=== PATIENT | female | born 1995 | race Asian ===

== ENCOUNTER → 2017-01-03 | Outpatient (CLI) | payer BC | END | disposition home or self-care (01) | LOC: C.PAPS 10:57 | PROVIDERS: ATTEND Family Medicine | DX: Z01.411 Encounter for gynecological examination (general) (routine) with abnormal findings (principal); R87.616 Satisfactory cervical smear but lacking transformation zone ==

== ENCOUNTER 2022-03-07 22:08 | Inpatient (IN) ==
--- NOTE | 2022-03-07 22:47 | Emergency Department Note ---
Impression & Plan Anxiety, Weight loss ADMIT ED Provider Note HPI: The patient is a 26-year-old female who presents the emergency department with her parents at the bedside over concern for stress, anxiety, abnormal behavior, and diminished appetite and weight loss over about the past 6 months. Patient's father is serving as the primary historian, the patient is very anxious here on arrival, she only gives me one-word answers. Patient's father states that the patient has been not taking very good care of herself over the past 6 months, she is not been eating very much, she is lost approximately 20 to 25 pounds during this time unintentionally, at times she exhibits some paranoia about "being committed to the hospital" and has fled the house without telling anyone leading them to search for her at times taking hours. On arrival here to the ED the patient is able to answer simple questions, she tells me she does not have any thoughts of self-harm, no thoughts of harming anyone else. She does have a delayed response to questioning and is very anxious appearing, does appear to possibly be responding to internal stimuli. Father states that she also "always says negative things to herself". She denies any auditory or visual hallucinations. Patient is otherwise hemodynamically stable on arrival. ROS: -Psychiatric: Abnormal behavior, weight loss. *10 point review systems was conducted and is otherwise negative unless stated above *Outpatient medications and allergy history reviewed PE: General: Alert, cachectic appearing HEENT: Normocephalic, atraumatic Eyes: Extraocular eye movement is intact, no scleral erythema Pulmonary: Clear to auscultation bilaterally, no wheezing Cardio: Regular rate and rhythm GI: Abdomen is soft, nontender : No suprapubic tenderness MSK: No evidence of trauma or malformation of the extremities, no edema Skin: No evidence of rash Neuro: Alert, no focal deficits Psychiatric: Cooperative EKG: Rate: 49 Rhythm: Sinus bradycardia Intervals: Within normal limits ST changes: No ST elevation Time: 0434 Medical Decision Making: Patient was medically cleared for assessment by case management, following discussion with case management and the patient's family the patient is agreeable for 201 admission. They feel like this is reasonable given her bizarre behavior lately according to the parents, she has been wandering off, she is possibly been red spotting to internal stimuli and having negative thoughts And talking to herself at times according to her father. She is also very cachectic appearing and apparently has not been eating. Patient was assessed for placement by 3 S., following this assessment it was determined that the patient should be admitted to the hospitalist service after discussions between psychiatry and medicine for 24-hour monitoring on telemetry over concern for the potential of a possible refeeding syndrome. Magnesium and phosphorus are noted to be within normal limits, patient is otherwise stable here in the ED, EKG does show some bradycardia that appears sinus, case was discussed with the on-call hospitalist for [facility] provider group, Dr. Ott, the patient was accepted to a monitored bed for further care Psychiatric consultation. Diagnosis: 1. Anxiety 2. Weight loss 3. Eating disorder, unspecified 4. High risk for refeeding syndrome 5. Bradycardia Disposition: ADMIT Alejandro Haines DO Emergency Medicine Past Med/Surg History Medical History Left-sided chest wall pain Surgical History No history of previous surgery Family History Sister Anorexia Mother Lymphoma Grandfather (Maternal) Prostate cancer Grandmother (Maternal) Breast cancer Denies family history of Ovarian cancer Myocardial infarction Lung cancer Colorectal cancer Stroke Social History Smoking Status: Never smoker Hx Alcohol Use: No Hx Substance Use: No Preferred Language: Croatian Communication Ability: Effective Visual Impairment: No Limitations Hearing Ability: Normal marital status: Single Current Living Situation: Other Current Living Situation Comment: sister current occupational status: student 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 Safe at Home: Yes Childhood Exposure to Second-Hand Smoke: No Physical Activity Frequency: 5-6 Times per Week Physical Activity Frequency Comment: squash, running, tennis pre pandemic Seatbelt Use: always Allergies Allergies Allergy/AdvReac Type Severity Reaction Status Date / Time No Known Allergies Allergy Verified 03/07/22 22:35 Home Meds Home Medications Medication Instructions Recorded Confirmed No Known Home Medications 03/02/21 03/07/22 Results & Data (ED) Vital Signs Vital Signs - 24 hr 03/07/22 22:12 03/08/22 04:36 Temperature 36.5 C Temperature Source Temporal Artery Scan Pulse Rate - Lying 52 L Pulse Rate - Sitting 56 L Pulse Rate - Standing 63 Pulse Rate 56 L Respiratory Rate 16 Respiratory Effort / Characteristics Non-Labored Spontaneous Respiratory Depth Normal Blood Pressure - Lying 105/72 Blood Pressure - Sitting 98/66 L Blood Pressure- Standing 90/67 L Blood Pressure 108/71 Blood Pressure Mean 83 Pulse Oximetry 100 Oxygen Delivery Method Room Air Sepsis Recent Fever Within 48 Hours No Sepsis New/Unexplained Change in Mental Status No Sepsis Action Taken by Nursing No Action Required Laboratory Data Result diagrams: 03/07/22 23:28 03/07/22 23:28 Lab Results 03/07/22 03/07/22 03/07/22 Range/Units 23:04 23:04 23:04 WBC (4.8-10.8) K/uL RBC (4.2-5.4) M/uL Hgb (12.0-16.0) g/dL Hct (37-47) % MCV (80-100) fL MCH (25-34) pg MCHC (32-36) g/dL RDW Std Deviation (36.4-46.3) fL RDW Coeff of Marlon (11.5-14.5) % Plt Count (130-400) K/uL MPV (7.4-10.4) fL Immature Gran % (Auto) % Neut % (Auto) % Lymph % (Auto) % [place] % (Auto) % Eos % (Auto) % Baso % (Auto) % Neut # (Auto) (1.4-6.5) K/uL Lymph # (Auto) (1.2-3.4) K/uL [place] # (Auto) (0.11-0.59) K/uL Eos # (Auto) (0-0.5) K/uL Baso # (Auto) (0-0.2) K/uL Immature Gran # (Auto) (0.00-0.02) K/uL Sodium (136-145) mmol/L Potassium (3.5-5.1) mmol/L Chloride (98-107) mmol/L Carbon Dioxide (21-32) mmol/L Anion Gap (3-11) BUN (6-23) mg/dl Creatinine (0.6-1.2) mg/dl Est Cr Clr Drug Dosing ml/min Est GFR ( Amer) ml/min Est GFR (Non-Af Amer) ml/min BUN/Creatinine Ratio (10-20) Glucose (70-99(Fasting)) mg/dl Calcium (8.5-10.1) mg/dl Phosphorus (2.5-4.9) mg/dl Magnesium (1.7-2.4) mg/dl Total Bilirubin (0.2-1.0) mg/dl AST (13-39) U/L ALT (7-52) U/L Alkaline Phosphatase (34-104) U/L Total Protein (6.0-8.3) gm/dl Albumin (3.4-5.0) gm/dl Globulin (2.5-4.0) gm/dl Albumin/Globulin Ratio (0.9-2) TSH (0.300-4.500) uIu/ml HCG, Qual (Negative) Urine Color Dark Yellow Urine Appearance Clear (Clear) Urine pH 7.5 (4.5-7.5) Ur Specific [place] 1.024 (1.000-1.030) Urine Protein 1+ H (Negative) Urine Glucose (UA) Negative (Negative) Urine Ketones Negative (Negative) Urine Blood Negative (Negative) Urine Nitrite Negative (Negative) Urine Bilirubin Negative (Negative) Urine Urobilinogen Negative (Negative) Ur Leukocyte Esterase Negative (Negative) Urine WBC (Auto) 1-5 (0-5) /hpf Urine RBC (Auto) 0-4 (0-4) /hpf U Hyaline Cast (Auto) 1-5 (0-5) /lpf U Epithel Cells (Auto) 20-30 H (0-5) /lpf Urine Bacteria (Auto) Negative (Negative) POC Ur Test (NEG) Salicylates (3.0-30) mg/dl Urine Opiates Screen Neg (Neg) Ur Methadone, Qual Neg (Neg) Acetaminophen (10-30) ug/ml Urine Barbiturates Neg (Neg) Ur Phencyclidine (PCP) Neg (Neg) U Amphetamin/Meth Scrn Neg (Neg) MDMA (Ecstasy) Screen Neg (Neg) U Benzodiazepines Scrn Neg (Neg) Ur Cocaine Metabolite Neg (Neg) U Marijuana (THC) Screen Neg (Neg) Ethyl Alcohol mg/dL (<10.0) mg/dl SARS-CoV-2, RNA, NAAT NEGATIVE (NEGATIVE) 03/07/22 03/07/22 03/07/22 Range/Units 23:04 23:28 23:28 WBC 4.68 L (4.8-10.8) K/uL RBC 4.54 (4.2-5.4) M/uL Hgb 14.0 (12.0-16.0) g/dL Hct 40.9 (37-47) % MCV 90.1 (80-100) fL MCH 30.8 (25-34) pg MCHC 34.2 (32-36) g/dL RDW Std Deviation 42.8 (36.4-46.3) fL RDW Coeff of Marlon 13.0 (11.5-14.5) % Plt Count 238 (130-400) K/uL MPV 8.5 (7.4-10.4) fL Immature Gran % (Auto) 0.0 % Neut % (Auto) 53.4 % Lymph % (Auto) 38.7 % [place] % (Auto) 5.6 % Eos % (Auto) 2.1 % Baso % (Auto) 0.2 % Neut # (Auto) 2.50 (1.4-6.5) K/uL Lymph # (Auto) 1.81 (1.2-3.4) K/uL [place] # (Auto) 0.26 (0.11-0.59) K/uL Eos # (Auto) 0.10 (0-0.5) K/uL Baso # (Auto) 0.01 (0-0.2) K/uL Immature Gran # (Auto) 0.00 (0.00-0.02) K/uL Sodium 139 (136-145) mmol/L Potassium 3.6 (3.5-5.1) mmol/L Chloride 99 (98-107) mmol/L Carbon Dioxide 32 (21-32) mmol/L Anion Gap 8 (3-11) BUN 12 (6-23) mg/dl Creatinine 0.88 (0.6-1.2) mg/dl Est Cr Clr Drug Dosing 63.1 ml/min Est GFR ( Amer) 103.6 ml/min Est GFR (Non-Af Amer) 89.4 ml/min BUN/Creatinine Ratio 13.6 (10-20) Glucose 81 (70-99(Fasting)) mg/dl Calcium 10.4 H (8.5-10.1) mg/dl Phosphorus (2.5-4.9) mg/dl Magnesium (1.7-2.4) mg/dl Total Bilirubin 1.1 H (0.2-1.0) mg/dl AST 16 (13-39) U/L ALT 13 (7-52) U/L Alkaline Phosphatase 43 (34-104) U/L Total Protein 7.7 (6.0-8.3) gm/dl Albumin 5.2 H (3.4-5.0) gm/dl Globulin 2.5 (2.5-4.0) gm/dl Albumin/Globulin Ratio 2.1 H (0.9-2) TSH (0.300-4.500) uIu/ml HCG, Qual (Negative) Urine Color Urine Appearance (Clear) Urine pH (4.5-7.5) Ur Specific [place] (1.000-1.030) Urine Protein (Negative) Urine Glucose (UA) (Negative) Urine Ketones (Negative) Urine Blood (Negative) Urine Nitrite (Negative) Urine Bilirubin (Negative) Urine Urobilinogen (Negative) Ur Leukocyte Esterase (Negative) Urine WBC (Auto) (0-5) /hpf Urine RBC (Auto) (0-4) /hpf U Hyaline Cast (Auto) (0-5) /lpf U Epithel Cells (Auto) (0-5) /lpf Urine Bacteria (Auto) (Negative) POC Ur Test NEG (NEG) Salicylates (3.0-30) mg/dl Urine Opiates Screen (Neg) Ur Methadone, Qual (Neg) Acetaminophen (10-30) ug/ml Urine Barbiturates (Neg) Ur Phencyclidine (PCP) (Neg) U Amphetamin/Meth Scrn (Neg) MDMA (Ecstasy) Screen (Neg) U Benzodiazepines Scrn (Neg) Ur Cocaine Metabolite (Neg) U Marijuana (THC) Screen (Neg) Ethyl Alcohol mg/dL (<10.0) mg/dl SARS-CoV-2, RNA, NAAT (NEGATIVE) 03/07/22 03/07/22 03/07/22 Range/Units 23:28 23:28 23:28 WBC (4.8-10.8) K/uL RBC (4.2-5.4) M/uL Hgb (12.0-16.0) g/dL Hct (37-47) % MCV (80-100) fL MCH (25-34) pg MCHC (32-36) g/dL RDW Std Deviation (36.4-46.3) fL RDW Coeff of Marlon (11.5-14.5) % Plt Count (130-400) K/uL MPV (7.4-10.4) fL Immature Gran % (Auto) % Neut % (Auto) % Lymph % (Auto) % [place] % (Auto) % Eos % (Auto) % Baso % (Auto) % Neut # (Auto) (1.4-6.5) K/uL Lymph # (Auto) (1.2-3.4) K/uL [place] # (Auto) (0.11-0.59) K/uL Eos # (Auto) (0-0.5) K/uL Baso # (Auto) (0-0.2) K/uL Immature Gran # (Auto) (0.00-0.02) K/uL Sodium (136-145) mmol/L Potassium (3.5-5.1) mmol/L Chloride (98-107) mmol/L Carbon Dioxide (21-32) mmol/L Anion Gap (3-11) BUN (6-23) mg/dl Creatinine (0.6-1.2) mg/dl Est Cr Clr Drug Dosing ml/min Est GFR ( Amer) ml/min Est GFR (Non-Af Amer) ml/min BUN/Creatinine Ratio (10-20) Glucose (70-99(Fasting)) mg/dl Calcium (8.5-10.1) mg/dl Phosphorus (2.5-4.9) mg/dl Magnesium (1.7-2.4) mg/dl Total Bilirubin (0.2-1.0) mg/dl AST (13-39) U/L ALT (7-52) U/L Alkaline Phosphatase (34-104) U/L Total Protein (6.0-8.3) gm/dl Albumin (3.4-5.0) gm/dl Globulin (2.5-4.0) gm/dl Albumin/Globulin Ratio (0.9-2) TSH 1.390 (0.300-4.500) uIu/ml HCG, Qual (Negative) Urine Color Urine Appearance (Clear) Urine pH (4.5-7.5) Ur Specific [place] (1.000-1.030) Urine Protein (Negative) Urine Glucose (UA) (Negative) Urine Ketones (Negative) Urine Blood (Negative) Urine Nitrite (Negative) Urine Bilirubin (Negative) Urine Urobilinogen (Negative) Ur Leukocyte Esterase (Negative) Urine WBC (Auto) (0-5) /hpf Urine RBC (Auto) (0-4) /hpf U Hyaline Cast (Auto) (0-5) /lpf U Epithel Cells (Auto) (0-5) /lpf Urine Bacteria (Auto) (Negative) POC Ur Test (NEG) Salicylates < 3.0 L (3.0-30) mg/dl Urine Opiates Screen (Neg) Ur Methadone, Qual (Neg) Acetaminophen < 3 L (10-30) ug/ml Urine Barbiturates (Neg) Ur Phencyclidine (PCP) (Neg) U Amphetamin/Meth Scrn (Neg) MDMA (Ecstasy) Screen (Neg) U Benzodiazepines Scrn (Neg) Ur Cocaine Metabolite (Neg) U Marijuana (THC) Screen (Neg) Ethyl Alcohol mg/dL < 10.0 (<10.0) mg/dl SARS-CoV-2, RNA, NAAT (NEGATIVE) 03/07/22 03/07/22 Range/Units 23:28 23:28 WBC (4.8-10.8) K/uL RBC (4.2-5.4) M/uL Hgb (12.0-16.0) g/dL Hct (37-47) % MCV (80-100) fL MCH (25-34) pg MCHC (32-36) g/dL RDW Std Deviation (36.4-46.3) fL RDW Coeff of Marlon (11.5-14.5) % Plt Count (130-400) K/uL MPV (7.4-10.4) fL Immature Gran % (Auto) % Neut % (Auto) % Lymph % (Auto) % [place] % (Auto) % Eos % (Auto) % Baso % (Auto) % Neut # (Auto) (1.4-6.5) K/uL Lymph # (Auto) (1.2-3.4) K/uL [place] # (Auto) (0.11-0.59) K/uL Eos # (Auto) (0-0.5) K/uL Baso # (Auto) (0-0.2) K/uL Immature Gran # (Auto) (0.00-0.02) K/uL Sodium (136-145) mmol/L Potassium (3.5-5.1) mmol/L Chloride (98-107) mmol/L Carbon Dioxide (21-32) mmol/L Anion Gap (3-11) BUN (6-23) mg/dl Creatinine (0.6-1.2) mg/dl Est Cr Clr Drug Dosing ml/min Est GFR ( Amer) ml/min Est GFR (Non-Af Amer) ml/min BUN/Creatinine Ratio (10-20) Glucose (70-99(Fasting)) mg/dl Calcium (8.5-10.1) mg/dl Phosphorus 4.2 (2.5-4.9) mg/dl Magnesium 2.1 (1.7-2.4) mg/dl Total Bilirubin (0.2-1.0) mg/dl AST (13-39) U/L ALT (7-52) U/L Alkaline Phosphatase (34-104) U/L Total Protein (6.0-8.3) gm/dl Albumin (3.4-5.0) gm/dl Globulin (2.5-4.0) gm/dl Albumin/Globulin Ratio (0.9-2) TSH (0.300-4.500) uIu/ml HCG, Qual Negative (Negative) Urine Color Urine Appearance (Clear) Urine pH (4.5-7.5) Ur Specific [place] (1.000-1.030) Urine Protein (Negative) Urine Glucose (UA) (Negative) Urine Ketones (Negative) Urine Blood (Negative) Urine Nitrite (Negative) Urine Bilirubin (Negative) Urine Urobilinogen (Negative) Ur Leukocyte Esterase (Negative) Urine WBC (Auto) (0-5) /hpf Urine RBC (Auto) (0-4) /hpf U Hyaline Cast (Auto) (0-5) /lpf U Epithel Cells (Auto) (0-5) /lpf Urine Bacteria (Auto) (Negative) POC Ur Test (NEG) Salicylates (3.0-30) mg/dl Urine Opiates Screen (Neg) Ur Methadone, Qual (Neg) Acetaminophen (10-30) ug/ml Urine Barbiturates (Neg) Ur Phencyclidine (PCP) (Neg) U Amphetamin/Meth Scrn (Neg) MDMA (Ecstasy) Screen (Neg) U Benzodiazepines Scrn (Neg) Ur Cocaine Metabolite (Neg) U Marijuana (THC) Screen (Neg) Ethyl Alcohol mg/dL (<10.0) mg/dl SARS-CoV-2, RNA, NAAT (NEGATIVE) Discharge Plan Visit Data Chief Complaint: Mental Health Evaluation Stated Complaint: MENTAL HEALTH EVALUATION ED Provider: Alejandro Haines Discharge Problem: Anxiety, Weight loss Forms Stand Alone Forms: [facility], Suicide Prevention Resources Prescriptions Prescriptions: No Action No Known Home Medications RF: 0 Referrals Referrals: Symone Kirkland MD [Primary Care Provider] -
[2022-03-07 23:24] LABS: Appearance Urine Clear (Clear); Bacteria Urine Automated Negative (Negative); Bilirubin Urine Negative (Negative); Blood Urine Negative (Negative); Color Urine Dark Yellow; Epithelial Cell Urine Auto 20-30 /lpf (0-5); Glucose Urine UA Negative (Negative); Ketones Urine Negative (Negative); Leukocyte Esterase Urine Negative (Negative); Nitrite Urine Negative (Negative); RBC Urine Automated 0-4 /hpf (0-4); Specific Gravity Urine 1.024 (1.000-1.030); Urobilinogen Urine Negative (Negative); pH Urine 7.5 (4.5-7.5)
[2022-03-07 23:45] LABS: Protein Urine 1+ (Negative)
[2022-03-07 23:46] LABS: Basophils # (auto) 0.01 K/uL (0-0.2); Basophils % (auto) 0.2 %; Eosinophils % (auto) 2.1 %; Hematocrit (blood only) 40.9 % (37-47); Lymphocytes # (auto) 1.81 K/uL (1.2-3.4); Lymphocytes % (auto) 38.7 %; Mean Corpuscular Hemoglobin 30.8 pg (25-34); Mean Corpuscular Hgb Conc 34.2 g/dL (32-36); Mean Corpuscular Volume 90.1 fL (80-100); Mean Platelet Volume 8.5 fL (7.4-10.4); Monocytes # (auto) 0.26 K/uL (0.11-0.59); Monocytes % (auto) 5.6 %; Neutrophils % (auto) 53.4 %; Platelet Count 238 K/uL (130-400); RDW Standard Deviation 42.8 fL (36.4-46.3); Red Blood Count 4.54 M/uL (4.2-5.4); White Blood Count 4.68 K/uL (4.8-10.8)
[2022-03-07 23:47] LABS: Amphetamines+Metham, Urine Neg (Neg); Barbiturates, Urine Neg (Neg); Benzodiazepine, Urine Neg (Neg); Cocaine, Urine Neg (Neg); MDMA (Ecstacy), Urine Neg (Neg); Methadone, Urine Neg (Neg); Opiate, Urine Neg (Neg); Phencyclidine, Urine Neg (Neg)
[2022-03-08 00:01] LABS: Pregnancy Test, Serum Negative (Negative)
[2022-03-08 00:08] LABS: Acetaminophen < 3 ug/ml (10-30); Albumin Globulin Ratio 2.1 (0.9-2); Albumin Level 5.2 gm/dl (3.4-5.0); BUN Creatinine Ratio 13.6 (10-20); Bilirubin,Total 1.1 mg/dl (0.2-1.0); Calcium 10.4 mg/dl (8.5-10.1); Creatinine Clr Calc Pharmacy 63.1 ml/min; Est GFR (African American) 103.6 ml/min; Est GFR (Non-African American) 89.4 ml/min; Globulin 2.5 gm/dl (2.5-4.0); Potassium 3.6 mmol/L (3.5-5.1); Salicylate < 3.0 mg/dl (3.0-30); Total Protein 7.7 gm/dl (6.0-8.3)
[2022-03-08 05:24] LABS: Magnesium 2.1 mg/dl (1.7-2.4); Phosphorus 4.2 mg/dl (2.5-4.9)
--- NOTE | 2022-03-08 06:21 | Communication Note ---
Date of Service: March 08, 2022 patient presented to me by liaison nurse for first time just after 4 am. Patient is "non functional" and c/o anxiety, most of which surrounds eating/beliefs about sugar and health. Has at least a 2 year history of restrictive eating, sounds like may have started as orthorexia, progressed to no menses. Weight loss in last 6 months estimated at 20-25 lbs. Lives with parents and unclear the last time they saw her eat/drink. Requested EKG given her anorexia, BMI 15.4, and pulse while anxious in ED of 56 as well as orthostatics and Mg, phos. Labs aren't particularly remarkable but she meets multiple criteria for inpatient ED care (BMI, sakina, some of her anxiety may be symptomatic bradycardia or hypoglycemia). ED orthostatics not yet on chart but systolic BP drops on standing but with p increase to 63. Case discussed with Dr. Ott due to concerns about need for cardiac monitoring overnight as P typically drops. Also, no current estimation of calorie or fluid intake (we cannot offer IVF) and patient is high risk for refeeding syndrome. Inpatient ED treatment seems most appropriate if P remains >50 for 24 hrs and patient amenable. She reportedly is willing for psychiatric medications as well but typically main treatment is refeeding.
--- NOTE | 2022-03-08 07:11 | History & Physical Report ---
Date of Service March 08, 2022 Assessment & Plan (1) Weight loss: Plan: 26yo female presenting with her parents due to concern for inability to function at home, increased anxiety. Concern for ongoing eating disorder - patient with significant anxiety surrounding food. BMI is 15.4. Patient with significant weight loss of 20-25 pounds over the last 6 months has secondary amenorrhea as well. Bradycardic at 49bpm on EKG. Overall appears cachectic but well hydrated. Electrolytes, renal function and liver are largely normal. Patient last ate a small amount of food 2 days ago. Possibly at risk for refeeding syndrome given presumed duration of dietary restriction -Admit to medical with telemetry -Administer banana bag x 1 -Monitor electrolytes, Mg and PO4 daily - decline in PO4 with PO intake may indicate refeeding syndrome -Thiamine 200mg IV daily -Vitamin B12 500mg daily -Psychiatry evaluation appreciated -1:1 sitter due to concern for elopement (2) Abnormal behavior: Plan: Uncertain if patient's abnormal behavior is secondary to anxiety vs other psychiatric condition. She denies AH/VH as well as SI/HI. Some concern that she is responding to internal stimuli. Difficult to obtain full assessment. -Psychiatry evaluation appreciated -Possibly Remeron for dietary stimulation (3) Anxiety: Plan: Patient demonstrating progressive anxiety specifically surrounding food. Unable to care for herself at home. -Psychiatry evaluation appreciated (4) Hypercalcemia: Plan: Calcium = 10.4. Possibly secondary to dehydration (elevated Albumin as well, higher SG on UA) -Check intact PTH -Check ionized Ca -IVF- NSS at 80mL/hr x 2 liters Plan: F/E/N - Banana bag ordered, NSS at 80mL/hr x 2 liters, monitor electrolytes, regular diet as tolerated Ppx - low risk for DVT Code - Full Dispo - Admit to medical with telemetry History of Present Illness Chief Complaint: poor oral intake, abnormal behavior Primary Care Provider: Symone Kirkland MD Fanny Houston is a 26yo female presenting to [facility] ER with her parents due to concern for difficulty functioning at home. Majority of history obtained by parents. Patient reportedly experiencing increased anxiety surrounding her day to day activities to the point where she is unable to care for herself. She displays a lot of anxiety around eating and has displayed restrictive eating behaviors for possibly 2 years. Her parents state that she does not eat much at home - at a small amount of food two days ago. She has had significant unintentional weight loss of 20-25 pounds over the last 6 months. She denies binge eating behavior or purging. Denies excess exercise. Family states that she acts strangely at times. Is minimally responsive and non-verbal at times. She has a fear that she will be put away in a hospital and at times tries to flee from her home. She denies auditory or visual hallucinations. Denies suicidal or homicidal ideation. Denies prior psychiatric diagnoses. Also denies fever, chills, headache, neck pain, visual changes, chest pain, palpitations, cough, SOB, abdominal pain, nausea, vomiting, diarrhea. 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 Patient will be admitted to medical with telemetry to monitor heart rate. Allergies Allergy/AdvReac Type Severity Reaction Status Date / Time No Known Allergies Allergy Verified 03/07/22 22:35 Home Medications Medication Instructions Recorded Confirmed Type No Known Home Medications 03/02/21 03/07/22 History Past Med/Surg History Medical History (Updated 03/08/22 @ 06:56 by Monae Ott DO) Left-sided chest wall pain Secondary amenorrhea Probable hypothalamic dysfunction Weight loss Surgical History No history of previous surgery Family History Sister Anorexia Mother Lymphoma Grandfather (Maternal) Prostate cancer Grandmother (Maternal) Breast cancer Denies family history of Ovarian cancer Myocardial infarction Lung cancer Colorectal cancer Stroke Social History Smoking Status: Never smoker Hx Alcohol Use: No Hx Substance Use: No Preferred Language: Sammarinese Communication Ability: Effective Visual Impairment: No Limitations Hearing Ability: Normal marital status: Single Current Living Situation: Other Current Living Situation Comment: sister current occupational status: student 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 Safe at Home: Yes Childhood Exposure to Second-Hand Smoke: No Physical Activity Frequency: 5-6 Times per Week Physical Activity Frequency Comment: squash, running, tennis pre pandemic Seatbelt Use: always Review of Systems Review of Systems: All systems reviewed & are unremarkable except as noted in HPI & below Physical Exam Physical Exam: General: patient frail and cachectic, appears anxious and stressed Skin: warm, dry, intact, no rashes or lesions HEENT: NC/AT, PERRL, EOMI, anicteric sclera, conjunctiva without injection, external ear normal to inspection and nontender, nares patent, moist mucus membranes, dentition intact, no oropharyngeal lesions, neck supple, trachea midline, no LAD, no thyromegaly, no JVD Heart: +S1/S2, regular, bradycardic, no m/r/g Lungs: equal air entry bilaterally, no rales/rhonchi/wheezes Abd: +BS, soft, NT/ND, no masses/organomegaly/ascites Ext: warm, 2+ pulses in UE/LE bilaterally, no clubbing/cyanosis or edema Neuro: nonfocal, answers questions very softly in one word answers, no facial droop, moving all extremities on command with equal strength 5/5 Results & Data Results & Data ([facility]) Vital Signs (Past 12 Hours) Vital Signs Temp Pulse Resp BP Pulse Ox 03/07/22 22:12 36.5 C 56 L 16 108/71 100 Laboratory Results Laboratory Results WBC 4.68 K/uL (4.8-10.8) L 03/07/22 23:28 RBC 4.54 M/uL (4.2-5.4) 03/07/22 23:28 Hgb 14.0 g/dL (12.0-16.0) 03/07/22 23:28 Hct 40.9 % (37-47) 03/07/22 23:28 MCV 90.1 fL (80-100) 03/07/22 23:28 MCH 30.8 pg (25-34) 03/07/22 23:28 MCHC 34.2 g/dL (32-36) 03/07/22 23:28 RDW Std Deviation 42.8 fL (36.4-46.3) 03/07/22 23:28 RDW Coeff of Marlon 13.0 % (11.5-14.5) 03/07/22 23:28 Plt Count 238 K/uL (130-400) 03/07/22 23:28 MPV 8.5 fL (7.4-10.4) 03/07/22: Immature Gran % (Auto) 0.0 % 03/07/22 23: Neut % (Auto) 53.4 % 03/07/22: Lymph % (Auto) 38.7 % 03/07/22: [place] % (Auto) 5.6 % 03/07/22: Eos % (Auto) 2.1 % 03/07/22: Baso % (Auto) 0.2 % 03/07/22 Neut # (Auto) 2.50 K/uL (1.4-6.5) 03/07/22: Lymph # (Auto) 1.81 K/uL (1.2-3.4) 03/07/22: [place] # (Auto) 0.26 K/uL (0.11-0.59) 03/07/22: Eos # (Auto) 0.10 K/uL (0-0.5) 03/07/22: Baso # (Auto) 0.01 K/uL (0-0.2) 03/07/22: Immature Gran # (Auto) 0.00 K/uL (0.00-0.02) 03/07/22 Sodium 139 mmol/L (136-145) 03/07/22: Potassium 3.6 mmol/L (3.5-5.1) 03/07/22: Chloride 99 mmol/L (98-107) 03/07/22: Carbon Dioxide 32 mmol/L (21-32) 03/07/22: Anion Gap 8 (3-11) 03/07/22: BUN 12 mg/dl (6-23) 03/07/22: Creatinine 0.88 mg/dl (0.6-1.2) 03/07/22 Est Cr Clr Drug Dosing 63.1 ml/min 03/07/22: Est GFR ( Amer) 103.6 ml/min 03/07/22: Est GFR (Non-Af Amer) 89.4 ml/min 03/07/22: BUN/Creatinine Ratio 13.6 (10-20) 03/07/22: Glucose 81 mg/dl (70-99(Fasting)) 03/07/22: Calcium 10.4 mg/dl (8.5-10.1) H 03/07/22: Phosphorus 4.2 mg/dl (2.5-4.9) 03/07/22: Magnesium 2.1 mg/dl (1.7-2.4) 03/07/22: Total Bilirubin 1.1 mg/dl (0.2-1.0) H 03/07/22 23: AST 16 U/L (13-39) 03/07/22: ALT 13 U/L (7-52) 03/07/22: Alkaline Phosphatase 43 U/L (34-104) 03/07/22: Total Protein 7.7 gm/dl (6.0-8.3) 03/07/22: Albumin 5.2 gm/dl (3.4-5.0) H 03/07/22: Globulin 2.5 gm/dl (2.5-4.0) 03/07/22: Albumin/Globulin Ratio 2.1 (0.9-2) H 03/07/22: TSH 1.390 uIu/ml (0.300-4.500) 03/07/22: HCG, Qual Negative (Negative) 03/07/22: Urine Color Dark Yellow 03/07/22 23: Urine Appearance Clear (Clear) 03/07/22 23: Urine pH 7.5 (4.5-7.5) 03/07/22 23: Ur Specific [place] 1.024 (1.000-1.030) 03/07/22 23: Urine Protein 1+ (Negative) H 03/07/22 23: Urine Glucose (UA) Negative (Negative) 03/07/22 23: Urine Ketones Negative (Negative) 03/07/22 23: Urine Blood Negative (Negative) 03/07/22 23: Urine Nitrite Negative (Negative) 03/07/22 23: Urine Bilirubin Negative (Negative) 03/07/22 23: Urine Urobilinogen Negative (Negative) 03/07/22 23:04 Ur Leukocyte Esterase Negative (Negative) 03/07/22 23:04 Urine WBC (Auto) 1-5 /hpf (0-5) 03/07/22 23:04 Urine RBC (Auto) 0-4 /hpf (0-4) 03/07/22 23:04 U Hyaline Cast (Auto) 1-5 /lpf (0-5) 03/07/22 23:04 U Epithel Cells (Auto) 20-30 /lpf (0-5) H 03/07/22 23:04 Urine Bacteria (Auto) Negative (Negative) 03/07/22 23:04 POC Ur Test NEG (NEG) 03/07/22 23:04 Salicylates < 3.0 mg/dl (3.0-30) L 03/07/22 23:28 Urine Opiates Screen Neg (Neg) 03/07/22 23:04 Ur Methadone, Qual Neg (Neg) 03/07/22 23:04 Acetaminophen < 3 ug/ml (10-30) L 03/07/22 23:28 Urine Barbiturates Neg (Neg) 03/07/22 23:04 Ur Phencyclidine (PCP) Neg (Neg) 03/07/22 23:04 U Amphetamin/Meth Scrn Neg (Neg) 03/07/22 23:04 MDMA (Ecstasy) Screen Neg (Neg) 03/07/22 23:04 U Benzodiazepines Scrn Neg (Neg) 03/07/22 23:04 Ur Cocaine Metabolite Neg (Neg) 03/07/22 23:04 U Marijuana (THC) Screen Neg (Neg) 03/07/22 23:04 Ethyl Alcohol mg/dL < 10.0 mg/dl (<10.0) 03/07/22 23:28 SARS-CoV-2, RNA, NAAT NEGATIVE (NEGATIVE) 03/07/22 23:04 ECG Additional Comments: SB at 49bpm, normal axis, SE=923, QRS=76, UYp=757 PG Care Time/CCT Total # of Minutes Spent Total Time Spent with Patient: Total time spent is greater than 50% in coordination of care (as documented) at patient's floor/unit and/or counseling patient: Coding Level of Care Code INT OBSERVATION CARE 50M LVL 2 Diagnoses Weight loss R63.4 Anxiety F41.9 Abnormal behavior R46.89 Hypercalcemia E83.52
[2022-03-08] MEDS ORDERED: MULTI-VITAMIN INFUSION 10 ML, THIAMINE HCL 100 MG, FOLIC ACID 1 MG in SODIUM CHLORIDE 0... IV ONE (07:30)
[2022-03-08] MEDS ORDERED: ACETAMINOPHEN 325 MG TAB PO PRN (09:46)
[2022-03-08] MEDS ORDERED: SODIUM CHLORIDE 0.9% 1000ML 1,000 ML IV SCH (09:46)
[2022-03-08] MEDS ORDERED: THIAMINE HCL 200 MG in SODIUM CHLORIDE 0.9% 50 ML IV SCH (10:30)
[2022-03-08] MEDS: MULTIVITAMIN TAB PO SCH (11:20)
[2022-03-08] MEDS: CYANOCOBALAMIN (B-12) 500 MCG TABLET PO SCH (11:20)
--- NOTE | 2022-03-08 11:36 | Electrocardiogram Report ---
Test Reason : Blood Pressure : / mmHG Vent. Rate : 049 BPM Atrial Rate : 049 BPM P-R Int : 158 ms QRS Dur : 076 ms QT Int : 458 ms P-R-T Axes : 052 089 068 degrees QTc Int : 413 ms Sinus bradycardia Otherwise normal ECG When compared with ECG of 01-JUN-2021 16:25, Vent. rate has decreased BY 52 BPM Minimal criteria for Inferior infarct are no longer Present ST elevation has replaced ST depression in Inferior leads ST no longer depressed in Lateral leads T wave inversion no longer evident in Inferior leads T wave inversion less evident in Anterolateral leads Confirmed by Sin Sifuentes ([id number]) on 03/08/2022 11:35:36 AM Referred By: REFERRED SELF Confirmed By:Anthony Sifuentes
--- NOTE | 2022-03-08 14:19 | Psychiatric Consultation ---
Date of Consultation March 08, 2022 Impression / Recommendations Impression 26 yo female with progressive preoccupation with food, weight loss, resulting in secondary amenorrhea for some time now with classic symptoms of low BMI, lanugo, bradycardia. Patient not taking PO and is having anxiety around communication. Unable to exclude psychotic depression but restoring nutrition is primary treatment need. (1) Anorexia nervosa with dangerously low body weight: BMI <18 (15.4) and bradycardia with ongoing restricting are clear criteria for inpatient ED treatment when medically clear. consider Ativan challenge if any emerging catatonic features will discuss Zyprexa trial, likely 1.25 mg to start and taking PO after period of cardiac monitoring Protective Factors Assessment Employed: No Psych History Identifying Data 26 yo female from [place]. Patient seen with father at bedside while still in ED. Medical admission pending for complications of anorexia. Chief Complaint "[]". History of Present Illness patient presented to me by liaison nurse earlier this am. Patient is "non functional" at home and c/o anxiety, most of which surrounds eating/beliefs about sugar and health. Has at least a 2 year history of restrictive eating, sounds like may have started as orthorexia, progressed to no menses. Weight loss in last 6 months estimated at 20-25 lbs. Lives with parents and unclear the last time they saw her eat/drink. Requested EKG given her anorexia, BMI 15.4, and pulse while anxious in ED of 56 as well as orthostatics and Mg, phos. Vent rate 49 on EKG and placed on monitor. Patient is selectively mute, at least with parents present. Hadn't touched liquid/breakfast/lunch at bedside. She is not able to provide additional history. Father notes total lack of interest in activities like piano. Denies any catatonic features such as posturing or echolalia. Has been seen a few times in PCP office and ED, states they have never been able to find providers accepting patients. Past Psychiatric History Previous Psych History: no formal History of Previous Suicide Attempt: No Past Medication Trials: denied Allergies Allergy/AdvReac Type Severity Reaction Status Date / Time No Known Allergies Allergy Verified 03/07/22 22:35 Home Medications Medication Instructions Recorded Confirmed Type No Known Home Medications 03/02/21 03/07/22 History Family History father denied. Substance Abuse History denied Personal History Living Arrangements: Home Highest Grade Completed: Some College (had attended [employer] briefly but had to return home) Employment Status: Unemployed Marital Status: Single Number Of Children: 0 Psychological Trauma History Comment: none reported Patient History Medical History Left-sided chest wall pain Secondary amenorrhea Probable hypothalamic dysfunction Weight loss Surgical History No history of previous surgery Family History Sister Anorexia Mother Lymphoma Grandfather (Maternal) Prostate cancer Grandmother (Maternal) Breast cancer Denies family history of Ovarian cancer Myocardial infarction Lung cancer Colorectal cancer Stroke Social History Smoking Status: Never smoker Hx Alcohol Use: No Hx Substance Use: No Preferred Language: French Communication Ability: Effective Visual Impairment: No Limitations Hearing Ability: Normal marital status: Single Current Living Situation: Other Current Living Situation Comment: sister current occupational status: student 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 Does not appear to be responding to internal stimuli. Will reassess when settled on medical floor. Vital Signs (Past 24 Hours): Last Vital Signs Temp 36.5 C 03/07/22 22:12 Pulse 78 03/08/22 12:43 Resp 16 03/08/22 12:43 BP 109/70 03/08/22 12:43 Pulse Ox 100 03/08/22 12:43 Review of Systems Unobtainable due to mental health condition Results & Data (PSY) Laboratory Results 03/08/22 03/08/22 03/07/22 Range/Units 10:23 10:23 23:28 WBC (4.8-10.8) K/uL RBC (4.2-5.4) M/uL Hgb (12.0-16.0) g/dL Hct (37-47) % MCV (80-100) fL MCH (25-34) pg MCHC (32-36) g/dL RDW Std Deviation (36.4-46.3) fL RDW Coeff of Marlon (11.5-14.5) % Plt Count (130-400) K/uL MPV (7.4-10.4) fL Immature Gran % (Auto) % Neut % (Auto) % Lymph % (Auto) % [place] % (Auto) % Eos % (Auto) % Baso % (Auto) % Neut # (Auto) (1.4-6.5) K/uL Lymph # (Auto) (1.2-3.4) K/uL [place] # (Auto) (0.11-0.59) K/uL Eos # (Auto) (0-0.5) K/uL Baso # (Auto) (0-0.2) K/uL Immature Gran # (Auto) (0.00-0.02) K/uL Sodium (136-145) mmol/L Potassium (3.5-5.1) mmol/L Chloride (98-107) mmol/L Carbon Dioxide (21-32) mmol/L Anion Gap (3-11) BUN (6-23) mg/dl Creatinine (0.6-1.2) mg/dl Est Cr Clr Drug Dosing ml/min Est GFR ( Amer) ml/min Est GFR (Non-Af Amer) ml/min BUN/Creatinine Ratio (10-20) Glucose (70-99(Fasting)) mg/dl Calcium (8.5-10.1) mg/dl Ionized Calcium 1.17 (1.12-1.32) mmol/L Phosphorus 4.2 (2.5-4.9) mg/dl Magnesium 2.1 (1.7-2.4) mg/dl Total Bilirubin (0.2-1.0) mg/dl AST (13-39) U/L ALT (7-52) U/L Alkaline Phosphatase (34-104) U/L Total Protein (6.0-8.3) gm/dl Albumin (3.4-5.0) gm/dl Globulin (2.5-4.0) gm/dl Albumin/Globulin Ratio (0.9-2) TSH (0.300-4.500) uIu/ml HCG, Qual (Negative) PTH Intact 39.7 (12.0-88.0) pg/ml Urine Color Urine Appearance (Clear) Urine pH (4.5-7.5) Ur Specific [place] (1.000-1.030) Urine Protein (Negative) Urine Glucose (UA) (Negative) Urine Ketones (Negative) Urine Blood (Negative) Urine Nitrite (Negative) Urine Bilirubin (Negative) Urine Urobilinogen (Negative) Ur Leukocyte Esterase (Negative) Urine WBC (Auto) (0-5) /hpf Urine RBC (Auto) (0-4) /hpf U Hyaline Cast (Auto) (0-5) /lpf U Epithel Cells (Auto) (0-5) /lpf Urine Bacteria (Auto) (Negative) POC Ur Test (NEG) Salicylates (3.0-30) mg/dl Urine Opiates Screen (Neg) Ur Methadone, Qual (Neg) Acetaminophen (10-30) ug/ml Urine Barbiturates (Neg) Ur Phencyclidine (PCP) (Neg) U Amphetamin/Meth Scrn (Neg) MDMA (Ecstasy) Screen (Neg) U Benzodiazepines Scrn (Neg) Ur Cocaine Metabolite (Neg) U Marijuana (THC) Screen (Neg) Ethyl Alcohol mg/dL (<10.0) mg/dl SARS-CoV-2, RNA, NAAT (NEGATIVE) 03/07/22 03/07/22 03/07/22 Range/Units 23:28 23:28 23:28 WBC (4.8-10.8) K/uL RBC (4.2-5.4) M/uL Hgb (12.0-16.0) g/dL Hct (37-47) % MCV (80-100) fL MCH (25-34) pg MCHC (32-36) g/dL RDW Std Deviation (36.4-46.3) fL RDW Coeff of Marlon (11.5-14.5) % Plt Count (130-400) K/uL MPV (7.4-10.4) fL Immature Gran % (Auto) % Neut % (Auto) % Lymph % (Auto) % [place] % (Auto) % Eos % (Auto) % Baso % (Auto) % Neut # (Auto) (1.4-6.5) K/uL Lymph # (Auto) (1.2-3.4) K/uL [place] # (Auto) (0.11-0.59) K/uL Eos # (Auto) (0-0.5) K/uL Baso # (Auto) (0-0.2) K/uL Immature Gran # (Auto) (0.00-0.02) K/uL Sodium (136-145) mmol/L Potassium (3.5-5.1) mmol/L Chloride (98-107) mmol/L Carbon Dioxide (21-32) mmol/L Anion Gap (3-11) BUN (6-23) mg/dl Creatinine (0.6-1.2) mg/dl Est Cr Clr Drug Dosing ml/min Est GFR ( Amer) ml/min Est GFR (Non-Af Amer) ml/min BUN/Creatinine Ratio (10-20) Glucose (70-99(Fasting)) mg/dl Calcium (8.5-10.1) mg/dl Ionized Calcium (1.12-1.32) mmol/L Phosphorus (2.5-4.9) mg/dl Magnesium (1.7-2.4) mg/dl Total Bilirubin (0.2-1.0) mg/dl AST (13-39) U/L ALT (7-52) U/L Alkaline Phosphatase (34-104) U/L Total Protein (6.0-8.3) gm/dl Albumin (3.4-5.0) gm/dl Globulin (2.5-4.0) gm/dl Albumin/Globulin Ratio (0.9-2) TSH (0.300-4.500) uIu/ml HCG, Qual Negative (Negative) PTH Intact (12.0-88.0) pg/ml Urine Color Urine Appearance (Clear) Urine pH (4.5-7.5) Ur Specific [place] (1.000-1.030) Urine Protein (Negative) Urine Glucose (UA) (Negative) Urine Ketones (Negative) Urine Blood (Negative) Urine Nitrite (Negative) Urine Bilirubin (Negative) Urine Urobilinogen (Negative) Ur Leukocyte Esterase (Negative) Urine WBC (Auto) (0-5) /hpf Urine RBC (Auto) (0-4) /hpf U Hyaline Cast (Auto) (0-5) /lpf U Epithel Cells (Auto) (0-5) /lpf Urine Bacteria (Auto) (Negative) POC Ur Test (NEG) Salicylates < 3.0 L (3.0-30) mg/dl Urine Opiates Screen (Neg) Ur Methadone, Qual (Neg) Acetaminophen < 3 L (10-30) ug/ml Urine Barbiturates (Neg) Ur Phencyclidine (PCP) (Neg) U Amphetamin/Meth Scrn (Neg) MDMA (Ecstasy) Screen (Neg) U Benzodiazepines Scrn (Neg) Ur Cocaine Metabolite (Neg) U Marijuana (THC) Screen (Neg) Ethyl Alcohol mg/dL < 10.0 (<10.0) mg/dl SARS-CoV-2, RNA, NAAT (NEGATIVE) 03/07/22 03/07/22 03/07/22 Range/Units 23:28 23:28 23:28 WBC 4.68 L (4.8-10.8) K/uL RBC 4.54 (4.2-5.4) M/uL Hgb 14.0 (12.0-16.0) g/dL Hct 40.9 (37-47) % MCV 90.1 (80-100) fL MCH 30.8 (25-34) pg MCHC 34.2 (32-36) g/dL RDW Std Deviation 42.8 (36.4-46.3) fL RDW Coeff of Marlon 13.0 (11.5-14.5) % Plt Count 238 (130-400) K/uL MPV 8.5 (7.4-10.4) fL Immature Gran % (Auto) 0.0 % Neut % (Auto) 53.4 % Lymph % (Auto) 38.7 % [place] % (Auto) 5.6 % Eos % (Auto) 2.1 % Baso % (Auto) 0.2 % Neut # (Auto) 2.50 (1.4-6.5) K/uL Lymph # (Auto) 1.81 (1.2-3.4) K/uL [place] # (Auto) 0.26 (0.11-0.59) K/uL Eos # (Auto) 0.10 (0-0.5) K/uL Baso # (Auto) 0.01 (0-0.2) K/uL Immature Gran # (Auto) 0.00 (0.00-0.02) K/uL Sodium 139 (136-145) mmol/L Potassium 3.6 (3.5-5.1) mmol/L Chloride 99 (98-107) mmol/L Carbon Dioxide 32 (21-32) mmol/L Anion Gap 8 (3-11) BUN 12 (6-23) mg/dl Creatinine 0.88 (0.6-1.2) mg/dl Est Cr Clr Drug Dosing 63.1 ml/min Est GFR ( Amer) 103.6 ml/min Est GFR (Non-Af Amer) 89.4 ml/min BUN/Creatinine Ratio 13.6 (10-20) Glucose 81 (70-99(Fasting)) mg/dl Calcium 10.4 H (8.5-10.1) mg/dl Ionized Calcium (1.12-1.32) mmol/L Phosphorus (2.5-4.9) mg/dl Magnesium (1.7-2.4) mg/dl Total Bilirubin 1.1 H (0.2-1.0) mg/dl AST 16 (13-39) U/L ALT 13 (7-52) U/L Alkaline Phosphatase 43 (34-104) U/L Total Protein 7.7 (6.0-8.3) gm/dl Albumin 5.2 H (3.4-5.0) gm/dl Globulin 2.5 (2.5-4.0) gm/dl Albumin/Globulin Ratio 2.1 H (0.9-2) TSH 1.390 (0.300-4.500) uIu/ml HCG, Qual (Negative) PTH Intact (12.0-88.0) pg/ml Urine Color Urine Appearance (Clear) Urine pH (4.5-7.5) Ur Specific [place] (1.000-1.030) Urine Protein (Negative) Urine Glucose (UA) (Negative) Urine Ketones (Negative) Urine Blood (Negative) Urine Nitrite (Negative) Urine Bilirubin (Negative) Urine Urobilinogen (Negative) Ur Leukocyte Esterase (Negative) Urine WBC (Auto) (0-5) /hpf Urine RBC (Auto) (0-4) /hpf U Hyaline Cast (Auto) (0-5) /lpf U Epithel Cells (Auto) (0-5) /lpf Urine Bacteria (Auto) (Negative) POC Ur Test (NEG) Salicylates (3.0-30) mg/dl Urine Opiates Screen (Neg) Ur Methadone, Qual (Neg) Acetaminophen (10-30) ug/ml Urine Barbiturates (Neg) Ur Phencyclidine (PCP) (Neg) U Amphetamin/Meth Scrn (Neg) MDMA (Ecstasy) Screen (Neg) U Benzodiazepines Scrn (Neg) Ur Cocaine Metabolite (Neg) U Marijuana (THC) Screen (Neg) Ethyl Alcohol mg/dL (<10.0) mg/dl SARS-CoV-2, RNA, NAAT (NEGATIVE) 03/07/22 03/07/22 03/07/22 Range/Units 23:04 23:04 23:04 WBC (4.8-10.8) K/uL RBC (4.2-5.4) M/uL Hgb (12.0-16.0) g/dL Hct (37-47) % MCV (80-100) fL MCH (25-34) pg MCHC (32-36) g/dL RDW Std Deviation (36.4-46.3) fL RDW Coeff of Marlon (11.5-14.5) % Plt Count (130-400) K/uL MPV (7.4-10.4) fL Immature Gran % (Auto) % Neut % (Auto) % Lymph % (Auto) % [place] % (Auto) % Eos % (Auto) % Baso % (Auto) % Neut # (Auto) (1.4-6.5) K/uL Lymph # (Auto) (1.2-3.4) K/uL [place] # (Auto) (0.11-0.59) K/uL Eos # (Auto) (0-0.5) K/uL Baso # (Auto) (0-0.2) K/uL Immature Gran # (Auto) (0.00-0.02) K/uL Sodium (136-145) mmol/L Potassium (3.5-5.1) mmol/L Chloride (98-107) mmol/L Carbon Dioxide (21-32) mmol/L Anion Gap (3-11) BUN (6-23) mg/dl Creatinine (0.6-1.2) mg/dl Est Cr Clr Drug Dosing ml/min Est GFR ( Amer) ml/min Est GFR (Non-Af Amer) ml/min BUN/Creatinine Ratio (10-20) Glucose (70-99(Fasting)) mg/dl Calcium (8.5-10.1) mg/dl Ionized Calcium (1.12-1.32) mmol/L Phosphorus (2.5-4.9) mg/dl Magnesium (1.7-2.4) mg/dl Total Bilirubin (0.2-1.0) mg/dl AST (13-39) U/L ALT (7-52) U/L Alkaline Phosphatase (34-104) U/L Total Protein (6.0-8.3) gm/dl Albumin (3.4-5.0) gm/dl Globulin (2.5-4.0) gm/dl Albumin/Globulin Ratio (0.9-2) TSH (0.300-4.500) uIu/ml HCG, Qual (Negative) PTH Intact (12.0-88.0) pg/ml Urine Color Urine Appearance (Clear) Urine pH (4.5-7.5) Ur Specific [place] (1.000-1.030) Urine Protein (Negative) Urine Glucose (UA) (Negative) Urine Ketones (Negative) Urine Blood (Negative) Urine Nitrite (Negative) Urine Bilirubin (Negative) Urine Urobilinogen (Negative) Ur Leukocyte Esterase (Negative) Urine WBC (Auto) (0-5) /hpf Urine RBC (Auto) (0-4) /hpf U Hyaline Cast (Auto) (0-5) /lpf U Epithel Cells (Auto) (0-5) /lpf Urine Bacteria (Auto) (Negative) POC Ur Test NEG (NEG) Salicylates (3.0-30) mg/dl Urine Opiates Screen Neg (Neg) Ur Methadone, Qual Neg (Neg) Acetaminophen (10-30) ug/ml Urine Barbiturates Neg (Neg) Ur Phencyclidine (PCP) Neg (Neg) U Amphetamin/Meth Scrn Neg (Neg) MDMA (Ecstasy) Screen Neg (Neg) U Benzodiazepines Scrn Neg (Neg) Ur Cocaine Metabolite Neg (Neg) U Marijuana (THC) Screen Neg (Neg) Ethyl Alcohol mg/dL (<10.0) mg/dl SARS-CoV-2, RNA, NAAT NEGATIVE (NEGATIVE) 03/07/22 Range/Units 23:04 WBC (4.8-10.8) K/uL RBC (4.2-5.4) M/uL Hgb (12.0-16.0) g/dL Hct (37-47) % MCV (80-100) fL MCH (25-34) pg MCHC (32-36) g/dL RDW Std Deviation (36.4-46.3) fL RDW Coeff of Marlon (11.5-14.5) % Plt Count (130-400) K/uL MPV (7.4-10.4) fL Immature Gran % (Auto) % Neut % (Auto) % Lymph % (Auto) % [place] % (Auto) % Eos % (Auto) % Baso % (Auto) % Neut # (Auto) (1.4-6.5) K/uL Lymph # (Auto) (1.2-3.4) K/uL [place] # (Auto) (0.11-0.59) K/uL Eos # (Auto) (0-0.5) K/uL Baso # (Auto) (0-0.2) K/uL Immature Gran # (Auto) (0.00-0.02) K/uL Sodium (136-145) mmol/L Potassium (3.5-5.1) mmol/L Chloride (98-107) mmol/L Carbon Dioxide (21-32) mmol/L Anion Gap (3-11) BUN (6-23) mg/dl Creatinine (0.6-1.2) mg/dl Est Cr Clr Drug Dosing ml/min Est GFR ( Amer) ml/min Est GFR (Non-Af Amer) ml/min BUN/Creatinine Ratio (10-20) Glucose (70-99(Fasting)) mg/dl Calcium (8.5-10.1) mg/dl Ionized Calcium (1.12-1.32) mmol/L Phosphorus (2.5-4.9) mg/dl Magnesium (1.7-2.4) mg/dl Total Bilirubin (0.2-1.0) mg/dl AST (13-39) U/L ALT (7-52) U/L Alkaline Phosphatase (34-104) U/L Total Protein (6.0-8.3) gm/dl Albumin (3.4-5.0) gm/dl Globulin (2.5-4.0) gm/dl Albumin/Globulin Ratio (0.9-2) TSH (0.300-4.500) uIu/ml HCG, Qual (Negative) PTH Intact (12.0-88.0) pg/ml Urine Color Dark Yellow Urine Appearance Clear (Clear) Urine pH 7.5 (4.5-7.5) Ur Specific [place] 1.024 (1.000-1.030) Urine Protein 1+ H (Negative) Urine Glucose (UA) Negative (Negative) Urine Ketones Negative (Negative) Urine Blood Negative (Negative) Urine Nitrite Negative (Negative) Urine Bilirubin Negative (Negative) Urine Urobilinogen Negative (Negative) Ur Leukocyte Esterase Negative (Negative) Urine WBC (Auto) 1-5 (0-5) /hpf Urine RBC (Auto) 0-4 (0-4) /hpf U Hyaline Cast (Auto) 1-5 (0-5) /lpf U Epithel Cells (Auto) 20-30 H (0-5) /lpf Urine Bacteria (Auto) Negative (Negative) POC Ur Test (NEG) Salicylates (3.0-30) mg/dl Urine Opiates Screen (Neg) Ur Methadone, Qual (Neg) Acetaminophen (10-30) ug/ml Urine Barbiturates (Neg) Ur Phencyclidine (PCP) (Neg) U Amphetamin/Meth Scrn (Neg) MDMA (Ecstasy) Screen (Neg) U Benzodiazepines Scrn (Neg) Ur Cocaine Metabolite (Neg) U Marijuana (THC) Screen (Neg) Ethyl Alcohol mg/dL (<10.0) mg/dl SARS-CoV-2, RNA, NAAT (NEGATIVE) Diagnostic Findings EKG nl QTc, vent rate 49 Medications Administered Cyanocobalamin (Cyanocobalamin (B-12) 500 Mcg Tablet) 500 mcg PO QAM [facility] Stop: 04/07/22 10:29 Last Admin: 03/08/22 11:20 Dose: 500 mcg Documented by: [id number] Thiamine HCl 200 mg/ Sodium (Chloride) 52 mls @ 208 mls/hr IV QAM DANO Stop: 04/07/22 10:29 Last Infusion: 03/08/22 11:34 Dose: 0 mls/hr Documented by: [id number] Admin: 03/08/22 11:19 Dose: 208 mls/hr Documented by: [id number] Sodium Chloride (Nss 1000ml) 1,000 mls @ 80 mls/hr IV .[id number] [facility] Stop: 03/09/22 10:45 Last Admin: 03/08/22 11:18 Dose: 80 mls/hr Documented by: [id number] Multivitamins (Multivitamin Tab) 1 tab PO QAM [facility] Stop: 04/07/22 10:29 Last Admin: 03/08/22 11:20 Dose: 1 tab Documented by: [id number] Coding Level of Care Code 19966 U Intl Hosp Care Lvl 3 Diagnoses Anorexia nervosa with dangerously low body weight F50.00 Time Spent (min) 68 Comment medical review, coordination with medical/ed, hx from family as not communicati ng, etc.
--- NOTE | 2022-03-08 14:59 | Hospitalist Progress Note ---
Date of Service March 08, 2022 Assessment & Plan (1) Anorexia nervosa with dangerously low body weight: Plan: Patient is a 26 year old female with a 2 years history of worsening depression and orthorexia/anorexia with restriction and some purging who presents after 3-4 weeks of worsening food restriction. Anorexia nervosa, BMI 15.4: - BMI stable since Oct 2021, increased from BMI of 13 in May - per parents, increased food restriction within last 3-4 weeks - unclear when last meal was - given banana bag, 1000mls NSS, thiamine 200mg in NSS in ED, all discontinued - electrolytes wnl on admission, monitor CBC, CMP, Mag, Phos BID - continue B12 500mcg PO QAM, multivitamin tab PO QAM, tylenol 650mg PO Q4 PRN - at risk for refeeding syndrome due to severe food restriction over last few days to weeks with unclear last meal, BMI <16 - nutrition consulted - start at 1000 calories a day to reduce risk of refeeding syndrome - appreciate psychiatry consult: consider Zyprexa trial, likely 1.25 mg to start and taking PO after period of cardiac monitoring - consider ativan challenge if symptoms of catatonia emerge Bradycardia: - likely secondary to anorexia nervosa - HR of 40-mid 50s - monitor for symptomatic bradycardia Depression: - per parents, patient has had worsening depression since early 2019 without self harm or suicidal actions - untreated, has not seen a psychiatrist or therapist, not formally diagnosed - per psychiatry - unable to rule out psychotic depression, see zyprexa trial recommendation above Amenorrhea, since January 2019: -normal workup by radio program checker outpatient, likely due to physiologic stress and restricting food intake -check vit D and INR tomorrow AM -consider outpatient dexa scan to monitor bone density FEN/GI: limit to 1000 calories a day for the next two days given concern of refeeding DVT: low risk, ambulatory Dispo: med/surg with tele Code Status: Full Code (2) Bradycardia: (3) Hypoglycemia: Admission and Anticipated Discharge Date Admission Date: March 08, 2022 Supervising Physician Co-Signing Physician Notes Patient seen and examined with PGY-3 Dr. Philip and MS3 Jo-Ann Connell. Agree with history, exam findings, assessment and plan of care as outlined. In brief, Fanny is a 26 year old female with history of secondary amenorrhea admitted due to concerns for restrictive eating and weight loss. Reviewed H&P and prior outpatient records from PCP, [facility], and endocrinology. She does not interact with the team much. She does not offer any safe foods today. She wants to go home. VS and nursing notes reviewed. Thin. Fine lugano over the arms. Limited eye contact. Restricted affect. Soft voice, short sentences. She did not give me permission to do further exam today. Exam per Dr. Philip. Labs reviewed. 1. Anorexia. Severe. BMI 15. No PO intake and did have episode of hypoglycemia this afternoon. Electrolytes are within normal limits, however, she is bradycardic. Would like to try to start refeeding starting with 1000 kcal per day. Lytes including Mg and Phos BID. CCM. Appreciate nutrition recommendations. Would likely benefit from inpatient eating disorder program. 2. Bradycardia. Secondary to above. 3. Amenorrhea. Since January 2019. Secondary to low BMI. Will check vitamin D in the AM. Will need DEXA as an outpatient given prolonged amenorrhea. 4. Hypoglycemia. Asymptomatic this afternoon. Dextrose IV given. 5. Depression with significant anxiety around food. Low suspicion for catatonia. Appreciate psychiatry recommendations. Discussed starting zyprexashe seems ambivalent about this. Subjective Patient did not speak audibly during the interview this morning. However, she did shake or nod her head to answer some questions including shaking her head no to deny general pain, chest pain, SOB and abdominal pain. Father was in the room and provided background information. She has had worsening depression since the start of the pandemic in early 2019, with decline in independent functioning for the last year. She has had amenorrhea since January of 2019 with negative radio program checker workup. She lives with her parents who have noticed her moving slower, talking less, lack of grooming and personal hygiene, and decreased eating. Notably, she moves faster and talks more with her mother, and barely talks around her father. Her disordered eating started 2 years ago when she restricted sugars and "unhealthy foods" because she believed that they were poison to her body and causing GI injury. BMI (all BMI recalculated from chart due to inconsistent heights entered) in Oct 2020 was 19.2, May 2021 BMI 13, Oct 2021 BMI 15.4 and current BMI 15.4. Her father reports that she has been restricting more in the last 3-4 weeks and that her mom has been spending 2-3 hours convincing her to eat small amounts of food at a time. She has been spitting out food and purging inconsistently, with last purge 2 days prior to admission. She has also been spitting out saliva. Unclear when her last non-purged meal was. Her father was asked to leave the room for a portion of the interview but Fanny did not speak while he was out of the room and shook her head no when asked if she wanted to add or correct any information provided by her dad. She shook her head no and declined a physical exam. Review of Systems Constitutional: no pain difficult to elicit due to patient mainly nodding or shaking head to communicate Respiratory: no SOB Cardiovascular: Additional Comments: no chest pain Gastrointestinal: no abdominal pain Physical Exam Constitutional: WD/WN, vitals as above completed by Dr. Julio Philip Eyes: PERRL, conjunctivae normal, anicteric sclerae ENMT: moist mucus membranes Respiratory: normal respiratory effort, lungs clear to auscultation Auscultation: no crackles, no rales, no rhonchi and no wheezes Cardiovascular: Rate/Rhythm: regular rate and regular rhythm Heart Sounds: no gallop, no murmur and no cardiac rub Vessels: normal peripheral pulses; no JVD Extremities: no edema Gastrointestinal (Abdomen): Inspection/Auscultation: normal bowel sounds; abdomen not distended Percussion/Palpation: abdomen soft; abdomen nontender and no guarding Musculoskeletal: no cyanosis or clubbing, extremities motor strength 5/5 Neurologic: PERRL, EOMI, accommodation nl, no face palsy, no dysarthria moves all extremities Psychiatric: Orientation: alert and oriented x 3 Results & Data Results & Data ([facility]) Vital Signs (Past 12 Hours) Vital Signs Pulse Resp BP Pulse Ox 03/08/22 12:43 78 16 109/70 100 03/08/22 11:44 49 L 20 130/77 98 03/08/22 08:20 55 L 18 115/61 96 03/08/22 07:07 56 L 18 108/67 93 Laboratory Results 03/08/22 03/08/22 03/08/22 Range/Units 16:01 16:01 10:23 WBC 5.70 (4.8-10.8) K/uL RBC 4.28 (4.2-5.4) M/uL Hgb 13.3 (12.0-16.0) g/dL Hct 39.5 (37-47) % MCV 92.3 (80-100) fL MCH 31.1 (25-34) pg MCHC 33.7 (32-36) g/dL RDW Std Deviation 43.4 (36.4-46.3) fL RDW Coeff of Marlon 13.0 (11.5-14.5) % Plt Count 201 (130-400) K/uL MPV 9.0 (7.4-10.4) fL Immature Gran % (Auto) 0.5 % Neut % (Auto) 64.4 % Lymph % (Auto) 27.9 % [place] % (Auto) 5.3 % Eos % (Auto) 1.4 % Baso % (Auto) 0.5 % Neut # (Auto) 3.67 (1.4-6.5) K/uL Lymph # (Auto) 1.59 (1.2-3.4) K/uL [place] # (Auto) 0.30 (0.11-0.59) K/uL Eos # (Auto) 0.08 (0-0.5) K/uL Baso # (Auto) 0.03 (0-0.2) K/uL Immature Gran # (Auto) 0.03 H (0.00-0.02) K/uL Platelet Estimate Normal (Normal) Ovalocytes 1+ Sodium 142 (136-145) mmol/L Potassium 3.9 (3.5-5.1) mmol/L Chloride 107 (98-107) mmol/L Carbon Dioxide 26 (21-32) mmol/L Anion Gap 9 (3-11) BUN 11 (6-23) mg/dl Creatinine 0.70 (0.6-1.2) mg/dl Est Cr Clr Drug Dosing 81.4 ml/min Est GFR ( Amer) 136.7 ml/min Est GFR (Non-Af Amer) 117.9 ml/min BUN/Creatinine Ratio 15.7 (10-20) Glucose 52 L* (70-99(Fasting)) mg/dl Calcium 9.3 (8.5-10.1) mg/dl Ionized Calcium 1.17 (1.12-1.32) mmol/L Phosphorus 3.7 (2.5-4.9) mg/dl Magnesium 1.9 (1.7-2.4) mg/dl Total Bilirubin 1.1 H (0.2-1.0) mg/dl AST 16 (13-39) U/L ALT 12 (7-52) U/L Alkaline Phosphatase 39 (34-104) U/L Total Protein 6.9 (6.0-8.3) gm/dl Albumin 4.7 (3.4-5.0) gm/dl Globulin 2.2 L (2.5-4.0) gm/dl Albumin/Globulin Ratio 2.1 H (0.9-2) TSH (0.300-4.500) uIu/ml HCG, Qual (Negative) PTH Intact (12.0-88.0) pg/ml Urine Color Urine Appearance (Clear) Urine pH (4.5-7.5) Ur Specific [place] (1.000-1.030) Urine Protein (Negative) Urine Glucose (UA) (Negative) Urine Ketones (Negative) Urine Blood (Negative) Urine Nitrite (Negative) Urine Bilirubin (Negative) Urine Urobilinogen (Negative) Ur Leukocyte Esterase (Negative) Urine WBC (Auto) (0-5) /hpf Urine RBC (Auto) (0-4) /hpf U Hyaline Cast (Auto) (0-5) /lpf U Epithel Cells (Auto) (0-5) /lpf Urine Bacteria (Auto) (Negative) POC Ur Test (NEG) Salicylates (3.0-30) mg/dl Urine Opiates Screen (Neg) Ur Methadone, Qual (Neg) Acetaminophen (10-30) ug/ml Urine Barbiturates (Neg) Ur Phencyclidine (PCP) (Neg) U Amphetamin/Meth Scrn (Neg) MDMA (Ecstasy) Screen (Neg) U Benzodiazepines Scrn (Neg) Ur Cocaine Metabolite (Neg) U Marijuana (THC) Screen (Neg) Ethyl Alcohol mg/dL (<10.0) mg/dl SARS-CoV-2, RNA, NAAT (NEGATIVE) 03/08/22 03/07/22 03/07/22 Range/Units 10:23 23:28 23:28 WBC (4.8-10.8) K/uL RBC (4.2-5.4) M/uL Hgb (12.0-16.0) g/dL Hct (37-47) % MCV (80-100) fL MCH (25-34) pg MCHC (32-36) g/dL RDW Std Deviation (36.4-46.3) fL RDW Coeff of Marlon (11.5-14.5) % Plt Count (130-400) K/uL MPV (7.4-10.4) fL Immature Gran % (Auto) % Neut % (Auto) % Lymph % (Auto) % [place] % (Auto) % Eos % (Auto) % Baso % (Auto) % Neut # (Auto) (1.4-6.5) K/uL Lymph # (Auto) (1.2-3.4) K/uL [place] # (Auto) (0.11-0.59) K/uL Eos # (Auto) (0-0.5) K/uL Baso # (Auto) (0-0.2) K/uL Immature Gran # (Auto) (0.00-0.02) K/uL Platelet Estimate (Normal) Ovalocytes Sodium (136-145) mmol/L Potassium (3.5-5.1) mmol/L Chloride (98-107) mmol/L Carbon Dioxide (21-32) mmol/L Anion Gap (3-11) BUN (6-23) mg/dl Creatinine (0.6-1.2) mg/dl Est Cr Clr Drug Dosing ml/min Est GFR ( Amer) ml/min Est GFR (Non-Af Amer) ml/min BUN/Creatinine Ratio (10-20) Glucose (70-99(Fasting)) mg/dl Calcium (8.5-10.1) mg/dl Ionized Calcium (1.12-1.32) mmol/L Phosphorus 4.2 (2.5-4.9) mg/dl Magnesium 2.1 (1.7-2.4) mg/dl Total Bilirubin (0.2-1.0) mg/dl AST (13-39) U/L ALT (7-52) U/L Alkaline Phosphatase (34-104) U/L Total Protein (6.0-8.3) gm/dl Albumin (3.4-5.0) gm/dl Globulin (2.5-4.0) gm/dl Albumin/Globulin Ratio (0.9-2) TSH (0.300-4.500) uIu/ml HCG, Qual Negative (Negative) PTH Intact 39.7 (12.0-88.0) pg/ml Urine Color Urine Appearance (Clear) Urine pH (4.5-7.5) Ur Specific [place] (1.000-1.030) Urine Protein (Negative) Urine Glucose (UA) (Negative) Urine Ketones (Negative) Urine Blood (Negative) Urine Nitrite (Negative) Urine Bilirubin (Negative) Urine Urobilinogen (Negative) Ur Leukocyte Esterase (Negative) Urine WBC (Auto) (0-5) /hpf Urine RBC (Auto) (0-4) /hpf U Hyaline Cast (Auto) (0-5) /lpf U Epithel Cells (Auto) (0-5) /lpf Urine Bacteria (Auto) (Negative) POC Ur Test (NEG) Salicylates (3.0-30) mg/dl Urine Opiates Screen (Neg) Ur Methadone, Qual (Neg) Acetaminophen (10-30) ug/ml Urine Barbiturates (Neg) Ur Phencyclidine (PCP) (Neg) U Amphetamin/Meth Scrn (Neg) MDMA (Ecstasy) Screen (Neg) U Benzodiazepines Scrn (Neg) Ur Cocaine Metabolite (Neg) U Marijuana (THC) Screen (Neg) Ethyl Alcohol mg/dL (<10.0) mg/dl SARS-CoV-2, RNA, NAAT (NEGATIVE) 03/07/22 03/07/22 03/07/22 Range/Units 23:28 23:28 23:28 WBC (4.8-10.8) K/uL RBC (4.2-5.4) M/uL Hgb (12.0-16.0) g/dL Hct (37-47) % MCV (80-100) fL MCH (25-34) pg MCHC (32-36) g/dL RDW Std Deviation (36.4-46.3) fL RDW Coeff of Marlon (11.5-14.5) % Plt Count (130-400) K/uL MPV (7.4-10.4) fL Immature Gran % (Auto) % Neut % (Auto) % Lymph % (Auto) % [place] % (Auto) % Eos % (Auto) % Baso % (Auto) % Neut # (Auto) (1.4-6.5) K/uL Lymph # (Auto) (1.2-3.4) K/uL [place] # (Auto) (0.11-0.59) K/uL Eos # (Auto) (0-0.5) K/uL Baso # (Auto) (0-0.2) K/uL Immature Gran # (Auto) (0.00-0.02) K/uL Platelet Estimate (Normal) Ovalocytes Sodium (136-145) mmol/L Potassium (3.5-5.1) mmol/L Chloride (98-107) mmol/L Carbon Dioxide (21-32) mmol/L Anion Gap (3-11) BUN (6-23) mg/dl Creatinine (0.6-1.2) mg/dl Est Cr Clr Drug Dosing ml/min Est GFR ( Amer) ml/min Est GFR (Non-Af Amer) ml/min BUN/Creatinine Ratio (10-20) Glucose (70-99(Fasting)) mg/dl Calcium (8.5-10.1) mg/dl Ionized Calcium (1.12-1.32) mmol/L Phosphorus (2.5-4.9) mg/dl Magnesium (1.7-2.4) mg/dl Total Bilirubin (0.2-1.0) mg/dl AST (13-39) U/L ALT (7-52) U/L Alkaline Phosphatase (34-104) U/L Total Protein (6.0-8.3) gm/dl Albumin (3.4-5.0) gm/dl Globulin (2.5-4.0) gm/dl Albumin/Globulin Ratio (0.9-2) TSH 1.390 (0.300-4.500) uIu/ml HCG, Qual (Negative) PTH Intact (12.0-88.0) pg/ml Urine Color Urine Appearance (Clear) Urine pH (4.5-7.5) Ur Specific [place] (1.000-1.030) Urine Protein (Negative) Urine Glucose (UA) (Negative) Urine Ketones (Negative) Urine Blood (Negative) Urine Nitrite (Negative) Urine Bilirubin (Negative) Urine Urobilinogen (Negative) Ur Leukocyte Esterase (Negative) Urine WBC (Auto) (0-5) /hpf Urine RBC (Auto) (0-4) /hpf U Hyaline Cast (Auto) (0-5) /lpf U Epithel Cells (Auto) (0-5) /lpf Urine Bacteria (Auto) (Negative) POC Ur Test (NEG) Salicylates < 3.0 L (3.0-30) mg/dl Urine Opiates Screen (Neg) Ur Methadone, Qual (Neg) Acetaminophen < 3 L (10-30) ug/ml Urine Barbiturates (Neg) Ur Phencyclidine (PCP) (Neg) U Amphetamin/Meth Scrn (Neg) MDMA (Ecstasy) Screen (Neg) U Benzodiazepines Scrn (Neg) Ur Cocaine Metabolite (Neg) U Marijuana (THC) Screen (Neg) Ethyl Alcohol mg/dL < 10.0 (<10.0) mg/dl SARS-CoV-2, RNA, NAAT (NEGATIVE) 03/07/22 03/07/22 03/07/22 Range/Units 23:28 23:28 23:04 WBC 4.68 L (4.8-10.8) K/uL RBC 4.54 (4.2-5.4) M/uL Hgb 14.0 (12.0-16.0) g/dL Hct 40.9 (37-47) % MCV 90.1 (80-100) fL MCH 30.8 (25-34) pg MCHC 34.2 (32-36) g/dL RDW Std Deviation 42.8 (36.4-46.3) fL RDW Coeff of Marlon 13.0 (11.5-14.5) % Plt Count 238 (130-400) K/uL MPV 8.5 (7.4-10.4) fL Immature Gran % (Auto) 0.0 % Neut % (Auto) 53.4 % Lymph % (Auto) 38.7 % [place] % (Auto) 5.6 % Eos % (Auto) 2.1 % Baso % (Auto) 0.2 % Neut # (Auto) 2.50 (1.4-6.5) K/uL Lymph # (Auto) 1.81 (1.2-3.4) K/uL [place] # (Auto) 0.26 (0.11-0.59) K/uL Eos # (Auto) 0.10 (0-0.5) K/uL Baso # (Auto) 0.01 (0-0.2) K/uL Immature Gran # (Auto) 0.00 (0.00-0.02) K/uL Platelet Estimate (Normal) Ovalocytes Sodium 139 (136-145) mmol/L Potassium 3.6 (3.5-5.1) mmol/L Chloride 99 (98-107) mmol/L Carbon Dioxide 32 (21-32) mmol/L Anion Gap 8 (3-11) BUN 12 (6-23) mg/dl Creatinine 0.88 (0.6-1.2) mg/dl Est Cr Clr Drug Dosing 63.1 ml/min Est GFR ( Amer) 103.6 ml/min Est GFR (Non-Af Amer) 89.4 ml/min BUN/Creatinine Ratio 13.6 (10-20) Glucose 81 (70-99(Fasting)) mg/dl Calcium 10.4 H (8.5-10.1) mg/dl Ionized Calcium (1.12-1.32) mmol/L Phosphorus (2.5-4.9) mg/dl Magnesium (1.7-2.4) mg/dl Total Bilirubin 1.1 H (0.2-1.0) mg/dl AST 16 (13-39) U/L ALT 13 (7-52) U/L Alkaline Phosphatase 43 (34-104) U/L Total Protein 7.7 (6.0-8.3) gm/dl Albumin 5.2 H (3.4-5.0) gm/dl Globulin 2.5 (2.5-4.0) gm/dl Albumin/Globulin Ratio 2.1 H (0.9-2) TSH (0.300-4.500) uIu/ml HCG, Qual (Negative) PTH Intact (12.0-88.0) pg/ml Urine Color Urine Appearance (Clear) Urine pH (4.5-7.5) Ur Specific [place] (1.000-1.030) Urine Protein (Negative) Urine Glucose (UA) (Negative) Urine Ketones (Negative) Urine Blood (Negative) Urine Nitrite (Negative) Urine Bilirubin (Negative) Urine Urobilinogen (Negative) Ur Leukocyte Esterase (Negative) Urine WBC (Auto) (0-5) /hpf Urine RBC (Auto) (0-4) /hpf U Hyaline Cast (Auto) (0-5) /lpf U Epithel Cells (Auto) (0-5) /lpf Urine Bacteria (Auto) (Negative) POC Ur Test NEG (NEG) Salicylates (3.0-30) mg/dl Urine Opiates Screen (Neg) Ur Methadone, Qual (Neg) Acetaminophen (10-30) ug/ml Urine Barbiturates (Neg) Ur Phencyclidine (PCP) (Neg) U Amphetamin/Meth Scrn (Neg) MDMA (Ecstasy) Screen (Neg) U Benzodiazepines Scrn (Neg) Ur Cocaine Metabolite (Neg) U Marijuana (THC) Screen (Neg) Ethyl Alcohol mg/dL (<10.0) mg/dl SARS-CoV-2, RNA, NAAT (NEGATIVE) 03/07/22 03/07/22 03/07/22 Range/Units 23:04 23:04 23:04 WBC (4.8-10.8) K/uL RBC (4.2-5.4) M/uL Hgb (12.0-16.0) g/dL Hct (37-47) % MCV (80-100) fL MCH (25-34) pg MCHC (32-36) g/dL RDW Std Deviation (36.4-46.3) fL RDW Coeff of Marlon (11.5-14.5) % Plt Count (130-400) K/uL MPV (7.4-10.4) fL Immature Gran % (Auto) % Neut % (Auto) % Lymph % (Auto) % [place] % (Auto) % Eos % (Auto) % Baso % (Auto) % Neut # (Auto) (1.4-6.5) K/uL Lymph # (Auto) (1.2-3.4) K/uL [place] # (Auto) (0.11-0.59) K/uL Eos # (Auto) (0-0.5) K/uL Baso # (Auto) (0-0.2) K/uL Immature Gran # (Auto) (0.00-0.02) K/uL Platelet Estimate (Normal) Ovalocytes Sodium (136-145) mmol/L Potassium (3.5-5.1) mmol/L Chloride (98-107) mmol/L Carbon Dioxide (21-32) mmol/L Anion Gap (3-11) BUN (6-23) mg/dl Creatinine (0.6-1.2) mg/dl Est Cr Clr Drug Dosing ml/min Est GFR ( Amer) ml/min Est GFR (Non-Af Amer) ml/min BUN/Creatinine Ratio (10-20) Glucose (70-99(Fasting)) mg/dl Calcium (8.5-10.1) mg/dl Ionized Calcium (1.12-1.32) mmol/L Phosphorus (2.5-4.9) mg/dl Magnesium (1.7-2.4) mg/dl Total Bilirubin (0.2-1.0) mg/dl AST (13-39) U/L ALT (7-52) U/L Alkaline Phosphatase (34-104) U/L Total Protein (6.0-8.3) gm/dl Albumin (3.4-5.0) gm/dl Globulin (2.5-4.0) gm/dl Albumin/Globulin Ratio (0.9-2) TSH (0.300-4.500) uIu/ml HCG, Qual (Negative) PTH Intact (12.0-88.0) pg/ml Urine Color Dark Yellow Urine Appearance Clear (Clear) Urine pH 7.5 (4.5-7.5) Ur Specific [place] 1.024 (1.000-1.030) Urine Protein 1+ H (Negative) Urine Glucose (UA) Negative (Negative) Urine Ketones Negative (Negative) Urine Blood Negative (Negative) Urine Nitrite Negative (Negative) Urine Bilirubin Negative (Negative) Urine Urobilinogen Negative (Negative) Ur Leukocyte Esterase Negative (Negative) Urine WBC (Auto) 1-5 (0-5) /hpf Urine RBC (Auto) 0-4 (0-4) /hpf U Hyaline Cast (Auto) 1-5 (0-5) /lpf U Epithel Cells (Auto) 20-30 H (0-5) /lpf Urine Bacteria (Auto) Negative (Negative) POC Ur Test (NEG) Salicylates (3.0-30) mg/dl Urine Opiates Screen Neg (Neg) Ur Methadone, Qual Neg (Neg) Acetaminophen (10-30) ug/ml Urine Barbiturates Neg (Neg) Ur Phencyclidine (PCP) Neg (Neg) U Amphetamin/Meth Scrn Neg (Neg) MDMA (Ecstasy) Screen Neg (Neg) U Benzodiazepines Scrn Neg (Neg) Ur Cocaine Metabolite Neg (Neg) U Marijuana (THC) Screen Neg (Neg) Ethyl Alcohol mg/dL (<10.0) mg/dl SARS-CoV-2, RNA, NAAT NEGATIVE (NEGATIVE) Medications Administered Current Inpatient Medications Acetaminophen (Acetaminophen 325 Mg Tab) 650 mg PO Q4H PRN PRN Reason: pain/fever Stop: 04/07/22 09:45 Cyanocobalamin (Cyanocobalamin (B-12) 500 Mcg Tablet) 500 mcg PO QAM [facility] Stop: 04/07/22 10:29 Last Admin: 03/08/22 11:20 Dose: 500 mcg Documented by: Multivitamins (Multivitamin Tab) 1 tab PO QAM DANO Stop: 04/07/22 10:29 Last Admin: 03/08/22 11:20 Dose: 1 tab Documented by:
[2022-03-08 16:30] LABS: Hematocrit (blood only) 39.5 % (37-47); Hemoglobin 13.3 g/dL (12.0-16.0); Mean Corpuscular Hemoglobin 31.1 pg (25-34); Mean Corpuscular Hgb Conc 33.7 g/dL (32-36); Mean Corpuscular Volume 92.3 fL (80-100); RDW Standard Deviation 43.4 fL (36.4-46.3); Red Blood Count 4.28 M/uL (4.2-5.4)
[2022-03-08 16:47] LABS: Basophils # (auto) 0.03 K/uL (0-0.2); Basophils % (auto) 0.5 %; Eosinophils # (auto) 0.08 K/uL (0-0.5); Eosinophils % (auto) 1.4 %; Immature Granulocytes # (auto) 0.03 K/uL (0.00-0.02); Immature Granulocytes % (auto) 0.5 %; Lymphocytes # (auto) 1.59 K/uL (1.2-3.4); Lymphocytes % (auto) 27.9 %; Monocytes % (auto) 5.3 %; Neutrophils # (auto) 3.67 K/uL (1.4-6.5); Neutrophils % (auto) 64.4 %; Ovalocytes 1+; Platelet Count 201 K/uL (130-400); Platelet Estimate Normal (Normal)
[2022-03-08 17:19] LABS: Albumin Globulin Ratio 2.1 (0.9-2); Albumin Level 4.7 gm/dl (3.4-5.0); BUN Creatinine Ratio 15.7 (10-20); Bilirubin,Total 1.1 mg/dl (0.2-1.0); Calcium 9.3 mg/dl (8.5-10.1); Creatinine Clr Calc Pharmacy 81.4 ml/min; Est GFR (African American) 136.7 ml/min; Est GFR (Non-African American) 117.9 ml/min; Globulin 2.2 gm/dl (2.5-4.0); Magnesium 1.9 mg/dl (1.7-2.4); Phosphorus 3.7 mg/dl (2.5-4.9); Potassium 3.9 mmol/L (3.5-5.1); Total Protein 6.9 gm/dl (6.0-8.3)
[2022-03-08] MEDS ORDERED: DEXTROSE 50% 50 ML SYRINGE IV STA (17:24)
[2022-03-09 04:28] LABS: Basophils # (auto) 0.02 K/uL (0-0.2); Basophils % (auto) 0.4 %; Eosinophils # (auto) 0.13 K/uL (0-0.5); Eosinophils % (auto) 2.3 %; Hematocrit (blood only) 33.7 % (37-47); Hemoglobin 11.4 g/dL (12.0-16.0); Mean Corpuscular Hemoglobin 30.7 pg (25-34); Mean Corpuscular Hgb Conc 33.8 g/dL (32-36); Mean Corpuscular Volume 90.8 fL (80-100); Mean Platelet Volume 8.5 fL (7.4-10.4); Monocytes # (auto) 0.45 K/uL (0.11-0.59); Monocytes % (auto) 7.9 %; Neutrophils # (auto) 2.58 K/uL (1.4-6.5); Neutrophils % (auto) 45.4 %; Platelet Count 215 K/uL (130-400); RDW Coefficient of Variation 12.7 % (11.5-14.5); RDW Standard Deviation 42.5 fL (36.4-46.3); Red Blood Count 3.71 M/uL (4.2-5.4); White Blood Count 5.68 K/uL (4.8-10.8)
[2022-03-09 04:36] LABS: Prothrombin Time 11.1 Seconds (9.0-12.0)
[2022-03-09 04:47] LABS: Albumin Globulin Ratio 2.1 (0.9-2); Albumin Level 3.9 gm/dl (3.4-5.0); BUN Creatinine Ratio 17.4 (10-20); Calcium 8.6 mg/dl (8.5-10.1); Creatinine Clr Calc Pharmacy 82.6 ml/min; Est GFR (African American) 137.3 ml/min; Est GFR (Non-African American) 118.5 ml/min; Globulin 1.9 gm/dl (2.5-4.0); Magnesium 1.7 mg/dl (1.7-2.4); Phosphorus 3.6 mg/dl (2.5-4.9); Potassium 3.8 mmol/L (3.5-5.1); Total Protein 5.8 gm/dl (6.0-8.3)
[2022-03-09] MEDS ORDERED: DEXTROSE 50% 50 ML SYRINGE IV PRN (05:51)
--- NOTE | 2022-03-09 10:16 | Hospitalist Progress Note ---
Date of Service March 09, 2022 Assessment & Plan (1) Anorexia nervosa with dangerously low body weight: Plan: Patient is a 26 year old female with a 2 years history of worsening depression and orthorexia/anorexia with restriction and some purging who presents after 3-4 weeks of worsening food restriction. Anorexia nervosa, BMI 15.4: - BMI stable since Oct 2021, increased from BMI of 13 in May - per parents, increased food restriction within last 3-4 weeks - unclear when last meal was - given banana bag, 1000mls NSS, thiamine 200mg in NSS in ED, all discontinued - electrolytes wnl on admission, monitor CBC, CMP, Mag, Phos BID - continue B12 500mcg PO QAM, multivitamin tab PO QAM, tylenol 650mg PO Q4 PRN - Continue Zyprexa ODT 2.5mg daily - at risk for refeeding syndrome due to severe food restriction over last few days to weeks with unclear last meal, BMI <16 - start at 1000 calories a day to reduce risk of refeeding syndrome - appreciate psychiatry consult: Bradycardia: - likely secondary to anorexia nervosa - HR of 40-mid 50s - monitor for symptomatic bradycardia Depression: - per parents, patient has had worsening depression since early 2019 without self harm or suicidal actions - untreated, has not seen a psychiatrist or therapist, not formally diagnosed - per psychiatry - unable to rule out psychotic depression, see zyprexa trial recommendation above Amenorrhea, since January 2019: - normal workup by obstetrician and gynaecologist outpatient, likely due to physiologic stress and restricting food intake - consider outpatient dexa scan to monitor bone density Diet: limit to 1000 calories for another day before increase DVT ppx: low risk, ambulatory Code Status: Full Code (2) Bradycardia: (3) Hypoglycemia: Admission and Anticipated Discharge Date Admission Date: March 08, 2022 Supervising Physician Co-Signing Physician Notes Patient seen and examined with PGY-3 Dr. Philip. Agree with history, exam findings, assessment and plan of care as outlined. In brief, Fanny is a 26 year old female with history of secondary amenorrhea admitted due to concerns for restrictive eating and weight loss. Mom and sister, Marine, at the bedside. Overnight, noted to have hypoglycemia in the it desktop support specialist on labs. Given IV dextrose. She did eat some blueberries and ate a container of plain hong konger yogurt with honey. Mom reports that Fanny had intense feelings of regret after eating. No purging. Fanny reports feeling safe with Mom and sister and feels they are supportive. She reports that a factor in her eating today was that she thought her family was going to leave if she did not eat. Did take the ODT Zyprexa this morning and did not feel overly sedated. Did have recorded tachycardia in the 110s this afternoon after eating. VS and nursing notes reviewed. Thin. Fine lugano over the arms. Limited eye contact. Restricted affect. Soft voice, short sentences. Heart with regular rate and rhythm. No edema in the lower extremities. Lungs are clear to auscultation in all lung meier. Labs reviewed. 1. Anorexia. Severe. BMI 15. No PO intake and did have episode of hypoglycemia this afternoon. She is bradycardic over night with some mild tachycardia following food intake this afternoon. Would like to try to start refeeding starting with 1000 kcal per day. This afternoon, K was slightly low at 3.4. Offered oral repletion. Lytes including Mg and Phos BID. CCM. Appreciate nutrition recommendations and psychiatry recommendations. Would likely benefit from inpatient eating disorder program once she is stable. 2. Bradycardia. Secondary to above. 3. Amenorrhea. Since January 2019. Secondary to low BMI. Will check vitamin D in the AM. Will need DEXA as an outpatient given prolonged amenorrhea. 4. Hypoglycemia. Asymptomatic this afternoon. Dextrose IV given. 5. Depression with significant anxiety around food. Low suspicion for catatonia. Started 2.5mg ODT Zyprexa this morning. Appreciate psychiatry recommendations. Dispo: pending clinical improvement/stability. Subjective Patient with no acute events overnight, continued to not eat overnight, but when family brought in food for her she ate the entirety a plain hong konger yogurt container that had about 320 calories in it with several packets of honey and bread. Tolerated food well; however, afterwards experienced intense remorse regarding having eaten food and feeling unworthy for being in the hospital. He continues to express fear of returning to the ED where she had previously had traumatic experiences. Continues to be an interesting dynamic with her family; this provider noted that her affect was more diminished when around her father, and while still restricted with her mother and sister she did for readily vocalize. Discussions of safety at home and in the hospital denied any specific concerns and/or denied fear of family members. Did cry after mention of safety around father. Review of Systems Review of Systems: All systems reviewed & are unremarkable except as noted in Subjective Physical Exam Constitutional: WD/WN, vitals as above Eyes: PERRL, conjunctivae normal, anicteric sclerae Respiratory: normal respiratory effort, lungs clear to auscultation Auscultation: no crackles, no rales, no rhonchi and no wheezes Cardiovascular: Rate/Rhythm: regular rate and regular rhythm Heart Sounds: no gallop, no murmur and no cardiac rub Vessels: normal peripheral pulses; no JVD Extremities: no edema Gastrointestinal (Abdomen): Inspection/Auscultation: normal bowel sounds; abdomen not distended Percussion/Palpation: abdomen soft; abdomen nontender and no guarding Musculoskeletal: no cyanosis or clubbing, extremities motor strength 5/5 Neurologic: PERRL, EOMI, accommodation nl, no face palsy, no dysarthria moves all extremities Psychiatric: Orientation: alert, cooperative and + guarded Apperance: + disheveled Eye Contact: + poor eye contact Motor Behavior: no abnormal motor movements Speech: + mute Affect: + depressed affect and + flat affect Thought Process: + thought blocking Results & Data Results & Data ([facility]) Vital Signs (Past 12 Hours) Vital Signs Temp Pulse Pulse Pulse Resp BP BP 03/09/22 07:27 36.7 C 55 L 49 L 13 106/69 03/09/22 03:08 36.3 C L 46 L 16 105/65 03/09/22 00:16 52 L 03/08/22 22:39 36.4 C L 51 L 16 102/67 Pulse Ox 03/09/22 07:27 98 03/09/22 03:08 99 03/09/22 00:16 03/08/22 22:39 98 Resident Activity Tracking Resident Involvement: Resident Care Provided Care Provided: Adult Hospital Medicine
[2022-03-09] MEDS: CYANOCOBALAMIN (B-12) 500 MCG TABLET PO SCH (10:51)
[2022-03-09] MEDS: MULTIVITAMIN TAB PO SCH (10:52)
[2022-03-09] MEDS ORDERED: OLANZapine ZYDIS 5 MG ORALLY DIS. TAB PO SCH (11:15)
--- NOTE | 2022-03-09 12:15 | Psychiatric Progress Note ---
Date of Service March 09, 2022 Impression / Recommendations Impression 26 yo female with progressive preoccupation with food, weight loss, resulting in secondary amenorrhea for some time now with classic symptoms of low BMI, lanugo, bradycardia. Patient not taking PO and is having anxiety around communication. Unable to exclude psychotic depression but restoring nutrition is primary treatment need. 03/09/22: minimal change, enmeshed dynamic likely, comments patient made to staff about fear of being held down are reality based based on experiences while in ED (1) Anorexia nervosa with dangerously low body weight: 03/09/22: Zyprexa trial 2.5 mg per primary team, shift to if sedating. Would recommend parents not be present during meals as a trial. At this point have been unable to assess patient's amenability to inpatient ED treatment as she is extremely guarded. Has voiced fear of being hospitalized. Case discussed with hospitalist service. 03/08/22: BMI <18 (15.4) and bradycardia with ongoing restricting are clear criteria for inpatient ED treatment when medically clear. consider Ativan challenge if any emerging catatonic features will discuss Zyprexa trial, likely 1.25 mg to start and taking PO after period of cardiac monitoring Protective Factors Assessment Employed: No Interval History Identifying Information 26 yo female with 2 year history of weight loss/anorexia admit medically on 03/08/22 with BMI approx 15 and bradycardia. Chief Complaint remains selectively mute Review of Systems Notes patient is unable to complete Subjective Subjective Patient was seen & assessed and interval progress reviewed with nursing, hospitalist team. Dr. Philip offered patient 2.5 mg Zyprexa zydis for anxie ty/anorexia. Does not seem overly sedated at this time. Did not eat yesterday. met with global upstream marketing manager and more "safe foods" provided. Parents remain at bedside. Per Dr. Philip the patient seems more comfortable with mother, father communicates with patient solely in Far but speaks Grenadian to staff. sakina to 46 overnight. Did have period of hypoglycemia yesterday so primary team feels she is clandestinely maintaining some level of nutrition at home. Physical Exam Psychiatric selectively mute, doesn't respond to many questions with parents present. Visit kept brief as meal at bedside and did not want to distract. Vital Signs (Past 24 Hours) Last Vital Signs Temp 36.4 C L 03/09/22 11:29 Pulse 53 L 03/09/22 11:29 Resp 16 03/09/22 11:29 BP 94/62 L 03/09/22 11:29 Pulse Ox 99 03/09/22 11:29 Results & Data ([facility]) Laboratory Results Laboratory Results - last 24 hr 03/08/22 03/08/22 03/08/22 16:01 16:01 18:15 WBC 5.70 RBC 4.28 Hgb 13.3 Hct 39.5 MCV 92.3 MCH 31.1 MCHC 33.7 RDW Std Deviation 43.4 RDW Coeff of Marlon 13.0 Plt Count 201 MPV 9.0 Immature Gran % (Auto) 0.5 Neut % (Auto) 64.4 Lymph % (Auto) 27.9 Thomas % (Auto) 5.3 Eos % (Auto) 1.4 Baso % (Auto) 0.5 Neut # (Auto) 3.67 Lymph # (Auto) 1.59 Thomas # (Auto) 0.30 Eos # (Auto) 0.08 Baso # (Auto) 0.03 Immature Gran # (Auto) 0.03 H Platelet Estimate Normal Ovalocytes 1+ PT INR Sodium 142 Potassium 3.9 Chloride 107 Carbon Dioxide 26 Anion Gap 9 BUN 11 Creatinine 0.70 Est Cr Clr Drug Dosing 81.4 Est GFR ( Amer) 136.7 Est GFR (Non-Af Amer) 117.9 BUN/Creatinine Ratio 15.7 Glucose 52 L* POC Glucose 95 Calcium 9.3 Phosphorus 3.7 Magnesium 1.9 Total Bilirubin 1.1 H AST 16 ALT 12 Alkaline Phosphatase 39 Total Protein 6.9 Albumin 4.7 Globulin 2.2 L Albumin/Globulin Ratio 2.1 H 03/09/22 03/09/22 03/09/22 03:46 03:46 03:46 WBC 5.68 RBC 3.71 L Hgb 11.4 L Hct 33.7 L MCV 90.8 MCH 30.7 MCHC 33.8 RDW Std Deviation 42.5 RDW Coeff of Marlon 12.7 Plt Count 215 MPV 8.5 Immature Gran % (Auto) 0.0 Neut % (Auto) 45.4 Lymph % (Auto) 44.0 Thomas % (Auto) 7.9 Eos % (Auto) 2.3 Baso % (Auto) 0.4 Neut # (Auto) 2.58 Lymph # (Auto) 2.50 Thomas # (Auto) 0.45 Eos # (Auto) 0.13 Baso # (Auto) 0.02 Immature Gran # (Auto) 0.00 Platelet Estimate Ovalocytes PT 11.1 INR 1.0 Sodium 138 Potassium 3.8 Chloride 106 Carbon Dioxide 25 Anion Gap 7 BUN 12 Creatinine 0.69 Est Cr Clr Drug Dosing 82.6 Est GFR ( Amer) 137.3 Est GFR (Non-Af Amer) 118.5 BUN/Creatinine Ratio 17.4 Glucose 61 L POC Glucose Calcium 8.6 Phosphorus 3.6 Magnesium 1.7 Total Bilirubin 1.0 AST 12 L ALT 9 Alkaline Phosphatase 33 L Total Protein 5.8 L Albumin 3.9 Globulin 1.9 L Albumin/Globulin Ratio 2.1 H 03/09/22 06:37 WBC RBC Hgb Hct MCV MCH MCHC RDW Std Deviation RDW Coeff of Marlon Plt Count MPV Immature Gran % (Auto) Neut % (Auto) Lymph % (Auto) Thomas % (Auto) Eos % (Auto) Baso % (Auto) Neut # (Auto) Lymph # (Auto) Thomas # (Auto) Eos # (Auto) Baso # (Auto) Immature Gran # (Auto) Platelet Estimate Ovalocytes PT INR Sodium Potassium Chloride Carbon Dioxide Anion Gap BUN Creatinine Est Cr Clr Drug Dosing Est GFR ( Amer) Est GFR (Non-Af Amer) BUN/Creatinine Ratio Glucose POC Glucose 107 H Calcium Phosphorus Magnesium Total Bilirubin AST ALT Alkaline Phosphatase Total Protein Albumin Globulin Albumin/Globulin Ratio Current Inpatient Medications Current Inpatient Medications: Current Inpatient Medications Acetaminophen (Acetaminophen 325 Mg Tab) 650 mg PO Q4H PRN PRN Reason: pain/fever Stop: 04/07/22 09:45 Cyanocobalamin (Cyanocobalamin (B-12) 500 Mcg Tablet) 500 mcg PO QAM [facility] Stop: 04/07/22 10:29 Last Admin: 03/09/22 10:51 Dose: Not Given Documented by: Multivitamins (Multivitamin Tab) 1 tab PO QAM [facility] Stop: 04/07/22 10:29 Last Admin: 03/09/22 10:52 Dose: Not Given Documented by: Olanzapine (Olanzapine Zydis 5 Mg Orally Dis. Tab) 2.5 mg PO DAILY [facility] Stop: 04/08/22 11:14 Last Admin: 03/09/22 11:42 Dose: 2.5 mg Documented by:
[2022-03-09 17:06] LABS: Basophils # (auto) 0.01 K/uL (0-0.2); Basophils % (auto) 0.2 %; Eosinophils # (auto) 0.05 K/uL (0-0.5); Eosinophils % (auto) 0.9 %; Hematocrit (blood only) 39.5 % (37-47); Hemoglobin 13.5 g/dL (12.0-16.0); Immature Granulocytes # (auto) 0.01 K/uL (0.00-0.02); Immature Granulocytes % (auto) 0.2 %; Lymphocytes # (auto) 1.12 K/uL (1.2-3.4); Lymphocytes % (auto) 21.1 %; Mean Corpuscular Hemoglobin 30.1 pg (25-34); Mean Corpuscular Hgb Conc 34.2 g/dL (32-36); Mean Corpuscular Volume 88.2 fL (80-100); Mean Platelet Volume 8.5 fL (7.4-10.4); Monocytes % (auto) 5.7 %; Neutrophils # (auto) 3.81 K/uL (1.4-6.5); Neutrophils % (auto) 71.9 %; Platelet Count 256 K/uL (130-400); RDW Coefficient of Variation 12.5 % (11.5-14.5); RDW Standard Deviation 40.5 fL (36.4-46.3); Red Blood Count 4.48 M/uL (4.2-5.4)
[2022-03-09 17:25] LABS: Albumin Level 4.8 gm/dl (3.4-5.0); BUN Creatinine Ratio 20.6 (10-20); Bilirubin,Total 0.9 mg/dl (0.2-1.0); Calcium 9.5 mg/dl (8.5-10.1); Creatinine Clr Calc Pharmacy 84.6 ml/min; Globulin 2.4 gm/dl (2.5-4.0); Magnesium 1.8 mg/dl (1.7-2.4); Phosphorus 2.8 mg/dl (2.5-4.9); Potassium 3.4 mmol/L (3.5-5.1); Total Protein 7.2 gm/dl (6.0-8.3)
[2022-03-09] MEDS ORDERED: POTASSIUM CHLORIDE 10 MEQ TABCR PO STA (17:41)
[2022-03-10 06:14] LABS: Basophils # (auto) 0.01 K/uL (0-0.2); Basophils % (auto) 0.2 %; Eosinophils # (auto) 0.16 K/uL (0-0.5); Eosinophils % (auto) 2.7 %; Hematocrit (blood only) 36.7 % (37-47); Hemoglobin 12.6 g/dL (12.0-16.0); Immature Granulocytes # (auto) 0.01 K/uL (0.00-0.02); Immature Granulocytes % (auto) 0.2 %; Lymphocytes # (auto) 2.24 K/uL (1.2-3.4); Lymphocytes % (auto) 37.8 %; Mean Corpuscular Hemoglobin 30.5 pg (25-34); Mean Corpuscular Hgb Conc 34.3 g/dL (32-36); Mean Corpuscular Volume 88.9 fL (80-100); Mean Platelet Volume 8.6 fL (7.4-10.4); Monocytes % (auto) 8.4 %; Neutrophils # (auto) 3.01 K/uL (1.4-6.5); Neutrophils % (auto) 50.7 %; Platelet Count 254 K/uL (130-400); RDW Standard Deviation 42.1 fL (36.4-46.3); Red Blood Count 4.13 M/uL (4.2-5.4); White Blood Count 5.93 K/uL (4.8-10.8)
[2022-03-10 06:32] LABS: Albumin Globulin Ratio 1.9 (0.9-2); Albumin Level 4.2 gm/dl (3.4-5.0); BUN Creatinine Ratio 18.8 (10-20); Bilirubin,Total 0.6 mg/dl (0.2-1.0); Creatinine Clr Calc Pharmacy 89.9 ml/min; Est GFR (African American) 140.7 ml/min; Est GFR (Non-African American) 121.4 ml/min; Globulin 2.2 gm/dl (2.5-4.0); Magnesium 1.9 mg/dl (1.7-2.4); Phosphorus 3.7 mg/dl (2.5-4.9); Potassium 3.5 mmol/L (3.5-5.1); Total Protein 6.4 gm/dl (6.0-8.3)
--- NOTE | 2022-03-10 12:39 | Hospitalist Progress Note ---
Date of Service March 10, 2022 Assessment & Plan (1) Anorexia nervosa with dangerously low body weight: Plan: Patient is a 26 year old female with a 2 years history of worsening depression and orthorexia/anorexia with restriction and some purging who presents after 3-4 weeks of worsening food restriction. Anorexia nervosa, BMI 15.4: - BMI stable since Oct 2021, increased from BMI of 13 in May - per parents, increased food restriction within last 3-4 weeks - unclear when last meal was - electrolytes wnl on admission - at risk for refeeding syndrome due to severe food restriction over last few days to weeks with unclear last meal, BMI <16 - start at 1000 calories a day to reduce risk of refeeding syndrome - appreciate psychiatry consult: likely would benefit from inpatient eating disorder treatment - trial today of monitoring oral intake following asking family to be at home to determine her level of independence - maintain 1:1 while inpatient for elopement risk given history of elopement at home when discussions arise about hospitalization - continue B12 500mcg PO QAM, multivitamin tab PO QAM, tylenol 650mg PO Q4 PRN - Continue Zyprexa ODT 2.5mg daily - monitor CBC, CMP, Mag, Phos BID Bradycardia: - likely secondary to anorexia nervosa - HR of 40-mid 50s - monitor for symptomatic bradycardia Depression: - per parents, patient has had worsening depression since early 2019 without self harm or suicidal actions - untreated, has not seen a psychiatrist or therapist, not formally diagnosed - per psychiatry - unable to rule out psychotic depression, see zyprexa trial recommendation above Amenorrhea, since January 2019: - normal workup by slasher machine operator outpatient, likely due to physiologic stress and restricting food intake - consider outpatient dexa scan to monitor bone density Diet: limit to 1000 calories for another day before increase DVT ppx: low risk, ambulatory Code Status: Full Code (2) Bradycardia: (3) Hypoglycemia: Admission and Anticipated Discharge Date Admission Date: March 08, 2022 Supervising Physician Co-Signing Physician Notes Patient seen and examined independently of PGY-3 Dr. Philip. Agree with history, exam findings, assessment and plan of care as outlined. In brief, Fanny is a 26 year old female with history of secondary amenorrhea admitted due to concerns for restrictive eating and weight loss. Family not at the bedside this afternoon as they have been asked to leave. Asking if she can leave today. She does not want to try Zyprexa again. She does not endorse any issues or side effects from taking Zyprexa yesterday. She has not eating anything today. She is afraid that she will be restrained and suffocated. VS and nursing notes reviewed. Thin. Fine lugano over the arms. Limited eye contact. Restricted affect. Soft voice, short sentences. She stood during the interview with hands folded. Labs reviewed. 1. Anorexia. Severe. BMI 15. Did have some yogurt with honey yesterday; however, no PO intake today despite encouragement. Start refeeding starting with 1000 kcal per day. Lytes including Mg and Phos BID. CCM. Appreciate nutrition recommendations and psychiatry recommendations. Would likely benefit from inpatient eating disorder program. 2. Bradycardia. Secondary to above. 3. Amenorrhea. Since January 2019. Secondary to low BMI. Will need DEXA as an outpatient given prolonged amenorrhea. 4. Depression with significant anxiety around food. Low suspicion for catatonia. Started 2.5mg ODT Zyprexa yesterday, but patient declined dose today. Dispo: pending clinical improvement/stability. Subjective Patient seen this morning with family at bedside, minimally conversive denying any acute pain or discomfort. Denies interested in trialing medications, after having eaten food yesterday. Discussed with family need for establishment of therapeutic relationship here in hospital has been discussed separation of family from patient in order to determine ability/willingness to eat or drink and take medications with family not present. Discussed with holding off on returning to the hospital unless there would be acute changes. Patient subsequently seen after family left, continuing to be minimally conversive with medical providers. Nursing staff noting that she is conversing more with her one-to-one sitter and seemingly responding to her is consistently sitting in the room with her. Continues to refuse medications and food and drink. Review of Systems Review of Systems: Unobtainable due to mental health condition Physical Exam Constitutional: WD/WN, vitals as above Eyes: PERRL, conjunctivae normal, anicteric sclerae Respiratory: normal respiratory effort, lungs clear to auscultation Auscultation: no crackles, no rales, no rhonchi and no wheezes Cardiovascular: Rate/Rhythm: regular rate and regular rhythm Heart Sounds: no gallop, no murmur and no cardiac rub Vessels: normal peripheral pulses; no JVD Extremities: no edema Gastrointestinal (Abdomen): Inspection/Auscultation: normal bowel sounds; abdomen not distended Percussion/Palpation: abdomen soft; abdomen nontender and no guarding Musculoskeletal: no cyanosis or clubbing, extremities motor strength 5/5 Neurologic: PERRL, EOMI, accommodation nl, no face palsy, no dysarthria moves all extremities Psychiatric: Orientation: alert, cooperative and + guarded Apperance: + disheveled Eye Contact: + poor eye contact Motor Behavior: no abnormal motor movements Speech: + mute Affect: + depressed affect and + flat affect Thought Process: + thought blocking Results & Data Results & Data ([facility]) Vital Signs (Past 12 Hours) Vital Signs Temp Pulse Pulse Resp BP Pulse Ox 03/10/22 09:00 50 L 03/10/22 06:27 36.5 C 48 L 20 105/65 99 03/10/22 02:43 36.5 C 52 L 16 98/65 L 99 Laboratory Results 03/10/22 03/10/22 03/10/22 Range/Units 15:49 15:49 05:02 WBC 3.97 L (4.8-10.8) K/uL RBC 4.52 (4.2-5.4) M/uL Hgb 14.2 (12.0-16.0) g/dL Hct 41.6 (37-47) % MCV 92.0 (80-100) fL MCH 31.4 (25-34) pg MCHC 34.1 (32-36) g/dL RDW Std Deviation 43.3 (36.4-46.3) fL RDW Coeff of Marlon 12.9 (11.5-14.5) % Plt Count 228 (130-400) K/uL MPV 8.5 (7.4-10.4) fL Immature Gran % (Auto) 0.3 % Neut % (Auto) 59.6 % Lymph % (Auto) 29.2 % [place] % (Auto) 8.6 % Eos % (Auto) 2.0 % Baso % (Auto) 0.3 % Neut # (Auto) 2.37 (1.4-6.5) K/uL Lymph # (Auto) 1.16 L (1.2-3.4) K/uL [place] # (Auto) 0.34 (0.11-0.59) K/uL Eos # (Auto) 0.08 (0-0.5) K/uL Baso # (Auto) 0.01 (0-0.2) K/uL Immature Gran # (Auto) 0.01 (0.00-0.02) K/uL Sodium 140 139 (136-145) mmol/L Potassium 4.3 D 3.5 (3.5-5.1) mmol/L Chloride 107 107 (98-107) mmol/L Carbon Dioxide 27 25 (21-32) mmol/L Anion Gap 6 7 (3-11) BUN 11 12 (6-23) mg/dl Creatinine 0.80 0.64 (0.6-1.2) mg/dl Est Cr Clr Drug Dosing 71.9 89.9 ml/min Est GFR ( Amer) 116.3 140.7 ml/min Est GFR (Non-Af Amer) 100.3 121.4 ml/min BUN/Creatinine Ratio 13.8 18.8 (10-20) Glucose 77 80 (70-99(Fasting)) mg/dl Calcium 9.6 9.0 (8.5-10.1) mg/dl Phosphorus 3.8 3.7 (2.5-4.9) mg/dl Magnesium 2.0 1.9 (1.7-2.4) mg/dl Total Bilirubin 0.7 0.6 (0.2-1.0) mg/dl AST 13 13 (13-39) U/L ALT 10 10 (7-52) U/L Alkaline Phosphatase 38 35 (34-104) U/L Total Protein 7.1 6.4 (6.0-8.3) gm/dl Albumin 4.8 4.2 (3.4-5.0) gm/dl Globulin 2.3 L 2.2 L (2.5-4.0) gm/dl Albumin/Globulin Ratio 2.1 H 1.9 (0.9-2) 03/10/22 03/09/22 Range/Units 05:02 16:23 WBC 5.93 (4.8-10.8) K/uL RBC 4.13 L (4.2-5.4) M/uL Hgb 12.6 (12.0-16.0) g/dL Hct 36.7 L (37-47) % MCV 88.9 (80-100) fL MCH 30.5 (25-34) pg MCHC 34.3 (32-36) g/dL RDW Std Deviation 42.1 (36.4-46.3) fL RDW Coeff of Marlon 13.0 (11.5-14.5) % Plt Count 254 (130-400) K/uL MPV 8.6 (7.4-10.4) fL Immature Gran % (Auto) 0.2 % Neut % (Auto) 50.7 % Lymph % (Auto) 37.8 % [place] % (Auto) 8.4 % Eos % (Auto) 2.7 % Baso % (Auto) 0.2 % Neut # (Auto) 3.01 (1.4-6.5) K/uL Lymph # (Auto) 2.24 (1.2-3.4) K/uL [place] # (Auto) 0.50 (0.11-0.59) K/uL Eos # (Auto) 0.16 (0-0.5) K/uL Baso # (Auto) 0.01 (0-0.2) K/uL Immature Gran # (Auto) 0.01 (0.00-0.02) K/uL Sodium 136 (136-145) mmol/L Potassium 3.4 L (3.5-5.1) mmol/L Chloride 101 (98-107) mmol/L Carbon Dioxide 25 (21-32) mmol/L Anion Gap 10 (3-11) BUN 14 (6-23) mg/dl Creatinine 0.68 (0.6-1.2) mg/dl Est Cr Clr Drug Dosing 84.6 ml/min Est GFR ( Amer) 138.0 ml/min Est GFR (Non-Af Amer) 119.0 ml/min BUN/Creatinine Ratio 20.6 H (10-20) Glucose 180 H (70-99(Fasting)) mg/dl Calcium 9.5 (8.5-10.1) mg/dl Phosphorus 2.8 (2.5-4.9) mg/dl Magnesium 1.8 (1.7-2.4) mg/dl Total Bilirubin 0.9 (0.2-1.0) mg/dl AST 17 (13-39) U/L ALT 13 (7-52) U/L Alkaline Phosphatase 41 (34-104) U/L Total Protein 7.2 D (6.0-8.3) gm/dl Albumin 4.8 (3.4-5.0) gm/dl Globulin 2.4 L (2.5-4.0) gm/dl Albumin/Globulin Ratio 2.0 (0.9-2) Medications Administered Current Inpatient Medications Acetaminophen (Acetaminophen 325 Mg Tab) 650 mg PO Q4H PRN PRN Reason: pain/fever Stop: 04/07/22 09:45 Cyanocobalamin (Cyanocobalamin (B-12) 500 Mcg Tablet) 500 mcg PO [facility] Stop: 04/07/22 10:29 Last Admin: 03/10/22 13:21 Dose: Not Given Documented by: Multivitamins (Multivitamin Tab) 1 tab PO [facility] Stop: 04/07/22 10:29 Last Admin: 03/10/22 13:20 Dose: Not Given Documented by: Olanzapine (Olanzapine Zydis 5 Mg Orally Dis. Tab) 2.5 mg PO [facility] Stop: 04/09/22 08:59 Last Admin: 03/10/22 15:08 Dose: Not Given Documented by: Resident Activity Tracking Resident Involvement: Resident Care Provided Care Provided: Adult Hospital Medicine
--- NOTE | 2022-03-10 13:10 | Communication Note ---
Date of Service: March 10, [address] Philip, pulse has been labile, poor PO intake. Parents have remained largely at bedside as patient was deemed elopement risk upon admi ssion by primary service but will be encouraged to allow patient more 1-0n-1 time with meals and treatment team. Zyprexa per Dr. Philip. Unclear severity of separation anxiety vs family dynamic, I'm increasingly concerned she will not be amenable to inpatient ED program ([facility] unit [facility] per insurance) and for [facility] re: their referral process. Needs multidisciplinary care regardless of level. Phosphorous stable so far. Will follow.
[2022-03-10] MEDS: MULTIVITAMIN TAB PO SCH (13:20)
[2022-03-10] MEDS: CYANOCOBALAMIN (B-12) 500 MCG TABLET PO SCH (13:21)
[2022-03-10] MEDS: OLANZapine ZYDIS 5 MG ORALLY DIS. TAB PO SCH (15:08)
[2022-03-10 16:11] LABS: Basophils # (auto) 0.01 K/uL (0-0.2); Basophils % (auto) 0.3 %; Eosinophils # (auto) 0.08 K/uL (0-0.5); Hematocrit (blood only) 41.6 % (37-47); Hemoglobin 14.2 g/dL (12.0-16.0); Immature Granulocytes # (auto) 0.01 K/uL (0.00-0.02); Immature Granulocytes % (auto) 0.3 %; Lymphocytes # (auto) 1.16 K/uL (1.2-3.4); Lymphocytes % (auto) 29.2 %; Mean Corpuscular Hemoglobin 31.4 pg (25-34); Mean Corpuscular Hgb Conc 34.1 g/dL (32-36); Mean Platelet Volume 8.5 fL (7.4-10.4); Monocytes # (auto) 0.34 K/uL (0.11-0.59); Monocytes % (auto) 8.6 %; Neutrophils # (auto) 2.37 K/uL (1.4-6.5); Neutrophils % (auto) 59.6 %; Platelet Count 228 K/uL (130-400); RDW Coefficient of Variation 12.9 % (11.5-14.5); RDW Standard Deviation 43.3 fL (36.4-46.3); Red Blood Count 4.52 M/uL (4.2-5.4); White Blood Count 3.97 K/uL (4.8-10.8)
[2022-03-10 16:27] LABS: Potassium 4.3 mmol/L (3.5-5.1)
[2022-03-10 16:28] LABS: Albumin Globulin Ratio 2.1 (0.9-2); Albumin Level 4.8 gm/dl (3.4-5.0); BUN Creatinine Ratio 13.8 (10-20); Bilirubin,Total 0.7 mg/dl (0.2-1.0); Calcium 9.6 mg/dl (8.5-10.1); Creatinine Clr Calc Pharmacy 71.9 ml/min; Est GFR (African American) 116.3 ml/min; Est GFR (Non-African American) 100.3 ml/min; Globulin 2.3 gm/dl (2.5-4.0); Phosphorus 3.8 mg/dl (2.5-4.9); Total Protein 7.1 gm/dl (6.0-8.3)
[2022-03-11 04:10] LABS: Basophils # (auto) 0.01 K/uL (0-0.2); Basophils % (auto) 0.2 %; Eosinophils # (auto) 0.13 K/uL (0-0.5); Eosinophils % (auto) 2.5 %; Hematocrit (blood only) 37.2 % (37-47); Hemoglobin 12.5 g/dL (12.0-16.0); Lymphocytes # (auto) 2.23 K/uL (1.2-3.4); Lymphocytes % (auto) 42.6 %; Mean Corpuscular Hgb Conc 33.6 g/dL (32-36); Mean Corpuscular Volume 89.2 fL (80-100); Mean Platelet Volume 8.6 fL (7.4-10.4); Monocytes # (auto) 0.36 K/uL (0.11-0.59); Monocytes % (auto) 6.9 %; Neutrophils # (auto) 2.51 K/uL (1.4-6.5); Neutrophils % (auto) 47.8 %; Platelet Count 224 K/uL (130-400); RDW Standard Deviation 41.8 fL (36.4-46.3); Red Blood Count 4.17 M/uL (4.2-5.4); White Blood Count 5.24 K/uL (4.8-10.8)
[2022-03-11 04:14] LABS: Albumin Globulin Ratio 2.3 (0.9-2); Albumin Level 4.3 gm/dl (3.4-5.0); Bilirubin,Total 0.8 mg/dl (0.2-1.0); Calcium 9.4 mg/dl (8.5-10.1); Creatinine Clr Calc Pharmacy 76.7 ml/min; Est GFR (African American) 125.7 ml/min; Est GFR (Non-African American) 108.5 ml/min; Globulin 1.9 gm/dl (2.5-4.0); Magnesium 1.9 mg/dl (1.7-2.4); Phosphorus 3.9 mg/dl (2.5-4.9); Potassium 3.8 mmol/L (3.5-5.1); Total Protein 6.2 gm/dl (6.0-8.3)
--- NOTE | 2022-03-11 06:35 | Hospitalist Progress Note ---
Date of Service March 11, 2022 Assessment & Plan (1) Anorexia nervosa with dangerously low body weight: Plan: Fanny is a 26-year-old female with history of depression who presented to [facility] for poor functionality at home and extremely restrictive eating behaviors over the last 3-4 weeks. Her presentation is concerning for severe anorexia nervosa with evidence of end-organ complications (e.g., sinus bradycardia, secondary amenorrhea). Anorexia nervosa -- BMI 15.4 on admission, increased from BMI 13 in 05/2021 - Presented with increasing fatigue/decreased functionality at home in the context of 3-4 weeks of extremely restrictive eating behaviors. Timing of last true meal is unknown. - Concerns for family dynamics at home are noted throughout her work-up - Evidence of end-organ damage: secondary amenorrhea, sinus bradycardia - Goal I: 1000 calories / day initially given elevated risk of refeeding syndrome - Continuous cardiac monitoring until HR >45 overnight for at least >24 hrs - Complete bedrest, aside from eating meals in chair (not in bed) - BID orthostatic vital signs or if shows signs of orthostasis, lightheadedness. - 1:1 monitoring during meals - No bathroom for 60 minutes after meals or snacks - Remove trash cans from room - Recommend against outside food and serve foods in unlabeled containers - Recommend against showers at this time due to risk of syncope - Daily blind weights, monitor I&Os - Maintain 1:1 while inpatient for elopement risk given history of elopement at home when discussions arise about hospitalization - Zyprexa ODT 2.5mg daily -- can also initiate mirtazapine nightly - Psychiatry following: appreciate recommendations likely would benefit from inpatient eating disorder treatment Patient would best be served at an inpatient eating disorder center, however, is not amenable to this option at this time. We spent ample time discussing complications of malnutrition, including her currently low HR and BP. We discussed that if she is not amenable to eating, an NGT would be recommended. She would like to try BOOST supplementations -- which have been ordered. Would really like to avoid NGT/peripheral nutrition if possible. Other option, should patient still not want to be transferred, is to discuss PPN. In close discussions with Nutrition and Psych - their help is greatly appreciated. Severe protein calorie malnutrition and risk of refeeding syndrome - BMP, Mg, Phos levels q12h -- goals of Phos >3, K>3.5, Mg 1.8 - continue B12 500mcg PO QAM, multivitamin tab PO QAM - Will start with a Level 1 - 1249-6091 K - if eats < 50% meal, give 8 oz; if eats 50-99% meal, give 4 oz; no snack, total 3 boost plus - Nutrition consult Bradycardia: - secondary to anorexia nervosa - HR of 40-mid 50s - monitor for symptomatic bradycardia Depression - per parents, patient has had worsening depression since early 2019 without self harm or suicidal actions - untreated, has not seen a psychiatrist or therapist, not formally diagnosed - per psychiatry - unable to rule out psychotic depression, see zyprexa trial recommendation above Amenorrhea, since January 2019: - normal workup by molder inflated ball outpatient, likely due to physiologic stress and restricting food intake - Will require outpatient dexa scan to monitor bone density Dispo: MS/T Diet: limit to 1000 calories for another day before increase DVT ppx: low risk, ambulatory Code Status: Full Code (2) Bradycardia: (3) Hypoglycemia: Admission and Anticipated Discharge Date Admission Date: March 08, 2022 Supervising Physician Co-Signing Physician Notes Resident Physician Supervision Note: I interviewed and examined the patient. Discussed with [Name of resident] and agree with findings and plan as documented in the note. Any exceptions or clarifications are listed here: None Pt avoids eye contact, speaks softly, but will not eat or disclose what is wrong with her pt is being evaluated for possible fitness to make decisions by psychiatry to eval whether she can have feeding tube placed as she refused this currently or be committed to in patient psyche Documented By: Saúl King MD Subjective Zero intake reported by patient's 1:1 over the last 24 hours. Patient acknowledges entrance into the room but does not provide meaningful history. Occasionally answers yes/no questions. Review of Systems Review of Systems: as per HPI Physical Exam Physical Exam: General: 26-year old female who is thin and frail-appearing. Affect is flat and constricted. HEENT: NCAT. - Eyes - Sclera are white, anicteric, and without injection. - Mouth - MMM - Neck - supple, no appreciable JVD Cardiac: Bradycardic with regular rhythm; S1 and S2 present with no murmurs, rubs, or gallops. Pulmonary: Good respiratory effort with symmetric expansion of the chest. No use of accessory muscles. Lungs were clear to auscultation bilaterally with no crackles or wheezes. Abdominal: Normoactive bowel sounds. Abdomen was soft, nondistended, and non- tender to palpation. Extremities: Upper and lower extremities are warm and well perfused. No evidence of nail changes or knuckle bruising. Psych: Minimal eye contact and verbal responses. Affect is flat/constricted. Behavior is somewhat cooperative. Results & Data Results & Data ([facility]) Vital Signs (Past 12 Hours) Vital Signs Temp Pulse Pulse Pulse Resp BP Pulse Ox 03/11/22 03:28 36.5 C 46 L 20 95/56 L 97 03/10/22 23:00 44 L 03/10/22 22:49 36.6 C 48 L 20 101/67 99 03/10/22 19:30 36.5 C 56 L 51 L 20 102/71 100 Resident Activity Tracking Resident Involvement: Resident Care Provided Care Provided: Adult Hospital Medicine
[2022-03-11] MEDS ORDERED: THIAMINE HCL 200 MG in SODIUM CHLORIDE 0.9% 50 ML IV SCH (09:00)
[2022-03-11] MEDS: CYANOCOBALAMIN (B-12) 500 MCG TABLET PO SCH (11:03)
[2022-03-11] MEDS: MULTIVITAMIN TAB PO SCH (11:03)
[2022-03-11] MEDS: OLANZapine ZYDIS 5 MG ORALLY DIS. TAB PO SCH (11:04)
[2022-03-11] MEDS: THIAMINE HCL 100 MG TAB PO SCH (11:05)
--- NOTE | 2022-03-11 16:43 | Billing Data ---
Date of Service March 11, 2022 Coding Level of Care Code 41863 Subseq Obs Care Lvl 2
--- NOTE | 2022-03-11 16:47 | Psychiatric Progress Note ---
Date of Service March 11, 2022 Impression / Recommendations Impression 26 yo female with progressive preoccupation with food, weight loss, resulting in secondary amenorrhea for some time now with classic symptoms of low BMI, lanugo, bradycardia. Patient not taking PO and is having anxiety around communication. Unable to exclude psychotic depression but restoring nutrition is primary treatment need. 03/11/22: anxiety and difficulty with thought processing due to malnutrition (1) Anorexia nervosa with dangerously low body weight: 03/10/22: case reviewed with Dr. Lemus. [facility] virtual IOP does not work with the patient's insurance. I reached out to ED partial at [place]. The adult program is up to age 24, no virtual option. Not yet meeting parameters on HR for [facility] referral but need to to recheck insurance as [facility] family referrals of ten go to [place]. Have not been able to meaningfully discuss inpatient residential care for ED with patient or family. No HIPAA related info in case discussion with local ED specialist for possible aftercare recommendations if refuses inpatient. Patient is not appropriate for 3S programming. Discussed possible trial of low dose Ativan before meals (would need to monitor BP) and/or titration of Zyprexa to BID. The patient is not able to engage in discussion of risks/benefits surrounding any refusals of care so in that regard she is unable to sign out AMA. She could be committed to the medical floor if would attempt to leave for further treatment but inpatient ED care is exclusively voluntary in my experience after that. Agree with Dr. Leums that a bit early and counter- therapeutic to force tube feeding. 03/09/22: Zyprexa trial 2.5 mg per primary team, shift to if sedating. Would recommend parents not be present during meals as a trial. At this point have been unable to assess patient's amenability to inpatient ED treatment as she is extremely guarded. Has voiced fear of being hospitalized. Case discussed with hospitalist service. 03/08/22: BMI <18 (15.4) and bradycardia with ongoing restricting are clear criteria for inpatient ED treatment when medically clear. consider Ativan challenge if any emerging catatonic features will discuss Zyprexa trial, likely 1.25 mg to start and taking PO after period of cardiac monitoring Protective Factors Assessment Employed: No Interval History Identifying Information 26 yo female with 2 year history of weight loss/anorexia admit medically on 03/08/22 with BMI under 18 and bradycardia. Chief Complaint "Are you going to tube me?"--I sat with patient for approximately 20 min, this is all she said during that time with both direct questioning and indirect conversation. Review of Systems Notes selectively mute Subjective Subjective Patient was seen & assessed and interval progress reviewed with nursing and Dr. Lemus. Patient had not yet eaten breakfast and had untouched fruit/vegetables on her tray. Unclear if she was sipping boost. She has been cooperative but still guarded with 1-on-1. She has not elaborated on home environment or relationship with her parents. She would not even nod approval for me to speak with mother by phone. Physical Exam Psychiatric Orientation: alert and + guarded Apperance: appropriately groomed Eye Contact: + poor eye contact Motor Behavior: no abnormal motor movements Speech: + mute Affect: + depressed affect and + flat affect Vital Signs (Past 24 Hours) Last Vital Signs Temp 36.3 C L 03/11/22 11:28 Pulse 55 L 03/11/22 16:03 Resp 14 03/11/22 11:28 BP 98/67 L 03/11/22 11:28 Pulse Ox 100 03/11/22 11:28 Results & Data ([facility]) Laboratory Results Laboratory Results - last 24 hr 03/11/22 03/11/22 03:45 03:45 WBC 5.24 RBC 4.17 L Hgb 12.5 Hct 37.2 MCV 89.2 MCH 30.0 MCHC 33.6 RDW Std Deviation 41.8 RDW Coeff of Marlon 13.0 Plt Count 224 MPV 8.6 Immature Gran % (Auto) 0.0 Neut % (Auto) 47.8 Lymph % (Auto) 42.6 [place] % (Auto) 6.9 Eos % (Auto) 2.5 Baso % (Auto) 0.2 Neut # (Auto) 2.51 Lymph # (Auto) 2.23 [place] # (Auto) 0.36 Eos # (Auto) 0.13 Baso # (Auto) 0.01 Immature Gran # (Auto) 0.00 Sodium 142 Potassium 3.8 Chloride 108 H Carbon Dioxide 28 Anion Gap 6 BUN 12 Creatinine 0.75 Est Cr Clr Drug Dosing 76.7 Est GFR ( Amer) 125.7 Est GFR (Non-Af Amer) 108.5 BUN/Creatinine Ratio 16.0 Glucose 71 Calcium 9.4 Phosphorus 3.9 Magnesium 1.9 Total Bilirubin 0.8 AST 11 L ALT 9 Alkaline Phosphatase 34 Total Protein 6.2 Albumin 4.3 Globulin 1.9 L Albumin/Globulin Ratio 2.3 H Current Inpatient Medications Current Inpatient Medications: Current Inpatient Medications Acetaminophen (Acetaminophen 325 Mg Tab) 650 mg PO Q4H PRN PRN Reason: pain/fever Stop: 04/07/22 09:45 Cyanocobalamin (Cyanocobalamin (B-12) 500 Mcg Tablet) 500 mcg PO [facility] Stop: 04/07/22 10:29 Last Admin: 03/11/22 11:03 Dose: Not Given Documented by: Multivitamins (Multivitamin Tab) 1 tab PO [facility] Stop: 04/07/22 10:29 Last Admin: 03/11/22 11:03 Dose: Not Given Documented by: Olanzapine (Olanzapine Zydis 5 Mg Orally Dis. Tab) 2.5 mg PO [facility] Stop: 04/09/22 08:59 Last Admin: 03/11/22 11:04 Dose: Not Given Documented by: Thiamine HCl (Thiamine Hcl 100 Mg Tab) 100 mg PO [facility] Stop: 04/10/22 08:59 Last Admin: 03/11/22 11:05 Dose: Not Given Documented by:
[2022-03-11] MEDS ORDERED: LORazepam 0.25 MG in SYRINGE 0.125 ML IV PRN (17:27)
--- NOTE | 2022-03-12 06:33 | Hospitalist Progress Note ---
Date of Service March 12, 2022 Assessment & Plan (1) Anorexia nervosa with dangerously low body weight: Plan: Fanny is a 26-year-old female with history of depression who presented to [facility] for poor functionality at home and extremely restrictive eating behaviors over the last 3-4 weeks. Her presentation is concerning for severe anorexia nervosa with evidence of end-organ complications (e.g., sinus bradycardia, secondary amenorrhea). Anorexia nervosa -- BMI 15.4 on admission, increased from BMI 13 in 05/2021 - Presented with increasing fatigue/decreased functionality at home in the context of 3-4 weeks of extremely restrictive eating behaviors. Timing of last true meal is unknown. - Concerns for family dynamics at home are noted throughout her work-up -- pending further work-up, will consider reaching out to APS - Evidence of end-organ damage: secondary amenorrhea, sinus bradycardia - Goal I: 1400 calories / day, supplement with Boost as below - Continuous cardiac monitoring until HR >45 overnight for at least >24 hrs - Complete bedrest, aside from eating meals in chair (not in bed) - BID orthostatic vital signs or if shows signs of orthostasis, lightheadedness. - 1:1 monitoring during meals - No bathroom for 60 minutes after meals or snacks, remove trash cans from room - Recommend against outside food and serve foods in unlabeled containers - Recommend against showers at this time due to risk of syncope - Daily blind weights, monitor I&Os - Maintain 1:1 while inpatient for elopement risk given history of elopement at home when discussions arise about hospitalization - Psychiatry following: appreciate recommendations ; currently investigating [facility]/virtual IOP/close outpatient f/u with specialist - Premeal Ativan 0.25mg IV - patient amenable to try. Entered. Monitor HR/BP. - Zyprexa ODT 2.5mg b.i.d. Patient would best be served at an inpatient eating disorder center; search for available options or virtual IOPs are ongoing by Psych. We spent ample time discussing complications of malnutrition, including her currently low HR and BP. She has been amenable to trying BOOST supplementations but is barely taking any down. Would really like to avoid NGT<peripheral nutrition if possible. In close discussions with Nutrition and Psych - their help is greatly appreciated. Severe protein calorie malnutrition and risk of refeeding syndrome - BMP, Mg, Phos levels q12h -- goals of Phos >3, K>3.5, Mg 1.8 - continue B12 500mcg PO QAM, multivitamin tab PO QAM - Will start with a Level 1 - 1400 K - if eats < 50% meal, give 8 oz; if eats 5 0-99% meal, give 4 oz; no snack, total 3 boost plus - Nutrition Consulted and assisting: will start D5-1/2NS @ 30cc/hr Bradycardia -- improving, initially between high 30s - 40s - secondary to anorexia nervosa - monitor for symptomatic bradycardia Depression - per parents, patient has had worsening depression since early 2019 without self harm or suicidal actions - untreated, has not seen a psychiatrist or therapist, not formally diagnosed - per psychiatry - unable to rule out psychotic depression, see zyprexa trial recommendation above Amenorrhea, since January 2019: - normal workup by contact center agent outpatient, likely due to physiologic stress and restricting food intake - Will require outpatient dexa scan to monitor bone density Dispo: MS/T Diet: limit to 1400 calories for another day before increase DVT ppx: low risk, ambulatory Code Status: Full Code (2) Bradycardia: (3) Hypoglycemia: Admission and Anticipated Discharge Date Admission Date: March 08, 2022 Supervising Physician Co-Signing Physician Notes I personally examined the patient and verified all [place] points of history and exam, discussed case, and agree with decision making with Dr Lemus not really much communication but does nod some. d/w RN and CHURN TENDER - she was wondering if she should try ativan. also CHURN TENDER notes that she wonders about shower, and about healing garden vitals noted nad but very withdrawn heent nc at mmm breathing unlabored no accessory muscles good effort skin no rashes no pallor or icterus, very thin anorexia - continue current care. tried to establish rapport with pt. discussed risks/benefits of current approaches. definitely would be most of benefit with intensive programs - continue to pursue. otherwise as above Subjective Per patient's aide, patient had reported that visit with Dad did not go well yesterday. Did not provide further details. No meaningful HPI obtained this AM. Review of Systems Review of Systems: as per HPI Physical Exam Physical Exam: General: 26-year old female who is thin and frail-appearing. Affect is flat and more constricted than yesterday HEENT: NCAT. - Eyes - Sclera are white, anicteric, and without injection. - Mouth - MMM - Neck - supple, no appreciable JVD Cardiac: Bradycardic with regular rhythm; S1 and S2 present with no murmurs, rubs, or gallops. Pulmonary: Good respiratory effort with symmetric expansion of the chest. No use of accessory muscles. Lungs were clear to auscultation bilaterally with no crackles or wheezes. Abdominal: Normoactive bowel sounds. Abdomen was soft, nondistended, and non- tender to palpation. Extremities: Upper and lower extremities are warm and well perfused. No evidence of nail changes or knuckle bruising. Psych: Minimal eye contact and verbal responses. Affect is flat/constricted, more-so than yesterday. Results & Data Results & Data ([facility]) Vital Signs (Past 12 Hours) Vital Signs Temp Pulse Pulse Resp BP Pulse Ox 03/11/22 23:30 72 03/11/22 23:15 36.8 C 57 L 20 99/64 L 97 Resident Activity Tracking Resident Involvement: Resident Care Provided Care Provided: Adult Hospital Medicine
[2022-03-12] MEDS ORDERED: LORazepam 1 MG TAB SL STA (09:22)
[2022-03-12] MEDS ORDERED: LORazepam 1 MG TAB SL PRN (09:23)
--- NOTE | 2022-03-12 09:43 | Communication Note ---
Date of Service: March 12, [address] Greer (PCP). Patient has always been rather shy but clearly regressed compared to last contact. 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 She is not aware of any conflicts in the home. She would support patient going to residential care for ED treatment or any higher level of ED outpatient. She would also support transfer of care to a [facility] PCP if able to access more coordinated services under her [facility] family plan. Liaison to check with [facility] unit if either their IOP or partial programs are still remote as their website indicates and if patient would be an appropriate referral if unwilling to go inpatient. Dr. Lemus updated. Plans to try Ativan before meals and titrate Zyprexa. Patient did not sleep much last pm, adding hs dose of Zyprexa may help. Periactin or addition of Remeron may be reasonable next choices for sleep, the latter may better address anxiety.
[2022-03-12] MEDS ORDERED: SODIUM CHLORIDE 0.9% 1000ML 1,000 ML IV SCH (10:15)
[2022-03-12] MEDS: OLANZapine ZYDIS 5 MG ORALLY DIS. TAB PO SCH ×2 (12:07→21:22)
[2022-03-12] MEDS: MULTIVITAMIN TAB PO SCH (12:07)
[2022-03-12] MEDS: THIAMINE HCL 100 MG TAB PO SCH (12:07)
[2022-03-12] MEDS: CYANOCOBALAMIN (B-12) 500 MCG TABLET PO SCH (12:07)
[2022-03-12] MEDS: D5W AND 1/2NSS 1,000 ML IV SCH (12:44)
[2022-03-12] MEDS: LORazepam 0.25 MG in SYRINGE 0.125 ML IV PRN (12:44)
--- NOTE | 2022-03-12 17:46 | Billing Data ---
Date of Service March 12, 2022 Coding Level of Care Code 58647 Subseq Hosp Care Lvl 3
--- NOTE | 2022-03-13 06:49 | Hospitalist Progress Note ---
Date of Service March 13, 2022 Assessment & Plan (1) Anorexia nervosa with dangerously low body weight: Plan: Fanny is a 26-year-old female with history of depression who presented to [facility] for poor functionality at home and extremely restrictive eating behaviors over the last 3-4 weeks. Her presentation is concerning for severe anorexia nervosa with evidence of end-organ complications (e.g., sinus bradycardia, secondary amenorrhea). Anorexia nervosa -- BMI 15.4 on admission, increased from BMI 13 in 05/2021 - Presented with increasing fatigue/decreased functionality at home in the context of 3-4 weeks of extremely restrictive eating behaviors. Timing of last true meal is unknown. - Concerns for family dynamics at home are noted throughout her work-up -- pending further work-up - Evidence of end-organ damage: secondary amenorrhea, sinus bradycardia (now resolving) - Vomit noted in trashcan on 03/13 by RN -- purging activity suspected - No bathroom for 60 minutes after meals or snacks, remove trash cans from room - Increase caloric goal to 1600kcal/day with BOOST supplementation - Premeal Ativan 0.25mg IV and q4h PRN - Zyprexa ODT 2.5mg b.i.d - Continuous cardiac monitoring - Complete bedrest, aside from eating meals in chair (not in bed) - BID orthostatic vital signs or if shows signs of orthostasis, lightheadedness when able - Maintain 1:1 while inpatient for elopement risk given history of elopement at home when discussions arise about hospitalization - Daily blind weights, monitor I&Os - Psychiatry following: greatly appreciate assistance, see comment below Patient would best be served at an inpatient eating disorder center; search for available options or virtual IOPs are ongoing by Psych ([facility] could accept for virtual / outpatient program; inpatient rehab remains a possibility once more medically stable and if patient agrees). Given increasing PO intake over 03/12- , believe we can continue oral trial for now and hold off on further considerations of PPN/NGT placement. Severe protein calorie malnutrition and risk of refeeding syndrome - BMP, Mg, Phos levels q12h -- goals of Phos >3, K>3.5, Mg 1.8 - continue B12 500mcg PO QAM, multivitamin tab PO QAM - Nutrition Consulted and assisting: Hold IVF given lower phos on 03/13 Bradycardia -- improving, initially between high 30s - 40s - secondary to anorexia nervosa - monitor for symptomatic bradycardia Depression - per parents, patient has had worsening depression since early 2019 without self harm or suicidal actions - untreated, has not seen a psychiatrist or therapist, not formally diagnosed - per psychiatry - unable to rule out psychotic depression, see zyprexa trial recommendation above Amenorrhea, since January 2019: - normal workup by personal attendant outpatient, likely due to physiologic stress and restricting food intake - Will require outpatient dexa scan to monitor bone density Dispo: MS/T Diet: Advance as above DVT ppx: low risk, ambulatory Code Status: Full Code (2) Bradycardia: (3) Hypoglycemia: Admission and Anticipated Discharge Date Admission Date: March 12, 2022 Supervising Physician Co-Signing Physician Notes I personally examined the patient and verified all [place] points of history and exam, discussed case, and agree with decision making with Dr Lemus Sleeping comfortably every time I go to see hernursing noted that she was having a lot of anxiety earlier in the day, we both agree that it would be best to let her rest. vitals noted nad sleeping comfortably breathing unlabored no accessory muscle use. anorexia - continue current care. Overall did take in more p.o. intake, has tried Ativan some, which seems to been helpful. Seems to be making slow/gentle progress. Continue close observation and careful management. Ideally will be able to transfer to an inpatient eating disorder center Subjective NAEO. 75% of lunch consumed yesterday, alongside some BOOST. Ate dinner (grilled cheese with 2 tomato soups, and 2 ice creams), tolerated well. Got a restful night per nursing. Sleeping upon my initial arrival this AM. Informed by nursing that she was attempting at breakfast. Shortly thereafter, RN did discover vomit covered up in the bathroom trash can by paper towels/wash clothes. Seen near lunch time. Answers questions more freely compared to prior. Feeling ok with eating - just a bit full. No nausea. Feels safe with her visitors / family -- would like to continue having them during appropriate hours. Review of Systems Review of Systems: as per HPI Physical Exam Physical Exam: General: 26-year old female who is thin and frail-appearing. Affect is flat, however, communicates more freely today compared to previous days. HEENT: NCAT. - Eyes - Sclera are white, anicteric, and without injection. - Mouth - MMM - Neck - supple, no appreciable JVD Cardiac: Bradycardic with regular rhythm; S1 and S2 present with no murmurs, rubs, or gallops. Pulmonary: Good respiratory effort with symmetric expansion of the chest. No use of accessory muscles. Lungs were clear to auscultation bilaterally with no crackles or wheezes. Abdominal: Normoactive bowel sounds. Abdomen was soft, nondistended, and non- tender to palpation. Extremities: Upper and lower extremities are warm and well perfused. Psych: More eye contact and verbal responses. Affect is flat/constricted, but less-so than yesterday. Results & Data Results & Data ([facility]) Vital Signs (Past 12 Hours) Vital Signs Temp Pulse Pulse Resp BP BP Pulse Ox 03/13/22 04:50 35.7 C L 53 L 16 96/57 L 97 03/12/22 22:38 36.6 C 69 18 94/61 L 97 03/12/22 22:23 63 03/12/22 19:57 36.4 C L 90 18 93/59 L 96 Resident Activity Tracking Resident Involvement: Resident Care Provided Care Provided: Adult Hospital Medicine
[2022-03-13] MEDS: LORazepam 0.25 MG in SYRINGE 0.125 ML IV PRN (09:01)
[2022-03-13] MEDS: THIAMINE HCL 200 MG in SODIUM CHLORIDE 0.9% 50 ML IV SCH (09:01)
[2022-03-13] MEDS: POLYETHYLENE (MIRALAX) 17 GM PACK PO SCH (09:01)
[2022-03-13] MEDS: MULTIVITAMIN TAB PO SCH (10:25)
[2022-03-13] MEDS: OLANZapine ZYDIS 5 MG ORALLY DIS. TAB PO SCH ×2 (10:25→20:18)
[2022-03-13] MEDS: CYANOCOBALAMIN (B-12) 500 MCG TABLET PO SCH (10:25)
[2022-03-13] MEDS: D5W AND 1/2NSS 1,000 ML IV SCH (11:58)
[2022-03-13 12:00] LABS: BUN Creatinine Ratio 26.1 (10-20); Calcium 9.3 mg/dl (8.5-10.1); Creatinine Clr Calc Pharmacy 83.7 ml/min; Est GFR (African American) 137.3 ml/min; Est GFR (Non-African American) 118.5 ml/min; Phosphorus 1.7 mg/dl (2.5-4.9); Potassium 3.3 mmol/L (3.5-5.1)
--- NOTE | 2022-03-13 13:09 | Communication Note ---
Date of Service: March 13, [address] Gannon. Patient had improved PO yesterday but more resistant to care in other ways (IV site, labs). She refuses PO Ativan so being administered IV and Zyprexa is zydis formulation. It appears on chart that she remains focussed on the ED and people getting restrained there. Voiced some willingness for inpatient care but doesn't process/understand would need to be a specialized ED unit. Bradycardia improving. It does appear that emesis found in a trash can this am per resident note. No additional recs at this time. Our service was able to confirm that [facility] outpatient programs (partial, IOP) are virtual and accept the patient's insurance but she would need to participate. Inpatient ED treatment remains recommendation when medically more stable.
[2022-03-13] MEDS ORDERED: POTASSIUM PHOS 3 MMOL/1 ML INFUSION IV STA (13:57)
[2022-03-13] MEDS ORDERED: LORazepam 0.25 MG in SYRINGE 0.25 ML IV PRN (14:14)
[2022-03-13] MEDS ORDERED: POTASSIUM PHOSPHATE 21 MMOL in DEXTROSE 5% 500 ML IV ONE (14:15)
[2022-03-13] MEDS: SIMETHICONE 80 MG CHEW PO SCH (20:18)
--- NOTE | 2022-03-14 06:40 | Hospitalist Progress Note ---
Date of Service March 14, 2022 Assessment & Plan (1) Anorexia nervosa with dangerously low body weight: Plan: Fanny is a 26-year-old female with history of depression who presented to [facility] for poor functionality at home and extremely restrictive eating behaviors over the last 3-4 weeks. Her presentation is concerning for severe anorexia nervosa with evidence of end-organ complications (e.g., sinus bradycardia, secondary amenorrhea). Anorexia nervosa (with possible purging activity) -- BMI 15.4 on admission, increased from BMI 13 in 05/2021 - Presented with increasing fatigue/decreased functionality at home in the context of 3-4 weeks of extremely restrictive eating behaviors. Timing of last true meal is unknown. - Concerns for family dynamics at home are noted throughout her work-up -- pending further work-up - Evidence of end-organ damage: secondary amenorrhea, sinus bradycardia (now resolving) - Vomit noted in trashcan on 03/13 by RN -- purging activity suspected - No bathroom for 60 minutes after meals or snacks, remove trash cans from room - Increase caloric goal to 1844-2754 kcal/day with BOOST supplementation - Premeal Ativan 0.25mg IV and q4h PRN - Zyprexa ODT 2.5mg b.i.d - Continuous cardiac monitoring - Maintain 1:1 while inpatient for elopement risk given history of elopement at home when discussions arise about hospitalization - Daily blind weights, monitor I&Os - Psychiatry following: greatly appreciate assistance, see comment below Patient would best be served at an inpatient eating disorder center ([facility] could accept for virtual / outpatient program; inpatient rehab remains a possibility once more medically stable and if patient agrees). Given good tolerance of PO intake and increasing HR/BPs, suspect patient is close to medical stability and discharge to inpatient facility if available and patient is amenable. Alternatively/if not, virtual/outpatient IOP is an option, but would prefer several more days in the hospital AND ensuring close outpatient f/u with ED provider Severe protein calorie malnutrition and risk of refeeding syndrome - BMP, Mg, Phos levels q12h -- goals of Phos >3, K>3.5, Mg 1.8 - continue B12 500mcg PO QAM, multivitamin tab PO QAM - Nutrition Consulted and assisting: Hold IVF for now, will consider restarting if no PO intake Bradycardia -- resolved - previously in 30-40s during early stay Depression - per parents, patient has had worsening depression since early 2019 without self harm or suicidal actions - untreated, has not seen a psychiatrist or therapist, not formally diagnosed - per psychiatry - unable to rule out psychotic depression, see zyprexa trial recommendation above Amenorrhea, since January 2019: - normal workup by telephone operator outpatient, likely due to physiologic stress and restric ting food intake - Will require outpatient dexa scan to monitor bone density Dispo: MS/T Diet: Advance as above DVT ppx: low risk, ambulatory Code Status: Full Code (2) Bradycardia: (3) Hypoglycemia: Admission and Anticipated Discharge Date Admission Date: March 12, 2022 Supervising Physician Co-Signing Physician Notes I personally examined the patient and verified all [place] points of history and exam, discussed case, and agree with decision making with Dr Lemus Sitting in the chair trying to eat some lunch. Talkative, seems to be willing to go to an inpatient facility, when we discussed trying to set that up and referrals and the time that it might be involved, she openly expresses relief at the ability to stay in the hospital. vitals noted nad talking some making better eye contact, still overall withdrawn but far better than yesterday or the day before. Breathing unlabored no accessory muscle use good effort. Skin shows no rashes no pallor or icterus. Neuro without focal deficits. anorexia - continue current care. Overall did take in more p.o. intake, has tried Ativan some, which seems to been helpful. Taking other medications more regularly seems to be making slow/gentle progress. Continue close observation and careful management. Ideally will be able to transfer to an inpatient eating disorder center. Continue to follow labs as she allows. Needing to replace phosphorus and magnesium, but fortunately no worrisome signs of refeeding such as abdominal pain distention, altered mental status, etc. Subjective NAEO. Evening RX refused. HR 60-70s in reviewing telemetry. Not a great night for sleep. Regarding meals yesterday - ate some of her dinner. Not really interested in eating this morning. Noted that patient is w/ new RN and aide. Wants to go down to [facility] today Review of Systems Review of Systems: as per HPI Physical Exam Physical Exam: General: 26-year old female who is thin and frail-appearing. Affect is flat, however, communicates more freely today compared to previous days. HEENT: NCAT. - Eyes - Sclera are white, anicteric, and without injection. - Mouth - MMM - Neck - supple, no appreciable JVD Cardiac: Bradycardic with regular rhythm; S1 and S2 present with no murmurs, rubs, or gallops. Pulmonary: Good respiratory effort with symmetric expansion of the chest. No use of accessory muscles. Lungs were clear to auscultation bilaterally with no crackles or wheezes. Abdominal: Normoactive bowel sounds. Abdomen was soft, nondistended, and non- tender to palpation. Extremities: Upper and lower extremities are warm and well perfused. Psych: More eye contact and verbal responses. Affect is flat/constricted, but less-so than yesterday. Resident Activity Tracking Resident Involvement: Resident Care Provided Care Provided: Adult Hospital Medicine
[2022-03-14] MEDS: LORazepam 0.25 MG in SYRINGE 0.125 ML IV PRN ×2 (08:13→10:35)
[2022-03-14] MEDS: MULTIVITAMIN TAB PO SCH (10:35)
[2022-03-14] MEDS: OLANZapine ZYDIS 5 MG ORALLY DIS. TAB PO SCH ×2 (10:35→21:07)
[2022-03-14] MEDS: POLYETHYLENE (MIRALAX) 17 GM PACK PO SCH (10:36)
[2022-03-14] MEDS: THIAMINE HCL 200 MG in SODIUM CHLORIDE 0.9% 50 ML IV SCH ×2 (10:36→11:00)
[2022-03-14] MEDS: CYANOCOBALAMIN (B-12) 500 MCG TABLET PO SCH (10:36)
[2022-03-14 12:26] LABS: Est GFR (African American) 139.3 ml/min
[2022-03-14] MEDS: THIAMINE HCL 100 MG TAB PO SCH (12:26)
[2022-03-14 12:27] LABS: BUN Creatinine Ratio 15.2 (10-20); Calcium 9.3 mg/dl (8.5-10.1); Creatinine Clr Calc Pharmacy 88.1 ml/min; Est GFR (Non-African American) 120.2 ml/min; Magnesium 1.6 mg/dl (1.7-2.4); Phosphorus 2.6 mg/dl (2.5-4.9)
--- NOTE | 2022-03-14 13:42 | Communication Note ---
Date of Service: March 14, 2022 Patient more cooperative today with labs and meals. Compliance with meds has varied. VS parameters improving. She interacts with select staff and in fact I' ve limited some of my face to face visits as she becomes easily overhwhelmed with number of providers. There is a behavior plan for her to earn time in [facility] and per Dr. Lemus she is amenable to inpatient ED referral to [facility]. She did not immediately sign a release so that referral can be made. Will require a repeat EKG on day of referral.
--- NOTE | 2022-03-14 18:18 | Billing Data ---
Date of Service March 13, 2022 Coding Level of Care Code 26589 Subseq Hosp Care Lvl 2
--- NOTE | 2022-03-14 18:22 | Billing Data ---
Date of Service March 14, 2022 Coding Level of Care Code 88746 Subseq Hosp Care Lvl 3
[2022-03-14] MEDS: SIMETHICONE 80 MG CHEW PO SCH (21:10)
--- NOTE | 2022-03-15 06:51 | Hospitalist Progress Note ---
Date of Service March 15, 2022 Assessment & Plan (1) Anorexia nervosa with dangerously low body weight: Plan: Fanny is a 26-year-old female with history of depression who presented to [facility] for poor functionality at home and extremely restrictive eating behaviors over the last 3-4 weeks. Her presentation is concerning for severe anorexia nervosa with evidence of end-organ complications (e.g., sinus bradycardia, secondary amenorrhea). Anorexia nervosa (with possible purging activity) -- BMI 15.4 on admission, increased from BMI 13 in 05/2021 - Presented with increasing fatigue/decreased functionality at home in the context of 3-4 weeks of extremely restrictive eating behaviors. Timing of last true meal is unknown. - Concerns for family dynamics at home are noted throughout her work-up -- pending further work-up - Evidence of end-organ damage: secondary amenorrhea, sinus bradycardia (now resolving) - [facility] RN -- concurrent purging activity suspected - No bathroom for 60 minutes after meals or snacks, remove trash cans from room - Increase caloric goal to 8667-8783 kcal/day with BOOST supplementation - Premeal Ativan 0.25mg IV and q4h PRN - Zyprexa ODT 2.5mg b.i.d - Continuous cardiac monitoring - Maintain 1:1 while inpatient for elopement risk given history of elopement at home when discussions arise about hospitalization - Daily blind weights, monitor I&Os - Psychiatry following: greatly appreciate assistance, see comment below Patient would best be served at an inpatient eating disorder center ([facility] could accept for virtual / outpatient program; inpatient rehab remains a possibility once more medically stable and if patient agrees). Given good tolerance of PO intake and increasing HR/BPs, patient is now medically stable for discharge to inpatient facility if available and patient is amenable. Referral process discussed at length at the bedside and form provided for patient to review (For release of information) - psychiatric liason RN was present and aided with this discussion. Alternatively/if not, virtual/outpatient IOP is an option, but would prefer several more days in the hospital AND ensuring close outpatient f/u with ED provider Severe protein calorie malnutrition and risk of refeeding syndrome - BMP, Mg, Phos levels q12h as allowed -- goals of Phos >3, K>3.5, Mg 1.8 - continue B12 500mcg PO QAM, multivitamin tab PO QAM - Nutrition Consulted and assisting - Hold from further mIVF Bradycardia -- resolved - previously in 30-40s during early stay Depression - per parents, patient has had worsening depression since early 2019 without self harm or suicidal actions - untreated, has not seen a psychiatrist or therapist, not formally diagnosed - per psychiatry - unable to rule out psychotic depression, see zyprexa trial re commendation above Amenorrhea, since January 2019: - normal workup by cofounder outpatient, likely due to physiologic stress and restricting food intake - Will require outpatient dexa scan to monitor bone density Dispo: MS/T Diet: Advance as above DVT ppx: low risk, ambulatory Code Status: Full Code (2) Bradycardia: (3) Hypoglycemia: Admission and Anticipated Discharge Date Admission Date: March 12, 2022 Supervising Physician Co-Signing Physician Notes I personally examined the patient and verified all [place] points of history and exam, discussed case, and agree with decision making with Dr Lemus Sitting in bed, a little bit withdrawn. Talk some. Still has not felt comfortable completing paperwork for referrals for eating disorder referral vitals noted nad talking some making better eye contact, still overall withdrawn but far better than yesterday or the day before. Breathing unlabored no accessory muscle use good effort. Skin shows no rashes no pallor or icterus. Neuro without focal deficits. anorexia - continue current care. Has overall been showing slow progress, which is reassuring. Continue medications, continue to replace electrolytes as she allows. Appears that she would be stable for referral to inpatient eating disorder facility once available Subjective NAEO. Good night's sleep. Ate most of her dinner (soup) and also ate most of her breakfast. HAND MODEL found vomit in basin yesterday evening per RN report. At the bedside today, we did spend a lot of time discussing the referral process for inpatient facilities - she demonstrates interest, but wants more time to think. She notes that she wants to go home, but - if she has to stay anywhere - would prefer to be here. We discussed more about the services offered at inpatient facilities that aren't achievable here. She demonstrated understanding and wanted time to independently review the form, which is gladly supported. Review of Systems Review of Systems: as per HPI Physical Exam Physical Exam: General: 26-year old female who is thin and frail-appearing. Affect is flat, however, communicates more freely today compared to yesterday -- asks how tall I am. HEENT: NCAT. - Eyes - Sclera are white, anicteric, and without injection. - Mouth - MMM - Neck - supple, no appreciable JVD Cardiac: Well perfused. Pulmonary: Good respiratory effort with symmetric expansion of the chest. Abdominal: Abdomen was soft and did not appear nondistended Extremities: Upper and lower extremities are warm and well perfused. Psych: More eye contact and verbal responses. Affect is flat/constricted, but less-so than yesterday. Results & Data Results & Data ([facility]) Vital Signs (Past 12 Hours) Vital Signs Temp Pulse Resp BP Pulse Ox 03/14/22 21:32 36.6 C 75 18 105/70 99 Resident Activity Tracking Resident Involvement: Resident Care Provided Care Provided: Adult Hospital Medicine
[2022-03-15] MEDS: POLYETHYLENE (MIRALAX) 17 GM PACK PO SCH (09:30)
[2022-03-15] MEDS: OLANZapine ZYDIS 5 MG ORALLY DIS. TAB PO SCH ×2 (09:33→21:02)
[2022-03-15] MEDS: MULTIVITAMIN TAB PO SCH (09:34)
[2022-03-15] MEDS: THIAMINE HCL 100 MG TAB PO SCH (09:34)
[2022-03-15] MEDS: CYANOCOBALAMIN (B-12) 500 MCG TABLET PO SCH (09:34)
[2022-03-15 11:20] LABS: BUN Creatinine Ratio 24.6 (10-20); Calcium 9.1 mg/dl (8.5-10.1); Creatinine Clr Calc Pharmacy 89.5 ml/min; Est GFR (Non-African American) 120.8 ml/min; Magnesium 1.6 mg/dl (1.7-2.4); Phosphorus 2.1 mg/dl (2.5-4.9); Potassium 3.3 mmol/L (3.5-5.1)
[2022-03-15] MEDS ORDERED: POTASSIUM PHOS 3 MMOL/1 ML INFUSION IV STA (11:39)
[2022-03-15] MEDS ORDERED: POTASSIUM PHOSPHATE 21 MMOL in SODIUM CHLORIDE 0.9% 250 ML IV ONE (12:00)
[2022-03-15] MEDS: MAGNESIUM SULFATE / D5W 1 GM/100 ML BAG IV SCH ×3 (16:38→21:02)
--- NOTE | 2022-03-15 16:40 | Billing Data ---
Date of Service March 15, 2022 Coding Level of Care Code 43839 Subseq Hosp Care Lvl 3
[2022-03-15] MEDS: SIMETHICONE 80 MG CHEW PO SCH (21:02)
--- NOTE | 2022-03-16 03:47 | Communication Note ---
Date of Service: March 16, 2022 Notified by nursing of BP 91/43. Patient also has been refusing IV meds and mg/phos lab draws. Giving 500mL LR bolus. repeat bp 95/53.
[2022-03-16] MEDS ORDERED: LACTATED RINGER'S 500 ML IV ONE (04:06)
[2022-03-16] MEDS: CYANOCOBALAMIN (B-12) 500 MCG TABLET PO SCH ×3 (08:34→14:30)
[2022-03-16] MEDS: MULTIVITAMIN TAB PO SCH ×3 (08:34→14:30)
[2022-03-16] MEDS: THIAMINE HCL 100 MG TAB PO SCH ×3 (08:34→14:30)
[2022-03-16] MEDS: OLANZapine ZYDIS 5 MG ORALLY DIS. TAB PO SCH ×4 (08:34→19:44)
[2022-03-16] MEDS: POLYETHYLENE (MIRALAX) 17 GM PACK PO SCH ×3 (08:45→14:30)
--- NOTE | 2022-03-16 12:30 | Hospitalist Progress Note ---
Date of Service March 16, 2022 Assessment & Plan (1) Anorexia nervosa with dangerously low body weight: Plan: Fanny is a 26-year-old female with history of depression who presented to [facility] for poor functionality at home and extremely restrictive eating behaviors over the last 3-4 weeks. Her presentation is concerning for severe anorexia nervosa with evidence of end-organ complications (e.g., sinus bradycardia, secondary amenorrhea). Anorexia nervosa (with possible purging activity) -- BMI 15.4 on admission, increased from BMI 13 in 05/2021 - Presented with increasing fatigue/decreased functionality at home in the context of 3-4 weeks of extremely restrictive eating behaviors. Timing of last true meal is unknown. - Concerns for family dynamics at home are noted throughout her work-up -- pending further work-up - Evidence of end-organ damage: secondary amenorrhea, sinus bradycardia (now appears to have improved) - Vomit noted in [facility] on 03/13 and by RN -- concurrent purging activity suspected - No bathroom for 60 minutes after meals or snacks, remove trash cans from room -Continue caloric goal to [id number] kcal/day with BOOST supplementation - Premeal Ativan 0.25mg IV and q4h PRN, AC when she allows - Zyprexa ODT 2.5mg b.i.d - Continuous cardiac monitoring - Maintain 1:1 while inpatient for elopement risk given history of elopement at home when discussions arise about hospitalization - Daily blind weights, monitor I&Os - Psychiatry following: greatly appreciate assistance, see comment below Patient would best be served at an inpatient eating disorder center ([facility] could accept for virtual / outpatient program; inpatient rehab remains a possibility once more medically stable and if patient agrees). Given good tolerance of PO intake and increasing HR/BPs, patient is now medically stable for discharge to inpatient facility if available and patient is amenable. Referral process has been discussed at length at the bedside and form provided for patient to review (For release of information), did not push this issue today given that she was more withdrawn. Alternatively/if not, virtual/outpatient IOP is an option, but I harbors significant concerns about her wellbeing with this approach given her current status Severe protein calorie malnutrition and risk of refeeding syndrome - BMP, Mg, Phos levels and replace as she allows -- goals of Phos >3, K>3.5, Mg 1.8, given that she is sometimes reticent of IVs I am attempting to see how she does with mag oxide and K-Phos p.o. supplementation spaced out throughout the dayfully aware this will not be enough to truly treat her lab levels, but given that she is mostly just showing lab deficiencies and not bedside evidence of concerning refeeding syndrome, replacing to a degree would be better than not at all - continue B12 500mcg PO QAM, multivitamin tab PO QAM - Nutrition Consulted and assisting Bradycardia -- resolved - previously in 30-40s during early stay Depression - per parents, patient has had worsening depression since early 2019 without self harm or suicidal actions - untreated, has not seen a psychiatrist or therapist, not formally diagnosed - per psychiatry - unable to rule out psychotic depression, see zyprexa trial recommendation above Amenorrhea, since January 2019: - normal workup by staff development manager outpatient, likely due to physiologic stress and restricting food intake - Will require outpatient dexa scan to monitor bone density Dispo: MS/T Diet: Advance as above DVT ppx: low risk, ambulatory Code Status: Full Code (2) Bradycardia: (3) Hypoglycemia: Admission and Anticipated Discharge Date Admission Date: March 12, 2022 Subjective More withdrawn today. Does not speak. Makes very brief eye contact and nods with extremely subtle movements. Has not been doing as well today with eating apparently, and overall much more withdrawn. Offered empathy and support which was around when she gave brief eye contact Review of Systems Review of Systems: Unobtainable due to mental health condition Physical Exam Physical Exam: She is awake, sitting in bed, knees drawn to her chest, mostly looking down. Mostly does not make eye contact except for briefly as above noted. Normocephalic atraumatic mucous membranes do appear moist. Breathing unlabored no accessory muscle use good effort. Skin without rashes pallor or icterus. Neuro without focal deficits. Did not do detailed exam due to patient's withdrawn state and not wanting to provoke undue stress/anxiety Results & Data Results & Data ([facility]) Vital Signs (Past 12 Hours) Vital Signs Temp Pulse Pulse Resp BP BP Pulse Ox 03/16/22 07:45 97.0 F L 66 18 93/52 L 89/56 L 98 03/16/22 07:14 65 03/16/22 06:26 67 95/53 L 03/16/22 03:23 97.3 F L 70 20 91/43 L 98 PG Care Time/CCT Total # of Minutes Spent Total Time Spent with Patient: Total time spent is greater than 50% in coordination of care (as documented) at patient's floor/unit and/or counseling patient: Coding Level of Care Code 13376 Subseq Hosp Care Lvl 3 Diagnoses Anorexia nervosa with dangerously low body weight F50.00 Bradycardia R00.1 Hypoglycemia E16.2
[2022-03-16] MEDS: MAGNESIUM OXIDE 400 MG TAB PO SCH ×2 (12:37→14:30)
--- NOTE | 2022-03-16 12:50 | Psychiatric Progress Note ---
Date of Service March 16, 2022 Impression / Recommendations Impression 26 yo female with progressive preoccupation with food, weight loss, resulting in secondary amenorrhea for some time now with classic symptoms of low BMI, lanugo, bradycardia consistent with anorexia. With ongoing low po intake, concerns about purging after eating and is having anxiety around communication. Unable to exclude psychotic depression but restoring nutrition is primary treatment need as most likely due to anorexia and mood changes can set in with worsening nutritional deficits. No evidence for catatonia. Remains at high risk for ongoing medical decompensation if not hospitalized given lack of po intake with supervision and encouragement and ongoing withdrawn/guarded presentation. 03/16/22: ongoing restriction, now limiting bathroom within 60 min of meals to avoid compensatory binging, suspect her withdrawn presentation is due to distress related to being hospitalized and observed regarding food intake given that anorexia has been severe for some time as well as contribution of limited insight/judgment/engagement/cognitive processing due to malnutrition. Reviewed interim progress from Dr. Faye's notes. -Continue 1-on-1 given history of elopement when eating disorder symptoms are challenged -Continue zyprexa 2.5 mg BID -Continue ativan prn with meals, thiamine, folic acid, MVM (1) Anorexia nervosa with dangerously low body weight: 03/16/22: Discussed with Dr. Gannon, had been showing some increasing engagement but in recent days more withdrawn again. She remains unable/unwilling to discuss treatment options and has not yet signed any ROIs. Goal and recommendation remains inpatient eating disorder treatment program once medically stable and agreeable to this. Given current withdrawn state she remains unsafe for discharge. 03/10/22: case reviewed with Dr. Lemus. [facility] virtual IOP does not work with the patient's insurance. I reached out to ED partial at [place]. The adult program is up to age 24, no virtual option. Not yet meeting parameters on HR for [facility] referral but need to to recheck insurance as [facility] family referrals often go to [place]. Have not been able to meaningfully discuss inpatient residential care for ED with patient or family. No HIPAA related info in case discussion with local ED specialist for possible aftercare recommendations if refuses inpatient. Patient is not appropriate for 3S programming. Discussed possible trial of low dose Ativan before meals (would need to monitor BP) and/or titration of Zyprexa to BID. The patient is not able to engage in discussion of risks/benefits surrounding any refusals of care so in that regard she is unable to sign out AMA. She could be committed to the medical floor if would attempt to leave for further treatment but inpatient ED care is exclusively voluntary in my experience after that. Agree with Dr. Lemus that a bit early and counter- therapeutic to force tube feeding. 03/09/22: Zyprexa trial 2.5 mg per primary team, shift to hs if sedating. Would r ecommend parents not be present during meals as a trial. At this point have been unable to assess patient's amenability to inpatient ED treatment as she is extremely guarded. Has voiced fear of being hospitalized. Case discussed with hospitalist service. 03/08/22: BMI <18 (15.4) and bradycardia with ongoing restricting are clear criteria for inpatient ED treatment when medically clear. consider Ativan challenge if any emerging catatonic features will discuss Zyprexa trial, likely 1.25 mg to start and taking PO after period of cardiac monitoring Protective Factors Assessment Employed: No Interval History Identifying Information 26 yo female with 2 year history of weight loss/anorexia admitted medically on 03/08/22 with BMI under 18, amenorrhea and bradycardia. Psychiatry was consulted for recommendations. Chief Complaint mute Subjective Subjective Patient was seen & assessed and interval progress reviewed. She was mute throughout our interaction and actively avoided eye contact, looking away when the psych liason RN attempted to meet her at eye level and looking down when I tried to make eye contact with her. Refused zyprexa at [facility] but accepted this afternoon. She refused her morning meals and po fluids. Discussed with 1-on-1 that she will speak with 1-on-1. No evidence for catatonia. Physical Exam Psychiatric Orientation: alert and + guarded Apperance: appropriately groomed Eye Contact: + poor eye contact Motor Behavior: no abnormal motor movements Speech: + mute Affect: + flat affect Thought Process: + thought blocking Insight: + impaired insight Judgement: + severely impaired judgement Vital Signs (Past 24 Hours) Last Vital Signs Temp 36.1 C L 03/16/22 07:45 Pulse 66 03/16/22 07:45 Resp 18 03/16/22 07:45 BP 93/52 L 03/16/22 07:45 Pulse Ox 98 03/16/22 07:45 Results & Data ([facility]) Current Inpatient Medications Current Inpatient Medications: Current Inpatient Medications Acetaminophen (Acetaminophen 325 Mg Tab) 650 mg PO Q4H PRN PRN Reason: pain/fever Stop: 04/07/22 09:45 Cyanocobalamin (Cyanocobalamin (B-12) 500 Mcg Tablet) 500 mcg PO QAM [facility] Stop: 04/07/22 10:29 Last Admin: 03/16/22 12:37 Dose: Not Given Documented by: Lorazepam 0.25 mg/ Syringe 0.25 mls @ 2 mls/min IV Q4H PRN PRN Reason: premeal Stop: 04/11/22 12:10 Last Admin: 03/14/22 10:35 Dose: 2 mls/min Documented by: Lorazepam 0.25 mg/ Syringe 0.375 mls @ 2 mls/min IV Q6H PRN PRN Reason: Anxiety beyond mealtime Stop: 04/12/22 14:13 Magnesium Oxide (Magnesium Oxide 400 Mg Tab) 400 mg PO QDL DANO Stop: 04/15/22 11:29 Last Admin: 03/16/22 12:37 Dose: Not Given Documented by: Multivitamins (Multivitamin Tab) 1 tab PO QAM DANO Stop: 04/07/22 10:29 Last Admin: 03/16/22 12:37 Dose: Not Given Documented by: Olanzapine (Olanzapine Zydis 5 Mg Orally Dis. Tab) 2.5 mg PO BID DANO Stop: 04/11/22 08:59 Last Admin: 03/16/22 12:37 Dose: Not Given Documented by: Polyethylene Glycol (Polyethylene (Miralax) 17 Gm Pack) 17 gm PO DAILY DANO Stop: 04/12/22 08:59 Last Admin: 03/16/22 12:37 Dose: Not Given Documented by: Potassium Phosphate (Pot Phosphate Monobasic W/ Sod Tab) 1 tab PO HS DANO Stop: 04/15/22 20:59 Simethicone (Simethicone 80 Mg Chew) 80 mg PO HS DANO Stop: 04/12/22 20:59 Last Admin: 03/15/22 21:02 Dose: Not Given Documented by: Thiamine HCl (Thiamine Hcl 100 Mg Tab) 100 mg PO QAM DANO Stop: 04/13/22 11:29 Last Admin: 03/16/22 12:37 Dose: Not Given Documented by:
[2022-03-16] MEDS: POT PHOSPHATE MONOBASIC W/ SOD TAB PO SCH (19:44)
[2022-03-16] MEDS: SIMETHICONE 80 MG CHEW PO SCH (19:45)
[2022-03-17] MEDS ORDERED: LACTATED RINGER'S 500 ML IV ONE (01:01)
[2022-03-17] MEDS: OLANZapine ZYDIS 5 MG ORALLY DIS. TAB PO SCH ×3 (09:25→22:12)
[2022-03-17] MEDS: THIAMINE HCL 100 MG TAB PO SCH (09:26)
[2022-03-17] MEDS: MULTIVITAMIN TAB PO SCH (09:26)
[2022-03-17] MEDS: CYANOCOBALAMIN (B-12) 500 MCG TABLET PO SCH (09:26)
[2022-03-17] MEDS: POLYETHYLENE (MIRALAX) 17 GM PACK PO SCH (09:26)
[2022-03-17] MEDS: MAGNESIUM OXIDE 400 MG TAB PO SCH (12:12)
--- NOTE | 2022-03-17 12:32 | Psychiatric Progress Note ---
Date of Service March 17, 2022 Impression / Recommendations Impression 26 yo female with progressive preoccupation with food, weight loss, resulting in secondary amenorrhea for some time now with classic symptoms of low BMI, lanugo, bradycardia consistent with anorexia. With ongoing low po intake, concerns about purging after eating and is having anxiety around communication. Unable to exclude psychotic depression but restoring nutrition is primary treatment need as most likely due to anorexia and mood changes can set in with worsening nutritional deficits. No evidence for catatonia. Remains at high risk for ongoing medical decompensation if not hospitalized given lack of po intake with supervision and encouragement and ongoing withdrawn/guarded presentation. 03/17/22: ate more of her breakfast today and taking zyprexa which she seems to be tolerating without side effects, was apparently checking her arm for amount of fat while eating breakfast suggesting ongoing intense fears of gaining weight as intake increases, suspect her withdrawn presentation is due to distress re lated to being hospitalized and observed regarding food intake given that anorexia has been severe for some time as well as contribution of limited insight/judgment/engagement/cognitive processing due to malnutrition. -Continue 1-on-1 given history of elopement when eating disorder symptoms are challenged -Continue zyprexa 2.5 mg BID -Continue ativan prn with meals, thiamine, folic acid, MVM (1) Anorexia nervosa with dangerously low body weight: 03/17/22: Continue current medications and tx plan. Reviewed goal of trying to take a neutral stance toward food intake as overly emphasizing increased intake could cause her to overly restrict at next meal to compensate. Agree with using distraction at meal time to help her eat more. 03/16/22: Discussed with Dr. Gannon, had been showing some increasing engagement but in recent days more withdrawn again. She remains unable/unwilling to discuss treatment options and has not yet signed any ROIs. Goal and recommendation remains inpatient eating disorder treatment program once medically stable and agreeable to this. Given current withdrawn state she remains unsafe for discharge. 03/10/22: case reviewed with Dr. Lemus. [facility] does not work with the patient's insurance. I reached out to ED partial at [place]. The adult program is up to age 24, no virtual option. Not yet meeting parameters on HR for [facility] referral but need to to recheck insurance as [facility] family referrals often go to [place]. Have not been able to meaningfully discuss inpatient residential care for ED with patient or family. No HIPAA related info in case discussion with local ED specialist for possible aftercare recommendations if refuses inpatient. Patient is not appropriate for 3S programming. Discussed possible trial of low dose Ativan before meals (would need to monitor BP) and/or titration of Zyprexa to BID. The patient is not able to engage in discussion of risks/benefits surrounding any refusals of care so in that regard she is unable to sign out AMA. She could be committed to the medical floor if would attempt to leave for further treatment but inpatient ED care is exclusively voluntary in my experience after that. Agree with Dr. Lemus that a bit early and counter- therapeutic to force tube feeding. 03/09/22: Zyprexa trial 2.5 mg per primary team, shift to hs if sedating. Would recommend parents not be present during meals as a trial. At this point have been unable to assess patient's amenability to inpatient ED treatment as she is extremely guarded. Has voiced fear of being hospitalized. Case discussed with hospitalist service. 03/08/22: BMI <18 (15.4) and bradycardia with ongoing restricting are clear criteria for inpatient ED treatment when medically clear. consider Ativan challenge if any emerging catatonic features will discuss Zyprexa trial, likely 1.25 mg to start and taking PO after period of cardiac monitoring Protective Factors Assessment Employed: No Interval History Identifying Information 26 yo female with 2 year history of weight loss/anorexia admitted medically on 03/08/22 with BMI under 18, amenorrhea and bradycardia. Psychiatry was consulted for recommendations. Chief Complaint mute but nods in response to some questions Review of Systems Notes see subjective, nods that she is sleeping well Subjective Subjective Patient was seen & assessed and interval progress reviewed. Accepted her morning medications and ate the majority of her breakfast per discussion with her RN. Speaking with certain providers. With me made eye contact today at times and would nod in response to some questions but otherwise mute. She denied any me dication side effects via non-verbal head movements nor any pain. Went out to the [employer] yesterday and nodded that she enjoyed that. Offered her additional therapeutic activities and books which she declined via non-verbal communication. She also declined to sign YAN for eating disorder treatment. Physical Exam Psychiatric Orientation: alert, oriented x 3, cooperative and + guarded Apperance: appropriately dressed and appropriately groomed Eye Contact: + fair eye contact Motor Behavior: no abnormal motor movements Speech: + mute Affect: + flat affect Thought Process: + thought blocking Insight: + impaired insight Judgement: + impaired judgement Vital Signs (Past 24 Hours) Last Vital Signs Temp 36.4 C L 03/17/22 07:51 Pulse 61 03/17/22 07:51 Resp 20 03/17/22 07:51 BP 90/51 L 03/17/22 07:51 Pulse Ox 99 03/17/22 07:51 Results & Data ([facility]) Laboratory Results Laboratory Results - last 24 hr 03/16/22 19:15 Sodium Cancelled Potassium Cancelled Chloride Cancelled Carbon Dioxide Cancelled Anion Gap Cancelled BUN Cancelled Creatinine Cancelled Est Cr Clr Drug Dosing Cancelled Est GFR ( Amer) Cancelled Est GFR (Non-Af Amer) Cancelled BUN/Creatinine Ratio Cancelled Glucose Cancelled Calcium Cancelled Phosphorus Cancelled Magnesium Cancelled Current Inpatient Medications Current Inpatient Medications: Current Inpatient Medications Acetaminophen (Acetaminophen 325 Mg Tab) 650 mg PO Q4H PRN PRN Reason: pain/fever Stop: 04/07/22 09:45 Cyanocobalamin (Cyanocobalamin (B-12) 500 Mcg Tablet) [facility]: 04/07/22 10:29 Last Admin: 03/17/22 09:26 Dose: 500 mcg Documented by: Lorazepam 0.25 mg/ Syringe 0.25 mls @ 2 mls/min IV Q4H PRN PRN Reason: premeal Stop: 04/11/22 12:10 Last Admin: 03/14/22 10:35 Dose: 2 mls/min Documented by: Lorazepam 0.25 mg/ Syringe 0.375 mls @ 2 mls/min IV Q6H PRN PRN Reason: Anxiety beyond mealtime Stop: 04/12/22 14:13 Magnesium Oxide (Magnesium Oxide 400 Mg Tab) 400 mg PO QDL [facility] Stop: 04/15/22 11:29 Last Admin: 03/17/22 12:12 Dose: 400 mg Documented by: Multivitamins (Multivitamin Tab) 1 tab PO QAM [facility] Stop: 04/07/22 10:29 Last Admin: 03/17/22 09:26 Dose: 1 tab Documented by: Olanzapine (Olanzapine Zydis 5 Mg Orally Dis. Tab) 2.5 mg PO BID DANO Stop: 04/11/22 08:59 Last Admin: 03/17/22 09:25 Dose: 2.5 mg Documented by: Polyethylene Glycol (Polyethylene (Miralax) 17 Gm Pack) 17 gm PO DAILY DANO Stop: 04/12/22 08:59 Last Admin: 03/17/22 09:26 Dose: 17 gm Documented by: Potassium Phosphate (Pot Phosphate Monobasic W/ Sod Tab) 1 tab PO HS DANO Stop: 04/15/22 20:59 Last Admin: 03/16/22 19:44 Dose: 1 tab Documented by: Simethicone (Simethicone 80 Mg Chew) 80 mg PO [facility] Stop: 04/12/22 20:59 Last Admin: 03/16/22 19:45 Dose: 80 mg Documented by: Thiamine HCl (Thiamine Hcl 100 Mg Tab) 100 mg PO QAM DANO Stop: 04/13/22 11:29 Last Admin: 03/17/22 09:26 Dose: 100 mg Documented by:
--- NOTE | 2022-03-17 14:16 | Hospitalist Progress Note ---
Date of Service March 17, 2022 Assessment & Plan (1) Anorexia nervosa with dangerously low body weight: Plan: Fanny is a 26-year-old female with history of depression who presented to [facility] for poor functionality at home and extremely restrictive eating behaviors over the last 3-4 weeks. Her presentation is concerning for severe anorexia nervosa with evidence of end-organ complications (e.g., sinus bradycardia, secondary amenorrhea). Anorexia nervosa (with possible purging activity) -- BMI 15.4 on admission, increased from BMI 13 in 05/2021 - Presented with increasing fatigue/decreased functionality at home in the context of 3-4 weeks of extremely restrictive eating behaviors. Timing of last true meal is unknown. - Concerns for family dynamics at home are noted throughout her work-up -- pending further work-up - Evidence of end-organ damage: secondary amenorrhea, sinus bradycardia (now appears to have improved) - Vomit noted in [facility] on 03/13 and by RN -- concurrent purging activity suspected - No bathroom for 60 minutes after meals or snacks, remove trash cans from room -Continue caloric goal to 7820-5961 kcal/day with BOOST supplementation - Premeal Ativan 0.25mg IV and q4h PRN, AC when she allows - Zyprexa ODT 2.5mg b.i.d - Continuous cardiac monitoring - Maintain 1:1 while inpatient for elopement risk given history of elopement at home when discussions arise about hospitalization - Daily blind weights, monitor I&Os -Labs as she allows (currently pending on her basic metabolic panel, mag, Phos, B12, folate, ferritin, vitamin D) - Psychiatry following: greatly appreciate assistance, see comment below Patient would best be served at an inpatient eating disorder center ([facility] could accept for virtual / outpatient program; inpatient rehab remains a possibility once more medically stable and if patient agrees). Given good tolerance of PO intake and increasing HR/BPs, patient is now medically stable for discharge to inpatient facility if available and patient is amenable. Referral process has been discussed at length at the bedside and form provided for patient to review (For release of information), did not push this issue today given that she was more withdrawn. Alternatively/if not, virtual/outpatient IOP is an option, but I harbors significant concerns about her wellbeing with this approach given her current status Severe protein calorie malnutrition and risk of refeeding syndrome -Labwork/replacement as she Carol -- goals of Phos >3, K>3.5, Mg 1.8, given that she is sometimes reticent of IVs I am attempting to see how she does with mag oxide and K-Phos p.o. supplementation spaced out throughout the dayfully aware this will not be enough to truly treat her lab levels, but given that she is mostly just showing lab deficiencies and not bedside evidence of concerning refeeding syndrome, replacing to a degree would be better than not at all (she seems to be taking this with less redness since then IVs) - continue B12 500mcg PO QAM, multivitamin tab PO QAM - Nutrition Consulted and assisting Bradycardia -- resolved - previously in 30-40s during early stay Depression - per parents, patient has had worsening depression since early 2019 without self harm or suicidal actions - untreated, has not seen a psychiatrist or therapist, not formally diagnosed - per psychiatry - unable to rule out psychotic depression, see zyprexa trial recommendation above Amenorrhea, since January 2019: - normal workup by nurse gynecology outpatient, likely due to physiologic stress and restricting food intake - Will require outpatient dexa scan to monitor bone density Dispo: MS/T Diet: Advance as above DVT ppx: low risk, ambulatory Code Status: Full Code (2) Bradycardia: (3) Hypoglycemia: Admission and Anticipated Discharge Date Admission Date: March 12, 2022 Subjective Less withdrawn. Doing a little bit better eating today. No physical complaints. Discussing release of information paperwork for referral to eating disorder clinic, she actually immediately grabs a pencil, but then stops and states that she will think about it. Is verbal today a bit more. Sometimes fairly slow to respond and definitely in a very quiet almost whisper voice, but does talk. Further, as I discussed going off shift and one of my partners taking over, and make a very dumb joke, but she actually smiles. Review of Systems Review of Systems: All systems reviewed & are unremarkable except as noted in HPI & below Physical Exam Physical Exam: General she is awake and alert, little bit slow to respond and speaks in a whisper, but no distress. HEENT normocephalic atraumatic mucous membranes moist. Breathing unlabored no accessory muscle use good effort. Skin shows no rashes no pallor or icterus. Neuro without focal deficits. Results & Data Results & Data ([facility]) Vital Signs (Past 12 Hours) Vital Signs Temp Pulse Pulse Resp BP Pulse Ox 03/17/22 12:46 93 H 107/72 03/17/22 07:51 97.5 F L 61 20 90/51 L 99 03/17/22 07:11 65 03/17/22 03:12 97.0 F L 62 18 93/55 L 98 PG Care Time/CCT Total # of Minutes Spent Total Time Spent with Patient: Total time spent is greater than 50% in coordination of care (as documented) at patient's floor/unit and/or counseling patient: Coding Level of Care Code 83683 Subseq Hosp Care Lvl 3 Diagnoses Anorexia nervosa with dangerously low body weight F50.00 Bradycardia R00.1 Hypoglycemia E16.2
[2022-03-17] MEDS: SIMETHICONE 80 MG CHEW PO SCH ×2 (21:38→22:12)
[2022-03-17] MEDS: POT PHOSPHATE MONOBASIC W/ SOD TAB PO SCH ×2 (21:38→22:12)
[2022-03-18] MEDS: MULTIVITAMIN TAB PO SCH (11:22)
[2022-03-18] MEDS: MAGNESIUM OXIDE 400 MG TAB PO SCH (11:22)
[2022-03-18] MEDS: POLYETHYLENE (MIRALAX) 17 GM PACK PO SCH (11:22)
[2022-03-18] MEDS: THIAMINE HCL 100 MG TAB PO SCH (11:22)
[2022-03-18] MEDS: CYANOCOBALAMIN (B-12) 500 MCG TABLET PO SCH (11:22)
[2022-03-18] MEDS: OLANZapine ZYDIS 5 MG ORALLY DIS. TAB PO SCH ×2 (11:22→21:19)
--- NOTE | 2022-03-18 12:38 | Psychiatric Progress Note ---
Date of Service March 18, 2022 Impression / Recommendations Impression 26 yo female with progressive preoccupation with food, weight loss, resulting in secondary amenorrhea for some time now with classic symptoms of low BMI, lanugo, bradycardia consistent with anorexia. With ongoing low po intake, concerns about purging after eating and is having anxiety around communication. Unable to exclude psychotic depression but restoring nutrition is primary treatment need as most likely due to anorexia and mood changes can set in with worsening nutritional deficits. No evidence for catatonia. Remains at high risk for ongoing medical decompensation if not hospitalized given lack of po intake with supervision and encouragement and ongoing withdrawn/guarded presentation. 03/18/22: eating most meals, tolerating zyprexa though refuses medications at times. Recommendation remains for inpatient eating disorder treatment once medically stable and referral made to [facility] today. Later in the day her father went into her room and reportedly became quite anxious about potential repercussions of her signing an YAN so the psych liason brought back the YAN so she could rescind it if desired but she chose to keep the YAN signed. Her father was expressing to family medicine providers that are hoping she may return home once medically stable rather than go from the hospital to an inpatient eating disorder treatment. I continue to feel inpatient eating disorder treatment is necessary as she is highly likely to restrict again in the home environment as the best evidence for eating disorder stabilization and recovery is to engage with a specialized eating disorder treatment program either inpatient or outpatient as medications alone offer limited benefit and she was significantly medically and psychiatrically decompensated in the home environment and continues to have minimal insight and poor engagement with treatment providers. Decision making capacity is difficult to assess given her limited engagement but for this reason alone she is not felt to have decision making capacity to leave [place] at this time as she cannot discuss risks/benefits/alternatives of any type of treatment including going home. -Continue 1-on-1 given history of elopement when eating disorder symptoms are challenged -Continue zyprexa 2.5 mg BID -Continue ativan prn with meals, thiamine, folic acid, MVM (1) Anorexia nervosa with dangerously low body weight: 03/18/22: Discussed recommendations [id number] with Dr. Hook. [facility] referral sent. If she does not agree to inpatient eating disorder treatment goal would be minimum of some type of intensive outpatient services or outpatient providers with specialization in eating disorders such as public policy mediator. 03/17/22: Continue current medications and tx plan. Reviewed goal of trying to take a neutral stance toward food intake as overly emphasizing increased intake could cause her to overly restrict at next meal to compensate. Agree with using distraction at meal time to help her eat more. 03/16/22: Discussed with Dr. Gannon, had been showing some increasing engagement but in recent days more withdrawn again. She remains unable/unwilling to discuss treatment options and has not yet signed any ROIs. Goal and recommendation remains inpatient eating disorder treatment program once medically stable and agreeable to this. Given current withdrawn state she remains unsafe for discharge. 03/10/22: case reviewed with Dr. Lemus. [facility] virtual IOP does not work with the patient's insurance. I reached out to ED partial at [facility]. The adult program is up to age 24, no virtual option. Not yet meeting parameters on HR for [facility] referral but need to to recheck insurance as [facility] family referrals often go to [place]. Have not been able to meaningfully discuss inpatient residential care for ED with patient or family. No HIPAA related info in case discussion with local ED specialist for possible aftercare recommendations if refuses inpatient. Patient is not appropriate for 3S programming. Discussed possible trial of low dose Ativan before meals (would need to monitor BP) and/or titration of Zyprexa to BID. The patient is not able to engage in discussion of risks/benefits surrounding any refusals of care so in that regard she is unable to sign out AMA. She could be committed to the medical floor if would attempt to leave for further treatment but inpatient ED care is exclusively voluntary in my experience after that. Agree with Dr. Lemus that a bit early and counter- therapeutic to force tube feeding. 03/09/22: Zyprexa trial 2.5 mg per primary team, shift to hs if sedating. Would recommend parents not be present during meals as a trial. At this point have been unable to assess patient's amenability to inpatient ED treatment as she is extremely guarded. Has voiced fear of being hospitalized. Case discussed with hospitalist service. 03/08/22: BMI <18 (15.4) and bradycardia with ongoing restricting are clear criteria for inpatient ED treatment when medically clear. consider Ativan challenge if any emerging catatonic features will discuss Zyprexa trial, likely 1.25 mg to start and taking PO after period of cardiac monitoring Protective Factors Assessment Employed: No Interval History Identifying Information 26 yo female with 2 year history of weight loss/anorexia admitted medically on 03/08/22 with BMI under 18, amenorrhea and bradycardia. Psychiatry was consulted for recommendations. Chief Complaint "It's just for information". Review of Systems Notes Eating a bit more, sleep is stable Subjective Subjective Patient was seen & assessed and interval progress reviewed. Refused qhs medications but accepted this morning. Was seen mid-day with psych liason RN. Reviewed YAN to be able to send referral information to [facility] and she was given time to review YAN paperwork which she had been reviewing over the past 4 days and to ask any questions. 3 other providers from the medical floor were also present during this time. She agreed to sign the YAN reflecting back that it was "just for information to be shared" which we confirmed- so that information could be faxed to [facility]. Her 1-on-1 shared that she had told them she did not want to leave the hospital and likes the care she has been getting at [facility]. Discussed with her what the [facility] program might be like and how it could be of benefit and she seemed open to this nodding at times but remains largely mute. She denied any medication side effects via non-verbal head shake. Physical Exam Psychiatric Orientation: alert and + guarded Apperance: appropriately dressed and appropriately groomed Eye Contact: + fair eye contact Motor Behavior: no abnormal motor movements Speech: + mute (whispers a few times ) Affect: + depressed affect and + flat affect Thought Process: + thought blocking Insight: + impaired insight Judgement: + impaired judgement and + severely impaired judgement Vital Signs (Past 24 Hours) Last Vital Signs Temp 36.6 C 03/17/22 22:34 Pulse 63 03/17/22 22:34 Resp 18 03/17/22 22:34 BP 98/60 L 03/17/22 22:34 Pulse Ox 98 03/17/22 22:34 Results & Data ([facility]) Current Inpatient Medications Current Inpatient Medications: Current Inpatient Medications Acetaminophen (Acetaminophen 325 Mg Tab) 650 mg PO Q4H PRN PRN Reason: pain/fever Stop: 04/07/22 09:45 Cyanocobalamin (Cyanocobalamin (B-12) 500 Mcg Tablet) 500 mcg PO QAM [facility] Stop: 04/07/22 10:29 Last Admin: 03/18/22 11:22 Dose: 500 mcg Documented by: Lorazepam 0.25 mg/ Syringe 0.25 mls @ 2 mls/min IV Q4H PRN PRN Reason: premeal Stop: 04/11/22 12:10 Last Admin: 03/14/22 10:35 Dose: 2 mls/min Documented by: Lorazepam 0.25 mg/ Syringe 0.375 mls @ 2 mls/min IV Q6H PRN PRN Reason: Anxiety beyond mealtime Stop: 04/12/22 14:13 Magnesium Oxide (Magnesium Oxide 400 Mg Tab) 400 mg PO QDL DANO Stop: 04/15/22 11:29 Last Admin: 03/18/22 11:22 Dose: 400 mg Documented by: Multivitamins (Multivitamin Tab) 1 tab PO QAM [facility] Stop: 04/07/22 10:29 Last Admin: 03/18/22 11:22 Dose: 1 tab Documented by: Olanzapine (Olanzapine Zydis 5 Mg Orally Dis. Tab) 2.5 mg PO BID DANO Stop: 04/11/22 08:59 Last Admin: 03/18/22 11:22 Dose: 2.5 mg Documented by: Polyethylene Glycol (Polyethylene (Miralax) 17 Gm Pack) 17 gm PO DAILY DAN[facility] Stop: 04/12/22 08:59 Last Admin: 03/18/22 11:22 Dose: 17 gm Documented by: Potassium Phosphate (Pot Phosphate Monobasic W/ Sod Tab) 1 tab PO HS DANO Stop: 04/15/22 20:59 Last Admin: 03/17/22 22:12 Dose: Not Given Documented by: Simethicone (Simethicone 80 Mg Chew) 80 mg PO HS DANO Stop: 04/12/22 20:59 Last Admin: 03/17/22 22:12 Dose: Not Given Documented by: Thiamine HCl (Thiamine Hcl 100 Mg Tab) 100 mg PO QAM DAN[facility] Stop: 04/13/22 11:29 Last Admin: 03/18/22 11:22 Dose: 100 mg Documented by:
[2022-03-18 15:03] LABS: Basophils # (auto) 0.02 K/uL (0-0.2); Basophils % (auto) 0.4 %; Eosinophils # (auto) 0.16 K/uL (0-0.5); Hematocrit (blood only) 37.1 % (37-47); Hemoglobin 12.2 g/dL (12.0-16.0); Immature Granulocytes # (auto) 0.02 K/uL (0.00-0.02); Immature Granulocytes % (auto) 0.4 %; Lymphocytes % (auto) 24.7 %; Mean Corpuscular Hemoglobin 30.3 pg (25-34); Mean Corpuscular Hgb Conc 32.9 g/dL (32-36); Mean Corpuscular Volume 92.1 fL (80-100); Mean Platelet Volume 8.8 fL (7.4-10.4); Monocytes # (auto) 0.35 K/uL (0.11-0.59); Monocytes % (auto) 6.6 %; Neutrophils # (auto) 3.42 K/uL (1.4-6.5); Neutrophils % (auto) 64.9 %; Platelet Count 242 K/uL (130-400); RDW Coefficient of Variation 13.1 % (11.5-14.5); RDW Standard Deviation 44.3 fL (36.4-46.3); Red Blood Count 4.03 M/uL (4.2-5.4); White Blood Count 5.27 K/uL (4.8-10.8)
[2022-03-18 15:24] LABS: Albumin Globulin Ratio 1.9 (0.9-2); Albumin Level 4.1 gm/dl (3.4-5.0); BUN Creatinine Ratio 38.3 (10-20); Bilirubin,Total 0.4 mg/dl (0.2-1.0); Calcium 9.2 mg/dl (8.5-10.1); Est GFR (African American) 143.8 ml/min; Globulin 2.2 gm/dl (2.5-4.0); Magnesium 1.9 mg/dl (1.7-2.4); Phosphorus 3.2 mg/dl (2.5-4.9); Potassium 3.9 mmol/L (3.5-5.1); Total Protein 6.3 gm/dl (6.0-8.3)
[2022-03-18 15:25] LABS: Pregnancy Test, Serum Negative (Negative)
--- NOTE | 2022-03-18 16:15 | Hospitalist Progress Note ---
Date of Service March 18, 2022 Assessment & Plan (1) Anorexia nervosa with dangerously low body weight: Plan: 26-year-old female with history of depression who presented to [facility] for poor functionality at home and extremely restrictive eating behaviors over the last 3-4 weeks. Her presentation is concerning for severe anorexia nervosa with evidence of end-organ complications (e.g., sinus bradycardia, secondary amenorrhea). Anorexia nervosa (with possible purging activity) -- BMI 15.4 on admission, increased from BMI 13 in 05/2021 - Presented with increasing fatigue/decreased functionality at home in the context of 3-4 weeks of extremely restrictive eating behaviors. Timing of last true meal is unknown. - Concerns for family dynamics at home are noted throughout her work-up -- pending further work-up - Evidence of end-organ damage: secondary amenorrhea, sinus bradycardia (now resolving) - Vomit noted in [facility] on 03/13 and by RN -- concurrent purging activity suspected - No bathroom for 60 minutes after meals or snacks, remove trash cans from room - Increase caloric goal to [id number] kcal/day with BOOST supplementation - Premeal Ativan 0.25mg IV and q4h PRN - Zyprexa ODT 2.5mg b.i.d - Continuous cardiac monitoring - Maintain 1:1 while inpatient for elopement risk given history of elopement at home when discussions arise about hospitalization - Daily blind weights, monitor I&Os - Psychiatry following: Per psychiatry, strongly recommend discharge to inpatient facility. Patient information faxed over to [facility] program at [facility]. See below: Pt signed YAN form but there was some pushback from father. 1:1 had mentioned that pt verbalized not wanting her father to visit today. However, her father was allowed to come up to her room anyway, apparently under the guise of saying goodbye. Once upstairs, he subsequently began berating her, specifically regarding her decision to sign the release of information form. I personally went to the room, and asked her father to step outside while I spoke to her. She verbalized that she wanted her father to be able to visit. I explained the reasoning behind the YAN form, then explained it again to her father (at her request). Severe protein calorie malnutrition and risk of refeeding syndrome - BMP, Mg, Phos levels q12h as allowed -- goals of Phos >3, K>3.5, Mg 1.8. - B12 500mcg PO QAM, multivitamin tab PO QAM - Nutrition consulted and assisting - Patient currently at goal (03/18/2022) Bradycardia -- resolved Depression - per parents, patient has had worsening depression since early 2019 without self harm or suicidal actions - untreated, has not seen a psychiatrist or therapist, not formally diagnosed - per psychiatry - unable to rule out psychotic depression, see Zyprexa trial recommendation above Amenorrhea, since January 2019: - normal workup by operations asst outpatient, likely due to physiologic stress and restricting food intake - Will require outpatient dexa scan to monitor bone density Dispo: MS/T Diet: Advance as above DVT ppx: low risk, ambulatory Code Status: Full Code (2) Bradycardia: (3) Hypoglycemia: Admission and Anticipated Discharge Date Admission Date: March 12, 2022 Supervising Physician Co-Signing Physician Notes Resident Physician Supervision Note: I independently interviewed and examined the patient and verified the [place] history and physical, reviewed labs and image studies and agree with resident Dr. Raymond findings and care plan. Subjective Patient lying in bed upon entering the room this morning. She is awake but mostly nonverbal. She seems withdrawn. To the extent that she speaks, she does at a very low volume. She denies any acute complaints at this time. Review of Systems Review of Systems: All systems reviewed & are unremarkable except as noted in HPI & below Physical Exam Physical Exam: General: Gaunt, withdrawn, shy appearing woman, who is in no acute distress. HEENT: Normocephalic, atraumatic. EOM intact. Good conjugate gaze. Nares patent. Moist mucosal membranes. Tympanic membrane without bulging/fluid. CV: Regular rate and rhythm. Normal S1 and S2. No murmurs gallops or rubs. No pedal edema. Respiratory: Poor respiratory effort. Lungs clear to auscultation bilaterally. No crackles, rhonchi, or wheezes. Abdomen: Soft, nondistended abdomen. No bruits heard on auscultation. No tende rness to deep palpation. No guarding or rebound. Extremities: Normal tone and ROM. Strength and sensation intact. Capillary refill <2 sec. 2+ dp equal bilaterally. Skin: Intact, without rashes, lesions, or erythema. Results & Data Results & Data ([facility]) Vital Signs (Past 12 Hours) Vital Signs Temp Pulse Resp BP Pulse Ox 03/18/22 15:31 36.5 C 81 14 108/60 97 Resident Activity Tracking Resident Involvement: Resident Care Provided Care Provided: Adult Hospital Medicine
[2022-03-18] MEDS: SIMETHICONE 80 MG CHEW PO SCH (21:19)
[2022-03-18] MEDS: POT PHOSPHATE MONOBASIC W/ SOD TAB PO SCH (21:21)
[2022-03-18] MEDS ORDERED: SENNA 8.6 MG TAB PO PRN (21:35)
--- NOTE | 2022-03-19 08:06 | Electrocardiogram Report ---
Test Reason : Blood Pressure : / mmHG Vent. Rate : 089 BPM Atrial Rate : 089 BPM P-R Int : 138 ms QRS Dur : 080 ms QT Int : 354 ms P-R-T Axes : 066 084 068 degrees QTc Int : 430 ms Poor data quality, interpretation may be adversely affected Normal sinus rhythm Nondiagnostic inferior Q waves Normal ECG When compared with ECG of 08-MAR-2022 04:34, Vent. rate has increased BY 40 BPM Confirmed by Chance Vasquez ([id number]) on 03/19/2022 8:06:12 AM Referred By: REFERRED SELF Confirmed By:Chance Vasquez
--- NOTE | 2022-03-19 12:34 | Psychiatric Progress Note ---
Date of Service March 19, 2022 Impression / Recommendations Impression 26 yo female with progressive preoccupation with food, weight loss, resulting in secondary amenorrhea for some time now with classic symptoms of low BMI, lanugo, bradycardia consistent with anorexia. With ongoing low po intake, concerns about purging after eating and is having anxiety around communication. Diagnostically most consistent with withdrawn behaviors related to anorexia and depression from lack of nutrition. Now medically stable and patient and family desire outpatient level of care and patient not deemed to meet criteria for inpatient level of care at [facility] eating disorder inpt psychiatry unit. 03/19/22: [place] to be safe for discharge from psychiatric standpoint. Her family desired discharge and to set up outpatient follow-up on their own rather than remaining inpatient while psych liason worked to get this set up. Reviewed options for outpatient psychiatry including [facility] as well as providing the [facility] information for outpatient eating disorder treatment services and potential local resources including ideally getting established with a automatic typewriter inspector and PCP with eating disorder specialization. She denies SI, HI, no evidence for angelica nor psychosis, nutritional status has improved and attending to basic health care/hygiene/safety needs so not felt to meet 302 criteria and desire to discharge home with family. safety planning done including ensuring no access to guns and counseling family on securing medications including OTC. Discussed return precautions especially if she restricts again or begins to lose more weight or if HR decreases. Discussed option to continue zyprexa as this will help with appetite stimulation, can reduce some of the obsessions around fears related to weight gain/eating and can help with mood augmentation for depression. (1) Anorexia nervosa with dangerously low body weight: 03/19/22: psychiatrically safe for discharge, doesn't meet 302 criteria and doesn't desire voluntary treatment. Recommend continuing with zyprexa 2.5 mg po BID, thiamine and Multivitamin. Recommend outpatient eating disorder treatment, ideally IOP via [facility] if still offered as virtual, as well as outpatient psychiatry, automatic typewriter inspector and therapy appointments. Family provided with resources for local mental health services that they agree to help Fanny call and establish care with. 03/18/22: Discussed recommendations [id number] with Dr. Hook. [facility] referral sent. If she does not agree to inpatient eating disorder treatment goal would be minimum of some type of intensive outpatient services or outpatient providers with specialization in eating disorders such as automatic typewriter inspector. 03/17/22: Continue current medications and tx plan. Reviewed goal of trying to take a neutral stance toward food intake as overly emphasizing increased intake could cause her to overly restrict at next meal to compensate. Agree with using distraction at meal time to help her eat more. 03/16/22: Discussed with Dr. Gannon, had been showing some increasing engagement but in recent days more withdrawn again. She remains unable/unwilling to discuss treatment options and has not yet signed any ROIs. Goal and recommendation remains inpatient eating disorder treatment program once medically stable and agreeable to this. Given current withdrawn state she remains unsafe for discharge. 03/10/22: case reviewed with Dr. Lemus. [facility] virtual IOP does not work with the patient's insurance. I reached out to ED partial at [place]. The adult program is up to age 24, no virtual option. Not yet meeting parameters on HR for [facility] referral but need to to recheck insurance as [facility] family referrals often go to [place]. Have not been able to meaningfully discuss inpatient residential care for ED with patient or family. No HIPAA related info in case discussion with local ED specialist for possible aftercare recommendations if refuses inpatient. Patient is not appropriate for 3S programming. Discussed possible trial of low dose Ativan before meals (would need to monitor BP) and/or titration of Zyprexa to BID. The patient is not able to engage in discussion of risks/benefits surrounding any refusals of care so in that regard she is unable to sign out AMA. She could be committed to the medical floor if would attempt to leave for further treatment but inpatient ED care is exclusively voluntary in my experience after that. Agree with Dr. Lemus that a bit early and counter- therapeutic to force tube feeding. 03/09/22: Zyprexa trial 2.5 mg per primary team, shift to if sedating. Would recommend parents not be present during meals as a trial. At this point have been unable to assess patient's amenability to inpatient ED treatment as she is extremely guarded. Has voiced fear of being hospitalized. Case discussed with hospitalist service. 03/08/22: BMI <18 (15.4) and bradycardia with ongoing restricting are clear criteria for inpatient ED treatment when medically clear. consider Ativan challenge if any emerging catatonic features will discuss Zyprexa trial, likely 1.25 mg to start and taking PO after period of cardiac monitoring Suicide Risk Level Suicide Risk Level Comments: Acute risk is low given denial of SI but discussed that chronic risk of due to medical sequale from a restrictive eating disorder are high and counseled on ways to reduce acute and chronic risk by engaging with eating disorder treatment and outpatient care and seeking higher level of care if restriction returns, worsens or if weight lost continues. Protective Factors Assessment Employed: No Interval History Identifying Information 26 yo female with 2 year history of weight loss/anorexia admitted medically on 03/08/22 with BMI under 18, amenorrhea and bradycardia. Psychiatry was consulted for recommendations. Chief Complaint "I want to go home". Review of Systems Notes Sleep stable, improving po intake Subjective Subjective Patient was seen & assessed and interval progress reviewed. Accepting medications and eating her meals. Today I saw Fanny multiple times throughout the day. Discussed any potential recent traumatic events or other stressors which may have lead to restrictive eating but she did not endorse nor engage at all with this discussion. When seen with her sister at bedside she whispered her desire to go home and spoke slightly louder in Farsi that her sister translated as Fanny stating she "wants to go home". Her parents also then came to visit and she allowed them in the room and permitted me to stay and for her parents to talk with me and for me to discuss general recommendations. Her parents and sister emphasized that Fanny did not want to remain in the hospital and has become more withdrawn since being here. We discussed the challenge of eating disorders and how this impacts mood and decision making and can make individuals not want to seek treatment as this could result in weight gain. Discussed my concerns about not having enough support in the home envionment but family feels they can support her and were very appreciate of recommendations for outpatient resources including the option for an [facility] virtual eating disorder program which may still be being offered through [facility]. Discussed that Fanny would likely need to be willing to talk and share at times to be eligible for this program and they felt she may be better able to do this in the home setting. Her sister's birthday is today and the family hopes to celebrate at home. Fanny does not desire inpatient eating disorder treatment at this time. She denies any thoughts of suicide. Family has no safety concerns. Reviewed safety planning with them and importance of utilizing local crisis resources/302 petition/warrant process or returning to the ED if she begins to restrict and lose weight again or if withdrawn behaviors worsen. Physical Exam Psychiatric Orientation: alert, oriented x 3 and + guarded Apperance: appropriately dressed and appropriately groomed Eye Contact: + fair eye contact Motor Behavior: no abnormal motor movements Speech: + mute (whispers a few times ) Affect: + flat affect Thought Process: + thought blocking Thought Content: reality based without delusions Suicidal Thoughts: denies suicidal thoughts Homicidal Thoughts: denies homicidal thoughts Hallucinations: no auditory hallucinations and no visual hallucinations Insight: + impaired insight Judgement: + impaired judgement Vital Signs (Past 24 Hours) Last Vital Signs Temp 36.5 C 03/19/22 04:30 Pulse 70 03/19/22 04:30 Resp 18 03/19/22 04:30 BP 98/58 L 03/19/22 04:30 Pulse Ox 97 03/19/22 04:30 Results & Data ([facility]) Laboratory Results Laboratory Results - last 24 hr 03/18/22 03/18/22 03/18/22 14:49 14:49 14:49 WBC 5.27 RBC 4.03 L Hgb 12.2 Hct 37.1 MCV 92.1 MCH 30.3 MCHC 32.9 RDW Std Deviation 44.3 RDW Coeff of Marlon 13.1 Plt Count 242 MPV 8.8 Immature Gran % (Auto) 0.4 Neut % (Auto) 64.9 Lymph % (Auto) 24.7 [place] % (Auto) 6.6 Eos % (Auto) 3.0 Baso % (Auto) 0.4 Neut # (Auto) 3.42 Lymph # (Auto) 1.30 [place] # (Auto) 0.35 Eos # (Auto) 0.16 Baso # (Auto) 0.02 Immature Gran # (Auto) 0.02 Sodium 138 Potassium 3.9 Chloride 103 Carbon Dioxide 30 Anion Gap 5 BUN 23 Creatinine 0.60 Est Cr Clr Drug Dosing 97.0 Est GFR ( Amer) 143.8 Est GFR (Non-Af Amer) 124.0 BUN/Creatinine Ratio 38.3 H Glucose 98 Calcium 9.2 Phosphorus 3.2 Magnesium 1.9 Total Bilirubin 0.4 AST 15 ALT 11 Alkaline Phosphatase 29 L Total Protein 6.3 Albumin 4.1 Globulin 2.2 L Albumin/Globulin Ratio 1.9 HCG, Qual Negative Current Inpatient Medications Current Inpatient Medications: Current Inpatient Medications Acetaminophen (Acetaminophen 325 Mg Tab) 650 mg PO Q4H PRN PRN Reason: pain/fever Stop: 04/07/22 09:45 Cyanocobalamin (Cyanocobalamin (B-12) 500 Mcg Tablet) 500 mcg PO QAM [facility] Stop: 04/07/22 10:29 Last Admin: 03/18/22 11:22 Dose: 500 mcg Documented by: Lorazepam 0.25 mg/ Syringe 0.25 mls @ 2 mls/min IV Q4H PRN PRN Reason: premeal Stop: 04/11/22 12:10 Last Admin: 03/14/22 10:35 Dose: 2 mls/min Documented by: Lorazepam 0.25 mg/ Syringe 0.375 mls @ 2 mls/min IV Q6H PRN PRN Reason: Anxiety beyond mealtime Stop: 04/12/22 14:13 Magnesium Oxide (Magnesium Oxide 400 Mg Tab) 400 mg PO QDL DANO Stop: 04/15/22 11:29 Last Admin: 03/18/22 11:22 Dose: 400 mg Documented by: Multivitamins (Multivitamin Tab) 1 tab PO QAM [facility] Stop: 04/07/22 10:29 Last Admin: 03/18/22 11:22 Dose: 1 tab Documented by: Olanzapine (Olanzapine Zydis 5 Mg Orally Dis. Tab) 2.5 mg PO BID DANO Stop: 04/11/22 08:59 Last Admin: 03/18/22 21:19 Dose: 2.5 mg Documented by: Polyethylene Glycol (Polyethylene (Miralax) 17 Gm Pack) 17 gm PO DAILY DANO Stop: 04/12/22 08:59 Last Admin: 03/18/22 11:22 Dose: 17 gm Documented by: Potassium Phosphate (Pot Phosphate Monobasic W/ Sod Tab) 1 tab PO HS DANO Stop: 04/15/22 20:59 Last Admin: 03/18/22 21:21 Dose: Not Given Documented by: Sennosides (Senna 8.6 Mg Tab) 17.2 mg PO DAILY PRN PRN Reason: constipation Stop: 04/18/22 08:59 Last Admin: 03/18/22 22:12 Dose: 17.2 mg Documented by: Simethicone (Simethicone 80 Mg Chew) 80 mg PO HS DANO Stop: 04/12/22 20:59 Last Admin: 03/18/22 21:19 Dose: 80 mg Documented by: Thiamine HCl (Thiamine Hcl 100 Mg Tab) [facility] Stop: 04/13/22 11:29 Last Admin: 03/18/22 11:22 Dose: 100 mg Documented by:
[2022-03-19] MEDS: THIAMINE HCL 100 MG TAB PO SCH (12:35)
[2022-03-19] MEDS: MAGNESIUM OXIDE 400 MG TAB PO SCH (12:35)
[2022-03-19] MEDS: CYANOCOBALAMIN (B-12) 500 MCG TABLET PO SCH (12:35)
[2022-03-19] MEDS: POT PHOSPHATE MONOBASIC W/ SOD TAB PO SCH (12:35)
[2022-03-19] MEDS: MULTIVITAMIN TAB PO SCH (12:36)
[2022-03-19] MEDS: POLYETHYLENE (MIRALAX) 17 GM PACK PO SCH (12:36)
[2022-03-19] MEDS: OLANZapine ZYDIS 5 MG ORALLY DIS. TAB PO SCH (12:36)
--- NOTE | 2022-03-19 17:13 | Discharge Summary ---
Date of Service March 19, 2022 Admission HPI Per Admitting Provider Fanny Houston is a 26yo female presenting to [facility] ER with her parents due to concern for difficulty functioning at home. Majority of history obtained by parents. Patient reportedly experiencing increased anxiety surrounding her day to day activities to the point where she is unable to care for herself. She displays a lot of anxiety around eating and has displayed restrictive eating behaviors for possibly 2 years. Her parents state that she does not eat much at home - at a small amount of food two days ago. She has had significant unintentional weight loss of 20-25 pounds over the last 6 months. She denies binge eating behavior or purging. Denies excess exercise. Family states that she acts strangely at times. Is minimally responsive and non-verbal at times. She has a fear that she will be put away in a hospital and at times tries to flee from her home. She denies auditory or visual hallucinations. Denies suicidal or homicidal ideation. Denies prior psychiatric diagnoses. Also denies fever, chills, headache, neck pain, visual changes, chest pain, palpitations, cough, SOB, abdominal pain, nausea, vomiting, diarrhea. 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 Patient will be admitted to medical with telemetry to monitor heart rate. Admission Exam Per Admitting Provider General: patient frail and cachectic, appears anxious and stressed Skin: warm, dry, intact, no rashes or lesions HEENT: NC/AT, PERRL, EOMI, anicteric sclera, conjunctiva without injection, external ear normal to inspection and nontender, nares patent, moist mucus membranes, dentition intact, no oropharyngeal lesions, neck supple, trachea midline, no LAD, no thyromegaly, no JVD Heart: +S1/S2, regular, bradycardic, no m/r/g Lungs: equal air entry bilaterally, no rales/rhonchi/wheezes Abd: +BS, soft, NT/ND, no masses/organomegaly/ascites Ext: warm, 2+ pulses in UE/LE bilaterally, no clubbing/cyanosis or edema Neuro: nonfocal, answers questions very softly in one word answers, no facial droop, moving all extremities on command with equal strength 5/5 Principal Diagnosis Severe malnutrition secondary to anorexia nervosa, bradycardia. Discharge Exam General: Gaunt, frail-appearing young woman, appears withdrawn, is mostly nonverbal, in no acute distress. HEENT: Prominent cheekbones, sunken-in orbits. Atraumatic. EOM intact. Good conjugate gaze. Nares patent. Neck: No lymphadenopathy. Normal ROM. CV: Regular rate and rhythm. Normal S1 and S2. No murmurs gallops or rubs. No pedal edema. Respiratory: Normal respiratory effort. Lungs clear to auscultation bilaterally. No crackles, rhonchi, or wheezes. Abdomen: Soft, nondistended abdomen. No bruits heard on auscultation. No tenderness to deep palpation. Extremities: Normal tone and ROM. Strength and sensation intact. Capillary refill <2 sec. 2+ dp equal bilaterally. Skin: Intact, without rashes, lesions, or erythema. Discharge Data Allergies Allergy/AdvReac Type Severity Reaction Status Date / Time No Known Allergies Allergy Verified 03/07/22 22:35 Consultations 03/08/22 06:07 ED Decision to Admit Stat 03/08/22 06:08 Consult Psychiatry Routine Hospital Course (1) Anorexia nervosa with dangerously low body weight: 26-year-old female with history of depression who presented to [facility] for poor functionality at home and extremely restrictive eating behaviors over the last 3-4 weeks. Her presentation is concerning for severe anorexia nervosa with evidence of end-organ complications (e.g., sinus bradycardia, secondary amenorrhea). Anorexia nervosa (with possible purging activity) -- BMI 15.4 on admission, increased from BMI 13 in 05/2021 - Presented with increasing fatigue/decreased functionality at home in the context of 3-4 weeks of extremely restrictive eating behaviors. - Evidence of end-organ damage: secondary amenorrhea, sinus bradycardia on admissoin - Patient placed on continuous cardiac monitoring, where she remained for duration of hospital stay. - [facility] and by RN -- concurrent purging activity suspected. Subsequently, patient barred from bathroom for 60 minutes after meals or snacks, remove trash cans from room, per protocol. - Caloric goal increased to [id number] kcal/day with BOOST supplementation - Was prescribed premeal lorazepam - Zyprexa ODT 2.5mg b.i.d - Was maintained 1:1 while inpatient for elopement risk given history of elopement at home when discussions arise about hospitalization - Psychiatry consulted: inpatient facility discharge was recommended. Patient information faxed over to [facility] program at [facility]. Psychiatry gave patient choice to remain in the hospital for additional day while outpatient care could be coordinated (vs. scheduling on her own while outpatient). Patient refused and preferred to go home. Severe protein calorie malnutrition and risk of refeeding syndrome - electrolytes closely monitored and replaced. - Received B12 500mcg PO QAM, multivitamin tab PO QAM - Nutrition consulted. - Patient met metabolic/electrolyte targets (03/18/2022). Discharged once at goal, as patient refused transfer to inpatient facility, hospital coordination of intensive outpatient eating disorder program follow-up. Bradycardia -- resolved. HR on day of discharge ranged between 60s and 70s. Depression - per parents, patient has had worsening depression since early 2019 without self harm or suicidal actions - untreated, has not seen a psychiatrist or therapist, not formally diagnosed - per psychiatry - unable to rule out psychotic depression, started on Zyprexa (see above). Amenorrhea, since January 2019: - normal workup by [facility]erman outpatient, likely due to physiologic stress and restricting food intake - Strongly recommend outpatient dexa scan to monitor bone density. (2) Bradycardia: (3) Hypoglycemia: Total Time Total Time Spent Total Time Spent (In Minutes): >60 Discharge Plan Discharge Items Patient Disposition: Home - Self-Care Reason For Visit: BRADYCARDIA, POOR PO INTAKE Discharge Diagnosis: Malnutrition, bradycardia Activity: Per Instructions section Non-emergency contact: Primary Care Provider Call non-emergency contact if: you have any medication questions and your symptoms worsen Follow-up/Referrals: Symone Kirkland MD [Primary Care Provider] - Diet: Regular Addtl Attending Provider Instructions: You were admitted to the hospital for severe weight loss and concern for malnutrition. You also had bradycardia, which is an abnormally low heart rate. You were treated with IV fluids, and a meal plan approved by our caretaker grounds. While you were here, we consulted our psychiatrist to evaluate you and make recommendations for your care. We continued to monitor you with vitals checks and labs until your heart rate and metabolic status improved. We obtained labs yesterday to see if your electrolytes were in the normal ranges, they were. Our psychiatrist recommended that you be transferred to an inpatient treatment facility for further care, or, barring that, you see a physician on an outpatient basis. Since you communicated a preference for outpatient follow-up, you are medically cleared to be discharged home. A discharge summary will be sent to your primary care physician to ensure continuity of care. Please bring this discharge summary with you to your next office appointment so that your provider can review it at that time. Follow-up appointments: * Make a follow-up appointment with your PCP within the next week. It is very important that you follow up with them shortly after discharge from the hospital. * Please make an outpatient appointment with the outpatient program through [facility], as specified by Dr. Tolliver, within the next week. It is very important that you follow up with them shortly after discharge from the hospital. * Keep all your follow-up appointments as already scheduled. If you cannot make an appointment, notify your provider. Medications: Your medication list has been reviewed and reconciled upon discharge to ensure accuracy and continuity of care. An updated list of all your medications is included with your hospital discharge paperwork. Please review this list closely, and make note of any changes. * We sent a multivitamin called vitamin B12, or cyanocobalamin, to your pharmacy. Take one 500 mcg tablet once daily, unless otherwise instructed by your primary care physician. * We sent a daily multivitamin with folic acid to your pharmacy. Take one tablet once daily, unless otherwise instructed by your primary care physician. * We sent a multivitamin called vitamin B1, or thiamine, to your pharmacy. Take one 100 mg tablet once daily, unless otherwise instructed by your primary care physician. * These medications are also available [id number], so you can purchase them that way if you prefer. Take your medications as instructed; do not skip a dose of your medicines. Make sure all of your doctors know every medicine you are taking (including yhqk-fgh-vkwkhgw medicines, vitamins, and supplements). Call your primary care provider before taking any new medicines (including fevh-bpr-[id number] medicines, vitamins, and supplements), because some of these may interact with your current medications, or may make your symptoms worse. Tell your primary care provider if you cannot afford your medications. CONTACT YOUR PRIMARY CARE PROVIDER if you experience any of the following: * Severe dizziness or loss of consciousness while at rest, or after minimal exertion. * Heart palpitations, sudden muscle weakness, or severe fatigue. * Difficulty following your treatment plan, or difficulty taking medications CALL 911 OR GO TO THE EMERGENCY DEPARTMENT if you experience any of the following: * Sudden, severe abdominal pain or nausea/vomiting * Severe chest pain, or chest pain that radiates (moves) to your jaw or arm * Sudden, severe shortness of breath or difficulty breathing Thank you for allowing us to participate in your care. Addtl Roastmaster Provider Instructions: Psychiatry: -Consider Eating Disorder Intensive Outpatient Program through [facility]: [phone] or visit website: [email or web address] -Please see resource booklet for numbers for outpatient psychiatry and potential options for local therapy resources. You may also want to consider having your PCP make a referral for a retail sales teammate. Pending Studies at Discharge: No Stand-Alone Forms: My [facility], Smoking Cessation Medications and DC Order Prescriptions: New cyanocobalamin (vitamin B-12) 500 mcg Tablet 500 mcg PO QAM 30 Days Qty: 30 RF: 0 multivitamin with folic acid [Daily-Carmen (with folic acid)] 400 mcg Tablet 1 tab PO QAM 30 Days Qty: 30 RF: 0 thiamine HCl (vitamin B1) 100 mg Tablet 100 mg PO QAM 30 Days Qty: 30 RF: 0 olanzapine 5 mg tablet,disintegrating 5 mg PO BID Qty: 60 RF: 0 Discharge Orders: Discharge Order (Routine); Ordered 03/19/22 Ordered By: Yves Allen/Other Patient Handouts: Treating Eating Disorders Admission Data Admit Date/Time: 03/12/22 08:40 Attending Provider: Sydni Muñoz Admit Provider: Monae Ott Primary Care Provider: Symone Kirkland V. Other Providers: Monae Ott ; Anette Tolliver ; Kandice Faye ; Miryam Marin ; Saúl King ; Wisam Gannon Other Interventions: Discharge Summary Assessment (RN) Last Done: 03/19/22 17:18 Supervising Physician Co-Signing Physician Notes Resident Physician Supervision Note: I independently interviewed and examined the patient and verified the [place] history and physical, reviewed labs and image studies and agree with resident Dr. Hook findings and care plan. Resident Activity Tracking Resident Involvement: Resident Care Provided Care Provided: Adult Hospital Medicine
== END 2022-03-19 17:50 | disposition home or self-care (01) | DRG 883 ==
LOC: ED 22:08 → EDINP 22:08 → SUATTDRO 03-08 06:41 → 2N 03-08 13:00 → SUATTDRO 03-12 08:40

== ENCOUNTER 2022-05-13 16:29 | Inpatient (IN) ==
[2022-05-13 18:19] LABS: Basophils # (auto) 0.03 K/uL (0-0.2); Basophils % (auto) 0.3 %; Eosinophils # (auto) 0.07 K/uL (0-0.50); Eosinophils % (auto) 0.6 %; Hematocrit (blood only) 42.5 % (34.1-44.9); Hemoglobin 14.2 g/dl (12.0-16.0); Immature Granulocytes # (auto) 0.05 K/uL (0.00-0.02); Immature Granulocytes % (auto) 0.5 %; Lymphocytes # (auto) 1.42 K/uL (1.2-3.4); Lymphocytes % (auto) 12.8 %; Mean Corpuscular Hemoglobin 29.8 pg (25.0-34.0); Mean Corpuscular Hgb Conc 33.4 g/dL (32.0-36.0); Mean Corpuscular Volume 89.3 fL (80.0-100.0); Mean Platelet Volume 8.6 fL (9.4-12.3); Monocytes # (auto) 0.48 K/uL (0.24-0.82); Monocytes % (auto) 4.3 %; Neutrophils # (auto) 9.06 K/uL (1.4-6.5); Neutrophils % (auto) 81.5 %; Platelet Count 272 K/uL (130-400); RDW Coefficient of Variation 12.4 % (11.5-14.5); Red Blood Count 4.76 M/uL (3.93-5.22); White Blood Count 11.11 K/ul (4.8-10.8)
[2022-05-13 18:42] LABS: Albumin Level 5.2 gm/dl (3.4-5.0); Calcium 10.1 mg/dl (8.5-10.1); Creatinine Clr Calc Pharmacy 80.1 ml/min; Est GFR (African American) 109.6 ml/min; Est GFR (Non-African American) 94.6 ml/min; Globulin 2.6 gm/dl (2.5-4.0); Potassium 3.9 mmol/L (3.5-5.1); Total Protein 7.8 gm/dl (6.0-8.3)
[2022-05-13] MEDS ORDERED: SODIUM CHLORIDE 0.9% 500 ML IV ONE (18:48)
[2022-05-13 18:51] LABS: Acetaminophen < 3 ug/ml (10-30); Salicylate < 3.0 mg/dl (3.0-30)
[2022-05-13] MEDS ORDERED: D5W AND 1/2NSS 1,000 ML IV SCH (20:30)
--- NOTE | 2022-05-13 21:45 | History & Physical Report ---
Date of Service May 13, 2022 Assessment & Plan (1) Hypoglycemia: Plan: Blood sugar of 43 upon arrival. Patient has been sipping on orange juice in the ER, minimal improvement. Was started on D5 1/2NSS Patient denies use of insulin or other medications, no EtOH or recreational drug use reported. Hypoglycemia possibly secondary to decreased oral intake -Admit to medical with telemetry -Continue D5 1/2 NSS at 80mL/hr x 2 liters -Fingerstick q 2 hours -Check C-peptide -Check TSH and random Cortisol (2) Bradycardia: Plan: In setting of anorexia nervosa. Patient without symptoms. HR presently 58. -Check Mg, PO4 and replete as needed -Telemetry monitoring (3) Anorexia nervosa with dangerously low body weight: Plan: Patient has had an improvement in BMI - was reportedly 12 in 05/2021, 15.8 in 02/2022 and reportedly 17.6 today. Mother states that she eats intermittently. Some concern of throat tightness, states she is unable to swallow and fears choking. Possibly secondary to anxiety related to eating. ?reflux, abnormal GI tract? -Consider formal swallow evaluation -Maintain aspiration precautions -Premeal Ativan PRN -Psychiatry consultation appreciated -Continue daily MVI, B12 and Thiamine supplementation -1:1 observation -Possible purging noted during last admission - monitor for this behavior (4) Anxiety: Plan: Patient presently not on any medications for this. Pre-meal ativan PRN as above -Psychiatry consultation appreciated F/E/N - D5 1/2 NSS at 80mL/hr, check Mg and PO4 now and daily, replete as needed, Regular diet as tolerated Ppx - low risk for DVT Code - Full Dispo - Admit to medical with telemetry History of Present Illness Chief Complaint: bradycardia, hypoglycemia Primary Care Provider: Symone Kirkland MD Fanny Houston is a 26yo female presenting with her mother with bradycardia and hypoglycemia. She reportedly left the home last evening and was possibly outside all night. She was found unresponsive on a park bench this AM. Her blood sugar was 39 - was administered Glucagon, trial of oral glucose but stated that she could not swallow it. She was noncommunicative but did ask EMS if they were going to suffocate her. Patient has a history of anorexia nervosa with evidence of end-organ dysfunction to include secondary amenorrhea and sinus bradycardia, depression, anxiety. Patient was admitted to [facility] from 03/08/22 - 03/19/22 with progressive functional decline, increased anxiety and 3-4 weeks of severe increasing food restriction. Patient was seen by Psychiatry during her hospitalization. Discharge to an inpatient eating disorder clinic was recommended, however, patient did not meet criteria for COPE program at [facility]. She was discharged home where she lives with her mother and father. Her mother reports that patient "has been like a rollercoaster" with episodes of sadness/depression as well as anxiety. Mother states that patient will communicate with her and will eat when she is around. She does not communicate well with her father or eat with him. Patient is selectively mute and does not answer questions readily. She will shake her head "yes" or "no". She denies being in pain. She denies use of EtOH or substances. She denies anybody hurting her. No SI/HI. Blood sugar of 43 in the ER ER Course: D5 1/2 NSS at 125mL/hr Allergies Allergy/AdvReac Type Severity Reaction Status Date / Time No Known Allergies Allergy Verified 04/19/22 11:20 Home Medications Medication Instructions Recorded Confirmed Type mecobalamin (vitamin B12) 1,000 1,000 mcg PO DAILY 04/19/22 04/19/22 History mcg chewable tablet multivitamin (Daily Multi-Vitamin 1 tab PO DAILY 04/19/22 04/19/22 History tablet) thiamine HCl (vitamin B1) 50 mg 50 mg PO DAILY 04/19/22 04/19/22 History tablet Past Med/Surg History Medical History Anorexia nervosa with dangerously low body weight Anxiety Hypoglycemia Secondary amenorrhea Probable hypothalamic dysfunction Surgical History No history of previous surgery Family History Sister Anorexia Mother Lymphoma Grandfather (Maternal) Prostate cancer Grandmother (Maternal) Breast cancer Denies family history of Ovarian cancer Myocardial infarction Lung cancer Colorectal cancer Stroke Social History Smoking Status: Never smoker Hx Alcohol Use: No Hx Substance Use: No Preferred Language: Yi Communication Ability: Impaired Visual Impairment: No Limitations Hearing Ability: Normal 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: No Beliefs That Will Affect Care: None marital status: Single Current Living Situation: Family Current Living Situation Comment: sister current occupational status: student 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 Safe at Home: Yes Childhood Exposure to Second-Hand Smoke: No Physical Activity Frequency: 5-6 Times per Week Physical Activity Frequency Comment: squash, running, tennis pre pandemic Seatbelt Use: always Assistive Devices: None Review of Systems Review of Systems: Other 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 Physical Exam Physical Exam: General: patient appears anxious, NAD, answers yes or no with head movements Skin: warm, dry, intact, no rashes or lesions HEENT: NC/AT, PERRL, EOMI, anicteric sclera, conjunctiva without injection, external ear normal to inspection and nontender, nares patent, moist mucus membranes, dentition intact, no oropharyngeal lesions, neck supple, trachea midline, no LAD, no thyromegaly, no JVD Heart: +S1/S2, regular, bradycardic, no m/r/g Lungs: equal air entry bilaterally, no rales/rhonchi/wheezes Abd: +BS, soft, NT/ND, no masses/organomegaly/ascites Ext: warm, 2+ pulses in UE/LE bilaterally, no clubbing/cyanosis or edema Neuro: nonfocal, moving all extremities on command with equal strength 5/5 Results & Data Results & Data ([facility]) Vital Signs (Past 12 Hours) Vital Signs Temp Pulse Pulse Resp BP BP Pulse Ox 05/13/22 20:30 61 25 H 100 05/13/22 20:00 77 25 H 100 05/13/22 20:00 94/48 L 05/13/22 19:30 60 15 100 05/13/22 19:00 55 L 21 100 05/13/22 19:00 106/60 05/13/22 18:30 57 L 15 100 05/13/22 18:04 102/70 05/13/22 18:04 53 L 16 100 05/13/22 18:02 54 L 21 05/13/22 17:00 54 L 12 100 05/13/22 16:43 53 L 14 100 05/13/22 16:43 109/71 05/13/22 16:37 100 05/13/22 17:05 52 L 16 111/72 100 05/13/22 16:29 52 L 16 100 05/13/22 16:29 36.5 C 52 L 12 109/71 100 O2 Del Method 05/13/22 20:30 05/13/22 20:00 05/13/22 20:00 05/13/22 19:30 05/13/22 19:00 05/13/22 19:00 05/13/22 18:30 05/13/22 18:04 05/13/22 18:04 05/13/22 18:02 05/13/22 17:00 05/13/22 16:43 05/13/22 16:43 05/13/22 16:37 05/13/22 17:05 Room Air 05/13/22 16:29 Room Air 05/13/22 16:29 Room Air Laboratory Results Laboratory Results WBC 11.11 K/ul (4.8-10.8) H 05/13/22 17:57 RBC 4.76 M/uL (3.93-5.22) 05/13/22 17:57 Hgb 14.2 g/dl (12.0-16.0) 05/13/22 17:57 Hct 42.5 % (34.1-44.9) 05/13/22 17:57 MCV 89.3 fL (80.0-100.0) 05/13/22 17:57 MCH 29.8 pg (25.0-34.0) 05/13/22 17:57 MCHC 33.4 g/dL (32.0-36.0) 05/13/22 17:57 RDW Std Deviation 41.0 fL (36.4-46.3) 05/13/22 17:57 RDW Coeff of Marlon 12.4 % (11.5-14.5) 05/13/22 17:57 Plt Count 272 K/uL (130-400) 05/13/22 17:57 MPV 8.6 fL (9.4-12.3) L 05/13/22 17:57 Immature Gran % (Auto) 0.5 % 05/13/22 17:57 Neut % (Auto) 81.5 % 05/13/22 17:57 Lymph % (Auto) 12.8 % 05/13/22 17:57 Ector % (Auto) 4.3 % 05/13/22 17:57 Eos % (Auto) 0.6 % 05/13/22 17:57 Baso % (Auto) 0.3 % 05/13/22 17:57 Neut # (Auto) 9.06 K/uL (1.4-6.5) H 05/13/22 17:57 Lymph # (Auto) 1.42 K/uL (1.2-3.4) 05/13/22 17:57 Ector # (Auto) 0.48 K/uL (0.24-0.82) 05/13/22 17:57 Eos # (Auto) 0.07 K/uL (0-0.50) 05/13/22 17:57 Baso # (Auto) 0.03 K/uL (0-0.2) 05/13/22 17:57 Immature Gran # (Auto) 0.05 K/uL (0.00-0.02) H 05/13/22 17:57 Sodium 139 mmol/L (136-145) 05/13/22 17:57 Potassium 3.9 mmol/L (3.5-5.1) 05/13/22 17:57 Chloride 100 mmol/L (98-107) 05/13/22 17:57 Carbon Dioxide 25 mmol/L (21-32) 05/13/22 17:57 Anion Gap 14 (3-11) H 05/13/22 17:57 BUN 16 mg/dl (6-23) 05/13/22 17:57 Creatinine 0.84 mg/dl (0.6-1.2) 05/13/22 17:57 Est Cr Clr Drug Dosing 80.1 ml/min 05/13/22 17:57 Est GFR ( Amer) 109.6 ml/min 05/13/22 17:57 Est GFR (Non-Af Amer) 94.6 ml/min 05/13/22 17:57 BUN/Creatinine Ratio 19.0 (10-20) 05/13/22 17:57 Glucose 70 mg/dl (70-99(Fasting)) 05/13/22 17:57 POC Glucose 43 mg/dl (70-99) L* 05/13/22 19:45 Calcium 10.1 mg/dl (8.5-10.1) 05/13/22 17:57 Total Bilirubin 1.0 mg/dl (0.2-1.0) 05/13/22 17:57 AST 24 U/L (13-39) 05/13/22 17:57 ALT 21 U/L (7-52) 05/13/22 17:57 Alkaline Phosphatase 47 U/L (34-104) 05/13/22 17:57 Total Protein 7.8 gm/dl (6.0-8.3) 05/13/22 17:57 Albumin 5.2 gm/dl (3.4-5.0) H 05/13/22 17:57 Globulin 2.6 gm/dl (2.5-4.0) 05/13/22 17:57 Albumin/Globulin Ratio 2.0 (0.9-2) 05/13/22 17:57 TSH 1.067 uIu/ml (0.300-4.500) 05/13/22 17:57 Salicylates < 3.0 mg/dl (3.0-30) L 05/13/22 17:57 Acetaminophen < 3 ug/ml (10-30) L 05/13/22 17:57 Ethyl Alcohol mg/dL < 10.0 mg/dl (<10.0) 05/13/22 17:57 SARS-CoV-2, RNA, NAAT NEGATIVE (NEGATIVE) 05/13/22 19:25 PG Care Time/CCT Total # of Minutes Spent Total Time Spent with Patient: Total time spent is greater than 50% in coordination of care (as documented) at patient's floor/unit and/or counseling patient: Coding Level of Care Code 57596 Initial Inpt Care Lvl 2 Diagnoses Hypoglycemia E16.2 Bradycardia R00.1 Anorexia nervosa with dangerously low body weight F50.00 Anxiety F41.9
[2022-05-13] MEDS ORDERED: ACETAMINOPHEN 325 MG TAB PO PRN (22:48)
[2022-05-13] MEDS ORDERED: GLUCOSE 10 TAB/TUBE PO PRN (22:48)
[2022-05-13] MEDS ORDERED: LORazepam 2 MG/1 ML VIAL IV PRN (22:48)
[2022-05-13] MEDS ORDERED: GLUCOSE 40% GEL 15 GM TUBE PO PRN (22:48)
[2022-05-13] MEDS ORDERED: DEXTROSE 50% 50 ML SYRINGE IV PRN (22:48)
[2022-05-13] MEDS ORDERED: GLUCAGON FOR INJ 1 MG VIAL SQ PRN (22:48)
[2022-05-13] MEDS ORDERED: ONDANSETRON INJ 2 MG/ML 2 ML VIAL IV PRN (22:48)
[2022-05-13] MEDS ORDERED: CARBOHYDRATES FOR HYPOGLYCEMIA PO PRN (22:48)
[2022-05-13] MEDS: D5W AND 1/2NSS 1,000 ML IV SCH (22:54)
[2022-05-13] MEDS ORDERED: LORazepam 0.5 MG in SYRINGE 0.25 ML IV PRN (22:56)
[2022-05-13 23:39] LABS: Magnesium 1.9 mg/dl (1.7-2.4); Phosphorus 3.8 mg/dl (2.5-4.9)
[2022-05-14] MEDS: D5W AND 1/2NSS 1,000 ML IV SCH (07:06)
[2022-05-14] MEDS: MULTIVITAMIN TAB PO SCH (07:26)
[2022-05-14] MEDS: CYANOCOBALAMIN (B-12) 500 MCG TABLET PO SCH (07:26)
[2022-05-14] MEDS: THIAMINE HCL 50 MG TABLET PO SCH (07:27)
[2022-05-14 11:56] LABS: Appearance Urine Clear (Clear); Bilirubin Urine Negative (Negative); Blood Urine Negative (Negative); Color Urine Yellow; Glucose Urine UA Negative (Negative); Ketones Urine 2+ (Negative); Leukocyte Esterase Urine Negative (Negative); Nitrite Urine Negative (Negative); Protein Urine Negative (Negative); Specific Gravity Urine 1.015 (1.000-1.030); Urobilinogen Urine Negative (Negative)
[2022-05-14 12:19] LABS: Amphetamines+Metham, Urine Neg (Neg); Barbiturates, Urine Neg (Neg); Benzodiazepine, Urine Neg (Neg); Cocaine, Urine Neg (Neg); MDMA (Ecstacy), Urine Neg (Neg); Methadone, Urine Neg (Neg); Opiate, Urine Neg (Neg); Phencyclidine, Urine Neg (Neg)
--- NOTE | 2022-05-14 12:21 | Communication Note ---
Date of Service: May 14, 2022 Attempted to see patient for psychiatry consult. Was asked by detectives and patient advocate in the hallway to see her later in the day if possible as she was being interviewed by a veterinary medicine teacher. Psych liason and I will re-attempt this afternoon.
--- NOTE | 2022-05-14 14:26 | Emergency Department Note ---
Impression & Plan Hypoglycemia, Acute paranoia The patient will be evaluated by the [facility] ED Provider Note NAME: MAYURI CONNER AGE: 26 SEX: F ARRIVES VIA: Ambulance INFORMANT: Patient, EMS and her parents ED PROVIDER(S): Hoda Westbrook DO CHIEF COMPLAINT: Unresponsiveness PLAN: Disposition: Admit to the [facility] Condition: Fair MEDICAL DECISION MAKING: This is a 26-year-old female patient with a history of an eating disorder and mental health issues who was found unresponsive on a park bench. When she was aroused, she appeared to be in a catatonic state to bystanders and EMS. She was noted to be hypoglycemic. They attempted to give her glucagon but she refused and seemed to be paranoid. Laboratory studies here in the emergency department confirmed that she was hypoglycemic. We along with her parents that encouraged her to drink orange juice but she would only take small sips and she remained in a paranoid state. We began to administer dextrose containing solutions and discussed the case with the [facility] Hospitalist. The patient will be admitted medically first and then evaluated by psychiatry. Triage Nursing notes reviewed and agree with them. Additional history obtained from EMS then the patient's father when he arrived at the bedside Prior medical records reviewed Vital Signs: reviewed and remarkable for hypotension and mild hypothermia Differential diagnosis: Electrolyte imbalance, hypothermia, hypoglycemia ER treatment provided: IV normal saline hydration, IV dextrose replacement Diagnostics interpreted by me: Cardiac Monitoring: Sinus bradycardia at 58 Laboratory studies: See below HPI: 26/F arrives for evaluation of altered mental status. Patient was found unresponsive on a park bench by passerby's. EMS and police were called. The patient's family was called and apparently she did not return home last night. The patient was found to be hypoglycemic. She would slowly answer questions in a quiet voice. She was paranoid about somebody suffocating her. She was hesitant to come to the hospital. After having further discussions with her father, it seems that she left the house yesterday when he had a discussion with her about eating as she does have an eating disorder. On my evaluation of the patient, she seems very fearful of being restrained or strangled. She seems quite paranoid. ROS: I cannot complete review of systems with the patient as she was unable to answer questions as she was paranoid that we were going to restrain her or piña ffocate her. PAST MEDICAL HISTORY:See Below PAST SURGICAL HISTORY:See Below FAMILY HISTORY:See Below SOCIAL HISTORY: The patient lives with her parents HOME MEDICATIONS: See list ALLERGIES: None VITALS:See Below PHYSICAL EXAMINATION: HEENT: Head - normocephalic and atraumatic. Pupils are 8 mm and equal, round, and reactive to light. Extraocular eye muscles are intact, and sclera are anicteric. Nose - moist nasal mucosa without discharge. Mouth - dry buccal mucosa. Oropharynx is nonerythematous and there is no tonsillar exudate or edema noted. Neck: Supple; no cervical lymphadenopathy or thyromegaly Heart: Bradycardic rate and rhythm. There is a normal S1 and S2 with no murmurs, clicks, or gallops appreciated. Lungs: Clear to auscultation bilaterally with no wheezes, rales, or rhonchi. Abdomen: Soft, completely nontender, nondistended, with good bowel sounds. The re are no palpable pulsatile masses or hepatosplenomegaly. There is no guarding, rigidity, or rebound noted. Extremities: No evidence of cyanosis, clubbing, or edema. There are easily palpable peripheral pulses. Skin: warm and dry with good turgor and no rashes. Psych: Initially, the patient would not let go of my hand as she appeared terrified/paranoid that someone was going to strangle her suffocate her. At times she appeared catatonic. ED COURSE: Times/Reassessments: 1635 the patient was evaluated in room A1. Report was received from EMS. A complete history and physical was performed. An IV lock was initiated and labs were drawn as above. We warmed the patient. Her blood sugar was obtained and was 46. We attempted to give the patient orange juice. The patient's father arrived in the emergency department and I spoke with him to get more history. I kept him abreast of the situation. We attempted to get the patient medically cleared by getting her blood sugar up with oral glucose but she was refusing to take large amounts of liquid so we initiated IV D5 quarter normal saline. I discussed the case with the [facility] Hospitalist and they will evaluate for further management. Hoda Westbrook, DO Past Med/Surg History Medical History Anorexia nervosa with dangerously low body weight Anxiety Hypoglycemia Secondary amenorrhea Probable hypothalamic dysfunction Surgical History No history of previous surgery Family History Sister Anorexia Mother Lymphoma Grandfather (Maternal) Prostate cancer Grandmother (Maternal) Breast cancer Denies family history of Ovarian cancer Myocardial infarction Lung cancer Colorectal cancer Stroke Social History Smoking Status: Never smoker Hx Alcohol Use: No Hx Substance Use: No Preferred Language: Eritrean Communication Ability: Impaired Visual Impairment: No Limitations Hearing Ability: Normal Radioisotope Technologist Required: No Beliefs That Will Affect Care: None marital status: Single Current Living Situation: Family Current Living Situation Comment: sister current occupational status: student 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 Safe at Home: Hesitant to Answer Childhood Exposure to Second-Hand Smoke: No Physical Activity Frequency: 5-6 Times per Week Physical Activity Frequency Comment: squash, running, tennis pre pandemic Seatbelt Use: always Assistive Devices: None Allergies Allergies Allergy/AdvReac Type Severity Reaction Status Date / Time No Known Allergies Allergy Verified 04/19/22 11:20 Home Meds Home Medications Medication Instructions Recorded Confirmed mecobalamin (vitamin B12) 1,000 1,000 mcg PO DAILY 04/19/22 04/19/22 mcg chewable tablet multivitamin (Daily Multi-Vitamin 1 tab PO DAILY 04/19/22 04/19/22 tablet) thiamine HCl (vitamin B1) 50 mg 50 mg PO DAILY 04/19/22 04/19/22 tablet Results & Data (ED) Vital Signs Vital Signs - 24 hr 05/13/22 16:29 05/13/22 16:29 05/13/22 17:05 Temperature 36.5 C Temperature Source Oral Pulse Rate 52 L 52 L Pulse Rate [Right Finger] 52 L Pulse Rate from SpO2 Sensor Respiratory Rate 12 16 16 Respiratory Effort / Characteristics Non-Labored Non-Labored Respiratory Depth Normal Normal Blood Pressure 109/71 Blood Pressure [Right Arm] 111/72 Blood Pressure Mean 83 Blood Pressure Mean [Right Arm] 85 Pulse Oximetry 100 100 100 Oxygen Delivery Method Room Air Room Air Room Air Sepsis Recent Fever Within 48 Hours No Sepsis New/Unexplained Change in Mental Status N/A Sepsis Action Taken by Nursing No Action Required 05/13/22 16:37 05/13/22 16:43 05/13/22 16:43 Temperature Temperature Source Pulse Rate 53 L Pulse Rate [Right Finger] Pulse Rate from SpO2 Sensor 52 L 53 L Respiratory Rate 14 Respiratory Effort / Characteristics Respiratory Depth Blood Pressure 109/71 Blood Pressure [Right Arm] Blood Pressure Mean 83 Blood Pressure Mean [Right Arm] Pulse Oximetry 100 100 Oxygen Delivery Method Sepsis Recent Fever Within 48 Hours Sepsis New/Unexplained Change in Mental Status Sepsis Action Taken by Nursing 05/13/22 17:00 05/13/22 18:02 05/13/22 18:04 Temperature Temperature Source Pulse Rate 54 L 54 L 53 L Pulse Rate [Right Finger] Pulse Rate from SpO2 Sensor 54 L 53 L Respiratory Rate 12 21 16 Respiratory Effort / Characteristics Respiratory Depth Blood Pressure Blood Pressure [Right Arm] Blood Pressure Mean Blood Pressure Mean [Right Arm] Pulse Oximetry 100 100 Oxygen Delivery Method Sepsis Recent Fever Within 48 Hours Sepsis New/Unexplained Change in Mental Status Sepsis Action Taken by Nursing 05/13/22 18:04 05/13/22 18:30 05/13/22 19:00 Temperature Temperature Source Pulse Rate 57 L Pulse Rate [Right Finger] Pulse Rate from SpO2 Sensor 58 L Respiratory Rate 15 Respiratory Effort / Characteristics Respiratory Depth Blood Pressure 102/70 106/60 Blood Pressure [Right Arm] Blood Pressure Mean 80 75 Blood Pressure Mean [Right Arm] Pulse Oximetry 100 Oxygen Delivery Method Sepsis Recent Fever Within 48 Hours Sepsis New/Unexplained Change in Mental Status Sepsis Action Taken by Nursing 05/13/22 19:00 05/13/22 19:30 05/13/22 20:00 Temperature Temperature Source Pulse Rate 55 L 60 Pulse Rate [Right Finger] Pulse Rate from SpO2 Sensor 56 L 59 L Respiratory Rate 21 15 Respiratory Effort / Characteristics Respiratory Depth Blood Pressure 94/48 L Blood Pressure [Right Arm] Blood Pressure Mean 63 Blood Pressure Mean [Right Arm] Pulse Oximetry 100 100 Oxygen Delivery Method Sepsis Recent Fever Within 48 Hours Sepsis New/Unexplained Change in Mental Status Sepsis Action Taken by Nursing 05/13/22 20:00 05/13/22 20:30 05/13/22 21:00 Temperature Temperature Source Pulse Rate 77 61 58 L Pulse Rate [Right Finger] Pulse Rate from SpO2 Sensor 81 62 59 L Respiratory Rate 25 H 25 H 11 L Respiratory Effort / Characteristics Respiratory Depth Blood Pressure 101/57 L Blood Pressure [Right Arm] Blood Pressure Mean 71 Blood Pressure Mean [Right Arm] Pulse Oximetry 100 100 100 Oxygen Delivery Method Sepsis Recent Fever Within 48 Hours Sepsis New/Unexplained Change in Mental Status Sepsis Action Taken by Nursing Laboratory Data Result diagrams: 05/15/22 08:27 05/15/22 08:27 Lab Results 05/13/22 05/13/22 05/13/22 Range/Units 16:43 17:35 17:57 WBC 11.11 H (4.8-10.8) K/ul RBC 4.76 (3.93-5.22) M/uL Hgb 14.2 (12.0-16.0) g/dl Hct 42.5 (34.1-44.9) % MCV 89.3 (80.0-100.0) fL MCH 29.8 (25.0-34.0) pg MCHC 33.4 (32.0-36.0) g/dL RDW Std Deviation 41.0 (36.4-46.3) fL RDW Coeff of Marlon 12.4 (11.5-14.5) % Plt Count 272 (130-400) K/uL MPV 8.6 L (9.4-12.3) fL Immature Gran % (Auto) 0.5 % Neut % (Auto) 81.5 % Lymph % (Auto) 12.8 % [place] % (Auto) 4.3 % Eos % (Auto) 0.6 % Baso % (Auto) 0.3 % Neut # (Auto) 9.06 H (1.4-6.5) K/uL Lymph # (Auto) 1.42 (1.2-3.4) K/uL [place] # (Auto) 0.48 (0.24-0.82) K/uL Eos # (Auto) 0.07 (0-0.50) K/uL Baso # (Auto) 0.03 (0-0.2) K/uL Immature Gran # (Auto) 0.05 H (0.00-0.02) K/uL Sodium (136-145) mmol/L Potassium (3.5-5.1) mmol/L Chloride (98-107) mmol/L Carbon Dioxide (21-32) mmol/L Anion Gap (3-11) BUN (6-23) mg/dl Creatinine (0.6-1.2) mg/dl Est Cr Clr Drug Dosing ml/min Est GFR ( Amer) ml/min Est GFR (Non-Af Amer) ml/min BUN/Creatinine Ratio (10-20) Glucose (70-99(Fasting)) mg/dl POC Glucose 47 L* 70 (70-99) mg/dl Calcium (8.5-10.1) mg/dl Phosphorus (2.5-4.9) mg/dl Magnesium (1.7-2.4) mg/dl Total Bilirubin (0.2-1.0) mg/dl AST (13-39) U/L ALT (7-52) U/L Alkaline Phosphatase (34-104) U/L Total Protein (6.0-8.3) gm/dl Albumin (3.4-5.0) gm/dl Globulin (2.5-4.0) gm/dl Albumin/Globulin Ratio (0.9-2) TSH (0.300-4.500) uIu/ml Random Cortisol mcg/dl Salicylates (3.0-30) mg/dl Acetaminophen (10-30) ug/ml Ethyl Alcohol mg/dL (<10.0) mg/dl SARS-CoV-2, RNA, NAAT (NEGATIVE) 05/13/22 05/13/22 05/13/22 Range/Units 17:57 17:57 17:57 WBC (4.8-10.8) K/ul RBC (3.93-5.22) M/uL Hgb (12.0-16.0) g/dl Hct (34.1-44.9) % MCV (80.0-100.0) fL MCH (25.0-34.0) pg MCHC (32.0-36.0) g/dL RDW Std Deviation (36.4-46.3) fL RDW Coeff of Marlon (11.5-14.5) % Plt Count (130-400) K/uL MPV (9.4-12.3) fL Immature Gran % (Auto) % Neut % (Auto) % Lymph % (Auto) % [place] % (Auto) % Eos % (Auto) % Baso % (Auto) % Neut # (Auto) (1.4-6.5) K/uL Lymph # (Auto) (1.2-3.4) K/uL [place] # (Auto) (0.24-0.82) K/uL Eos # (Auto) (0-0.50) K/uL Baso # (Auto) (0-0.2) K/uL Immature Gran # (Auto) (0.00-0.02) K/uL Sodium 139 (136-145) mmol/L Potassium 3.9 (3.5-5.1) mmol/L Chloride 100 (98-107) mmol/L Carbon Dioxide 25 (21-32) mmol/L Anion Gap 14 H (3-11) BUN 16 (6-23) mg/dl Creatinine 0.84 (0.6-1.2) mg/dl Est Cr Clr Drug Dosing 80.1 ml/min Est GFR ( Amer) 109.6 ml/min Est GFR (Non-Af Amer) 94.6 ml/min BUN/Creatinine Ratio 19.0 (10-20) Glucose 70 (70-99(Fasting)) mg/dl POC Glucose (70-99) mg/dl Calcium 10.1 (8.5-10.1) mg/dl Phosphorus 3.8 (2.5-4.9) mg/dl Magnesium 1.9 (1.7-2.4) mg/dl Total Bilirubin 1.0 (0.2-1.0) mg/dl AST 24 (13-39) U/L ALT 21 (7-52) U/L Alkaline Phosphatase 47 (34-104) U/L Total Protein 7.8 (6.0-8.3) gm/dl Albumin 5.2 H (3.4-5.0) gm/dl Globulin 2.6 (2.5-4.0) gm/dl Albumin/Globulin Ratio 2.0 (0.9-2) TSH 1.067 (0.300-4.500) uIu/ml Random Cortisol mcg/dl Salicylates < 3.0 L (3.0-30) mg/dl Acetaminophen < 3 L (10-30) ug/ml Ethyl Alcohol mg/dL (<10.0) mg/dl SARS-CoV-2, RNA, NAAT (NEGATIVE) 05/13/22 05/13/22 05/13/22 Range/Units 17:57 17:57 19:25 WBC (4.8-10.8) K/ul RBC (3.93-5.22) M/uL Hgb (12.0-16.0) g/dl Hct (34.1-44.9) % MCV (80.0-100.0) fL MCH (25.0-34.0) pg MCHC (32.0-36.0) g/dL RDW Std Deviation (36.4-46.3) fL RDW Coeff of Marlon (11.5-14.5) % Plt Count (130-400) K/uL MPV (9.4-12.3) fL Immature Gran % (Auto) % Neut % (Auto) % Lymph % (Auto) % [place] % (Auto) % Eos % (Auto) % Baso % (Auto) % Neut # (Auto) (1.4-6.5) K/uL Lymph # (Auto) (1.2-3.4) K/uL [place] # (Auto) (0.24-0.82) K/uL Eos # (Auto) (0-0.50) K/uL Baso # (Auto) (0-0.2) K/uL Immature Gran # (Auto) (0.00-0.02) K/uL Sodium (136-145) mmol/L Potassium (3.5-5.1) mmol/L Chloride (98-107) mmol/L Carbon Dioxide (21-32) mmol/L Anion Gap (3-11) BUN (6-23) mg/dl Creatinine (0.6-1.2) mg/dl Est Cr Clr Drug Dosing ml/min Est GFR ( Amer) ml/min Est GFR (Non-Af Amer) ml/min BUN/Creatinine Ratio (10-20) Glucose (70-99(Fasting)) mg/dl POC Glucose (70-99) mg/dl Calcium (8.5-10.1) mg/dl Phosphorus (2.5-4.9) mg/dl Magnesium (1.7-2.4) mg/dl Total Bilirubin (0.2-1.0) mg/dl AST (13-39) U/L ALT (7-52) U/L Alkaline Phosphatase (34-104) U/L Total Protein (6.0-8.3) gm/dl Albumin (3.4-5.0) gm/dl Globulin (2.5-4.0) gm/dl Albumin/Globulin Ratio (0.9-2) TSH (0.300-4.500) uIu/ml Random Cortisol 12.64 mcg/dl Salicylates (3.0-30) mg/dl Acetaminophen (10-30) ug/ml Ethyl Alcohol mg/dL < 10.0 (<10.0) mg/dl SARS-CoV-2, RNA, NAAT NEGATIVE (NEGATIVE) 05/13/22 Range/Units 19:45 WBC (4.8-10.8) K/ul RBC (3.93-5.22) M/uL Hgb (12.0-16.0) g/dl Hct (34.1-44.9) % MCV (80.0-100.0) fL MCH (25.0-34.0) pg MCHC (32.0-36.0) g/dL RDW Std Deviation (36.4-46.3) fL RDW Coeff of Marlon (11.5-14.5) % Plt Count (130-400) K/uL MPV (9.4-12.3) fL Immature Gran % (Auto) % Neut % (Auto) % Lymph % (Auto) % [place] % (Auto) % Eos % (Auto) % Baso % (Auto) % Neut # (Auto) (1.4-6.5) K/uL Lymph # (Auto) (1.2-3.4) K/uL [place] # (Auto) (0.24-0.82) K/uL Eos # (Auto) (0-0.50) K/uL Baso # (Auto) (0-0.2) K/uL Immature Gran # (Auto) (0.00-0.02) K/uL Sodium (136-145) mmol/L Potassium (3.5-5.1) mmol/L Chloride (98-107) mmol/L Carbon Dioxide (21-32) mmol/L Anion Gap (3-11) BUN (6-23) mg/dl Creatinine (0.6-1.2) mg/dl Est Cr Clr Drug Dosing ml/min Est GFR ( Amer) ml/min Est GFR (Non-Af Amer) ml/min BUN/Creatinine Ratio (10-20) Glucose (70-99(Fasting)) mg/dl POC Glucose 43 L* (70-99) mg/dl Calcium (8.5-10.1) mg/dl Phosphorus (2.5-4.9) mg/dl Magnesium (1.7-2.4) mg/dl Total Bilirubin (0.2-1.0) mg/dl AST (13-39) U/L ALT (7-52) U/L Alkaline Phosphatase (34-104) U/L Total Protein (6.0-8.3) gm/dl Albumin (3.4-5.0) gm/dl Globulin (2.5-4.0) gm/dl Albumin/Globulin Ratio (0.9-2) TSH (0.300-4.500) uIu/ml Random Cortisol mcg/dl Salicylates (3.0-30) mg/dl Acetaminophen (10-30) ug/ml Ethyl Alcohol mg/dL (<10.0) mg/dl SARS-CoV-2, RNA, NAAT (NEGATIVE) Administered Medications Cyanocobalamin (Cyanocobalamin (B-12) 500 Mcg Tablet) [address] [facility] Stop: 06/13/22 08:59 Last Admin: 05/15/22 09:14 Dose: Not Given Documented By: Admin: 05/14/22 07:26 Dose: Not Given Documented By: MEERA Magnesium Sulfate/Dextrose (Magnesium Sulfate / D5w) 1 gm in 100 mls @ 50 mls/hr IV Q2H [facility] Stop: 05/15/22 14:14 Last Admin: 05/15/22 11:55 Dose: 50 mls/hr Documented By: BOLA Multivitamins (Multivitamin Tab) [address] [facility] Stop: 06/13/22 08:59 Last Admin: 05/15/22 09:14 Dose: Not Given Documented By: Admin: 05/14/22 07:26 Dose: Not Given Documented By: Mary Olanzapine (Olanzapine Zydis 5 Mg Orally Dis. Tab) 1.[address] [facility] Stop: 06/14/22 08:59 Last Admin: 05/15/22 09:14 Dose: Not Given Documented By: BOLA Thiamine HCl (Thiamine Hcl 50 Mg Tablet) [address] [facility] Stop: 06/13/22 08:59 Last Admin: 05/15/22 09:14 Dose: Not Given Documented By: Admin: 05/14/22 07:27 Dose: Not Given Documented By: MEERA Discontinued Medications Sodium Chloride (Nss) 500 mls @ 999 mls/hr IV .Q31M [facility] Stop: 05/13/22 19:18 Last Infusion: 05/13/22 20:14 Dose: 0 mls/hr Documented By: Admin: 05/13/22 19:31 Dose: 999 mls/hr Documented By: CRISELDA Dextrose/Sodium Chloride (D5w And 1/2nss) 1,000 mls @ 125 mls/hr IV .Q8H [facility] Stop: 06/12/22 20:29 Last Infusion: 05/13/22 22:52 Dose: 0 mls/hr Documented By: Admin: 05/13/22 20:53 Dose: 125 mls/hr Documented By: CRISELDA Dextrose/Sodium Chloride (D5w And 1/2nss) 1,000 mls @ 100 mls/hr IV .Q10H [facility] Stop: 05/14/22 18:52 Last Infusion: 05/14/22 16:32 Dose: 0 mls/hr Documented By: Admin: 05/14/22 07:06 Dose: 100 mls/hr Documented By: Infusion: 05/14/22 07:06 Dose: 100 mls/hr Documented By: Infusion: 05/13/22 23:30 Dose: 100 mls/hr Documented By: Admin: 05/13/22 22:54 Dose: 80 mls/hr Documented By: BS Discharge Plan Visit Data Chief Complaint: Hypoglycemia ED Provider: Hoda Westbrook Discharge Problem: Hypoglycemia, Acute paranoia Patient Disposition: Admitted As Inpatient Discharge Instructions Interventions: ED Discharge Assessment Last Done: 05/13/22 22:10
--- NOTE | 2022-05-14 15:13 | Psychiatric Consultation ---
Date of Consultation May 14, 2022 Impression / Recommendations Impression 26 yo woman with anorexia, BMI has improved slightly from prior admission in February 2022, but lack of po intake, low BMI, withdrawal and circumstances surrounding admission remain concerning for ongoing anorexia and possible associated delirium (given EMT reports she was fearful of being suffocated by them) due to lack of po intake. Eating disorder treatment at specialized inpatient setting versus intensive outpatient program remains the recommended treatment of choice. There are no medications with proven benefit for treating anorexia but agree with pre-treatment before meals with ativan to help reduce d istress and option to try olanzapine again to help with delirium, possible depression/anxiety component and increase appetite if hospitalist feels safe from cardiac standpoint and she starts eating. Hopefully she will be able to engage more and we can refer her for further treatments for eating disorder if she allows. Currently she is not receptive to discussion about this. From safety standpoint she denies SI and demonstrates no acute symptoms of angelica, psychosis nor aggression and typically there are no eating disorder programs which will accept patients on a non-voluntary basis so will continue with motivation interviewing regarding this she becomes willing/able to communicate with us and consider treatment options. (1) Anorexia nervosa with dangerously low body weight: (2) Hypoglycemia: (3) Bradycardia: (4) Anxiety: Plan -1-on-1 at discretion of hospitalist to help support po intake and monitor for purging -Agree with ativan to help reduce anxiety prior to meals -Consider olanzapine 1.25 mg po daily if she begins eating and if cardiac status is stable (QTc <500ms), avoid within 1 hour of administration of IV or IM ativan Psych History Identifying Data 26 yo woman with history of anorexia and unspecified depression admitted for hypoglycemia after being found unresponsive on a bench outside. Psychiatry consulted for recommendations. Chief Complaint mute History of Present Illness Fanny is known to our service from her previous admission in February 2022 at which time our service was involved and started her on zyprexa 2.5mg BID but per PCP notes the family had difficulty filling this at the pharmacy after discharge (possibly because it was ODT formulation?). Unclear if they followed through with previous recommendations for outpatient intensive eating disorder treatment, instructor substitute cosmetology, therapy, psychiatry services but per PCP note in late March they had not yet followed through on establishing any outpatient services. Today Fanny presents as she did throughout her previous hospitalization in that she avoids eye contact and is mute throughout. She does shake her head no when asked about any thoughts of suicide but otherwise will not respond verbally nor use any non-verbal communication when I ask her questions. She is observed to have a full uneaten lunch tray and snacks at bedside which she is not willing to eat. She will not provide consent for us to contact her mother or others for collateral. Cannot communicate if she is willing to consider olanzapine again. Past Psychiatric History Outpatient Services: unclear-but appears to be none currently Allergies Allergy/AdvReac Type Severity Reaction Status Date / Time No Known Allergies Allergy Verified 04/19/22 11:20 Home Medications Medication Instructions Recorded Confirmed Type mecobalamin (vitamin B12) 1,000 1,000 mcg PO DAILY 04/19/22 04/19/22 History mcg chewable tablet multivitamin (Daily Multi-Vitamin 1 tab PO DAILY 04/19/22 04/19/22 History tablet) thiamine HCl (vitamin B1) 50 mg 50 mg PO DAILY 04/19/22 04/19/22 History tablet Family History sister with anorexia Substance Abuse History UDS negative Personal History Living Arrangements: Home (with parents) Highest Grade Completed: Some College Beliefs That Will Affect Care: None Patient History Medical History Anorexia nervosa with dangerously low body weight Anxiety Hypoglycemia Secondary amenorrhea Probable hypothalamic dysfunction Surgical History No history of previous surgery Family History Sister Anorexia Mother Lymphoma Grandfather (Maternal) Prostate cancer Grandmother (Maternal) Breast cancer Denies family history of Ovarian cancer Myocardial infarction Lung cancer Colorectal cancer Stroke Social History Smoking Status: Never smoker Hx Alcohol Use: No Hx Substance Use: No Preferred Language: [place] Leonean Communication Ability: Impaired Visual Impairment: No Limitations Hearing Ability: Normal 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 Beliefs That Will Affect Care: None marital status: Single Current Living Situation: Family Current Living Situation Comment: sister current occupational status: student 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 Safe at Home: Hesitant to Answer Childhood Exposure to Second-Hand Smoke: No Physical Activity Frequency: 5-6 Times per Week Physical Activity Frequency Comment: squash, running, tennis pre pandemic Seatbelt Use: always Assistive Devices: None Physical Exam Psychiatric: Orientation: alert Apperance: + disheveled Eye Contact: + poor eye contact Motor Behavior: no abnormal motor movements Speech: + mute Affect: + flat affect Suicidal Thoughts: denies suicidal thoughts Hallucinations: no auditory hallucinations (does not appear to be responding to internal stimuli) and no visual hallucinations Insight: + limited insight Judgement: + limited judgement Vital Signs (Past 24 Hours): Last Vital Signs Temp 36.3 C L 05/14/22 11:03 Pulse 55 L 05/14/22 11:03 Resp 16 05/14/22 11:03 BP 103/65 05/14/22 11:03 Pulse Ox 98 05/14/22 11:03 O2 Del Method 05/14/22 11:03 Review of Systems Unobtainable due to mental health condition Results & Data (PSY) Medications Administered Cyanocobalamin (Cyanocobalamin (B-12) 500 Mcg Tablet) [facility] [place] Stop: 06/13/22 08:59 Last Admin: 05/14/22 07:26 Dose: Not Given Documented By: MEERA Dextrose/Sodium Chloride (D5w And 1/2nss) 1,000 mls @ 100 mls/hr IV .Q10H [facility] Stop: 05/14/22 18:52 Last Admin: 05/14/22 07:06 Dose: 100 mls/hr Documented By: Infusion: 05/14/22 07:06 Dose: 100 mls/hr Documented By: Infusion: 05/13/22 23:30 Dose: 100 mls/hr Documented By: Admin: 05/13/22 22:54 Dose: 80 mls/hr Documented By: ALANIS Multivitamins (Multivitamin Tab) [facility] [place] Stop: 06/13/22 08:59 Last Admin: 05/14/22 07:26 Dose: Not Given Documented By: MEERA Thiamine HCl (Thiamine Hcl 50 Mg Tablet) 50 mg PO QAM [facility]ANO Stop: 06/13/22 08:59 Last Admin: 05/14/22 07:27 Dose: Not Given Documented By: MEERA Coding Level of Care Code 73079 Inpt Consult Level 3 Diagnoses Anorexia nervosa with dangerously low body weight F50.00 Hypoglycemia E16.2 Bradycardia R00.1 Anxiety F41.9
--- NOTE | 2022-05-14 19:10 | Hospitalist Progress Note ---
Date of Service May 14, 2022 Assessment & Plan (1) Hypoglycemia: Plan: Blood sugar of 43 upon arrival. Patient has been sipping on orange juice in the ER, minimal improvement. Was started on D5 1/2NSS Patient denies use of insulin or other medications, no EtOH or recreational drug use reported. Hypoglycemia secondary to decreased oral intake -Admit to medical with telemetry -Stop D5W to make sure glucose and consciousness levels ok off this -Fingerstick q 2 hours -Check C-peptide - pending, no insulin level taken -Check TSH WNL and random Cortisol WNL (2) Bradycardia: Plan: In setting of anorexia nervosa. Patient without symptoms. HR presently 58. -Check Mg, PO4 and replete as needed -Telemetry monitoring (3) Anorexia nervosa with dangerously low body weight: Plan: Patient has had an improvement in BMI - was reportedly 12 in 05/2021, 15.8 in 02/2022 and reportedly 17.6 today. Mother states that she eats intermittently. Some concern of throat tightness, states she is unable to swallow and fears choking. Possibly secondary to anxiety related to eating. ?reflux, abnormal GI tract? -Swallow evaluation - unwilling to trial anything other than water but passed this -Maintain aspiration precautions -Premeal Ativan PRN -Psychiatry consultation appreciated - will start olanzapine 1.25mg PO daily -Continue daily MVI, B12 and Thiamine supplementation - pt refusing -1:1 observation -Possible purging noted during last admission - monitor for this behavior (4) Anxiety: Plan: Patient presently not on any medications for this. Pre-meal Ativan PRN as above -Psychiatry consultation appreciated F/E/N - Regular diet as tolerated Ppx - low risk for DVT Code - Full Dispo - Admit to medical with telemetry, monitor glucose levels off D5W Admission and Anticipated Discharge Date Admission Date: May 13, 2022 Subjective Patient mute. Occasionally nodding or shaking head but not substantially enough I can definitively say she is answering by questions. No definitive objection to starting olanzapine as recommended by psychiatry. Her mother in the room has some vague recollection of this drug but cannot tell me whether her daughter was taking it outside of hospital last time. They appear willing to support inpatient eating disorder clinic. Only had a bite of asparagus today per aide in the room and not eating anything on her table. Review of Systems Review of Systems: Unobtainable due to mental health condition Physical Exam Constitutional: + thin; + not well nourished and no acute distress Respiratory: normal respiratory effort, lungs clear to auscultation Cardiovascular: Rate/Rhythm: regular rhythm and + bradycardic Heart Sounds: no murmur Gastrointestinal (Abdomen): normal bowel sounds, soft, nontender, no hepatosplenomegaly Psychiatric: Orientation: alert; + uncooperative Eye Contact: + poor eye contact Affect: + flat affect Results & Data Results & Data ([facility]) Vital Signs (Past 12 Hours) Vital Signs Temp Pulse Pulse Resp BP Pulse Ox O2 Del Method 05/14/22 18:46 36.0 C L 56 L 16 99/65 L 97 Room Air 05/14/22 15:55 36.6 C 53 L 16 103/62 98 Room Air 05/14/22 15:39 52 L 05/14/22 11:03 36.3 C L 55 L 16 103/65 98 Room Air PG Care Time/CCT Total # of Minutes Spent Total Time Spent with Patient: Total time spent is greater than 50% in coordination of care (as documented) at patient's floor/unit and/or counseling patient: Coding Level of Care Code 18931 Subseq Hosp Care Lvl 2 Diagnoses Hypoglycemia E16.2 Bradycardia R00.1 Anorexia nervosa with dangerously low body weight F50.00 Anxiety F41.9
[2022-05-15 08:52] LABS: Basophils # (auto) 0.01 K/uL (0-0.2); Basophils % (auto) 0.2 %; Eosinophils # (auto) 0.11 K/uL (0-0.50); Eosinophils % (auto) 2.5 %; Hematocrit (blood only) 39.8 % (34.1-44.9); Hemoglobin 13.5 g/dl (12.0-16.0); Immature Granulocytes # (auto) 0.01 K/uL (0.00-0.02); Immature Granulocytes % (auto) 0.2 %; Lymphocytes # (auto) 1.36 K/uL (1.2-3.4); Lymphocytes % (auto) 30.8 %; Mean Corpuscular Hemoglobin 30.1 pg (25.0-34.0); Mean Corpuscular Hgb Conc 33.9 g/dL (32.0-36.0); Mean Corpuscular Volume 88.6 fL (80.0-100.0); Mean Platelet Volume 8.4 fL (9.4-12.3); Monocytes # (auto) 0.26 K/uL (0.24-0.82); Monocytes % (auto) 5.9 %; Neutrophils # (auto) 2.67 K/uL (1.4-6.5); Neutrophils % (auto) 60.4 %; Platelet Count 216 K/uL (130-400); RDW Coefficient of Variation 12.5 % (11.5-14.5); Red Blood Count 4.49 M/uL (3.93-5.22); White Blood Count 4.42 K/ul (4.8-10.8)
--- NOTE | 2022-05-15 08:58 | Electrocardiogram Report ---
Test Reason : Blood Pressure : / mmHG Vent. Rate : 048 BPM Atrial Rate : 048 BPM P-R Int : 152 ms QRS Dur : 084 ms QT Int : 468 ms P-R-T Axes : 064 087 076 degrees QTc Int : 418 ms Sinus bradycardia Nondiagnostic inferior Q waves Otherwise normal ECG When compared with ECG of 18-MAR-2022 16:45, Vent. rate has decreased BY 41 BPM Confirmed by Chance Vasquez ([id number]) on 05/15/2022 8:58:08 AM Referred By: REFERRED SELF Confirmed By:Chance Vasquez
[2022-05-15] MEDS: CYANOCOBALAMIN (B-12) 500 MCG TABLET PO SCH ×2 (09:14→13:10)
[2022-05-15] MEDS: OLANZapine ZYDIS 5 MG ORALLY DIS. TAB PO SCH ×2 (09:14→13:10)
[2022-05-15] MEDS: THIAMINE HCL 50 MG TABLET PO SCH ×2 (09:14→13:10)
[2022-05-15] MEDS: MULTIVITAMIN TAB PO SCH ×2 (09:14→13:10)
[2022-05-15 09:21] LABS: Albumin Globulin Ratio 1.8 (0.9-2); Albumin Level 4.6 gm/dl (3.4-5.0); BUN Creatinine Ratio 8.3 (10-20); Bilirubin Direct 0.1 mg/dl (0-0.2); Calcium 9.6 mg/dl (8.5-10.1); Creatinine Clr Calc Pharmacy 76.2 ml/min; Est GFR (African American) 109.6 ml/min; Est GFR (Non-African American) 94.6 ml/min; Globulin 2.5 gm/dl (2.5-4.0); Magnesium 1.6 mg/dl (1.7-2.4); Phosphorus 3.7 mg/dl (2.5-4.9); Potassium 3.6 mmol/L (3.5-5.1); Total Protein 7.1 gm/dl (6.0-8.3)
[2022-05-15] MEDS: MAGNESIUM SULFATE / D5W 1 GM/100 ML BAG IV SCH ×2 (11:55→14:00)
--- NOTE | 2022-05-15 16:22 | Psychiatric Progress Note ---
Date of Service May 15, 2022 Impression / Recommendations Impression 26 yo woman with anorexia, BMI has improved slightly from prior admission in February 2022, but lack of po intake, low BMI, withdrawal and circumstances surrounding admission remain concerning for ongoing anorexia and possible associated delirium (given EMT reports she was fearful of being suffocated by them) due to lack of po intake. Eating disorder treatment at specialized inpatient setting versus intensive outpatient program remains the recommended treatment of choice. There are no medications with proven benefit for treating anorexia but agree with pre-treatment before meals with ativan to help reduce distress and option to try olanzapine again to help with delirium, possible depression/anxiety component and increase appetite if hospitalist feels safe from cardiac standpoint and she starts eating. Hopefully she will be able to engage more and we can refer her for further treatments for eating disorder if she allows. Currently she is not receptive to discussion about this. From safety standpoint she denies SI and demonstrates no acute symptoms of angelica, psychosis nor aggression nor acute delirium so does not meet 302 criteria and typically there are no eating disorder programs which will accept patients on a non- voluntary basis anyway so will continue with motivation interviewing regarding this in hopes she becomes willing/able to communicate with us and consider treatment options or allows us to make referrals for inpatient or outpatient treatment. 05/15/22: No significant change, remains mute on exam. Psych liason provided her with additional outpatient eating disorder resources. Reviewed with hospitalist and Dr. Greer shared information with me based on her outpatient observations. Challenging situation as she does not meet 302 criteria but would absolutely benefit from additional inpatient or outpatient services to address her eating disorder. Reviewed with Fanny goal of establishing outpatient psychiatric follow-up so she could continue with olanzapine after discharge if she finds this helpful but she will not engage in any discussion about this. EKG done this morning and QTc normal. Seems to have tolerated initial dose of olanzapine without any side effects. (1) Anorexia nervosa with dangerously low body weight: (2) Hypoglycemia: (3) Bradycardia: (4) Anxiety: Plan -1-on-1 at discretion of hospitalist to help support po intake and monitor for purging -Agree with ativan to help reduce anxiety prior to meals -Olanzapine 1.25 mg po daily if she begins eating and if cardiac status is stable (QTc <500ms), avoid within 1 hour of administration of IV or IM ativan. Could be increased to 2.5mg qd after 3-5 days if she continues to tolerate initial low dose. Interval History Identifying Information 26 yo woman with history of anorexia and unspecified depression admitted for hypoglycemia after being found unresponsive on a bench outside. Psychiatry consulted for recommendations. Chief Complaint mute Review of Systems Notes ate only one bite of food yesterday, slept overnight per review of chart Subjective Subjective Patient was seen & assessed and interval progress reviewed. Eating more today, accepted olanzapine dose after encouragement from technician test systems. Remained mute on my assessment. Again shakes her head no when asked about SI. Otherwise will not use non-verbal means to respond to any other yes/no questions. Recommended eating disorder treatment and encouraged her to let us know if she is interested in this so we can make inpatient or outpatient referrals but no response. Physical Exam Psychiatric Orientation: alert; + uncooperative Apperance: appropriately dressed and appropriately groomed Eye Contact: + fair eye contact Motor Behavior: no abnormal motor movements Speech: + mute Affect: + flat affect Suicidal Thoughts: denies suicidal thoughts Hallucinations: no auditory hallucinations (does not appear to be responding to internal stimuli) and no visual hallucinations Insight: + limited insight Judgement: + limited judgement Vital Signs (Past 24 Hours) Last Vital Signs Temp 36.4 C L 05/15/22 11:16 Pulse 61 05/15/22 11:16 Resp 16 05/15/22 11:16 BP 99/70 L 05/15/22 11:16 Pulse Ox 98 05/15/22 11:16 O2 Del Method 05/15/22 11:16 Results & Data ([facility]) Laboratory Results Laboratory Results - last 24 hr 05/14/22 05/14/22 05/15/22 17:58 20:31 07:36 WBC RBC Hgb Hct MCV MCH MCHC RDW Std Deviation RDW Coeff of Marlon Plt Count MPV Immature Gran % (Auto) Neut % (Auto) Lymph % (Auto) Ramsey % (Auto) Eos % (Auto) Baso % (Auto) Neut # (Auto) Lymph # (Auto) Ramsey # (Auto) Eos # (Auto) Baso # (Auto) Immature Gran # (Auto) Sodium Potassium Chloride Carbon Dioxide Anion Gap BUN Creatinine Est Cr Clr Drug Dosing Est GFR ( Amer) Est GFR (Non-Af Amer) BUN/Creatinine Ratio Glucose POC Glucose 88 91 75 C-Peptide Calcium Phosphorus Magnesium Total Bilirubin Direct Bilirubin AST ALT Alkaline Phosphatase Total Protein Albumin Globulin Albumin/Globulin Ratio Vitamin B12 05/15/22 05/15/22 05/15/22 08:27 08:27 08:27 WBC 4.42 L RBC 4.49 Hgb 13.5 Hct 39.8 MCV 88.6 MCH 30.1 MCHC 33.9 RDW Std Deviation 41.0 RDW Coeff of Marlon 12.5 Plt Count 216 MPV 8.4 L Immature Gran % (Auto) 0.2 Neut % (Auto) 60.4 Lymph % (Auto) 30.8 Ramsey % (Auto) 5.9 Eos % (Auto) 2.5 Baso % (Auto) 0.2 Neut # (Auto) 2.67 Lymph # (Auto) 1.36 Ramsey # (Auto) 0.26 Eos # (Auto) 0.11 Baso # (Auto) 0.01 Immature Gran # (Auto) 0.01 Sodium 139 Potassium 3.6 Chloride 104 Carbon Dioxide 29 Anion Gap 6 BUN 7 Creatinine 0.84 Est Cr Clr Drug Dosing 76.2 Est GFR ( Amer) 109.6 Est GFR (Non-Af Amer) 94.6 BUN/Creatinine Ratio 8.3 L Glucose 72 POC Glucose C-Peptide Pending Calcium 9.6 Phosphorus 3.7 Magnesium 1.6 L Total Bilirubin 1.0 Direct Bilirubin 0.1 AST 18 ALT 17 Alkaline Phosphatase 46 Total Protein 7.1 Albumin 4.6 Globulin 2.5 Albumin/Globulin Ratio 1.8 Vitamin B12 05/15/22 05/15/22 05/15/22 08:27 08:27 11:48 WBC RBC Hgb Hct MCV MCH MCHC RDW Std Deviation RDW Coeff of Marlon Plt Count MPV Immature Gran % (Auto) Neut % (Auto) Lymph % (Auto) Ramsey % (Auto) Eos % (Auto) Baso % (Auto) Neut # (Auto) Lymph # (Auto) Ramsey # (Auto) Eos # (Auto) Baso # (Auto) Immature Gran # (Auto) Sodium Potassium Chloride Carbon Dioxide Anion Gap BUN Creatinine Est Cr Clr Drug Dosing Est GFR ( Amer) Est GFR (Non-Af Amer) BUN/Creatinine Ratio Glucose POC Glucose 83 C-Peptide Calcium Phosphorus Cancelled Magnesium Cancelled Total Bilirubin Direct Bilirubin AST ALT Alkaline Phosphatase Total Protein Albumin Globulin Albumin/Globulin Ratio Vitamin B12 676 Current Inpatient Medications Current Inpatient Medications: Current Inpatient Medications Acetaminophen (Acetaminophen 325 Mg Tab) 650 mg PO Q4H PRN PRN Reason: pain/fever Stop: 06/12/22 22:47 Cyanocobalamin (Cyanocobalamin (B-12) 500 Mcg Tablet) 500 mcg PO QAM DANO Stop: 06/13/22 08:59 Last Admin: 05/15/22 13:10 Dose: 500 mcg Dextrose (Dextrose 50% 50 Ml Syringe) 25 - 50 ml IV UD PRN; Protocol PRN Reason: Hypoglycemia Protocol Stop: 06/12/22 22:47 Glucagon (Glucagon For Inj 1 Mg Vial) 1 mg SQ UD PRN; Protocol PRN Reason: Hypoglycemia Protocol Stop: 06/12/22 22:47 Glucose (Glucose 40% Gel 15 Gm Tube) 15 - 30 gm PO UD PRN; Protocol PRN Reason: Hypoglycemia Protocol Stop: 06/12/22 22:47 Glucose (Glucose 10 Tab/Tube) 4 - 8 tab PO UD PRN; Protocol PRN Reason: Hypoglycemia Treatment Stop: 06/12/22 22:47 Lorazepam 0.5 mg/ Syringe 0.5 mls @ 2 mls/min IV TID PRN PRN Reason: Anxiety (PRE-MEAL) Stop: 06/12/22 22:55 Miscellaneous (Carbohydrates For Hypoglycemia ) 15 - 30 gm PO UD PRN PRN Reason: Hypoglycemia Protocol Stop: 06/12/22 22:47 Multivitamins (Multivitamin Tab) 1 tab PO QAM DANO Stop: 06/13/22 08:59 Last Admin: 05/15/22 13:10 Dose: 1 tab Olanzapine (Olanzapine Zydis 5 Mg Orally Dis. Tab) 1.25 mg PO DAILY DANO Stop: 06/14/22 08:59 Last Admin: 05/15/22 13:10 Dose: 1.25 mg Ondansetron HCl (Ondansetron Inj 2 Mg/Ml 2 Ml Vial) 4 mg IV Q6H PRN PRN Reason: Nausea Stop: 06/12/22 22:47 Thiamine HCl (Thiamine Hcl 50 Mg Tablet) 50 mg PO QAM [facility] Stop: 06/13/22 08:59 Last Admin: 05/15/22 13:10 Dose: 50 mg
--- NOTE | 2022-05-15 16:40 | Hospitalist Progress Note ---
Date of Service May 15, 2022 Assessment & Plan (1) Hypoglycemia: Plan: Hypoglycemia: Plan: Blood sugar of 43 upon arrival. Patient has been sipping on orange juice in the ER, minimal improvement. Was started on D5 1/2NSS Patient denies use of insulin or other medications, no EtOH or recreational drug use reported. Hypoglycemia secondary to decreased oral intake -D5W discontinued and seems to be euglycemic currently -Fingerstick q 2 hours -Check C-peptide - pending, no insulin level taken -TSH and random cortisol within normal limits Hypomagnesemia Plan: -Magnesium this morning 1.6, gave patient 2 g of magnesium IV -Recheck magnesium in a.m. Anorexia nervosa with dangerously low body weight: Plan: Patient has had an improvement in BMI - was reportedly 12 in 05/2021, 15.8 in 02/2022 and reportedly 17.6 today. Mother states that she eats intermittently. Some concern of throat tightness, states she is unable to swallow and fears choking. Possibly secondary to anxiety related to eating. -Swallow evaluation - unwilling to trial anything other than very small amount of water water -Maintain aspiration precautions -Premeal Ativan PRN -Psychiatry consultation appreciated - will start olanzapine 1.25mg PO daily. avoid 1 hour around IV/IM administration of ativan. -Continue daily MVI, B12 and Thiamine supplementation - pt refusing -1:1 observation to monitor for purging (Possible purging noted during last admission - monitor for this behavior) Severe protein calorie malnutrition -Dietary consult in place. -Continue to encourage PO intake. Bradycardia: Plan: In setting of anorexia nervosa. Patient without symptoms. HR presently 58. -Check Mg, PO4 and replete as needed -Telemetry monitoring Anxiety: Plan: -Patient presently not on any medications for this. -Pre-meal Ativan PRN as above -Psychiatry consultation appreciated: Recommending olanzapine 1.25 mg p.o. daily, started 05/15 F/E/N - Regular diet as tolerated Ppx - low risk for DVT Code - Full Dispo -MedSurg with telemetry (2) Anorexia nervosa with dangerously low body weight: (3) Anxiety: (4) Bradycardia: Admission and Anticipated Discharge Date Admission Date: May 13, 2022 Supervising Physician Co-Signing Physician Notes Resident Physician Supervision Note: I independently interviewed and examined the patient and verified the [place] history and physical, reviewed labs and image studies and agree with resident Dr. Saucedo findings and care plan. Subjective Patient seen at bedside this morning. No acute events reported overnight. Patient is selectively mute and does not respond to any my questions or conversation. Did not get an answer in terms of whether or not she wants to go to inpatient eating disorder treatment. Unable to obtain any other meaningful or new HPI at this time. Review of Systems Review of Systems: Unobtainable due to mental health condition Physical Exam Constitutional: + thin; no acute distress Eyes: + anicteric sclerae Neck: normal visual inspection Respiratory: normal respiratory effort, lungs clear to auscultation Cardiovascular: RRR, no murmur, no edema Gastrointestinal (Abdomen): Inspection/Auscultation: abdomen normal to inspection and + hypoactive bowel sounds Musculoskeletal: Head/Neck/Chest: normocephalic and head atraumatic Skin: no rashes, warm and dry Neurologic: moves all extremities Psychiatric: Orientation: alert; + uncooperative Eye Contact: + poor eye contact Affect: + depressed affect Mood: + depressed mood Results & Data Results & Data ([facility]) Vital Signs (Past 12 Hours) Vital Signs Temp Pulse Pulse Resp BP Pulse Ox O2 Del Method 05/15/22 11:16 36.4 C L 61 16 99/70 L 98 Room Air 05/15/22 07:42 36.4 C L 49 L 16 111/72 97 Room Air 05/15/22 07:22 46 L
[2022-05-16 08:20] LABS: Hematocrit (blood only) 37.3 % (34.1-44.9); Hemoglobin 12.5 g/dl (12.0-16.0); Mean Corpuscular Hemoglobin 29.4 pg (25.0-34.0); Mean Corpuscular Hgb Conc 33.5 g/dL (32.0-36.0); Mean Corpuscular Volume 87.8 fL (80.0-100.0); Mean Platelet Volume 8.1 fL (9.4-12.3); Platelet Count 189 K/uL (130-400); RDW Coefficient of Variation 12.5 % (11.5-14.5); RDW Standard Deviation 39.8 fL (36.4-46.3); Red Blood Count 4.25 M/uL (3.93-5.22); White Blood Count 3.85 K/ul (4.8-10.8)
[2022-05-16 08:59] LABS: Albumin Globulin Ratio 2.2 (0.9-2); Albumin Level 4.3 gm/dl (3.4-5.0); BUN Creatinine Ratio 15.5 (10-20); Bilirubin,Total 0.5 mg/dl (0.2-1.0); Calcium 9.2 mg/dl (8.5-10.1); Creatinine Clr Calc Pharmacy 90.1 ml/min; Est GFR (African American) 134.3 ml/min; Est GFR (Non-African American) 115.9 ml/min; Magnesium 1.9 mg/dl (1.7-2.4); Phosphorus 3.4 mg/dl (2.5-4.9); Potassium 3.8 mmol/L (3.5-5.1); Total Protein 6.3 gm/dl (6.0-8.3)
[2022-05-16] MEDS: MULTIVITAMIN TAB PO SCH ×2 (09:17→12:46)
[2022-05-16] MEDS: CYANOCOBALAMIN (B-12) 500 MCG TABLET PO SCH ×2 (09:17→12:46)
[2022-05-16] MEDS: THIAMINE HCL 50 MG TABLET PO SCH ×2 (09:17→12:46)
[2022-05-16] MEDS: OLANZapine ZYDIS 5 MG ORALLY DIS. TAB PO SCH ×2 (09:17→12:46)
--- NOTE | 2022-05-16 17:13 | Hospitalist Progress Note ---
Date of Service May 16, 2022 Assessment & Plan (1) Hypoglycemia: Plan: Hypoglycemia: Plan: Blood sugar of 43 upon arrival. Patient has been sipping on orange juice in the ER, minimal improvement. Was started on D5 1/2NSS Patient denies use of insulin or other medications, no EtOH or recreational drug use reported. Hypoglycemia secondary to decreased oral intake -D5W discontinued and seems to be euglycemic currently -Fingerstick q 2 hours -Check C-peptide -0.66, no insulin level taken -TSH and random cortisol within normal limits Hypomagnesemia Plan: -Magnesium this morning 1.9 -Recheck magnesium in a.m. Anorexia nervosa with dangerously low body weight: Plan: Patient has had an improvement in BMI - was reportedly 12 in 05/2021, 15.8 in 02/2022 and reportedly 17.6 today. Mother states that she eats intermittently. Some concern of throat tightness, states she is unable to swallow and fears choking. Possibly secondary to anxiety related to eating. -Swallow evaluation - unwilling to trial anything other than very small amount of water -Maintain aspiration precautions -Premeal Ativan PRN -Psychiatry consultation appreciated - will start olanzapine 1.25mg PO daily. avoid 1 hour around IV/IM administration of ativan. -Continue daily MVI, B12 and Thiamine supplementation - pt agreeable today and asked for a snack in the afternoon. -1:1 observation to monitor for purging (Possible purging noted during last admission - monitor for this behavior) -Checked orthostatics on 05/16 which are within normal limits. -Having today's nurse discuss desires/goals with patient as she seems to be more open to females than males, see nursing note Severe protein calorie malnutrition -Dietary consult in place. -Continue to encourage PO intake. Bradycardia: Plan: In setting of anorexia nervosa. Patient without symptoms. HR presently 58. -Check Mg, PO4 and replete as needed -Telemetry monitoring Anxiety: Plan: -Patient presently not on any medications for this. -Pre-meal Ativan PRN as above -Psychiatry consultation appreciated: Recommending olanzapine 1.25 mg p.o. daily, started 05/15 F/E/N - Regular diet as tolerated Ppx - low risk for DVT Code - Full Dispo -MedSurg with telemetry (2) Anorexia nervosa with dangerously low body weight: (3) Anxiety: (4) Bradycardia: Admission and Anticipated Discharge Date Admission Date: May 13, 2022 Supervising Physician Co-Signing Physician Notes Resident Physician Supervision Note: I independently interviewed and examined the patient and verified the [place] history and physical, reviewed labs and image studies and agree with resident Dr. Saucedo findings and care plan. Subjective Patient seen at bedside this morning. No acute events reported overnight. Patient continues to be selectively mute and not responsive to anything that I discussed were asked about. No new or meaningful HPI gathered this morning. Do have nurse asking questions for me and she does seem to answer better to females. Review of Systems Review of Systems: Unobtainable due to mental health condition Physical Exam Constitutional: + thin; no acute distress Eyes: + anicteric sclerae Neck: normal visual inspection Respiratory: normal respiratory effort, lungs clear to auscultation Cardiovascular: RRR, no murmur, no edema Gastrointestinal (Abdomen): Inspection/Auscultation: abdomen normal to inspection and + hypoactive bowel sounds Musculoskeletal: Head/Neck/Chest: normocephalic and head atraumatic Skin: no rashes, warm and dry Neurologic: moves all extremities Psychiatric: Orientation: alert; + uncooperative Eye Contact: + poor eye contact Affect: + depressed affect Mood: + depressed mood Results & Data Results & Data ([facility]) Vital Signs (Past 12 Hours) Vital Signs Temp Pulse Resp BP Pulse Ox O2 Del Method 05/16/22 15:17 36.4 C L 74 16 103/64 97 05/16/22 07:22 52 L 90/51 L 97 Room Air
[2022-05-17 10:32] LABS: Hematocrit (blood only) 38.8 % (34.1-44.9); Mean Corpuscular Hemoglobin 29.6 pg (25.0-34.0); Mean Corpuscular Hgb Conc 33.5 g/dL (32.0-36.0); Mean Corpuscular Volume 88.4 fL (80.0-100.0); Mean Platelet Volume 8.4 fL (9.4-12.3); Platelet Count 198 K/uL (130-400); RDW Coefficient of Variation 12.4 % (11.5-14.5); RDW Standard Deviation 40.3 fL (36.4-46.3); Red Blood Count 4.39 M/uL (3.93-5.22); White Blood Count 3.86 K/ul (4.8-10.8)
[2022-05-17] MEDS: MULTIVITAMIN TAB PO SCH (10:38)
[2022-05-17] MEDS: CYANOCOBALAMIN (B-12) 500 MCG TABLET PO SCH (10:38)
[2022-05-17] MEDS: THIAMINE HCL 50 MG TABLET PO SCH (10:38)
[2022-05-17] MEDS: OLANZapine ZYDIS 5 MG ORALLY DIS. TAB PO SCH (10:38)
[2022-05-17 10:57] LABS: Albumin Globulin Ratio 1.9 (0.9-2); Albumin Level 4.3 gm/dl (3.4-5.0); BUN Creatinine Ratio 18.2 (10-20); Bilirubin,Total 0.4 mg/dl (0.2-1.0); Calcium 9.3 mg/dl (8.5-10.1); Est GFR (African American) 139.3 ml/min; Est GFR (Non-African American) 120.2 ml/min; Globulin 2.3 gm/dl (2.5-4.0); Magnesium 1.7 mg/dl (1.7-2.4); Phosphorus 3.5 mg/dl (2.5-4.9); Potassium 3.9 mmol/L (3.5-5.1); Total Protein 6.6 gm/dl (6.0-8.3)
--- NOTE | 2022-05-17 13:15 | Communication Note ---
Date of Service: May 17, 2022 Psych update: Fanny started talking last night and spoke with psych scott about fearfulness regarding inpatient eating disorder treatment due to her sister's negative experience in the past but agreed to consider referrals for therapy and possibly psychiatry. Shortly after when sirena chavez returned with ROIs so that referrals for aftercare could be placed she declined to sign any ROIs for psychiatry or therapy. She declined again today when offered. She is scheduled to see Dr. Joyce Calles who specializes in treating patient's with eating disorders in June. No further recommendations at this time. If she decides to sign ROIs before discharge, sirena chavez can help set up aftercare appointments, otherwise she has been provided with the information to set this up on her own when and if she becomes willing to do so.
--- NOTE | 2022-05-17 16:06 | Hospitalist Progress Note ---
Date of Service May 17, 2022 Assessment & Plan (1) Hypoglycemia: Plan: Anorexia nervosa with dangerously low body weight: Plan: Patient has had an improvement in BMI - was reportedly 12 in 05/2021, 15.8 in 02/2022 and reportedly 17.6 today. Mother states that she eats intermittently. Some concern of throat tightness, states she is unable to swallow and fears choking. Possibly secondary to anxiety related to eating. -Swallow evaluation - unwilling to trial anything other than very small amount of water -Maintain aspiration precautions -Premeal Ativan PRN -Psychiatry consultation appreciated - will start olanzapine 1.25mg PO daily. avoid 1 hour around IV/IM administration of ativan. (has been refusing meds) -Continue daily MVI, B12 and Thiamine supplementation (refusing meds) -1:1 observation to monitor for purging (Possible purging noted during last admission - monitor for this behavior) -Checked orthostatics on 05/16 which are within normal limits. -Patient does seem to be more open to female providers than male. -continue to monitor in anticipation of improving insight and willingness to participate in care and possible inpatient eating disorder facility placement. Hypomagnesemia Plan: -Magnesium this morning 1.7 -Recheck magnesium in a.m. for risk of refeeding syndrome Severe protein calorie malnutrition -Dietary consult in place. -Continue to encourage PO intake. Anxiety: Plan: -Patient presently not on any medications for this. -Pre-meal Ativan PRN as above -Psychiatry consultation appreciated: Recommending olanzapine 1.25 mg p.o. daily, started 05/15 Bradycardia, improved Plan: In setting of anorexia nervosa. Patient without symptoms. HR presently 58. -Check Mg, PO4 and replete as needed -Telemetry monitoring Hypoglycemia, resolved Plan: Blood sugar of 43 upon arrival. Patient has been sipping on orange juice in the ER, minimal improvement. Was started on D5 1/2NSS Patient denies use of insulin or other medications, no EtOH or recreational drug use reported. Hypoglycemia secondary to decreased oral intake -D5W discontinued and seems to be euglycemic currently -Fingerstick q 2 hours -Check C-peptide -0.66, no insulin level taken -TSH and random cortisol within normal limits F/E/N - Regular diet as tolerated Ppx - low risk for DVT Code - Full Dispo -MedSurg with telemetry, transfer to eating disorder facility if she does so voluntarily (2) Anorexia nervosa with dangerously low body weight: (3) Anxiety: (4) Bradycardia: Admission and Anticipated Discharge Date Admission Date: May 13, 2022 Supervising Physician Co-Signing Physician Notes Resident Physician Supervision Note: I independently interviewed and examined the patient and verified the [place] history and physical, reviewed labs and image studies and agree with resident Dr. Saucedo findings and care plan. Subjective Patient seen at bedside this afternoon. Patient is selectively mute with me and does not really open up to me like she has with other providers. Yesterday, however, she did open up to the psych liaison about having interest in getting treatment for her anorexia. When the psych liaison came back later with forms to fill out about looking into searching for placement, patient refused to sign and did so again this morning. Patient seems fearful that she will lose her freedom if she is forced to go to 1 of these facilities as her sister who went through a similar difficulties had bad experiences. Otherwise no new or meaningful HPI at this time. Review of Systems Review of Systems: Unobtainable due to mental health condition Physical Exam Constitutional: + thin; no acute distress Eyes: + anicteric sclerae Neck: normal visual inspection Respiratory: normal respiratory effort, lungs clear to auscultation Cardiovascular: RRR, no murmur, no edema Gastrointestinal (Abdomen): Inspection/Auscultation: abdomen normal to inspection and + hypoactive bowel sounds Musculoskeletal: Head/Neck/Chest: normocephalic and head atraumatic Skin: no rashes, warm and dry Neurologic: moves all extremities Psychiatric: Orientation: alert; + uncooperative Eye Contact: + poor eye contact Affect: + depressed affect Results & Data Results & Data ([facility]) Vital Signs (Past 12 Hours) Vital Signs Temp Pulse Resp BP Pulse Ox O2 Del Method 05/17/22 15:35 35.9 C L 69 20 99/64 L 97 Room Air 05/17/22 07:00 Room Air
--- NOTE | 2022-05-18 06:55 | Hospitalist Progress Note ---
Date of Service May 18, 2022 Assessment & Plan (1) Hypoglycemia: Plan: Hypoglycemia: Plan: Blood sugar of 43 upon arrival. Patient sipped orange juice in the ER, minimal improvement. Was started on D5 1/2NSS Patient denies use of insulin or other medications, no EtOH or recreational drug use reported. Hypoglycemia secondary to decreased oral intake -D5W discontinued and seems to be euglycemic currently -Check C-peptide -0.66, no insulin level taken -TSH and random cortisol within normal limits Hypomagnesemia Plan: -Magnesium 1.9, stable last 1.7 Anorexia nervosa with dangerously low body weight: Plan: Patient has had an improvement in BMI - was reportedly 12 in 05/2021, 15.8 in 02/2022 and reportedly 17.6 today. Mother states that she eats intermittently. Some concern of throat tightness, states she is unable to swallow and fears choking. Possibly secondary to anxiety related to eating. -Swallow evaluation - unwilling to trial anything other than very small amount of water -Maintain aspiration precautions -Premeal Ativan PRN -Psychiatry consultation appreciated - will start olanzapine 1.25mg PO daily. avoid 1 hour around IV/IM administration of ativan. Patient has so far refused inpatient treatment options -Continue daily MVI, B12 and Thiamine supplementation - pt agreeable today in afternoon, asked for miralax later switched to colace -1:1 observation to monitor for purging (Possible purging noted during last admission - monitor for this behavior) -Checked orthostatics on 05/16 which are within normal limits. -she seems to be more open to females than males, see nursing note Severe protein calorie malnutrition -Dietary consult in place. -Continue to encourage PO intake. Bradycardia: Plan: In setting of anorexia nervosa. Patient without symptoms. HR presently 69. -Check Mg, PO4 and replete as needed -Patient refused telemetry monitoring Anxiety: Plan: -Patient presently not on any medications for this. -Pre-meal Ativan PRN as above -Psychiatry consultation appreciated: Recommending olanzapine 1.25 mg p.o. daily, started 05/15 F/E/N - Regular diet as tolerated Ppx - low risk for DVT Code - Full Dispo -MedSurg with telemetry (2) Anorexia nervosa with dangerously low body weight: (3) Anxiety: (4) Bradycardia: Admission and Anticipated Discharge Date Admission Date: May 13, 2022 Supervising Physician Co-Signing Physician Notes I also saw the patient with the resident physician and confirmed [place] portions of the history and physical examination. Agree with impression and plan as noted the resident documentation. Upon our joint visit with the patient mid afternoon, she was seated in bed. She is very quiet. Minimal eye contact made. She would answer yes/no questions in extremely soft voice. She would nod to yes/no questions. Exam 90/51, 69, 20, 36.7, 97% on room air Depressed mood; minimal, if any, eye contact Data BMP from 05/17/2022 shows sodium 141, testing 3.9, BUN 12, creatinine 0.66. CBC from 05/17/2022 shows WBC 3.86, hemoglobin 13.0, platelet count 198. Impression and plan Anorexia nervosa Hypomagnesemia, resolved with repletion Bradycardia, asymptomatic, improved Hypoglycemia, resolved Minimal conversation upon my exam today, which per notes, is consistent with most other providers. She did open up at one point with the psychiatric liaison and seem to be open to the idea of inpatient treatment, although upon rediscussion of this, she was no longer interested. Certainly would benefit most from inpatient therapy, and hopeful that she will consent to this; in urine, continue current medications (noted that she has been refusing some). Additional per resident documentation Subjective Patient seen seated on chair, withdrawn flat affect head tilted downwards. Will respond in nods or head shakes, will make hand gestures to refer to body parts. She will respond in short answers with a soft voice if given open ended questions. Occasional eye contact. She occasional repeats phrases under her breath such as 'I have an eating disorder'. Patient states that previously in her life she has eaten too much, felt uncomfortable and vomitted. Patient knows she has an eating disorder and people are worried about her at home, she ran away from home to avoid hospitalization and was later found outside by the police. Patient states she does not like the hospital, blood draws, or restraints, and would like to not be in the hospital. She nodded when asked if she feels safe at home. Patient requested a shower and possibly a walk outside. She also requested miralax for her abdomen, she has not had a BM in at least 2 days. She states she had a little food this morning. When asked if she would drink some juice, patient indicated she already drank water. Patient initially refused medication in the morning, however later took them in the afternoon. Patient denied being in any pain. Review of Systems Review of Systems: Unobtainable due to mental health condition Physical Exam Constitutional: + thin, + frail appearing and cooperative Eyes: PERRL, conjunctivae normal, anicteric sclerae ENMT: external ear and nose normal, oropharynx normal Neck: trachea midline, no thyromegaly Respiratory: normal respiratory effort, lungs clear to auscultation Cardiovascular: RRR, no murmur, no edema Chest (Breasts): normal inspection/palpation of breasts Gastrointestinal (Abdomen): normal bowel sounds, soft, nontender, no hepatosplenomegaly Skin: no rashes, warm and dry Psychiatric: Affect: + flat affect Results & Data Results & Data ([facility]) Vital Signs (Past 12 Hours) Vital Signs Temp Pulse Resp BP Pulse Ox O2 Del Method 05/17/22 23:11 36.8 C 60 18 95/62 L 95 Room Air 05/17/22 19:15 36.4 C L 82 18 94/63 L 97 Room Air Laboratory Results 05/18/22 05/18/22 05/18/22 Range/Units 16:38 11:36 07:58 POC Glucose 111 H 150 H 106 H (70-99) mg/dl 05/17/22 Range/Units 20:29 POC Glucose 104 H (70-99) mg/dl Medications Administered Current Inpatient Medications Acetaminophen (Acetaminophen 325 Mg Tab) 650 mg PO Q4H PRN PRN Reason: pain/fever Stop: 06/12/22 22:47 Cyanocobalamin (Cyanocobalamin (B-12) 500 Mcg Tablet) 500 mcg PO Q24H DANO Stop: 06/18/22 11:59 Dextrose (Dextrose 50% 50 Ml Syringe) 25 - 50 ml IV UD PRN; Protocol PRN Reason: Hypoglycemia Protocol Stop: 06/12/22 22:47 Glucagon (Glucagon For Inj 1 Mg Vial) 1 mg SQ UD PRN; Protocol PRN Reason: Hypoglycemia Protocol Stop: 06/12/22 22:47 Glucose (Glucose 40% Gel 15 Gm Tube) 15 - 30 gm PO UD PRN; Protocol PRN Reason: Hypoglycemia Protocol Stop: 06/12/22 22:47 Glucose (Glucose 10 Tab/Tube) 4 - 8 tab PO UD PRN; Protocol PRN Reason: Hypoglycemia Treatment Stop: 06/12/22 22:47 Lorazepam 0.5 mg/ Syringe 0.5 mls @ 2 mls/min IV TID PRN PRN Reason: Anxiety (PRE-MEAL) Stop: 06/12/22 22:55 Miscellaneous (Carbohydrates For Hypoglycemia ) 15 - 30 gm PO UD PRN PRN Reason: Hypoglycemia Protocol Stop: 06/12/22 22:47 Multivitamins (Multivitamin Tab) 1 tab PO Q24H DANO Stop: 06/18/22 11:59 Olanzapine (Olanzapine Zydis 5 Mg Orally Dis. Tab) 1.25 mg PO Q24H DANO Stop: 06/18/22 11:59 Ondansetron HCl (Ondansetron Inj 2 Mg/Ml 2 Ml Vial) 4 mg IV Q6H PRN PRN Reason: Nausea Stop: 06/12/22 22:47 Thiamine HCl (Thiamine Hcl 50 Mg Tablet) 50 mg PO Q24H DANO Stop: 06/18/22 11:59 Resident Activity Tracking Resident Involvement: Resident Care Provided Care Provided: Adult Hospital Medicine
[2022-05-18] MEDS: OLANZapine ZYDIS 5 MG ORALLY DIS. TAB PO SCH ×2 (09:43→13:01)
[2022-05-18] MEDS: CYANOCOBALAMIN (B-12) 500 MCG TABLET PO SCH ×2 (09:43→13:03)
[2022-05-18] MEDS: MULTIVITAMIN TAB PO SCH ×2 (09:43→13:00)
[2022-05-18] MEDS: THIAMINE HCL 50 MG TABLET PO SCH ×2 (09:44→13:02)
[2022-05-18] MEDS ORDERED: POLYETHYLENE (MIRALAX) 17 GM PACK PO ONE (13:45)
[2022-05-18] MEDS ORDERED: DOCUSATE SODIUM 100 MG CAP PO ONE (16:06)
--- NOTE | 2022-05-19 06:50 | Hospitalist Progress Note ---
Date of Service May 19, 2022 Assessment & Plan (1) Hypoglycemia: Plan: Hypoglycemia: Blood sugar of 43 upon arrival. Patient sipped orange juice in the ER, minimal improvement. Was started on D5 1/2NSS Patient denies use of insulin or other medications, no EtOH or recreational drug use reported. Hypoglycemia secondary to decreased oral intake -D5W discontinued and seems to be euglycemic currently -Check C-peptide -0.66, no insulin level taken -TSH and random cortisol within normal limits Hypomagnesemia -Magnesium 1.9, stable last 1.7 Anorexia nervosa with dangerously low body weight: Patient has had an improvement in BMI - was reportedly 12 in 05/2021, 15.8 in 02/2022 and reportedly 17.6 today. Mother states that she eats intermittently. Some concern of throat tightness, states she is unable to swallow and fears choking. Possibly secondary to anxiety related to eating. -Swallow evaluation - unwilling to trial anything other than very small amount of water -Maintain aspiration precautions -Premeal Ativan PRN -Psychiatry consultation appreciated - will start olanzapine 1.25mg PO daily. avoid 1 hour around IV/IM administration of ativan. Patient has so far refused inpatient treatment options refuses YAN -Continue daily MVI, B12 and Thiamine supplementation - pt agreeable today -1:1 observation to monitor for purging (Possible purging noted during last admission - monitor for this behavior) -Checked orthostatics on 05/16 which are within normal limits. -she seems to be more open to females than males, see nursing note Severe protein calorie malnutrition -Dietary consult in place. -Continue to encourage PO intake. -Nutrition consult in place, patient calorie needs [id number] -receiving boost BIDM -will limit meal times to 45min Bradycardia: In setting of anorexia nervosa. Patient without symptoms. HR presently 69. -Check Mg, PO4 and replete as needed -Patient refused telemetry monitoring, downgraded to medsurg Anxiety: -Patient presently not on any medications for this. -Pre-meal Ativan PRN as above -Psychiatry consultation appreciated: Recommending olanzapine 1.25 mg p.o. daily, started 05/15 F/E/N - Regular diet as tolerated Ppx - low risk for DVT Code - Full Dispo -MedSurg (2) Anorexia nervosa with dangerously low body weight: (3) Anxiety: (4) Bradycardia: Admission and Anticipated Discharge Date Admission Date: May 13, 2022 Supervising Physician Co-Signing Physician Notes I also saw the patient with the resident physician and confirmed [place] portions of the history and physical examination. Agree with impression and plan as noted the resident documentation. Upon our mid afternoon exam, the patient is sitting in her bed. There is a one-to-one seated next to her. The patient makes no eye contact; she speaks in a very soft, barely audible voice. Exam 106/66, 70, 16, 36.7, 97% on room air Depressed mood; minimal, if any, eye contact Data BMP from 05/17/2022 shows sodium 141, testing 3.9, BUN 12, creatinine 0.66. CBC from 05/17/2022 shows WBC 3.86, hemoglobin 13.0, platelet count 198. Impression and plan Anorexia nervosa Hypomagnesemia, resolved with repletion Bradycardia, asymptomatic, improved Hypoglycemia, resolved Again, minimal conversation She did open up at one point with the psychiatric liaison and seem to be open to the idea of inpatient treatment, although upon rediscussion of this, she was no longer interested. Certainly would benefit most from inpatient therapy, and hopeful that she will consent to this; in urine, continue current medications (noted that she has been refusing some). Additional per resident documentation Subjective Patient seen seated at bedside chewing, with lunch tray in front of her. When asked what would help the patient, she states she would appreciate more structure at meal times. She wonders if there are smaller portions, states her current lunch looks like a 'giving feast'. Patient states she usually eats 2 meals a day, doesn't eat red meat, does drink a portion of the boost. Today patient ate her pudding to wash the taste of medication from her mouth. At this time she has not had a bowel movement. Discussed with patient we will limit meal times to 45min long then remove the tray, patient understands at least she should drink the boost. Review of Systems Review of Systems: Unobtainable due to mental health condition Physical Exam Constitutional: + thin, + frail appearing and cooperative Eyes: PERRL, conjunctivae normal, anicteric sclerae ENMT: external ear and nose normal, oropharynx normal Neck: trachea midline, no thyromegaly Respiratory: normal respiratory effort, lungs clear to auscultation Cardiovascular: RRR, no murmur, no edema Chest (Breasts): normal inspection/palpation of breasts Gastrointestinal (Abdomen): normal bowel sounds, soft, nontender, no hepatosplenomegaly Skin: no rashes, warm and dry Psychiatric: Affect: + flat affect Results & Data Results & Data ([facility]) Vital Signs (Past 12 Hours) Vital Signs Pulse Resp BP Pulse Ox O2 Del Method 05/18/22 22:00 66 18 93/53 L 97 Room Air Medications Administered Current Inpatient Medications Acetaminophen (Acetaminophen 325 Mg Tab) 650 mg PO Q4H PRN PRN Reason: pain/fever Stop: 06/12/22 22:47 Cyanocobalamin (Cyanocobalamin (B-12) 500 Mcg Tablet) 500 mcg PO Q24H DANO Stop: 06/18/22 11:59 Last Admin: 05/19/22 12:04 Dose: 500 mcg Dextrose (Dextrose 50% 50 Ml Syringe) 25 - 50 ml IV UD PRN; Protocol PRN Reason: Hypoglycemia Protocol Stop: 06/12/22 22:47 Glucagon (Glucagon For Inj 1 Mg Vial) 1 mg SQ UD PRN; Protocol PRN Reason: Hypoglycemia Protocol Stop: 06/12/22 22:47 Glucose (Glucose 40% Gel 15 Gm Tube) 15 - 30 gm PO UD PRN; Protocol PRN Reason: Hypoglycemia Protocol Stop: 06/12/22 22:47 Glucose (Glucose 10 Tab/Tube) 4 - 8 tab PO UD PRN; Protocol PRN Reason: Hypoglycemia Treatment Stop: 06/12/22 22:47 Lorazepam 0.5 mg/ Syringe 0.5 mls @ 2 mls/min IV TID PRN PRN Reason: Anxiety (PRE-MEAL) Stop: 06/12/22 22:55 Miscellaneous (Carbohydrates For Hypoglycemia ) 15 - 30 gm PO UD PRN PRN Reason: Hypoglycemia Protocol Stop: 06/12/22 22:47 Multivitamins (Multivitamin Tab) 1 tab PO Q24H DANO Stop: 06/18/22 11:59 Last Admin: 05/19/22 12:03 Dose: 1 tab Olanzapine (Olanzapine Zydis 5 Mg Orally Dis. Tab) 1.25 mg PO Q24H DANO Stop: 06/18/22 11:59 Last Admin: 05/19/22 12:04 Dose: 1.25 mg Ondansetron HCl (Ondansetron Inj 2 Mg/Ml 2 Ml Vial) 4 mg IV Q6H PRN PRN Reason: Nausea Stop: 06/12/22 22:47 Thiamine HCl (Thiamine Hcl 50 Mg Tablet) 50 mg PO Q24H DANO Stop: 06/18/22 11:59 Last Admin: 05/19/22 12:04 Dose: 50 mg Resident Activity Tracking Resident Involvement: Resident Care Provided Care Provided: Adult Hospital Medicine
[2022-05-19] MEDS: MULTIVITAMIN TAB PO SCH (12:03)
[2022-05-19] MEDS: CYANOCOBALAMIN (B-12) 500 MCG TABLET PO SCH (12:04)
[2022-05-19] MEDS: OLANZapine ZYDIS 5 MG ORALLY DIS. TAB PO SCH (12:04)
[2022-05-19] MEDS: THIAMINE HCL 50 MG TABLET PO SCH (12:04)
--- NOTE | 2022-05-19 16:23 | Communication Note ---
Date of Service: May 19, 2022 Per chart review she has been intermittently adherence with olanzapine. If she continues to tolerate this and QTc remains normal can consider titrating to 2.5mg po daily. Would avoid ODT formulation on discharge as insurance tends to not cover this formulation and she is able to swallow po pills. 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
[2022-05-19] MEDS ORDERED: DOCUSATE SODIUM 100 MG CAP PO PRN (16:44)
--- NOTE | 2022-05-20 10:47 | Communication Note ---
Date of Service: May 20, 2022 Okay to wheelchair outside for fresh air. Resident Activity Tracking Resident Involvement: Resident Care Provided Care Provided: [facility] Medicine
[2022-05-20 12:30] LABS: BUN Creatinine Ratio 34.4 (10-20); Calcium 9.4 mg/dl (8.5-10.1); Est GFR (African American) 140.7 ml/min; Est GFR (Non-African American) 121.4 ml/min; Magnesium 1.7 mg/dl (1.7-2.4); Phosphorus 2.2 mg/dl (2.5-4.9); Potassium 3.6 mmol/L (3.5-5.1)
[2022-05-20] MEDS ORDERED: POTASSIUM PHOS 3 MMOL/1 ML INFUSION IV STA (12:49)
[2022-05-20] MEDS: OLANZapine ZYDIS 5 MG ORALLY DIS. TAB PO SCH (13:24)
[2022-05-20] MEDS: CYANOCOBALAMIN (B-12) 500 MCG TABLET PO SCH (13:24)
[2022-05-20] MEDS: THIAMINE HCL 50 MG TABLET PO SCH (13:25)
[2022-05-20] MEDS: CARBAMIDE PEROXIDE 6.5% 15 ML BTL OT SCH ×3 (13:25→20:52)
[2022-05-20] MEDS: MULTIVITAMIN TAB PO SCH (13:25)
[2022-05-20] MEDS ORDERED: POTASSIUM PHOSPHATE 15 MMOL in SODIUM CHLORIDE 0.9% 250 ML IV ONE (13:30)
[2022-05-20] MEDS ORDERED: POLYETHYLENE (MIRALAX) 17 GM PACK PO STA (13:55)
[2022-05-20] MEDS: POT PHOSPHATE MONOBASIC W/ SOD TAB PO SCH ×2 (17:33→20:46)
--- NOTE | 2022-05-20 18:47 | Hospitalist Progress Note ---
Date of Service May 20, 2022 Assessment & Plan (1) Hypoglycemia: Plan: 26 yo female presented with her mother with bradycardia and hypoglycemia. She reportedly left the home last evening and was possibly outside all night. She was found unresponsive on a park bench this AM. Her blood sugar was 39 - was administered Glucagon, trial of oral glucose but stated that she could not swallow it. She was noncommunicative but did ask EMS if they were going to suffocate her. Anorexia nervosa with dangerously low body weight: Patient has had an improvement in BMI - was reportedly 12 in 05/2021, 15.8 in 02/2022 and reportedly 17.6 today. Mother states that she eats intermittently. Some concern of throat tightness, states she is unable to swallow and fears choking. Possibly secondary to anxiety related to eating. -Swallow evaluation - unwilling to trial anything other than very small amount of water -Maintain aspiration precautions -Premeal Ativan PRN -Psychiatry consultation appreciated - cont. olanzapine 1.25mg PO daily. avoid 1 hour around IV/IM administration of ativan. Patient has so far refused inpatient treatment options refuses YAN -Continue daily MVI, B12 and Thiamine supplementation - pt agreeable today -1:1 observation to monitor for purging (Possible purging noted during last admission - monitor for this behavior) -Checked orthostatics on 05/16 which are within normal limits. -she seems to be more open to females than males, see nursing note Severe protein calorie malnutrition -Dietary consult in place. -Continue to encourage PO intake. -Nutrition consult in place, patient calorie needs [phone] -receiving boost BIDM -will limit meal times to 45min Hypoglycemia, resolved Blood sugar of 43 upon arrival. Patient sipped orange juice in the ER, minimal improvement. Patient denies use of insulin or other medications, no EtOH or recreational drug use reported. Hypoglycemia secondary to decreased oral intake -D5W discontinued and seems to be euglycemic currently -C-peptide -0.66, no insulin level taken -TSH and random cortisol within normal limits Hypomagnesemia, resolved -Magnesium 1.7, stable Bradycardia, resolved In setting of anorexia nervosa. Patient without symptoms. -Check Mg, PO4 and replete as needed -Patient refused telemetry monitoring, downgraded to med surg Anxiety -Patient not on any medications for this at home -Pre-meal Ativan PRN as above -Psychiatry consultation appreciated: Recommending olanzapine 1.25 mg p.o. daily, started 05/15 F/E/N - Regular diet as tolerated Ppx - low risk for DVT Code - Full Dispo -Med surg (2) Anorexia nervosa with dangerously low body weight: (3) Anxiety: (4) Bradycardia: Admission and Anticipated Discharge Date Admission Date: May 13, 2022 Supervising Physician Co-Signing Physician Notes I personally examined the patient and verified all [place] points of history and exam, discussed case, and agree with decision making with Dr Talley. Eating dinner whenever I see her. No complaints, does make some eye contact and speak a little. In general she is awake and alert pleasant demeanor although poor eye contact and very quiet speech. No distress HEENT normocephalic atraumatic mucous membranes moist. Breathing unlabored no accessory muscle use good effort. Skin shows no rashes no pallor or icterus. Neuro without focal deficits. Impression and plan Anorexia nervosa Hypomagnesemia, resolved with repletion Bradycardia, asymptomatic, improved Hypoglycemia, resolved Continue to encourage eating, continue Zyprexa, work on goals of care of inpatient versus outpatient ongoing treatment. Additional per resident documentation Subjective Patient seen at bedside. 1:1 present. Ate most of breakfast and lunch. Answering questions but still anxious. Amenable to obtaining labs. Spit up meds after lunchtime. Nurse states that pt is very difficult to read and is sneakily spitting up foods. Pt denies chest pain, SOB, nausea, headache, abdominal pain. Review of Systems Review of Systems: All systems reviewed & are unremarkable except as noted in HPI & below Physical Exam Physical Exam: General: anxious, NAD, more responsive to questions Skin: warm, dry, intact, no rashes or lesions HEENT: NC/AT, EOMI, anicteric sclera, conjunctiva without injection, moist mucus membranes Heart: +S1/S2, RRR, no m/r/g Lungs: equal air entry bilaterally, no rales/rhonchi/wheezes Abd: +BS, soft, no masses/organomegaly Ext: warm, 2+ pulses in UE/LE bilaterally, no clubbing/cyanosis or edema Neuro: nonfocal Results & Data Results & Data ([facility]) Vital Signs (Past 12 Hours) Vital Signs Temp Pulse Resp BP Pulse Ox O2 Del Method 05/20/22 14:46 36.6 C 80 18 104/69 98 Room Air Laboratory Results 05/20/22 Range/Units 11:53 Sodium 143 (136-145) mmol/L Potassium 3.6 (3.5-5.1) mmol/L Chloride 106 (98-107) mmol/L Carbon Dioxide 32 (21-32) mmol/L Anion Gap 5 (3-11) BUN 22 (6-23) mg/dl Creatinine 0.64 (0.6-1.2) mg/dl Est Cr Clr Drug Dosing 100.0 ml/min Est GFR ( Amer) 140.7 ml/min Est GFR (Non-Af Amer) 121.4 ml/min BUN/Creatinine Ratio 34.4 H (10-20) Glucose 92 (70-99(Fasting)) mg/dl Calcium 9.4 (8.5-10.1) mg/dl Phosphorus 2.2 L (2.5-4.9) mg/dl Magnesium 1.7 (1.7-2.4) mg/dl Resident Activity Tracking Resident Involvement: Resident Care Provided Care Provided: Adult Hospital Medicine
--- NOTE | 2022-05-21 07:18 | Hospitalist Progress Note ---
Date of Service May 21, 2022 Assessment & Plan (1) Hypoglycemia: Plan: 26 yo female presented with her mother with bradycardia and hypoglycemia. She reportedly left the home last evening and was possibly outside all night. She was found unresponsive on a park bench this AM. Her blood sugar was 39 - was administered Glucagon, trial of oral glucose but stated that she could not swallow it. She was noncommunicative but did ask EMS if they were going to suffocate her. Anorexia nervosa with dangerously low body weight: Patient has had an improvement in BMI - was reportedly 12 in 05/2021, 15.8 in 02/2022 and reportedly 17.6 today. Mother states that she eats intermittently. Some concern of throat tightness, states she is unable to swallow and fears choking.Possibly secondary to anxiety related to eating. -Swallow evaluation (05/14) - unwilling to trial anything other than very small amount of water -Maintain aspiration precautions -Premeal Ativan PRN -Psychiatry consultation appreciated - cont. olanzapine 1.25mg PO daily. avoid 1 hour around IV/IM administration of ativan. Patient very hesitant with inpatient treatment/meds/labs, refuses YAN in order to get outpatient eating disorder referral. Consider increasing olanzapine if she begins eating and QTc <500. -Continue daily MVI, B12 and Thiamine supplementation -1:1 observation due to possible purging noted during last admission -orthostatics (05/16) wnl -she seems to be more open to females than males, see nursing note Severe protein calorie malnutrition -Dietary consult in place. Pt calorie needs [id number] -Continue to encourage PO intake. Boost prn if meals skipped. No supplemental foods if meals eaten. -limit meal times to 45min Hypoglycemia, resolved Blood sugar of 43 upon arrival.Improvement with OJ. Patient denies use of insulin or other medications, no EtOH or recreational drug use reported. Hypoglycemia likely secondary to decreased oral intake -D5W d/c'd, seems to be euglycemic currently -C-peptide: 0.66, no insulin level taken -TSH and random cortisol within normal limits Hypomagnesemia, resolved -Magnesium 1.7, stable Bradycardia, resolved In setting of anorexia nervosa.Patient without symptoms. -Check Mg, PO4 and replete as needed -Patient refused telemetry monitoring, downgraded to med surg -EKG normal sinus rhythm, QTc 425 Anxiety -Patient not on any medications for this at home -Pre-meal Ativan PRN as above -Psychiatry consultation appreciated: Recommending olanzapine 1.25 mg p.o. daily, started 05/15 F/E/N - Regular DVT Ppx - SCDs Code - Full Dispo -Med surg (2) Anorexia nervosa with dangerously low body weight: (3) Anxiety: (4) Bradycardia: Admission and Anticipated Discharge Date Admission Date: May 13, 2022 Supervising Physician Co-Signing Physician Notes I personally examined the patient and verified all [place] points of history and exam, discussed case, and agree with decision making with Dr Talley. Eating lunch whenever I come in the room. She has no complaints, does ask about medicationsdiscussed the possible rationale of increasing her dose of olanzapinewhich she is amenable to. Also in discussing her goals of inpatient versus outpatient treatmentshe notes that she would prefer pursuing outpatient treatment, notes she has a an appointment in the near future with Dr. Calles, and feels safe at home. That said, she does not express any desire or interest in leaving the hospital just yet. In general she is awake and alert pleasant demeanor although poor eye contact and very quiet speech. No distress HEENT normocephalic atraumatic mucous membranes moist. Breathing unlabored no accessory muscle use good effort. Skin shows no rashes no pallor or icterus. Neuro without focal deficits. Impression and plan Anorexia nervosa Hypomagnesemia, resolved with repletion Bradycardia, asymptomatic, improved Hypoglycemia, resolved Continue to encourage eating, continue Zyprexawith QT acceptable and patient amenableincrease to 2.5 mg, goal will be outpatient treatment as intensive as can be set up. Otherwise as above Subjective Patient seen at bedside. 1:1 present. Remains very quite and slow to respond to questions. Continues to eat meals. Agreeable to EKG and meds. Refused labs this morning. Pt denies chest pain, SOB, nausea, headache, abdominal pain. Review of Systems Review of Systems: All systems reviewed & are unremarkable except as noted in HPI & below Physical Exam Physical Exam: General: anxious, NAD, more responsive to questions Skin: warm, dry, intact, no rashes or lesions HEENT: NC/AT, EOMI, anicteric sclera, conjunctiva without injection, moist mucus membranes Heart: +S1/S2, RRR, no m/r/g Lungs: equal air entry bilaterally, no rales/rhonchi/wheezes Abd: +BS, soft, no masses/organomegaly Ext: warm, 2+ pulses in UE/LE bilaterally, no clubbing/cyanosis or edema Neuro: nonfocal Results & Data Results & Data ([facility]) Vital Signs (Past 12 Hours) Vital Signs Temp Pulse Resp BP Pulse Ox O2 Del Method 05/21/22 03:09 36.6 C 76 18 105/61 97 Room Air Resident Activity Tracking Resident Involvement: Resident Care Provided Care Provided: Adult Hospital Medicine
[2022-05-21] MEDS: CARBAMIDE PEROXIDE 6.5% 15 ML BTL OT SCH ×2 (10:27→20:10)
[2022-05-21] MEDS: POT PHOSPHATE MONOBASIC W/ SOD TAB PO SCH ×4 (10:28→20:10)
[2022-05-21] MEDS: OLANZapine ZYDIS 5 MG ORALLY DIS. TAB PO SCH (12:01)
[2022-05-21] MEDS: THIAMINE HCL 50 MG TABLET PO SCH (12:01)
[2022-05-21] MEDS: MULTIVITAMIN TAB PO SCH (12:01)
[2022-05-21] MEDS: CYANOCOBALAMIN (B-12) 500 MCG TABLET PO SCH (12:01)
--- NOTE | 2022-05-21 20:01 | Billing Data ---
Date of Service May 20, 2022 Coding Level of Care Code 37751 Subseq Hosp Care Lvl 3
--- NOTE | 2022-05-21 20:04 | Billing Data ---
Date of Service May 21, 2022 Coding Level of Care Code 00787 Subseq Hosp Care Lvl 3
--- NOTE | 2022-05-22 06:00 | Electrocardiogram Report ---
Test Reason : Blood Pressure : / mmHG Vent. Rate : 081 BPM Atrial Rate : 081 BPM P-R Int : 146 ms QRS Dur : 082 ms QT Int : 366 ms P-R-T Axes : 060 090 066 degrees QTc Int : 425 ms Normal sinus rhythm Rightward axis Borderline ECG When compared with ECG of 15-MAY-2022 08:09, Vent. rate has increased BY 33 BPM Confirmed by Yo Rivas ([id number]) on 05/22/2022 6:00:25 AM Referred By: REFERRED SELF Confirmed By:Yo Rivas
--- NOTE | 2022-05-22 07:10 | Hospitalist Progress Note ---
Date of Service May 22, 2022 Assessment & Plan (1) Hypoglycemia: Plan: 26 yo female presented with her mother with bradycardia and hypoglycemia.She reportedly left the home was possibly outside all night. She was found unresponsive on a park bench this AM. Her blood sugar was 39 - was administered Glucagon, trial of oral glucose but stated that she could not swallow it. She was noncommunicative but did ask EMS if they were going to suffocate her. Anorexia nervosa with dangerously low body weight: Patient has had an improvement in BMI - was reportedly 12 in 05/2021, 15.8 in 02/2022 and reportedly 17.6 now. Mother states that she eats intermittently. Some concern of throat tightness, states she is unable to swallow and fears choking.Possibly secondary to anxiety. -Swallow evaluation (05/14) - unwilling to trial anything other than very small amount of water -Maintain aspiration precautions -Premeal Ativan PRN -Psychiatry consultation appreciated - as she is increasing PO intake and QTc appropriate, increased olanzapine to 2.5mg PO daily, avoid 1 hour around IV/IM administration of ativan. -Patient very hesitant with inpatient treatment/meds/labs, refuses YAN in order to get outpatient eating disorder referral. Prefers outpatient treatment but has no interest to leave hospital yet. -Continue daily MVI, B12 and Thiamine supplementation -1:1 observation due PMHx purging behavior -orthostatics (05/16) wnl -she seems to be more open to females than males, see nursing note Severe protein calorie malnutrition -Dietary consulted. Aim for 7786-7528 daily. -Continue to encourage PO intake. Boost prn if meals skipped. No supplemental foods if meals eaten. -limit meal times to 45min Hypoglycemia, resolved Blood sugar of 43 upon arrival.Improvement with OJ. Patient denies use of insulin or other medications, no EtOH or recreational drug use reported. Hypoglycemia likely secondary to decreased oral intake -D5W d/c'd, seems to be euglycemic currently -C-peptide: 0.66, no insulin level taken -TSH and random cortisol within normal limits Hypomagnesemia, resolved -Magnesium 1.7, stable Bradycardia, resolved In setting of anorexia nervosa.Patient without symptoms. -Check Mg, PO4 and replete as needed -Patient refused telemetry monitoring, downgraded to med surg -EKG normal sinus rhythm, QTc 425 Anxiety -Patient not on any medications for this at home -Pre-meal Ativan PRN as above -Psychiatry consultation appreciated -increased olanzapine as above FEN: Regular DVT ppx: SCDs Code: Full Dispo: Med surg (2) Anorexia nervosa with dangerously low body weight: (3) Anxiety: (4) Bradycardia: Admission and Anticipated Discharge Date Admission Date: May 13, 2022 Supervising Physician Co-Signing Physician Notes I personally examined the patient and verified all [place] points of history and exam, discussed case, and agree with decision making with Dr Talley. Feeling reasonably okay. Continuing to eat reasonably okay. Seems to be tolerating medicines well. In general she is awake and alert pleasant demeanor although poor eye contact and very quiet speech. No distress HEENT normocephalic atraumatic mucous membranes moist. Breathing unlabored no accessory muscle use good effort. Skin shows no rashes no pallor or icterus. Neuro without focal deficits. Impression and plan Anorexia nervosa Hypomagnesemia, resolved with repletion Bradycardia, asymptomatic, improved Hypoglycemia, resolved Continue to encourage eating, continue Zyprexa 2.5 mg daily, goal will be outpatient treatment as intensive as can be set up. Otherwise as above Subjective Patient seen at bedside. 1:1 present. Eating her breakfast. More talkative today. Still appears anxious at times. Refused labs this morning. Pt denies chest pain, SOB, nausea, headache, abdominal pain. Review of Systems Review of Systems: All systems reviewed & are unremarkable except as noted in HPI & below Physical Exam Physical Exam: General: anxious, NAD, more responsive to questions Skin: warm, dry, no rashes HEENT: NCAT, EOMI, anicteric sclera, moist mucus membranes Heart: +S1/S2, RRR, no m/r/g Lungs: equal air entry bilaterally, no rales/rhonchi/wheezes Abd: +BS, soft, no masses/organomegaly Ext: 2+ pulses in UE/LE bilaterally, no clubbing/cyanosis or edema Neuro: nonfocal Results & Data Results & Data ([facility]) Vital Signs (Past 12 Hours) Vital Signs Temp Pulse Resp BP Pulse Ox O2 Del Method 05/22/22 06:56 36.5 C 65 18 100/60 97 Room Air Resident Activity Tracking Resident Involvement: Resident Care Provided Care Provided: Adult [facility] Medicine
[2022-05-22] MEDS: POT PHOSPHATE MONOBASIC W/ SOD TAB PO SCH ×5 (09:08→20:16)
[2022-05-22] MEDS: CARBAMIDE PEROXIDE 6.5% 15 ML BTL OT SCH ×2 (09:08→20:33)
[2022-05-22] MEDS: OLANZapine ZYDIS 5 MG ORALLY DIS. TAB PO SCH (12:22)
[2022-05-22] MEDS: CYANOCOBALAMIN (B-12) 500 MCG TABLET PO SCH (12:22)
[2022-05-22] MEDS: THIAMINE HCL 50 MG TABLET PO SCH (12:22)
[2022-05-22] MEDS: MULTIVITAMIN TAB PO SCH (12:22)
[2022-05-23] MEDS: CARBAMIDE PEROXIDE 6.5% 15 ML BTL OT SCH ×2 (10:17→23:00)
[2022-05-23] MEDS: POT PHOSPHATE MONOBASIC W/ SOD TAB PO SCH ×4 (10:37→23:02)
[2022-05-23] MEDS: CYANOCOBALAMIN (B-12) 500 MCG TABLET PO SCH (12:35)
[2022-05-23] MEDS: MULTIVITAMIN TAB PO SCH (12:35)
[2022-05-23] MEDS: OLANZapine ZYDIS 5 MG ORALLY DIS. TAB PO SCH ×2 (12:35→23:01)
[2022-05-23] MEDS: THIAMINE HCL 50 MG TABLET PO SCH (12:35)
--- NOTE | 2022-05-23 14:29 | Hospitalist Progress Note ---
Date of Service May 23, 2022 Assessment & Plan (1) Hypoglycemia: Plan: 26 yo female presented with her mother with bradycardia and hypoglycemia.She reportedly left the home was possibly outside all night. She was found unresponsive on a park bench this AM. Her blood sugar was 39 - was administered Glucagon, trial of oral glucose but stated that she could not swallow it. She was noncommunicative but did ask EMS if they were going to suffocate her. Anorexia nervosa with dangerously low body weight: Patient has had an improvement in BMI - was reportedly 12 in 05/2021, 15.8 in 02/2022 and reportedly 17.6 now. Mother states that she eats intermittently. Some concern of throat tightness, states she is unable to swallow and fears choking.Possibly secondary to anxiety. -Swallow evaluation (05/14) - unwilling to trial anything other than very small amount of water -Maintain aspiration precautions -Premeal Ativan PRN -Psychiatry consultation appreciated - continues to increase PO intake and QTc appropriate. Currently on olanzapine 2.5mg qam. There seems to be a psychosis component to her behavior and recommended increasing dose to 2.5mg BID, pt is amenable. Avoid 1 hour around IV/IM administration of ativan. -Patient very hesitant with inpatient treatment/meds/labs, refuses YAN in order to get outpatient eating disorder referral. Prefers outpatient treatment but has no interest to leave hospital yet. -Cont. daily MVI, B12, Thiamine -1:1 observation due PMHx purging behavior -orthostatics (05/16) wnl -she seems to be more open to females than males, see nursing note Severe protein calorie malnutrition -Dietary consulted. Aim for 7544-0144 daily. -Continue to encourage PO intake. Boost prn if meals skipped. No supplemental foods if meals eaten. -limit meal times to 45min Hypoglycemia,resolved Blood sugar of 43 upon arrival.Improvement with OJ. Patient denies use of insulin or other medications, no EtOH or recreational drug use reported. Hypoglycemia likely secondary to decreased oral intake -D5W d/c'd, seems to be euglycemic currently -C-peptide: 0.66, no insulin level taken -TSH and random cortisol within normal limits Hypomagnesemia,resolved -Magnesium 1.7, stable Bradycardia,resolved In setting of anorexia nervosa.Patient without symptoms. -Check Mg, PO4 and replete as needed -Patient refused telemetry monitoring, downgraded to med surg -EKG normal sinus rhythm, QTc 425 Anxiety -Patient not on any medications for this at home -Pre-meal Ativan PRN as above -Psychiatry consultation appreciated -increased olanzapine as above FEN: Regular DVT ppx: SCDs Code: Full Dispo: Med surg (2) Anorexia nervosa with dangerously low body weight: (3) Anxiety: (4) Bradycardia: Plan Patient seen and examined, chart reviewed, case discussed with Jesus Talley and I agree with the assessment and plan as above except as otherwise noted Labs and images reviewed At bedside this morning. Patient with withdrawn affect and soft voice. Lungs are clear to auscultation, heart rate is regular in rate and rhythm by radial palpation. Is attempting to eat breakfast, does not like it is going very well. Did not want to go outside out of concern of losing her bed, did review that this would not be the case. Denied auditory and visual hallucinations, chest pain, shortness of breath, difficulty breathing, and abdominal pain. 26-year-old female who presented with BMI of 18 in the setting of anorexia and concern for anxiety with psychotic features. Anorexia nervosa, BMI 18 Appreciate psychiatric consultation. Patient has been noted to be responding to internal stimuli at times, although denies auditory and visual hallucinations. May increase olanzapine to 5 mg total daily dose, can give 2.5 mg twice daily to assist with appetite stimulation. Patient is resistant to labs, did recommend repeating phosphorus and magnesium checks. Patient is agreeable to this.Continue to optimize nutrition, provide pudding or desired foods as able. Encourage boost for supplementation. Dietary following, appreciate assistance. Asymptomatic bradycardia on admission, which has improved. Follow electrolytes carefully. Patient had radius telemetry, on physical exam heart rate remains regular by radial palpation. - Significant burden of illness with her BMI of 18 and bradycardia on admission. Does not wish to pursue inpatient treatment at this time, is agreeable to outpatient treatment but has not yet progressed enough to leave the hospital. Agree with management of chronic issues as above Admission and Anticipated Discharge Date Admission Date: May 13, 2022 Subjective Patient seen at bedside. 1:1 present. Ate breakfast this morning. Does not want to go outside because she believes she will lose her bed if she does. Very anxious but responding to questions. Denies hallucinations and hearing voices. Pt denies chest pain, SOB, nausea, headache, abdominal pain. Review of Systems Review of Systems: All systems reviewed & are unremarkable except as noted in HPI & below Physical Exam Physical Exam: General: anxious, NAD, flat affect, responds to questions Skin: warm, dry, no rashes HEENT: NCAT, EOMI, anicteric sclera, moist mucus membranes Heart: +S1/S2, RRR, no m/r/g Lungs: equal air entry bilaterally, no rales/rhonchi/wheezes Abd: +BS, soft, nontender, no masses Ext: 2+ pulses in UE/LE bilaterally, no clubbing/cyanosis or edema Neuro: nonfocal Results & Data Results & Data ([facility]) Vital Signs (Past 12 Hours) Vital Signs Temp Pulse Resp BP Pulse Ox O2 Del Method 05/23/22 10:26 36.9 C 81 19 100/66 97 Room Air Resident Activity Tracking Resident Involvement: Resident Care Provided Care Provided: Adult Hospital Medicine
--- NOTE | 2022-05-23 18:23 | Billing Data ---
Date of Service May 23, 2022 Coding Level of Care Code 19738 Subseq Hosp Care Lvl 2
[2022-05-24] MEDS: POT PHOSPHATE MONOBASIC W/ SOD TAB PO SCH ×2 (07:38→11:59)
[2022-05-24] MEDS: OLANZapine ZYDIS 5 MG ORALLY DIS. TAB PO SCH ×2 (07:39→21:20)
[2022-05-24] MEDS: MULTIVITAMIN TAB PO SCH (11:59)
[2022-05-24] MEDS: THIAMINE HCL 50 MG TABLET PO SCH (11:59)
[2022-05-24] MEDS: CYANOCOBALAMIN (B-12) 500 MCG TABLET PO SCH (11:59)
[2022-05-24 15:21] LABS: BUN Creatinine Ratio 38.1 (10-20); Calcium 9.3 mg/dl (8.5-10.1); Est GFR (African American) 109.6 ml/min; Est GFR (Non-African American) 94.6 ml/min; Magnesium 1.9 mg/dl (1.7-2.4); Phosphorus 4.8 mg/dl (2.5-4.9); Potassium 4.2 mmol/L (3.5-5.1)
--- NOTE | 2022-05-24 15:57 | Hospitalist Progress Note ---
Date of Service May 24, 2022 Assessment & Plan (1) Hypoglycemia: Plan: 26 yo female presented with her mother with bradycardia and hypoglycemia.She reportedly left the home was possibly outside all night. She was found unresponsive on a park bench this AM. Her blood sugar was 39 - was administered Glucagon, trial of oral glucose but stated that she could not swallow it. She was noncommunicative but did ask EMS if they were going to suffocate her. Anorexia nervosa with dangerously low body weight: Patient has had an improvement in BMI - was reportedly 12 in 05/2021, 15.8 in 02/2022 and reportedly 17.6 now. Mother states that she eats intermittently. Some concern of throat tightness, states she is unable to swallow and fears choking.Possibly secondary to anxiety. -Swallow evaluation (05/14) - unwilling to trial anything other than very small amount of water -Maintain aspiration precautions -Premeal Ativan PRN -Psychiatry consultation appreciated -continues to increase PO intake and QTc appropriate. There seems to be a ps ychosis component to her behavior. Cont. zyprexa 2.5mg BID. Avoid 1 hour around IV/IM administration of Ativan. -Patient very hesitant with inpatient treatment/meds/labs, refuses YAN in order to get outpatient eating disorder referral. Prefers outpatient treatment, may feel able next week. -Cont. daily MVI, B12, Thiamine -1:1 observation due PMHx purging behavior -orthostatics (05/16) wnl -she seems to be more open to females than males, see nursing note Severe protein calorie malnutrition -Dietary consulted. Aim for 3210-0612 daily. -Continue to encourage PO intake. Boost prn if meals skipped. No supplemental foods if meals eaten. -limit meal times to 45min Anxiety -Patient not on any medications for this at home -Pre-meal Ativan PRN as above -Psychiatry consultation appreciated -increased olanzapine as above Hypoglycemia,resolved Blood sugar of 43 upon arrival.Improvement with OJ. Patient denies use of insulin or other medications, no EtOH or recreational drug use reported. Hypoglycemia likely secondary to decreased oral intake -D5W d/c'd, seems to be euglycemic currently -C-peptide: 0.66, no insulin level taken -TSH and random cortisol within normal limits Hypomagnesemia,resolved -Magnesium 1.7, stable Hypophosphatemia, resolved -PO4 4.8, stable Bradycardia,resolved In setting of anorexia nervosa.Patient without symptoms. -Check Mg, PO4, potassium and replete as needed -Patient refused telemetry monitoring, downgraded to med surg -EKG normal sinus rhythm, QTc 425 FEN: Regular DVT ppx: SCDs Code: Full Dispo: Med surg (2) Anorexia nervosa with dangerously low body weight: (3) Anxiety: (4) Bradycardia: Admission and Anticipated Discharge Date Admission Date: May 13, 2022 Supervising Physician Co-Signing Physician Notes Patient seen and examined, chart reviewed, case discussed with Jesus Talley and I agree with the assessment and plan as above except as otherwise noted Labs and images reviewed Progressively improving. Eating most of breakfast, and improved total meal intake once that with time limits. Defer additional change in Zyprexa for now, continue 2.5 mg twice daily. Phosphorus/mag are normal today, phosphorus trending the high end of normal will hold aggressive repletion and recheck. Remains withdrawn to males, doing well with female sitter remains quiet and soft-spoken. Affect withdrawn. Pulse 70 today. Patient feels that she is progressing and may be ready to leave the hospital with outpatient follow-up in another few days. If she continues to do well may be reasonable to continue care on U if able. Continue [id number] goal. Subjective Patient seen at bedside. 1:1 present. Continues to eat most of meals. Very anxious but responding to questions. More talkative today. Thinks she will be okay to go home sometime next week. Denies hallucinations and hearing voices. Pt denies chest pain, SOB, nausea, headache, abdominal pain. Review of Systems Review of Systems: All systems reviewed & are unremarkable except as noted in HPI & below Physical Exam Physical Exam: General: anxious, NAD, flat affect, responds to questions Skin: warm, dry, no rashes HEENT: NCAT, EOMI, anicteric sclera, moist mucus membranes Heart: +S1/S2, RRR, no m/r/g Lungs: equal air entry bilaterally, no rales/rhonchi/wheezes Abd: +BS, soft, nontender, no masses Ext: 2+ pulses in UE/LE bilaterally, no clubbing/cyanosis or edema Neuro: nonfocal Results & Data Results & Data ([facility]) Vital Signs (Past 12 Hours) Vital Signs Temp Pulse Resp BP BP Pulse Ox O2 Del Method 05/24/22 15:47 36.8 C 70 18 108/62 97 Room Air 05/24/22 07:56 78 20 94/57 L 98 Room Air Laboratory Results 05/24/22 Range/Units 14:47 Sodium 139 (136-145) mmol/L Potassium 4.2 (3.5-5.1) mmol/L Chloride 100 (98-107) mmol/L Carbon Dioxide 31 (21-32) mmol/L Anion Gap 8 (3-11) BUN 32 H (6-23) mg/dl Creatinine 0.84 (0.6-1.2) mg/dl Est Cr Clr Drug Dosing 82.0 ml/min Est GFR ( Amer) 109.6 ml/min Est GFR (Non-Af Amer) 94.6 ml/min BUN/Creatinine Ratio 38.1 H (10-20) Glucose 81 (70-99(Fasting)) mg/dl Calcium 9.3 (8.5-10.1) mg/dl Phosphorus 4.8 (2.5-4.9) mg/dl Magnesium 1.9 (1.7-2.4) mg/dl Resident Activity Tracking Resident Involvement: Resident Care Provided Care Provided: Adult Hospital Medicine
--- NOTE | 2022-05-24 18:03 | Billing Data ---
Date of Service May 24, 2022 Coding Level of Care Code 33696 Subseq Hosp Care Lvl 1
--- NOTE | 2022-05-24 18:58 | Billing Data ---
Date of Service 2021 Coding Level of Care Code 19892 Subseq Hosp Care Lvl 2
[2022-05-25] MEDS: OLANZapine ZYDIS 5 MG ORALLY DIS. TAB PO SCH (09:31)
[2022-05-25] MEDS: THIAMINE HCL 50 MG TABLET PO SCH (12:34)
[2022-05-25] MEDS: CYANOCOBALAMIN (B-12) 500 MCG TABLET PO SCH (12:34)
[2022-05-25] MEDS: MULTIVITAMIN TAB PO SCH (12:34)
--- NOTE | 2022-05-25 13:41 | Hospitalist Progress Note ---
Date of Service May 25, 2022 Assessment & Plan (1) Hypoglycemia: Plan: 26 yo female presented with her mother with bradycardia and hypoglycemia.She reportedly left the home was possibly outside all night. She was found unresponsive on a park bench this AM. Her blood sugar was 39 - was administered Glucagon, trial of oral glucose but stated that she could not swallow it. She was noncommunicative but did ask EMS if they were going to suffocate her. Anorexia nervosa with dangerously low body weight: Patient has had an improvement in BMI - was reportedly 12 in 05/2021, 15.8 in 02/2022 and reportedly 17.6 now. Mother states that she eats intermittently. Some concern of throat tightness, states she is unable to swallow and fears choking.Possibly secondary to anxiety. -Swallow evaluation (05/14) - unwilling to trial anything other than very small amount of water -Maintain aspiration precautions -Premeal Ativan PRN -Psychiatry consultation appreciated -continues to increase PO intake and QTc appropriate. There seems to be a ps ychosis component to her behavior. Cont. zyprexa 2.5mg BID (transitioned from ODT to tablet (05/25). Avoid 1 hour around IV/IM administration of Ativan. -Patient very hesitant with inpatient treatment/meds/labs, refuses YAN in order to get outpatient eating disorder referral. Prefers outpatient treatment. -Cont. daily MVI, B12, Thiamine -1:1 observation due PMHx purging behavior -orthostatics (05/16) wnl -she seems to be more open to females than males, see nursing note Severe protein calorie malnutrition -Dietary consulted. Aim for 4658-3273 daily. -Continue to encourage PO intake. Boost prn if meals skipped. No supplemental foods if meals eaten. -limit meal times to 45min, monitor amount of meals eaten daily. Last recorded ate 75% of breakfast on 05/25. Anxiety -Patient not on any medications for this at home -Pre-meal Ativan PRN as above -Psychiatry consultation appreciated -cont. olanzapine as above Hypoglycemia,resolved Blood sugar of 43 upon arrival.Improvement with OJ. Patient denies use of insulin or other medications, no EtOH or recreational drug use reported. Hypoglycemia likely secondary to decreased oral intake -D5W d/c'd, seems to be euglycemic currently -C-peptide: 0.66, no insulin level taken -TSH and random cortisol within normal limits Hypomagnesemia,resolved -Magnesium 1.7, stable Hypophosphatemia, resolved -PO4 4.8, stable Bradycardia,resolved In setting of anorexia nervosa.Patient without symptoms. -Check Mg, PO4, potassium and replete as needed -Patient refused telemetry monitoring, downgraded to med surg -EKG normal sinus rhythm, QTc 425 FEN: Regular DVT ppx: SCDs Code: Full Dispo: Med surg (2) Anorexia nervosa with dangerously low body weight: (3) Anxiety: (4) Bradycardia: Admission and Anticipated Discharge Date Admission Date: May 13, 2022 Supervising Physician Co-Signing Physician Notes Patient seen and examined, chart reviewed, case discussed with Jesus Talley and I agree with the assessment and plan as above except as otherwise noted Labs and images reviewed Patient is clinically improving, is eating at least half of meals and seems to be doing well with uptitrated Zyprexa. Hypophosphatemia and hypomagnesemia have improved, and bradycardia has improved. Patient is still extremely withdrawn, with waxing and waning food tolerance and early satiety. Did discuss with behavioral health today, can watch over the weekend as patient does not yet feel ready for discharge and is at high risk for relapse and readmission. If feeling comfortable after the weekend and electrolyte remained stable should be appropriate for progression to outpatient follow-up. For transfer to [facility] at this time. Subjective Limited due to poverty of speech and selective mutism, but overall denies pain and endorses early satiety. Radial pulse checked with patient's permission and is regular at bedside assessment. Appears frail/malnourished. Breathing comfortably with symmetrical chest rise. Subjective Patient seen at bedside. 1:1 present. Had some belly ache last night which is now resolved. Still very anxious. More reserved today. Denies hallucinations and hearing voices. Pt denies chest pain, SOB, nausea, headache. Review of Systems Review of Systems: All systems reviewed & are unremarkable except as noted in HPI & below Physical Exam Physical Exam: General: anxious, NAD, flat affect, responds to questions Skin: warm, dry, no rashes HEENT: NCAT, EOMI, anicteric sclera, moist mucus membranes Heart: RRR, no m/r/g Lungs: equal air entry bilaterally, no rales/rhonchi/wheezes Abd: +BS, soft, nontender, no masses Ext: 2+ pulses in UE/LE bilaterally, no clubbing/cyanosis or edema Neuro: nonfocal Results & Data Results & Data ([facility]) Vital Signs (Past 12 Hours) Vital Signs Temp Pulse Resp BP Pulse Ox O2 Del Method 05/25/22 12:01 36.7 C 92 H 18 103/67 97 Room Air Resident Activity Tracking Resident Involvement: Resident Care Provided Care Provided: Adult Hospital Medicine
--- NOTE | 2022-05-25 15:01 | Billing Data ---
Date of Service May 25, 2022 Coding Level of Care Code 47578 Subseq Hosp Care Lvl 1
[2022-05-25] MEDS: OLANZAPINE 2.5 MG TAB PO SCH (21:35)
[2022-05-26] MEDS: OLANZAPINE 2.5 MG TAB PO SCH ×2 (08:25→23:56)
[2022-05-26] MEDS: THIAMINE HCL 50 MG TABLET PO SCH (12:09)
[2022-05-26] MEDS: CYANOCOBALAMIN (B-12) 500 MCG TABLET PO SCH (12:09)
[2022-05-26] MEDS: MULTIVITAMIN TAB PO SCH (12:09)
--- NOTE | 2022-05-26 13:08 | Hospitalist Progress Note ---
Date of Service May 26, 2022 Assessment & Plan (1) Hypoglycemia: Plan: 26 yo female presented with her mother with bradycardia and hypoglycemia.She reportedly left the home was possibly outside all night.She was found unresponsive on a park bench this AM.Her blood sugar was 39 - was administered Glucagon, trial of oral glucose but stated that she could not swallow it. She was noncommunicative but did ask EMS if they were going to suffocate her. Anorexia nervosa with dangerously low body weight: Patient has had an improvement in BMI - was reportedly 12 in 05/2021, 15.8 in 02/2022 and 18 now. Mother states that she eats intermittently. Some concern of throat tightness, states she is unable to swallow and fears choking.Possibly secondary to anxiety. -Swallow evaluation (05/14) - unwilling to trial anything other than very small amount of water -Maintain aspiration precautions -Premeal Ativan PRN -Psychiatry consultation appreciated -continues to increase PO intake and QTc appropriate. There seems to be a psychosis component to her behavior. Cont. zyprexa 2.5mg BID (transitioned from ODT to tablet (05/25). Avoid 1 hour around IV/IM administration of Ativan. -Patient very hesitant with inpatient treatment/meds/labs, refuses YAN in order to get outpatient eating disorder referral. Prefers outpatient treatment. -Cont. MVI. -D/c'd (05/26) thiamine and B12. -1:1 observation due to PMHx purging behavior -orthostatics (05/16) wnl -she seems to be more open to females than males, see nursing note Severe protein calorie malnutrition -Dietary consulted. Aim for 9565-5777 daily. -Continue to encourage PO intake. Boost prn if meals skipped. No supplemental foods if meals eaten. -limit meal times to 45min, record amount of meals eaten daily. Ate 25% of breakfast this morning plus half tub of yogurt. Anxiety -Patient not on any medications for this at home. Was previously started on low dose Zyprexa during last hospitalization but was not continued in outpatient setting, possibly due to insurance. -Pre-meal Ativan PRN as above -Psychiatry consultation appreciated -cont. olanzapine as above Hypoglycemia,resolved Blood sugar of 43 upon arrival.Improvement with OJ. Patient denies use of insulin or other medications, no EtOH or recreational drug use reported.Hypoglycemia likely secondary to decreased oral intake -D5W d/c'd, seems to now be euglycemic -C-peptide: 0.66, no insulin level taken -TSH and random cortisol within normal limits Hypomagnesemia,resolved -Magnesium 1.7, stable Hypophosphatemia, resolved -PO4 4.8, stable Bradycardia,resolved In setting of anorexia nervosa.Patient without symptoms. -Check Mg, PO4, potassium and replete as needed -Patient refused telemetry monitoring, downgraded to med surg -EKG (05/21): normal sinus rhythm, QTc 425 FEN: Regular DVT ppx: SCDs Code: Full Dispo: Med surg; discussed going home either fri/, pt amenable (2) Anorexia nervosa with dangerously low body weight: (3) Anxiety: (4) Bradycardia: Admission and Anticipated Discharge Date Admission Date: May 13, 2022 Supervising Physician Co-Signing Physician Notes Patient seen and examined, chart reviewed, case discussed with Jesus Talley and I agree with the assessment and plan as above except as otherwise noted Labs and images reviewed Patient is clinically improving, is eating at least half of meals and seems to be doing well with uptitrated Zyprexa. Hypophosphatemia and hypomagnesemia have improved, and bradycardia remains improved. On assessment patient continues to be very withdrawn, reports her appetite has somewhat stalled but is tolerating her medicine okay. Ate about 25% of breakfast. Feels like she is progressing, and hopefully discharge to home tomorrow or Friday. She is agreeable to this. Breathing is unlabored, skin is warm and dry. Not responding to internal stimuli Subjective Patient seen at bedside. 1:1 present. More talkative today and giving more than one word responses. Appears less anxious. Nurse states she was more up and about as well. Ate 25% breakfast and half a tub of yogurt. Amenable to repeat labs today. Denies hallucinations and hearing voices. Pt denies chest pain, SOB, nausea, headache. Review of Systems Review of Systems: All systems reviewed & are unremarkable except as noted in Subjective Physical Exam Physical Exam: General: anxious, NAD, flat affect, more responsive to questions Skin: warm, dry, no rashes HEENT: NCAT, EOMI, anicteric sclera, moist mucus membranes Heart: RRR, no m/r/g Lungs: equal air entry bilaterally, no rales/rhonchi/wheezes Abd: +BS, soft, nontender, no masses Ext: 2+ pulses in UE/LE bilaterally, no clubbing/cyanosis or edema Neuro: nonfocal Results & Data Results & Data ([facility]) Vital Signs (Past 12 Hours) Vital Signs Temp Pulse Resp BP Pulse Ox O2 Del Method 05/26/22 08:09 36.7 C 72 16 102/70 98 Room Air Resident Activity Tracking Resident Involvement: Resident Care Provided Care Provided: Adult Hospital Medicine
--- NOTE | 2022-05-26 13:31 | Billing Data ---
Date of Service May 26, 2022 Coding Level of Care Code 01195 Subseq Hosp Care Lvl 1
[2022-05-27] MEDS: OLANZAPINE 2.5 MG TAB PO SCH (10:28)
[2022-05-27] MEDS: MULTIVITAMIN TAB PO SCH (12:04)
--- NOTE | 2022-05-27 17:19 | Hospitalist Progress Note ---
Date of Service May 27, 2022 Assessment & Plan (1) Hypoglycemia: Plan: 26 yo female presented with her mother with bradycardia and hypoglycemia.She reportedly left the home was possibly outside all night.She was found unresponsive on a park bench this AM.Her blood sugar was 39 - was administered Glucagon, trial of oral glucose but stated that she could not swallow it. She was noncommunicative but did ask EMS if they were going to suffocate her. Anorexia nervosa with dangerously low body weight: Patient has had an improvement in BMI - was reportedly 12 in 05/2021, 15.8 in 02/2022 and 18 now. Mother states that she eats intermittently. Some concern of throat tightness, states she is unable to swallow and fears choking.Possibly secondary to anxiety. -Swallow evaluation (05/14) - unwilling to trial anything other than very small amount of water -Maintain aspiration precautions -Premeal Ativan PRN -Psychiatry consultation appreciated -continues to increase PO intake and QTc appropriate. There seems to be a psychosis component to her behavior. WIll increase zyprexa dosing to 2.5mg qam, 5mg qpm (transitioned from ODT to tablet (05/25). Avoid 1 hour around IV/IM administration of Ativan. -Patient very hesitant with inpatient treatment/meds/labs, refuses YAN in order to get outpatient eating disorder referral. Prefers outpatient treatment. -Cont. MVI. -D/c'd (05/26) thiamine and B12. -1:1 observation due to PMHx purging behavior -orthostatics (05/16) wnl -she seems to be more open to females than males, see nursing note Severe protein calorie malnutrition -Dietary consulted. Aim for 4212-5618 daily. -Continue to encourage PO intake. Boost prn if meals skipped. No supplemental foods if meals eaten. -limit meal times to 45min, record amount of meals eaten daily. Ate 25% of breakfast plus half tub of yogurt (05/26). Anxiety -Patient not on any medications for this at home. Was previously started on low dose Zyprexa during last hospitalization but was not continued in outpatient setting, possibly due to insurance. -Pre-meal Ativan PRN as above -Psychiatry consultation appreciated -cont. olanzapine as above Hypoglycemia,resolved Blood sugar of 43 upon arrival.Improvement with OJ. Patient denies use of insulin or other medications, no EtOH or recreational drug use reported.Hypoglycemia likely secondary to decreased oral intake -D5W d/c'd, seems to now be euglycemic -C-peptide: 0.66, no insulin level taken -TSH and random cortisol within normal limits Hypomagnesemia,resolved -Magnesium 1.7, stable Hypophosphatemia, resolved -PO4 4.8, stable Bradycardia,resolved In setting of anorexia nervosa.Patient without symptoms. -Check Mg, PO4, potassium and replete as needed -Patient refused telemetry monitoring, downgraded to med surg -EKG (05/21): normal sinus rhythm, QTc 425 FEN: Regular DVT ppx: SCDs Code: Full Dispo: Med surg (2) Anorexia nervosa with dangerously low body weight: (3) Anxiety: (4) Bradycardia: Admission and Anticipated Discharge Date Admission Date: May 13, 2022 Supervising Physician Co-Signing Physician Notes Attending attestation Pt seen and examined in concert with Dr. Talley. In agreement with the documented findings as noted in the resident documentation with any exceptions or additions as noted here. Patient minimally responsive to questioning and appears somewhat distracted/unfocused. VS, nursing notes reviewed. On examination, S1/S2 nl RRR no MCG. CTAB. Abd NT/ND BS+ve Anxiety - increase dose of olanzapine to 5mg qHS, 2.5mg in AM and monitor. Will revisit case tomorrow with psychiatry 2/2 patient with significant concerns re: home and family and potential next steps. Anorexia nervosa with severe protein calorie malnutrition - psychiatry, dietary consult - continue 1:1, pre meal ativan, olanzapine as above. Else see resident documentation as noted. Subjective Patient seen at bedside. 1:1 present. Remains reserved and anxious. Less talkative and soft spoken. Nurse mentioned findings of her digging to make herself poop. Also found puke in her pillow case and in a bin covered with tissues in the bathroom. Denies hallucinations and hearing voices. Pt denies chest pain, SOB, nausea, headache, abd pain. Review of Systems Review of Systems: All systems reviewed & are unremarkable except as noted in HPI & below Physical Exam Physical Exam: General: anxious, NAD, flat affect, more responsive to questions Skin: warm, dry, no rashes HEENT: NCAT, EOMI, anicteric sclera, moist mucus membranes Heart: RRR, no m/r/g Lungs: equal air entry bilaterally, no rales/rhonchi/wheezes Abd: +BS, soft, nontender, no masses Ext: 2+ pulses in UE/LE bilaterally, no clubbing/cyanosis or edema Neuro: nonfocal Results & Data Results & Data ([facility]) Vital Signs (Past 12 Hours) Vital Signs Temp Pulse Resp BP BP Pulse Ox O2 Del Method 05/27/22 16:37 36.4 C L 70 18 96/60 L 93/54 L 97 05/27/22 11:30 36.4 C L 70 18 96/60 L 97 Room Air 05/27/22 10:00 Room Air Resident Activity Tracking Resident Involvement: Resident Care Provided Care Provided: Adult Hospital Medicine
[2022-05-27] MEDS ORDERED: OLANZapine 5 MG TABLET PO SCH (21:00)
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
[2022-05-28] MEDS ORDERED: OLANZAPINE 2.5 MG TAB PO SCH (09:00)
[2022-05-28] MEDS: MULTIVITAMIN TAB PO SCH (12:05)
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
[2022-05-28] MEDS: OLANZapine 5 MG TABLET PO SCH (20:33)
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
[2022-05-29] MEDS: OLANZapine 5 MG TABLET PO SCH (10:00)
[2022-05-29] MEDS: MULTIVITAMIN TAB PO SCH (11:29)
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
== END 2022-05-29 18:04 | disposition home or self-care (01) | DRG 640 ==
LOC: ED 16:29 → 2W 21:19 → SUATTDRO 21:19 → 2W 22:10

== ENCOUNTER 2022-10-18 14:47 | Inpatient (IN) ==
--- NOTE | 2022-10-18 15:14 | Emergency Department Note ---
History of Present Illness General Chief complaint: Abnormal Labs/Diagnostic Testing Stated complaint: REF BY DR ALFORD, POTASSIUM LEVELS LOW Time Seen by Provider: 10/18/22 15:02 Source: patient, family (Father who is at the bedside), RN notes reviewed and old records reviewed (I have reviewed the notes from the [facility] primary care clinic) Mode of arrival: ambulatory Limitations: no limitations History of Present Illness This patient is a 27-year-old female who has a history of anorexia with multiple hospital stays, comes in after being sent over from her primary care doctor's office after having a potassium of 2.4 she has been traveling she apparently has been not eating or drinking much no self-induced vomiting. She denies chest pain or shortness of breath or abdominal pain denies overdose no aspirin or Tylenol. Denies fever or chills. She does not talk much and the majority the history was obtained from her father, who is at the bedside Home Medications Medication Instructions Recorded Confirmed Type multivitamin (Daily Multi-Vitamin 1 tab PO DAILY 04/19/22 10/18/22 History tablet) fluoxetine 20 mg capsule 20 mg PO QAM 10/18/22 10/18/22 History hydroxyzine HCl 10 mg tablet 10 mg PO Q6 PRN Anxiety 10/18/22 10/18/22 History hydroxyzine HCl 10 mg tablet 20 mg PO HS PRN Sleep 10/18/22 10/18/22 History Allergies Allergy/AdvReac Type Severity Reaction Status Date / Time No Known Allergies Allergy Verified 10/18/22 16:10 Past Med/Surg History Medical History (Updated 10/18/22 @ 19:03 by Xavier Alberto MD) Anorexia nervosa with dangerously low body weight Anxiety Hypoglycemia Secondary amenorrhea Probable hypothalamic dysfunction Surgical History No history of previous surgery Family History Sister Anorexia Mother Lymphoma Grandfather (Maternal) Prostate cancer Grandmother (Maternal) Breast cancer Denies family history of Ovarian cancer Myocardial infarction Lung cancer Colorectal cancer Stroke Social History Smoking Status: Never smoker Hx Alcohol Use: No Hx Substance Use: No Preferred Language: Mauritanian Communication Ability: Effective Visual Impairment: No Limitations Hearing Ability: Normal Flight Operations Specialist Required: No Beliefs That Will Affect Care: None marital status: Single Current Living Situation: Family Current Living Situation Comment: sister current occupational status: student 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 Safe at Home: Yes Childhood Exposure to Second-Hand Smoke: No Physical Activity Frequency: 5-6 Times per Week Physical Activity Frequency Comment: squash, running, tennis pre pandemic Seatbelt Use: always Assistive Devices: None Review of Systems A total of 10 systems reviewed and were otherwise negative Physical Exam Vital Signs Vital Signs - 24 hr 10/18/22 14:50 10/18/22 15:28 10/18/22 15:29 Temperature 36.1 C L Temperature Source Temporal Artery Scan Pulse Rate 92 H 69 Pulse Rate [Apical] 70 Pulse Rate from SpO2 Sensor 69 Pulse Rhythm [Apical] Regular Pulse Strength [Apical] Normal Respiratory Rate 18 16 21 Respiratory Effort / Characteristics Non-Labored Non-Labored Spontaneous Respiratory Depth Normal Normal Respiratory Pattern Regular Blood Pressure 106/70 Blood Pressure [Right Arm] 92/66 L Blood Pressure Mean 82 Blood Pressure Mean [Right Arm] 74 Pulse Oximetry 99 95 98 Oxygen Delivery Method Room Air Room Air Sepsis Recent Fever Within 48 Hours No Sepsis New/Unexplained Change in Mental Status No Sepsis Action Taken by Nursing No Action Required 10/18/22 15:30 10/18/22 15:40 10/18/22 15:50 Temperature Temperature Source Pulse Rate 70 68 66 Pulse Rate [Apical] Pulse Rate from SpO2 Sensor Pulse Rhythm [Apical] Pulse Strength [Apical] Respiratory Rate 14 19 13 Respiratory Effort / Characteristics Respiratory Depth Respiratory Pattern Blood Pressure Blood Pressure [Right Arm] Blood Pressure Mean Blood Pressure Mean [Right Arm] Pulse Oximetry Oxygen Delivery Method Sepsis Recent Fever Within 48 Hours Sepsis New/Unexplained Change in Mental Status Sepsis Action Taken by Nursing 10/18/22 16:00 10/18/22 16:10 10/18/22 16:10 Temperature Temperature Source Pulse Rate 67 66 Pulse Rate [Apical] Pulse Rate from SpO2 Sensor 66 Pulse Rhythm [Apical] Pulse Strength [Apical] Respiratory Rate 15 Respiratory Effort / Characteristics Respiratory Depth Respiratory Pattern Blood Pressure 98/62 L Blood Pressure [Right Arm] Blood Pressure Mean 74 Blood Pressure Mean [Right Arm] Pulse Oximetry 98 Oxygen Delivery Method Sepsis Recent Fever Within 48 Hours Sepsis New/Unexplained Change in Mental Status Sepsis Action Taken by Nursing 10/18/22 16:15 10/18/22 16:15 10/18/22 16:20 Temperature Temperature Source Pulse Rate 68 64 Pulse Rate [Apical] Pulse Rate from SpO2 Sensor 66 67 Pulse Rhythm [Apical] Pulse Strength [Apical] Respiratory Rate 12 12 Respiratory Effort / Characteristics Respiratory Depth Respiratory Pattern Blood Pressure 101/66 Blood Pressure [Right Arm] Blood Pressure Mean 77 Blood Pressure Mean [Right Arm] Pulse Oximetry 100 96 Oxygen Delivery Method Sepsis Recent Fever Within 48 Hours Sepsis New/Unexplained Change in Mental Status Sepsis Action Taken by Nursing 10/18/22 16:30 10/18/22 16:30 10/18/22 16:40 Temperature Temperature Source Pulse Rate 64 64 Pulse Rate [Apical] Pulse Rate from SpO2 Sensor 64 65 Pulse Rhythm [Apical] Pulse Strength [Apical] Respiratory Rate 14 14 Respiratory Effort / Characteristics Respiratory Depth Respiratory Pattern Blood Pressure 96/63 L Blood Pressure [Right Arm] Blood Pressure Mean 74 Blood Pressure Mean [Right Arm] Pulse Oximetry 100 99 Oxygen Delivery Method Sepsis Recent Fever Within 48 Hours Sepsis New/Unexplained Change in Mental Status Sepsis Action Taken by Nursing 10/18/22 16:45 10/18/22 16:45 10/18/22 16:50 Temperature Temperature Source Pulse Rate 62 65 Pulse Rate [Apical] Pulse Rate from SpO2 Sensor 65 Pulse Rhythm [Apical] Pulse Strength [Apical] Respiratory Rate 17 22 Respiratory Effort / Characteristics Respiratory Depth Respiratory Pattern Blood Pressure 105/62 Blood Pressure [Right Arm] Blood Pressure Mean 76 Blood Pressure Mean [Right Arm] Pulse Oximetry 96 100 Oxygen Delivery Method Sepsis Recent Fever Within 48 Hours Sepsis New/Unexplained Change in Mental Status Sepsis Action Taken by Nursing 10/18/22 17:00 10/18/22 17:00 10/18/22 17:10 Temperature Temperature Source Pulse Rate 63 62 Pulse Rate [Apical] Pulse Rate from SpO2 Sensor 67 62 Pulse Rhythm [Apical] Pulse Strength [Apical] Respiratory Rate 13 13 Respiratory Effort / Characteristics Respiratory Depth Respiratory Pattern Blood Pressure 103/67 Blood Pressure [Right Arm] Blood Pressure Mean 79 Blood Pressure Mean [Right Arm] Pulse Oximetry 98 99 Oxygen Delivery Method Sepsis Recent Fever Within 48 Hours Sepsis New/Unexplained Change in Mental Status Sepsis Action Taken by Nursing 10/18/22 17:15 10/18/22 17:15 10/18/22 17:20 Temperature Temperature Source Pulse Rate 65 64 Pulse Rate [Apical] Pulse Rate from SpO2 Sensor 65 65 Pulse Rhythm [Apical] Pulse Strength [Apical] Respiratory Rate 15 18 Respiratory Effort / Characteristics Respiratory Depth Respiratory Pattern Blood Pressure 101/68 Blood Pressure [Right Arm] Blood Pressure Mean 79 Blood Pressure Mean [Right Arm] Pulse Oximetry 98 100 Oxygen Delivery Method Sepsis Recent Fever Within 48 Hours Sepsis New/Unexplained Change in Mental Status Sepsis Action Taken by Nursing 10/18/22 17:30 10/18/22 17:30 10/18/22 17:40 Temperature Temperature Source Pulse Rate 64 61 Pulse Rate [Apical] Pulse Rate from SpO2 Sensor 64 61 Pulse Rhythm [Apical] Pulse Strength [Apical] Respiratory Rate 14 20 Respiratory Effort / Characteristics Respiratory Depth Respiratory Pattern Blood Pressure 96/69 L Blood Pressure [Right Arm] Blood Pressure Mean 78 Blood Pressure Mean [Right Arm] Pulse Oximetry 100 100 Oxygen Delivery Method Sepsis Recent Fever Within 48 Hours Sepsis New/Unexplained Change in Mental Status Sepsis Action Taken by Nursing 10/18/22 17:45 10/18/22 17:45 10/18/22 17:50 Temperature Temperature Source Pulse Rate 61 62 Pulse Rate [Apical] Pulse Rate from SpO2 Sensor 61 62 Pulse Rhythm [Apical] Pulse Strength [Apical] Respiratory Rate 18 9 L Respiratory Effort / Characteristics Respiratory Depth Respiratory Pattern Blood Pressure 100/63 Blood Pressure [Right Arm] Blood Pressure Mean 75 Blood Pressure Mean [Right Arm] Pulse Oximetry 100 100 Oxygen Delivery Method Sepsis Recent Fever Within 48 Hours Sepsis New/Unexplained Change in Mental Status Sepsis Action Taken by Nursing General: Well developed well nourished slender young female who in no acute distress, breathing comfortably on room air. He has poor eye contact and does not talk much. HEENT: Normal cephalic atraumatic. Pupils are equal round and reactive to light. Extraocular movements are intact. Oropharynx is pink with moist mucous membranes. No swelling of the mouth lips or tongue. Neck: Supple with a midline trachea. No meningeal signs or stiffness, no JVD or bruits. No Stridor. Chest: Clear to auscultation bilaterally. No wheezes or rhonchi. No increased work of breathing. Heart: Regular rate and rhythm without murmurs or gallops. Abdomen: Soft nontender, nondistended without rebound guarding or rigidity. Extremities: No cyanosis clubbing or edema. No calf tenderness or assymetry Spine/Back. Non tender to palpation. No CVA tenderness Skin: Good turgor without rashes. Neurologic exam: Cranial nerves two through 12 are intact. Motor and sensation are intact and symmetrical throughout. Psych: Flattened affect. Denies suicidal ideations Course Administered Medications Discontinued Medications Sodium Chloride (Nss 1000ml) 1,000 mls @ 999 mls/hr IV .Q1H1M ONE Stop: 10/18/22 16:23 Last Infusion: 10/18/22 17:22 Dose: 0 mls/hr Documented By: Admin: 10/18/22 16:09 Dose: 999 mls/hr Documented By: SEAN Potassium Chloride (K Kevin / Wtr) 10 meq in 100 mls @ 100 mls/hr IV Q1H DANO; Protocol Stop: 10/18/22 17:29 Last Admin: 10/18/22 18:34 Dose: 100 mls/hr Documented By: Infusion: 10/18/22 17:09 Dose: 100 mls/hr Documented By: Admin: 10/18/22 16:09 Dose: 100 mls/hr Documented By: SEAN Critical Care Time Prolonged Care Time Prolonged Care Time: No Total Prolonged Care Time: 30 Due to the patient's electrolyte deficiencies, dehydration, need for IV replenishment of her electrolytes, reassessment and consultation, I have personally spent greater than 30 minutes of critical care time in the direct management of this patient. This includes bedside care, interpretation of diagnostic studies, and testing, discussion with consultants, patient, and family members, and other required patient management activities. This 30 minutes is in excess of all separately billable procedures. Medical Decision Making Differential Diagnosis Electrolyte or metabolic abnormality, dehydration, depression, anxiety, anorexia, infection Medical Records Attestation: I reviewed the patient's medical records. Home Medications Current Medication List: was personally reviewed by co Laboratory Data Attestation: I reviewed the patient's lab results. 10/18/22 16:05 10/18/22 16:05 Lab Results 10/18/22 10/18/22 10/18/22 Range/Units 15:33 16:05 16:05 WBC 5.18 (4.8-10.8) K/ul RBC 5.00 (4.20-5.40) M/uL Hgb 14.6 (12.0-16.0) g/dl Hct 41.1 (37.0-47.0) % MCV 82.2 (80.0-100.0) fL MCH 29.2 (25.0-34.0) pg MCHC 35.5 (32.0-36.0) g/dL RDW Std Deviation 37.2 (36.4-46.3) fL RDW Coeff of Marlon 12.7 (11.5-14.5) % Plt Count 292 (130-400) K/uL MPV 8.7 L (9.4-12.4) fL Immature Gran % (Auto) 0.2 % Neut % (Auto) 70.0 % Lymph % (Auto) 22.4 % [place] % (Auto) 6.4 % Eos % (Auto) 0.4 % Baso % (Auto) 0.6 % Neut # (Auto) 3.63 (1.40-6.50) K/uL Lymph # (Auto) 1.16 L (1.2-3.4) K/uL [place] # (Auto) 0.33 (0.11-0.59) K/uL Eos # (Auto) 0.02 (0-0.50) K/uL Baso # (Auto) 0.03 (0-0.2) K/uL Immature Gran # (Auto) 0.01 (0.01-0.20) K/uL PT (9.0-12.0) Seconds INR (0.9-1.1) APTT (21.0-31.0) Seconds PTT Ratio Sodium 136 (136-145) mmol/L Potassium 2.3 L* (3.5-5.1) mmol/L Chloride 82 L (98-107) mmol/L Carbon Dioxide 38 H (21-32) mmol/L Anion Gap 16 H (3-11) BUN 14 (6-23) mg/dl Creatinine 0.99 (0.6-1.2) mg/dl Est Cr Clr Drug Dosing 57.0 ml/min Est GFR ( Amer) 89.3 ml/min Est GFR (Non-Af Amer) 77.0 ml/min BUN/Creatinine Ratio 14.1 (10-20) Glucose 66 L (70-99(Fasting)) mg/dl Calcium 10.2 H (8.5-10.1) mg/dl Magnesium 2.1 (1.7-2.4) mg/dl Total Bilirubin 1.6 H (0.2-1.0) mg/dl AST 25 (13-39) U/L ALT 17 (7-52) U/L Alkaline Phosphatase 36 (34-104) U/L Total Protein 7.3 (6.0-8.3) gm/dl Albumin 4.8 (3.4-5.0) gm/dl Globulin 2.5 (2.5-4.0) gm/dl Albumin/Globulin Ratio 1.9 (0.9-2) HCG, Qual (Negative) Salicylates (3.0-30) mg/dl Acetaminophen (10-30) ug/ml Ethyl Alcohol mg/dL (<10.0) mg/dl SARS-CoV-2 (PCR) NEGATIVE (Negative) Influenza Type A (PCR) Negative (Neg) Influenza Type B (PCR) Negative (Neg) RSV (RT-PCR) Negative (Neg) 10/18/22 10/18/22 10/18/22 Range/Units 16:05 16:05 16:05 WBC (4.8-10.8) K/ul RBC (4.20-5.40) M/uL Hgb (12.0-16.0) g/dl Hct (37.0-47.0) % MCV (80.0-100.0) fL MCH (25.0-34.0) pg MCHC (32.0-36.0) g/dL RDW Std Deviation (36.4-46.3) fL RDW Coeff of Marlon (11.5-14.5) % Plt Count (130-400) K/uL MPV (9.4-12.4) fL Immature Gran % (Auto) % Neut % (Auto) % Lymph % (Auto) % [place] % (Auto) % Eos % (Auto) % Baso % (Auto) % Neut # (Auto) (1.40-6.50) K/uL Lymph # (Auto) (1.2-3.4) K/uL [place] # (Auto) (0.11-0.59) K/uL Eos # (Auto) (0-0.50) K/uL Baso # (Auto) (0-0.2) K/uL Immature Gran # (Auto) (0.01-0.20) K/uL PT 11.5 (9.0-12.0) Seconds INR 1.1 (0.9-1.1) APTT 31.6 H (21.0-31.0) Seconds PTT Ratio 1.1 Sodium (136-145) mmol/L Potassium (3.5-5.1) mmol/L Chloride (98-107) mmol/L Carbon Dioxide (21-32) mmol/L Anion Gap (3-11) BUN (6-23) mg/dl Creatinine (0.6-1.2) mg/dl Est Cr Clr Drug Dosing ml/min Est GFR ( Amer) ml/min Est GFR (Non-Af Amer) ml/min BUN/Creatinine Ratio (10-20) Glucose (70-99(Fasting)) mg/dl Calcium (8.5-10.1) mg/dl Magnesium (1.7-2.4) mg/dl Total Bilirubin (0.2-1.0) mg/dl AST (13-39) U/L ALT (7-52) U/L Alkaline Phosphatase (34-104) U/L Total Protein (6.0-8.3) gm/dl Albumin (3.4-5.0) gm/dl Globulin (2.5-4.0) gm/dl Albumin/Globulin Ratio (0.9-2) HCG, Qual (Negative) Salicylates < 3.0 L (3.0-30) mg/dl Acetaminophen < 3 L (10-30) ug/ml Ethyl Alcohol mg/dL < 10.0 (<10.0) mg/dl SARS-CoV-2 (PCR) (Negative) Influenza Type A (PCR) (Neg) Influenza Type B (PCR) (Neg) RSV (RT-PCR) (Neg) 10/18/22 Range/Units 16:05 WBC (4.8-10.8) K/ul RBC (4.20-5.40) M/uL Hgb (12.0-16.0) g/dl Hct (37.0-47.0) % MCV (80.0-100.0) fL MCH (25.0-34.0) pg MCHC (32.0-36.0) g/dL RDW Std Deviation (36.4-46.3) fL RDW Coeff of Marlon (11.5-14.5) % Plt Count (130-400) K/uL MPV (9.4-12.4) fL Immature Gran % (Auto) % Neut % (Auto) % Lymph % (Auto) % [place] % (Auto) % Eos % (Auto) % Baso % (Auto) % Neut # (Auto) (1.40-6.50) K/uL Lymph # (Auto) (1.2-3.4) K/uL [place] # (Auto) (0.11-0.59) K/uL Eos # (Auto) (0-0.50) K/uL Baso # (Auto) (0-0.2) K/uL Immature Gran # (Auto) (0.01-0.20) K/uL PT (9.0-12.0) Seconds INR (0.9-1.1) APTT (21.0-31.0) Seconds PTT Ratio Sodium (136-145) mmol/L Potassium (3.5-5.1) mmol/L Chloride (98-107) mmol/L Carbon Dioxide (21-32) mmol/L Anion Gap (3-11) BUN (6-23) mg/dl Creatinine (0.6-1.2) mg/dl Est Cr Clr Drug Dosing ml/min Est GFR ( Amer) ml/min Est GFR (Non-Af Amer) ml/min BUN/Creatinine Ratio (10-20) Glucose (70-99(Fasting)) mg/dl Calcium (8.5-10.1) mg/dl Magnesium (1.7-2.4) mg/dl Total Bilirubin (0.2-1.0) mg/dl AST (13-39) U/L ALT (7-52) U/L Alkaline Phosphatase (34-104) U/L Total Protein (6.0-8.3) gm/dl Albumin (3.4-5.0) gm/dl Globulin (2.5-4.0) gm/dl Albumin/Globulin Ratio (0.9-2) HCG, Qual Negative (Negative) Salicylates (3.0-30) mg/dl Acetaminophen (10-30) ug/ml Ethyl Alcohol mg/dL (<10.0) mg/dl SARS-CoV-2 (PCR) (Negative) Influenza Type A (PCR) (Neg) Influenza Type B (PCR) (Neg) RSV (RT-PCR) (Neg) ECG Data Attestation: I personally reviewed and interpreted this ECG as follows: Indication: + toxicologic and + weakness Rate (beats per minute): 67 Rhythm: + normal sinus ECG Intervals/blocks: + Normal QRS, + Short [place] and + Prolonged QT ECG [place]: + Normal ECG ST segments: + Nonspecific ST abnormalities ECG Findings: no PACs or no PVCs Comparison ECG Date: from (05/21/22) Change: the following changes noted (She does have some abnormal appearing ST/T wave abnormalities with a prolonged QT likely related to electrolyte abnormalities) MDM Narrative This patient was sent over from her doctor's office after having a low potassium and dehydration she has suffers from anorexia. I did order IV access as well as a normal saline bolus and multiple blood testing. She was placed on a manager of learning. She was a difficult IV access a lot of which had to do with deh ydration I think and IV team was consulted and came and placed an IV. COVID testing was ordered as well. EKG shows normal sinus rhythm she does have some abnormalities which are likely related to her potassium and potentially magnesium. I did review the [facility] labs and her potassium was indeed 2.5 and so I did order K riders while we are waiting for her labs to come back as well. She did receive a 1 L normal saline bolus as well. Her potassium did come back low here at 2.3. Her magnesium is normal. She has no fever or white count to suggest infection. I have consulted the [facility] hospitalist and talk to Lucille. They saw her in the ER will admit her for electrolyte management, re hydration and mental health treatment. I have reviewed the note that was sent over by her primary doctor as well as her [facility] records. Continuous cardiac monitoring: An order was placed in EMR for continuous cardiac monitoring. Upon my interpretation, patient noted to be in normal sinus rhythm with a rate of 60 Impression & Plan Hypokalemia, Anorexia nervosa with dangerously low body weight, Anxiety, Weight loss, Acute dehydration, Lab test negative for COVID-19 virus, Weakness, Not currently Discharge Plan Visit Data Chief Complaint: Abnormal Labs/Diagnostic Testing Stated Complaint: REF BY DR ALFORD, POTASSIUM LEVELS LOW ED Provider: Xavier Alberto Discharge Problem: Hypokalemia, Anorexia nervosa with dangerously low body weight, Anxiety, Weight loss, Acute dehydration, Lab test negative for COVID-19 virus, Weakness, Not currently Forms Stand Alone Forms: My [facility] Prescriptions Prescriptions: No Action multivitamin [Daily Multi-Vitamin] Tablet 1 tab PO DAILY hydroxyzine HCl 10 mg tablet 10 mg PO Q6 PRN (Reason: Anxiety) hydroxyzine HCl 10 mg tablet 20 mg PO HS PRN (Reason: Sleep) fluoxetine 20 mg capsule 20 mg PO QAM Referrals Referrals: Symone Kirkland MD [Physician] -
[2022-10-18] MEDS ORDERED: SODIUM CHLORIDE 0.9% 1000ML 1,000 ML IV ONE (15:23)
[2022-10-18] MEDS: POTASSIUM CHLORIDE / WTR 10 MEQ/100 ML PLCT IV SCH ×2 (16:09→18:34)
[2022-10-18 16:26] LABS: Basophils # (auto) 0.03 K/uL (0-0.2); Basophils % (auto) 0.6 %; Eosinophils # (auto) 0.02 K/uL (0-0.50); Eosinophils % (auto) 0.4 %; Hematocrit (blood only) 41.1 % (37.0-47.0); Hemoglobin 14.6 g/dl (12.0-16.0); Immature Granulocytes # (auto) 0.01 K/uL (0.01-0.20); Immature Granulocytes % (auto) 0.2 %; Lymphocytes # (auto) 1.16 K/uL (1.2-3.4); Lymphocytes % (auto) 22.4 %; Mean Corpuscular Hemoglobin 29.2 pg (25.0-34.0); Mean Corpuscular Hgb Conc 35.5 g/dL (32.0-36.0); Mean Corpuscular Volume 82.2 fL (80.0-100.0); Mean Platelet Volume 8.7 fL (9.4-12.4); Monocytes # (auto) 0.33 K/uL (0.11-0.59); Monocytes % (auto) 6.4 %; Neutrophils # (auto) 3.63 K/uL (1.40-6.50); Platelet Count 292 K/uL (130-400); RDW Coefficient of Variation 12.7 % (11.5-14.5); RDW Standard Deviation 37.2 fL (36.4-46.3); White Blood Count 5.18 K/ul (4.8-10.8)
[2022-10-18 16:39] LABS: INR 1.1 (0.9-1.1); Partial Thromboplastin Ratio 1.1; Partial Thromboplastin Time 31.6 Seconds (21.0-31.0); Prothrombin Time 11.5 Seconds (9.0-12.0)
--- NOTE | 2022-10-18 16:47 | History & Physical Report ---
Date of Service October 18, 2022 History of Present Illness Primary Care Provider: Symone Kirkland MD Fanny Houston is a 27 year old female who presents to the ER on advice of her outpatient eating disorder physician Allergies Allergy/AdvReac Type Severity Reaction Status Date / Time No Known Allergies Allergy Verified 10/18/22 16:10 Home Medications Medication Instructions Recorded Confirmed Type multivitamin (Daily Multi-Vitamin 1 tab PO DAILY 04/19/22 10/18/22 History tablet) fluoxetine 20 mg capsule 20 mg PO QAM 10/18/22 10/18/22 History hydroxyzine HCl 10 mg tablet 10 mg PO Q6 PRN Anxiety 10/18/22 10/18/22 History hydroxyzine HCl 10 mg tablet 20 mg PO HS PRN Sleep 10/18/22 10/18/22 History Past Med/Surg History Medical History Anorexia nervosa with dangerously low body weight Anxiety Hypoglycemia Secondary amenorrhea Probable hypothalamic dysfunction Surgical History No history of previous surgery Family History Sister Anorexia Mother Lymphoma Grandfather (Maternal) Prostate cancer Grandmother (Maternal) Breast cancer Denies family history of Ovarian cancer Myocardial infarction Lung cancer Colorectal cancer Stroke Social History Smoking Status: Never smoker Hx Alcohol Use: No Hx Substance Use: No Preferred Language: [place] Leonean Communication Ability: Effective Visual Impairment: No Limitations Hearing Ability: Normal Ribbon Inker Required: No Beliefs That Will Affect Care: None marital status: Single Current Living Situation: Family Current Living Situation Comment: sister current occupational status: student 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 Safe at Home: Yes Childhood Exposure to Second-Hand Smoke: No Physical Activity Frequency: 5-6 Times per Week Physical Activity Frequency Comment: squash, running, tennis pre pandemic Seatbelt Use: always Assistive Devices: None Results & Data Results & Data ([facility]) Vital Signs (Past 12 Hours) Vital Signs Temp Pulse Pulse Resp BP BP Pulse Ox 10/18/22 15:28 70 16 92/66 L 95 10/18/22 14:50 36.1 C L 92 H 18 106/70 99 O2 Del Method 10/18/22 15:28 Room Air 10/18/22 14:50 Room Air PG Care Time/CCT Total # of Minutes Spent Total Time Spent with Patient: Total time spent is greater than 50% in coordination of care (as documented) at patient's floor/unit and/or counseling patient: Coding
[2022-10-18 16:56] LABS: Pregnancy Test, Serum Negative (Negative)
[2022-10-18 17:11] LABS: Acetaminophen < 3 ug/ml (10-30); Salicylate < 3.0 mg/dl (3.0-30)
[2022-10-18 17:12] LABS: Influenza A virus by PCR Negative (Neg); Influenza B virus by PCR Negative (Neg); RSV by PCR Negative (Neg); SARS CoV2 RNA(COVID-19) Ceph NEGATIVE (Negative)
[2022-10-18 17:15] LABS: Albumin Globulin Ratio 1.9 (0.9-2); Albumin Level 4.8 gm/dl (3.4-5.0); BUN Creatinine Ratio 14.1 (10-20); Bilirubin,Total 1.6 mg/dl (0.2-1.0); Calcium 10.2 mg/dl (8.5-10.1); Est GFR (African American) 89.3 ml/min; Globulin 2.5 gm/dl (2.5-4.0); Magnesium 2.1 mg/dl (1.7-2.4); Potassium 2.3 mmol/L (3.5-5.1); Total Protein 7.3 gm/dl (6.0-8.3)
--- NOTE | 2022-10-18 17:33 | History & Physical Report ---
Date of Service October 18, 2022 Assessment & Plan (1) Hypokalemia: Plan: Patient is a 27-year-old female with PMH anxiety, eating disorder presented to ER from PCPs office for abnormal labs-hypokalemia. Not eating or drinking and recently purging K: 2.3. Magnesium: 2.1. In ER given two K riders Attempt to give oral potassium if patient willing/tolerates Continue IV potassium replacement Repeat BMP tonight BMP in a.m. (2) Anorexia nervosa with dangerously low body weight: Plan: History anorexia- restricting and purging behavior Recently reported purging, patient not eating or drinking Lost 20 pounds in the last 8 weeks Following with outpatient therapist One-to-one observation Dietitian consult Psychiatry consult Patient will likely need inpatient eating disorder treatment facility BMP, magnesium, phosphorus labs in am (3) Anxiety: Plan: Not currently on medications. Previously was on Prozac, hydroxyzine as needed Patient denies suicidal ideations (4) Hypoglycemia: Plan: Glucose: 66 D5W Monitor DVT Prophylaxis SCDs Full Code as per discussion with pt Follows with Dr Calles for routine care Pt was seen and care coordinated with Dr Padgett. See addendum I spent a total of 75 minutes reviewing notes, outpatient records, labs, medication, coordinating, documenting and providing care for this patient excluding time spent in the performance of separately billed services. History of Present Illness Chief Complaint: Abnormal labs Primary Care Provider: Joyce Calles MD Patient is a 27-year-old female with PMH anxiety, eating disorder presented to ER from PCPs office for abnormal labs-hypokalemia. Minimal history obtained from patient. History obtained from patient's parent, chart review and speaking to patient's PCP Dr. Calles is on the phone. Patient's PCP reports that she often does not talk at doctor's visits however reports talks normally at home. Patient with history anorexia, restrictive eating, binge/purging. Also with history of hypoglycemic episodes in the past secondary to her eating disorder. In past has declined residential treatment. Has been seeing outpatient therapist. Recently patient and family went to see family in [place]. Patient's mother reports while there patient seemed to worsen and was not eating. States she was just lying around. Has not been eating. Recently resumed purging. Has not been drinking and recently has not even been swallowing fluids, and holds fluids in her mouth and then spits out. In May she reportedly weighed 129 pounds. Today was noted to be 92 pounds in clinic. She lost 20 pounds in the last 8 weeks. Has been very weak. Has been ambulating through the house but with slow gait. Has not been taking Prozac or hydroxyzine. Has chronic constipation. Had outpatient labs today with potassium: 2.5 and was referred to ER for further evaluation and treatment. Denies fever/chills, diaphoresis, N/V/D, SAUNDERS, dizziness, syncope, vision changes, neck pain, CP, SOB, palpitations, cough, sore throat, rhinorrhea, abdominal pain, paresthesias, extremity edema, rashes, urinary symptoms. Allergies Allergy/AdvReac Type Severity Reaction Status Date / Time No Known Allergies Allergy Verified 10/18/22 16:10 Home Medications Medication Instructions Recorded Confirmed Type multivitamin (Daily Multi-Vitamin 1 tab PO DAILY 04/19/22 10/18/22 History tablet) fluoxetine 20 mg capsule 20 mg PO QAM 10/18/22 10/18/22 History hydroxyzine HCl 10 mg tablet 10 mg PO Q6 PRN Anxiety 10/18/22 10/18/22 History hydroxyzine HCl 10 mg tablet 20 mg PO HS PRN Sleep 10/18/22 10/18/22 History Past Med/Surg History Medical History (Updated 10/18/22 @ 19:03 by Xavier Alberto MD) Anorexia nervosa with dangerously low body weight Anxiety Hypoglycemia Secondary amenorrhea Probable hypothalamic dysfunction Surgical History No history of previous surgery Family History Sister Anorexia Mother Lymphoma Grandfather (Maternal) Prostate cancer Grandmother (Maternal) Breast cancer Denies family history of Ovarian cancer Myocardial infarction Lung cancer Colorectal cancer Stroke Social History Smoking Status: Never smoker Hx Alcohol Use: No Hx Substance Use: No Preferred Language: Hungarian Communication Ability: Effective Visual Impairment: No Limitations Hearing Ability: Normal 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 Beliefs That Will Affect Care: None marital status: Single Current Living Situation: Family Current Living Situation Comment: sister current occupational status: student 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 Safe at Home: Yes Childhood Exposure to Second-Hand Smoke: No Physical Activity Frequency: 5-6 Times per Week Physical Activity Frequency Comment: squash, running, tennis pre pandemic Seatbelt Use: always Assistive Devices: None Review of Systems Review of Systems: All systems reviewed & are unremarkable except as noted in HPI & below Physical Exam Physical Exam: General: no acute distress, Thin, chronic ill appearing Head: normocephalic, atraumatic Eyes: PERRL, EOM's intact, conjunctiva non-injected, anicteric ENT: normal inspection external ears, nose, mucous membranes dry Neck: supple, trachea midline Lungs: clear, no respiratory distress, no wheezing/rhonchi/rales CV: RRR, no murmur, no pretibial edema Abd: normal BS, soft, non-tender Ext: no cyanosis, no calf tenderness Neuro: A&O x 3, no focal deficits noted, +anxious, patient with very minimal talking Skin: warm, dry Results & Data Results & Data ([facility]) Vital Signs (Past 12 Hours) Vital Signs Temp Pulse Pulse Resp BP BP Pulse Ox 10/18/22 17:20 64 18 100 10/18/22 17:15 101/68 10/18/22 17:15 65 15 98 10/18/22 17:10 62 13 99 10/18/22 17:00 63 13 98 10/18/22 17:00 103/67 10/18/22 16:50 65 22 100 10/18/22 16:45 62 17 96 10/18/22 16:45 105/62 10/18/22 16:40 64 14 99 10/18/22 16:30 64 14 100 10/18/22 16:30 96/63 L 10/18/22 16:20 64 12 96 10/18/22 16:15 68 12 100 10/18/22 16:15 101/66 10/18/22 16:10 66 15 98 10/18/22 16:10 98/62 L 10/18/22 16:00 67 10/18/22 15:50 66 13 10/18/22 15:40 68 19 10/18/22 15:30 70 14 10/18/22 15:29 69 21 98 10/18/22 15:28 70 16 92/66 L 95 10/18/22 14:50 36.1 C L 92 H 18 106/70 99 O2 Del Method 10/18/22 17:20 10/18/22 17:15 10/18/22 17:15 10/18/22 17:10 10/18/22 17:00 10/18/22 17:00 10/18/22 16:50 10/18/22 16:45 10/18/22 16:45 10/18/22 16:40 10/18/22 16:30 10/18/22 16:30 10/18/22 16:20 10/18/22 16:15 10/18/22 16:15 10/18/22 16:10 10/18/22 16:10 10/18/22 16:00 10/18/22 15:50 10/18/22 15:40 10/18/22 15:30 10/18/22 15:29 10/18/22 15:28 Room Air 10/18/22 14:50 Room Air Laboratory Results Short CBC 10/18/22 Range/Units 16:05 WBC 5.18 (4.8-10.8) K/ul Hgb 14.6 (12.0-16.0) g/dl Hct 41.1 (37.0-47.0) % Plt Count 292 (130-400) K/uL BMP 10/18/22 16:05 Sodium 136 Potassium 2.3 L* Chloride 82 L Carbon Dioxide 38 H BUN 14 Creatinine 0.99 Glucose 66 L Calcium 10.2 H Liver Function 10/18/22 Range/Units 16:05 Total Bilirubin 1.6 H (0.2-1.0) mg/dl AST 25 (13-39) U/L ALT 17 (7-52) U/L Alkaline Phosphatase 36 (34-104) U/L Albumin 4.8 (3.4-5.0) gm/dl ECG Additional Comments: Rate 67, sinus rhythm with sinus arrhythmia. Nonspecific ST changes inferior anterior leads Supervising Physician Co-Signing Physician Notes Attending addendum: The patient was seen and examined in emergency room in presence of the mother She was brought in with hypokalemia Has been having nausea, vomiting and not been taking any real food for a while Has been losing weight significantly No fever and or chills, denies any problem with bowel and/or urine, not in acute distress On examination Hemodynamically stable with blood pressure on the lower side at 105/64 Looks ill but not in any distress Chest-clear to auscultate bilateral Heart-S1, S2 Abdomen-benign Extremities-negative for any edema 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 Does not want to talk much. Moves all extremities Her admission labs, EKG and imaging studies reviewed Has significant malnutrition with hypokalemia Potassium will be replaced IV fluid administered We will get psychiatric consult and nutrition consult Agree with assessment plan as outlined above by YSABEL Rosado Dr
--- NOTE | 2022-10-18 17:54 | Electrocardiogram Report ---
Test Reason : Blood Pressure : / mmHG Vent. Rate : 067 BPM Atrial Rate : 067 BPM P-R Int : 158 ms QRS Dur : 084 ms QT Int : 420 ms P-R-T Axes : 078 098 -12 degrees QTc Int : 443 ms Normal sinus rhythm with sinus arrhythmia Possible Left atrial enlargement Rightward axis Nonspecific ST abnormality Abnormal ECG When compared with ECG of 21-MAY-2022 13:51, Non-specific change in ST segment in Inferior leads Non-specific change in ST segment in Anterior leads T wave inversion now evident in Inferior leads Inverted T waves have replaced nonspecific T wave abnormality in Anterior leads Confirmed by Sin Sifuentes ([id number]) on 10/18/2022 5:53:57 PM Referred By: REFERRED SELF Confirmed By:Anthony Sifuentes
[2022-10-18] MEDS ORDERED: ACETAMINOPHEN 325 MG TAB PO PRN (19:55)
[2022-10-18] MEDS ORDERED: D5NSS + 20MEQ KCL 20 MEQ/1,000 ML BAG IV SCH (19:55)
[2022-10-18] MEDS ORDERED: POLYETHYLENE (MIRALAX) 17 GM PACK PO PRN (19:55)
[2022-10-18] MEDS: POTASSIUM CHLORIDE 20 MEQ/15 ML UDC PO STA ×2 (21:55→23:53)
[2022-10-19] MEDS ORDERED: SODIUM CHLORIDE 0.9% 1000ML 1,000 ML IV ONE (05:09)
[2022-10-19] MEDS ORDERED: hydrOXYzine HCl 10 MG TAB PO PRN (06:13)
[2022-10-19 06:53] LABS: Appearance Urine Clear (Clear); Bilirubin Urine Negative (Negative); Blood Urine Negative (Negative); Color Urine Yellow; Glucose Urine UA Negative (Negative); Ketones Urine 3+ (Negative); Leukocyte Esterase Urine Negative (Negative); Nitrite Urine Negative (Negative); Protein Urine Negative (Negative); Specific Gravity Urine 1.017 (1.000-1.030); Urobilinogen Urine Negative (Negative); pH Urine 5.5 (4.5-7.5)
[2022-10-19] MEDS: D5NSS + 20MEQ KCL 20 MEQ/1,000 ML BAG IV SCH ×2 (06:56→16:19)
[2022-10-19 07:23] LABS: Amphetamines+Metham, Urine Neg (Neg); Barbiturates, Urine Neg (Neg); Benzodiazepine, Urine Neg (Neg); Cocaine, Urine Neg (Neg); MDMA (Ecstacy), Urine Neg (Neg); Methadone, Urine Neg (Neg); Opiate, Urine Neg (Neg); Phencyclidine, Urine Neg (Neg)
[2022-10-19] MEDS ORDERED: POTASSIUM CHLORIDE CRTAB 20 MEQ TABCR PO ONE (08:10)
[2022-10-19] MEDS: MULTIVITAMIN TAB PO SCH (10:45)
[2022-10-19] MEDS ORDERED: POTASSIUM CHLORIDE 20 MEQ/15 ML UDC PO STA (11:08)
--- NOTE | 2022-10-19 11:24 | Psychiatric Consultation ---
Date of Consultation October 19, 2022 Impression / Recommendations Impression 27 y/o woman with anorexia who has participated poorly in treatment and demonstrates limited interest in treatment. Eating disorder treatment at specialized inpatient setting remains the recommended treatment of choice. There are no medications with proven significant benefit for treating anorexia. By longstanding consensus, fluoxetine has often been used but convincing data to support that is scant. She is, in any event, taking that already. Appetite stimulants practically never help and typically exacerbate symptoms (poor appetite is not a component of anorexia nervosa). Treating comorbid psychiatric problems is important in that those problems are deserving of treatment, but doing this does not often result in significant improvement in anorexia nervosa. It is hoped that, as during some other admissions, she will be able to engage more and accept referral for further treatments for her eating disorder. Currently she is not receptive to discussion about this (or much of anything). In terms of safety considerations, she denies suicidal thoughts and demonstrates no acute symptoms of angelica, psychosis, or aggression. I'm unaware of eating disorder programs which will accept patients on an involuntary basis. (1) Anorexia nervosa with dangerously low body weight: Plan She may continue to require 1:1 to monitor eating behavior and to encourage intake Very appropriate to continue fluoxetine and hydroxyzine as currently ordered. As during previous admissions, we will employ motivational interviewing as she becomes more willing/able to communicate with us and consider treatment options. Psych History Identifying Data 26 yo woman with history of anorexia and unspecified depression admitted with metabolic sequelae of her poor intake. Psychiatry consulted for recommendations. Chief Complaint inaudible History of Present Illness History of anorexia nervosa that has been vexingly challengint to addesvin. She has not been very accepting of treatment for this (the appropriate treatment being participation in an inpatient eating disorders program). As with previous presentations she is withdrawn and very poorly verbally communicative. This appears to vary by interviewer in that she speaks more audibly with women but does little more than move her lips in meeting with me and actively avoids eye contact. She shakes her head to indicate "no" when asked if she's having suicidal thoughts Allergies Allergy/AdvReac Type Severity Reaction Status Date / Time No Known Allergies Allergy Verified 10/18/22 16:10 Home Medications Medication Instructions Recorded Confirmed Type multivitamin (Daily Multi-Vitamin 1 tab PO DAILY 04/19/22 10/18/22 History tablet) fluoxetine 20 mg capsule 20 mg PO QAM 10/18/22 10/18/22 History hydroxyzine HCl 10 mg tablet 10 mg PO Q6 PRN Anxiety 10/18/22 10/18/22 History hydroxyzine HCl 10 mg tablet 20 mg PO HS PRN Sleep 10/18/22 10/18/22 History Patient History Medical History Anorexia nervosa with dangerously low body weight Anxiety Hypoglycemia Secondary amenorrhea Probable hypothalamic dysfunction Surgical History No history of previous surgery Family History Sister Anorexia Mother Lymphoma Grandfather (Maternal) Prostate cancer Grandmother (Maternal) Breast cancer Denies family history of Ovarian cancer Myocardial infarction Lung cancer Colorectal cancer Stroke Social History Smoking Status: Never smoker Do You Dip or Chew Tobacco: No; Hx Alcohol Use: No Hx Substance Use: No Preferred Language: Anguillan Communication Ability: Effective Visual Impairment: No Limitations Hearing Ability: Normal 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 Beliefs That Will Affect Care: None marital status: Single Current Living Situation: Alone and Parent Current Living Situation Comment: sister current occupational status: student 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 Safe at Home: Yes Safety Concerns: Feels Safe At This Time Childhood Exposure to Second-Hand Smoke: No Physical Activity Frequency: 5-6 Times per Week Physical Activity Frequency Comment: squash, running, tennis pre pandemic Seatbelt Use: always Assistive Devices: None Physical Exam Psychiatric: Orientation: alert and oriented to person may be oriented to other spheres but this cannot be determined given her mutism Apperance: appropriately dressed and appropriately groomed Motor Behavior: + psychomotor retardation Speech: + mute Affect: + blunted affect cannot be determined given her mutism cannot be determined given her mutism cannot be determined given her mutism Suicidal Thoughts: denies suicidal thoughts Homicidal Thoughts: denies homicidal thoughts Hallucinations: no auditory hallucinations and no visual hallucinations cannot be determined given her mutism Estimated Intelligence: average estimated intelligence Insight: + poor insight Judgement: + poor judgement Vital Signs (Past 24 Hours): Last Vital Signs Temp 36.4 C L 10/19/22 08:35 Pulse 54 L 10/19/22 08:35 Resp 17 10/19/22 08:35 BP 90/50 L 10/19/22 08:35 Pulse Ox 100 10/19/22 08:35 O2 Del Method 10/19/22 08:35 Review of Systems Unobtainable due to mental health condition Results & Data ([facility]) Medications Administered Potassium Chloride/Dextrose/Sod Cl (D5nss + 20meq Kcl) 20 meq in 1,000 mls @ 100 mls/hr IV .Q10H DANO; Protocol Stop: 10/20/22 01:59 Last Admin: 10/19/22 06:56 Dose: 100 mls/hr Documented By: VIKTOR Multivitamins (Multivitamin Tab) 1 tab PO DAILY DANO Stop: 11/18/22 08:59 Last Admin: 10/19/22 10:45 Dose: Not Given Documented By: KJL Coding Level of Care Code INP/OBS CONSULT LVL 4, 60 MIN Diagnoses Anorexia nervosa with dangerously low body weight F50.00 Time Spent (min) 63
--- NOTE | 2022-10-19 13:02 | Hospitalist Progress Note ---
Date of Service October 19, 2022 Assessment & Plan (1) Hypokalemia: Plan: Patient is a 27-year-old female with PMH anxiety, eating disorder presented to ER from PCPs office for abnormal labs-hypokalemia. Not eating or drinking and recently purging Hypokalemia Secondary to poor Nutrition Refuses to take oral potassium and monitor Labs Replace electrolytes if patient agrees (2) Anorexia nervosa with dangerously low body weight: Plan: Severe Protein Calorie Malnutrition Anorexia Nervosa H/O anorexia- restricting and purging behavior Lost 20 pounds in the last 8 weeks Following with outpatient therapist One-to-one observation Dietitian and Psychiatry consulted Encourage to increase oral intake (3) Anxiety: Plan: Not currently on medications. Previously was on Prozac, hydroxyzine as needed Patient denies suicidal ideations Psychiatry consulted (4) Hypoglycemia: Plan: Glucose: 66 D5W Monitor DVT Px SCDs Encourage to ambulate Code Status Full Code Admission and Anticipated Discharge Date Admission Date: October 18, 2022 Subjective Patient is seen and examined at bedside Refused meds, lab work Poor historian Very poor oral intake Denies any chest pain, dyspnea Reluctant to provide much history Feels scared and fears about chocking Review of Systems Review of Systems: All systems reviewed & are unremarkable except as noted in Subjective Physical Exam Physical Exam: Physical Exam: Vitals signs as noted above General Appearance:Thin, frail, no apparent distress, chromic ill appearing Head: normocephalic, Atraumatic Eyes: normal inspection, EOMI Neck: supple, Trachea midline Respiratory/Chest: Normal breath sounds, CTA, No accessory muscle use Cardiovascular: S1, S2, No murmur Abdomen/GI:Soft, Non tender, Bowel sounds present Extremities/Musculoskeletal:normal inspection, no edema Neurologic/Psych:AAOX3, grossly no focal neurological deficits Skin: normal color, warm Results & Data Results & Data ([facility]) Vital Signs (Past 12 Hours) Vital Signs Temp Pulse Resp BP Pulse Ox O2 Del Method 10/19/22 12:41 36.4 C L 54 L 17 90/53 L 99 Room Air 10/19/22 08:35 36.4 C L 54 L 17 90/50 L 100 Room Air 10/19/22 04:57 36.4 C L 62 18 66/42 L 98 Room Air Laboratory Results Short CBC 10/18/22 Range/Units 16:05 WBC 5.18 (4.8-10.8) K/ul Hgb 14.6 (12.0-16.0) g/dl Hct 41.1 (37.0-47.0) % Plt Count 292 (130-400) K/uL BMP 10/18/22 16:05 Sodium 136 Potassium 2.3 L* Chloride 82 L Carbon Dioxide 38 H BUN 14 Creatinine 0.99 Glucose 66 L Calcium 10.2 H Liver Function 10/18/22 Range/Units 16:05 Total Bilirubin 1.6 H (0.2-1.0) mg/dl AST 25 (13-39) U/L ALT 17 (7-52) U/L Alkaline Phosphatase 36 (34-104) U/L Albumin 4.8 (3.4-5.0) gm/dl Urine 10/19/22 Range/Units 05:35 Urine Color Yellow Urine Appearance Clear (Clear) Urine pH 5.5 (4.5-7.5) Ur Specific Cornelius 1.017 (1.000-1.030) Urine Protein Negative (Negative) Urine Glucose (UA) Negative (Negative)
[2022-10-20] MEDS: D5NSS + 20MEQ KCL 20 MEQ/1,000 ML BAG IV SCH (03:14)
[2022-10-20] MEDS: MULTIVITAMIN TAB PO SCH (10:01)
[2022-10-20 11:40] LABS: Creatinine Clr Calc Pharmacy 89.2 ml/min; Est GFR (Non-African American) 122.5 ml/min
[2022-10-20 11:41] LABS: BUN Creatinine Ratio 9.8 (10-20); Calcium 8.6 mg/dl (8.5-10.1); Magnesium 1.7 mg/dl (1.7-2.4); Phosphorus 2.4 mg/dl (2.5-4.9)
--- NOTE | 2022-10-20 12:20 | Psychiatric Progress Note ---
Date of Service October 20, 2022 Impression / Recommendations Impression 10/20/22: Just as at my last visit, pt did not say any words at all in my presence and barely looked at me. Her mother and sister were present and were able to answer a number of questions. We also spent an extended time in pt's presence discussing treatment options and expectations. The noted that she'd just been talking with them prior to my entry. Indeed, she could be heard speaking with them as soon as I left the room. I'm very confident having met them that her apparent reticence to speak with men is not culturally-based but rather an individual characteristic or symptom. 10/19/22: 27 y/o woman with anorexia who has participated poorly in treatment and demonstrates limited interest in treatment. Eating disorder treatment at specialized inpatient setting remains the recommended treatment of choice. There are no medications with proven significant benefit for treating anorexia. By longstanding consensus, fluoxetine has often been used but convincing data to support that is scant. She is, in any event, taking that already. Appetite stimulants practically never help and typically exacerbate symptoms (poor appetite is not a component of anorexia nervosa). Treating comorbid psychiatric problems is important in that those problems are deserving of treatment, but doing this does not often result in significant improvement in anorexia nervosa. It is hoped that, as during some other admissions, she will be able to engage more and accept referral for further treatments for her eating disorder. Currently she is not receptive to discussion about this (or much of anything). In terms of safety considerations, she denies suicidal thoughts and demonstrates no acute symptoms of angelica, psychosis, or aggression. I'm unaware of eating disorder programs which will accept patients on an involuntary basis. (1) Anorexia nervosa with dangerously low body weight: Plan She may continue to require 1:1 to monitor eating behavior and to encourage int lala - she's been spitting out chewed food and hiding it. Very appropriate to continue fluoxetine and hydroxyzine as currently ordered. As during previous admissions, we will employ motivational interviewing as she becomes more willing/able to communicate with us and consider treatment options. Suicide Risk Level Suicide Risk Level: Low (q15 min observation checks) Risk Factors Assessment Male: No : No Do You Have Access To A Gun?: No Health Problems: Yes Mental Health Diagnoses: Yes Substance Use Disorders: No Previous Attempt: No Family History of Suicide: No Previous Psychiatric Hospitalization: Yes Hopelessness: No Protective Factors Assessment Stable Relationships: Yes Supportive Family: Yes Interval History Identifying Information 27 y/o woman with severe anorexia who has been rejecting of treatment Chief Complaint No spontaneous speech in my presence. Subjective Subjective Patient was seen & assessed and interval progress reviewed with treatment team nurses Physical Exam Psychiatric As was the case during my first assessment, pt was selectively mute through the entirety of the exam. For this reason, I'm unable to determine her degree of orientation, the content of her thoughts, her mood, or details about suicidal or homicidal thoughts (though she did shake her head) Orientation: alert Apperance: appropriately dressed and appropriately groomed Motor Behavior: + psychomotor retardation Speech: + mute Affect: + blunted affect Suicidal Thoughts: denies suicidal thoughts Homicidal Thoughts: denies homicidal thoughts Hallucinations: no auditory hallucinations and no visual hallucinations Estimated Intelligence: average estimated intelligence Insight: + poor insight Judgement: + poor judgement Vital Signs (Past 24 Hours) Last Vital Signs Temp 36.3 C L 10/20/22 08:17 Pulse 62 10/20/22 08:17 Resp 17 10/20/22 08:17 BP 89/58 L 10/20/22 08:17 Pulse Ox 99 10/20/22 08:17 O2 Del Method 10/20/22 08:17 Results & Data ([facility]) Laboratory Results Laboratory Results - last 24 hr 10/20/22 07:34 Sodium 143 Potassium 3.0 L D Chloride 106 Carbon Dioxide 30 Anion Gap 7 BUN 6 Creatinine 0.61 D Est Cr Clr Drug Dosing 89.2 Est GFR ( Amer) 142.0 Est GFR (Non-Af Amer) 122.5 BUN/Creatinine Ratio 9.8 L Glucose 115 H Calcium 8.6 Phosphorus 2.4 L Magnesium 1.7 Current Inpatient Medications Current Inpatient Medications: Current Inpatient Medications Acetaminophen (Acetaminophen 325 Mg Tab) 650 mg PO Q4H PRN PRN Reason: Pain or Fever Stop: 11/17/22 19:54 Hydroxyzine HCl (Hydroxyzine Hcl 10 Mg Tab) 10 mg PO Q6 PRN PRN Reason: Anxiety Stop: 11/18/22 06:12 Multivitamins (Multivitamin Tab) 1 tab PO DAILY DANO Stop: 11/18/22 08:59 Last Admin: 10/20/22 10:01 Dose: Not Given Polyethylene Glycol (Polyethylene (Miralax) 17 Gm Pack) 17 gm PO DAILY PRN PRN Reason: Constipation Stop: 11/17/22 19:54
[2022-10-20] MEDS ORDERED: POTASSIUM PHOS 3 MMOL/1 ML INFUSION IV ONE (12:37)
[2022-10-20] MEDS ORDERED: NSS + 20MEQ KCL 20 MEQ/1,000 ML BAG IV SCH (13:00)
[2022-10-20] MEDS: POTASSIUM CHLORIDE / WTR 10 MEQ/100 ML PLCT IV SCH ×2 (13:29→14:45)
[2022-10-20] MEDS: NSS + 20MEQ KCL 20 MEQ/1,000 ML BAG IV SCH (14:01)
[2022-10-20] MEDS ORDERED: POTASSIUM PHOSPHATE 15 MMOL in SODIUM CHLORIDE 0.9% 250 ML IV ONE (15:00)
--- NOTE | 2022-10-20 15:50 | Hospitalist Progress Note ---
Date of Service October 20, 2022 Assessment & Plan (1) Hypokalemia: Plan: Patient is a 27-year-old female with PMH anxiety, eating disorder presented to ER from PCPs office for abnormal labs-hypokalemia. Not eating or drinking and recently purging Hypokalemia Hypophosphatemia Secondary to poor Nutrition Replace electrolytes as needed Monitor (2) Anorexia nervosa with dangerously low body weight: Plan: Severe Protein Calorie Malnutrition Anorexia Nervosa H/O anorexia- restricting and purging behavior Lost 20 pounds in the last 8 weeks Following with outpatient therapist One-to-one observation Dietitian and Psychiatry on board Encourage to increase oral intake Continue fluoxetine (3) Anxiety: Plan: Not currently on medications. Previously was on Prozac, hydroxyzine as needed Patient denies suicidal ideations Appreciate Psychiatry Input Continue home meds (4) Hypoglycemia: Plan: Glucose: 66 Due to poor oral intake D5W Monitor DVT Px SCDs Encourage to ambulate Code Status Full Code Admission and Anticipated Discharge Date Admission Date: October 18, 2022 Subjective Patient is seen and examined at bedside Poor historian Poor oral intake Denies any chest pain, dyspnea Review of Systems Review of Systems: All systems reviewed & are unremarkable except as noted in Subjective Physical Exam Physical Exam: Physical Exam: Vitals signs as noted above General Appearance:Thin, frail, no apparent distress, chromic ill appearing Head: normocephalic, Atraumatic Eyes: normal inspection, EOMI Neck: supple, Trachea midline Respiratory/Chest: Normal breath sounds, CTA, No accessory muscle use Cardiovascular: S1, S2, No murmur Abdomen/GI:Soft, Non tender, Bowel sounds present Extremities/Musculoskeletal:normal inspection, no edema Neurologic/Psych:AAOX3, grossly no focal neurological deficits Skin: normal color, warm Results & Data Results & Data ([facility]) Vital Signs (Past 12 Hours) Vital Signs Temp Pulse Resp BP Pulse Ox O2 Del Method 10/20/22 12:26 36.3 C L 62 17 81/42 L 99 Room Air 10/20/22 08:17 36.3 C L 62 17 89/58 L 99 Room Air 10/20/22 04:38 57 L 16 84/43 L 97 Room Air Laboratory Results [facility] 10/20/22 07:34 Sodium 143 Potassium 3.0 L D Chloride 106 Carbon Dioxide 30 BUN 6 Creatinine 0.61 D Glucose 115 H Calcium 8.6
[2022-10-20] MEDS: FLUoxetine HCL 20 MG CAP PO SCH ×2 (18:14→18:23)
[2022-10-21] MEDS: MULTIVITAMIN TAB PO SCH (09:26)
[2022-10-21] MEDS: NSS + 20MEQ KCL 20 MEQ/1,000 ML BAG IV SCH (09:26)
[2022-10-21] MEDS: FLUoxetine HCL 20 MG CAP PO SCH (09:26)
--- NOTE | 2022-10-21 17:08 | Hospitalist Progress Note ---
Date of Service October 21, 2022 Assessment & Plan (1) Hypokalemia: Plan: Patient is a 27-year-old female with PMH anxiety, eating disorder presented to ER from PCPs office for abnormal labs-hypokalemia. Not eating or drinking and recently purging Hypokalemia Hypophosphatemia Secondary to poor Nutrition Replace electrolytes as needed if patient allows Monitor Refuses blood work, medications, IV fluids despite emplaning the risks and complications Reluctant to provide history Psychiatry following (2) Anorexia nervosa with dangerously low body weight: Plan: Severe Protein Calorie Malnutrition Anorexia Nervosa H/O anorexia- restricting and purging behavior Lost 20 pounds in the last 8 weeks Following with outpatient therapist One-to-one observation Dietitian and Psychiatry on board Encourage to increase oral intake Continue fluoxetine (3) Anxiety: Plan: Not currently on medications. Previously was on Prozac, hydroxyzine as needed Patient denies suicidal ideations Appreciate Psychiatry Input Continue home meds --patient currently refuses treatment (4) Hypoglycemia: Plan: Glucose: 66 Due to poor oral intake D5W Monitor DVT Px SCDs Encourage to ambulate Code Status Full Code Admission and Anticipated Discharge Date Admission Date: October 18, 2022 Subjective Patient is seen and examined at bedside Very poor historian Refuses blood work, medications, IV fluids Reluctant to provide history Review of Systems Review of Systems: Other Physical Exam Physical Exam: Physical Exam: Vitals signs as noted above General Appearance:Thin, frail, no apparent distress, chromic ill appearing Head: normocephalic, Atraumatic Eyes: normal inspection, EOMI Neck: supple, Trachea midline Respiratory/Chest: Normal breath sounds, CTA, No accessory muscle use Cardiovascular: S1, S2, No murmur Abdomen/GI:Soft, Non tender, Bowel sounds present Extremities/Musculoskeletal:normal inspection, no edema Neurologic/Psych:AAOX3, grossly no focal neurological deficits Skin: normal color, warm Results & Data Results & Data ([facility]) Vital Signs (Past 12 Hours) Vital Signs Temp Pulse Pulse Resp BP Pulse Ox O2 Del Method 10/21/22 07:15 51 L 10/21/22 12:24 36.3 C L 53 L 16 81/45 L 98 Room Air 10/21/22 08:24 36.4 C L 59 L 17 94/57 L 99 Room Air
[2022-10-21 21:18] LABS: Magnesium 1.5 mg/dl (1.7-2.4); Potassium 4.3 mmol/L (3.5-5.1)
[2022-10-21 21:24] LABS: BUN Creatinine Ratio 6.3 (10-20); Est GFR (African American) 139.8 ml/min; Est GFR (Non-African American) 120.6 ml/min; Phosphorus 2.8 mg/dl (2.5-4.9)
[2022-10-22] MEDS: SODIUM CHLORIDE 0.9% 1000ML 1,000 ML IV SCH ×2 (14:34→17:02)
[2022-10-22] MEDS: FLUoxetine HCL 20 MG CAP PO SCH (14:34)
[2022-10-22] MEDS: MULTIVITAMIN TAB PO SCH (14:34)
[2022-10-22] MEDS: MAGNESIUM CHLORIDE W/CALCIUM 64MG DELAYED REL TAB PO SCH ×2 (14:34→20:54)
--- NOTE | 2022-10-22 15:03 | Psychiatric Consultation ---
Date of Consultation October 22, 2022 Impression / Recommendations Impression 10/22/22: Regrettably, irrespective of what pt may or may not understand about her medical issues or her ability to process that information and incorporate it to make decisions, the fact that she has not been able to communicate her wishes or to discuss her medical issues in any way means that she has not demonstrated medical decision=making capacity and that for the time being someone else will have to substitute judgment on her behalf. In this case that would be one or both of her parents. I told them that they should confer and identify one of them to act as a primary point of contact. 10/20/22: Just as at my last visit, pt did not say any words at all in my presence and barely looked at me. Her mother and sister were present and were able to answer a number of questions. We also spent an extended time in pt's presence discussing treatment options and expectations. The noted that she'd just been talking with them prior to my entry. Indeed, she could be heard speaking with them as soon as I left the room. I'm very confident having met them that her apparent reticence to speak with men is not culturally-based but rather an individual characteristic or symptom. 10/19/22: 27 y/o woman with anorexia who has participated poorly in treatment and demonstrates limited interest in treatment. Eating disorder treatment at specialized inpatient setting remains the recommended treatment of choice. There are no medications with proven significant benefit for treating anorexia. By longstanding consensus, fluoxetine has often been used but convincing data to support that is scant. She is, in any event, taking that already. Appetite stimulants practically never help and typically exacerbate symptoms (poor appetite is not a component of anorexia nervosa). Treating comorbid psychiatric problems is important in that those problems are deserving of treatment, but doing this does not often result in significant improvement in anorexia nervosa. It is hoped that, as during some other admissions, she will be able to engage more and accept referral for further treatments for her eating disorder. Currently she is not receptive to discussion about this (or much of anything). In terms of safety considerations, she denies suicidal thoughts and demonstrates no acute symptoms of angelica, psychosis, or aggression. I'm unaware of eating disorder programs which will accept patients on an involuntary basis. (1) Anorexia nervosa with dangerously low body weight: Plan Obtain informed consent for all medical decisions from the legally-appropriate person (in the absence of a DPOAH, "next of kin"). She may continue to require 1:1 to monitor eating behavior and to encourage intake - she's been spitting out chewed food and hiding it. Very appropriate to continue fluoxetine and hydroxyzine as currently ordered. As during previous admissions, we will employ motivational interviewing as she becomes more willing/able to communicate with us and consider treatment options. Psych History Identifying Data Fanny Houston is a 27-year-old F with a history of anorexia nervosa, admit on 10/18/22 for dangerously low weight and electrolyte abnormalities. Consult is by the hospitalist service for assessment of decidion-making capacity. Chief Complaint mute History of Present Illness History of anorexia nervosa that has been vexingly challenging to addres. She has not been very accepting of treatment for this (the appropriate treatment being participation in an inpatient eating disorders program). As with previous presentations she is withdrawn and very poorly verbally communicative. This appears to vary by interviewer in that she speaks more audibly with women but does little more than move her lips in meeting with me and actively avoids eye contact. She shakes her head to indicate "no" when asked if she's having suicidal thoughts. Although it is clear that pt talks readily with her family, she has not spoken during any of the previous times I've seen her. Today I told pt that I'd been asked to provide an opinion about her ability to make and express rational and informed decisions about her healthcare. I emphasized that if I were not able to say that she had such capacity then someone else, likely a family member, would make decisions on her behalf. I told her that my belief was that she likely understood everything said to her by her treatment team and that she should be able to make her own decision. However, I also emphasized that if someone can't unambiguously express their understanding and their consent we would still need to get someone else to make decisions on their behalf. I told her that if I couldn't do an asssessment that gave me good reason to establish that she understood the medical decisions facing her, could make make decisions based on a reasonable understanding of facts, and communicate that understanding and those decisions in a way her treaters could understand clearly, then I would not be able to say that she was able to make medical decisions for herself. Pt remained mute although she did look at me. I asked if she could indicate "yes" or "no" in any way and could not see any response. Despite numerous attempts to make clear to pt that unless she could at least indicate "yes" or "no" to some questions someone else would have to make decisions on her behalf I was not able to elicit any clear response. Her mother was present throughout and her father was on speakerphone for the final few minutes. Past Psychiatric History Do You Have Access To A Gun?: No Allergies Allergy/AdvReac Type Severity Reaction Status Date / Time No Known Allergies Allergy Verified 10/18/22 16:10 Home Medications Medication Instructions Recorded Confirmed Type multivitamin (Daily Multi-Vitamin 1 tab PO DAILY 04/19/22 10/18/22 History tablet) fluoxetine 20 mg capsule 20 mg PO QAM 10/18/22 10/18/22 History hydroxyzine HCl 10 mg tablet 10 mg PO Q6 PRN Anxiety 10/18/22 10/18/22 History hydroxyzine HCl 10 mg tablet 20 mg PO HS PRN Sleep 10/18/22 10/18/22 History Patient History Medical History Anorexia nervosa with dangerously low body weight Anxiety Hypoglycemia Secondary amenorrhea Probable hypothalamic dysfunction Surgical History No history of previous surgery Family History Sister Anorexia Mother Lymphoma Grandfather (Maternal) Prostate cancer Grandmother (Maternal) Breast cancer Denies family history of Ovarian cancer Myocardial infarction Lung cancer Colorectal cancer Stroke Social History Smoking Status: Never smoker Do You Dip or Chew Tobacco: No; Hx Alcohol Use: No Hx Substance Use: No Preferred Language: Faroese Communication Ability: Effective Visual Impairment: No Limitations Hearing Ability: Normal [employer] Plasma Etcher Required: No Beliefs That Will Affect Care: None marital status: Single Current Living Situation: Alone and Parent Current Living Situation Comment: sister current occupational status: student 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 Safe at Home: Yes Safety Concerns: Feels Safe At This Time Childhood Exposure to Second-Hand Smoke: No Physical Activity Frequency: 5-6 Times per Week Physical Activity Frequency Comment: squash, running, tennis pre pandemic Seatbelt Use: always Assistive Devices: None Physical Exam Psychiatric: Orientation: alert and oriented to person Apperance: appropriately dressed and appropriately groomed Motor Behavior: + psychomotor retardation Speech: + mute Affect: + blunted affect Suicidal Thoughts: denies suicidal thoughts Homicidal Thoughts: denies homicidal thoughts Hallucinations: no auditory hallucinations and no visual hallucinations Estimated Intelligence: average estimated intelligence Insight: + poor insight Judgment: + poor judgement Vital Signs (Past 24 Hours): Last Vital Signs Temp 36.6 C 10/22/22 11:37 Pulse 52 L 10/22/22 11:37 Resp 14 10/22/22 11:37 BP 87/50 L 10/22/22 11:37 Pulse Ox 99 10/22/22 11:37 O2 Del Method 10/22/22 11:37 Exam Statement: I have reviewed the physical examinations made by physicians in the inpatient treatment team and accept them for purposes of this consultation. Results & Data ([facility]) Medications Administered Fluoxetine HCl (Fluoxetine Hcl 20 Mg Cap) 20 mg PO QAM [facility] Stop: 11/19/22 15:59 Last Admin: 10/22/22 14:34 Dose: Not Given Documented By: Admin: 10/21/22 09:26 Dose: Not Given Documented By: [facility] Admin: 10/20/22 18:23 Dose: Not Given Documented By: VANDANA Sodium Chloride (Nss 1000ml) 1,000 mls @ 125 mls/hr IV .Q8H [facility] Stop: 10/23/22 00:59 Last Admin: 10/22/22 14:34 Dose: Not Given Documented By: AM Magnesium Chloride (Magnesium Chloride W/Calcium 64mg Delayed Rel Tab) 64 mg PO BID DANO Stop: 11/21/22 08:59 Last Admin: 10/22/22 14:34 Dose: Not Given Documented By: AM Multivitamins (Multivitamin Tab) 1 tab PO DAILY DANO Stop: 11/18/22 08:59 Last Admin: 10/22/22 14:34 Dose: Not Given Documented By: Admin: 10/21/22 09:26 Dose: Not Given Documented By: Admin: 10/20/22 10:01 Dose: Not Given Documented By: Admin: 10/19/22 10:45 Dose: Not Given Documented By: ALONDRA Coding Level of Care Code INP/OBS CONSULT LVL 5, 80 MIN Diagnoses Anorexia nervosa with dangerously low body weight F50.00 Time Spent (min) 102
--- NOTE | 2022-10-22 16:32 | Hospitalist Progress Note ---
Date of Service October 22, 2022 Assessment & Plan (1) Hypokalemia: Plan: Patient is a 27-year-old female with PMH anxiety, eating disorder presented to ER from PCPs office for abnormal labs-hypokalemia. Not eating or drinking and recently purging Hypokalemia Hypophosphatemia Secondary to poor Nutrition Replace electrolytes as needed if patient allows Monitor Refuses blood work, medications, IV fluids despite emplaning the risks and complications Reluctant to provide history Psychiatry following Encourage to increase oral intake (2) Anorexia nervosa with dangerously low body weight: Plan: Severe Protein Calorie Malnutrition Anorexia Nervosa H/O anorexia- restricting and purging behavior Lost 20 pounds in the last 8 weeks Following with outpatient therapist One-to-one observation Dietitian and Psychiatry on board Encourage to increase oral intake Continue fluoxetine--Has been refusing meds (3) Anxiety: Plan: Not currently on medications. Previously was on Prozac, hydroxyzine as needed Patient denies suicidal ideations Appreciate Psychiatry Input Continue home meds if agrees to take them--patient currently refuses treatment (4) Hypoglycemia: Plan: Glucose: 66 Due to poor oral intake D5W Monitor DVT Px SCDs Encourage to ambulate Code Status Full Code Admission and Anticipated Discharge Date Admission Date: October 18, 2022 Subjective Patient is seen and examined at bedside Very poor historian Refuses to communicate Continues to refuse blood work, medications, IV fluids Discussed with Patient's mother over the phone Review of Systems Review of Systems: All systems reviewed & are unremarkable except as noted in Subjective Physical Exam Physical Exam: Physical Exam: Vitals signs as noted above General Appearance:Thin, frail, no apparent distress, chromic ill appearing Head: normocephalic, Atraumatic Eyes: normal inspection, EOMI Neck: supple, Trachea midline Respiratory/Chest: Normal breath sounds, CTA, No accessory muscle use Cardiovascular: S1, S2, No murmur Abdomen/GI:Soft, Non tender, Bowel sounds present Extremities/Musculoskeletal:normal inspection, no edema Neurologic/Psych:AAOX3, grossly no focal neurological deficits Skin: normal color, warm Results & Data Results & Data ([facility]) Vital Signs (Past 12 Hours) Vital Signs Temp Pulse Pulse Resp BP Pulse Ox O2 Del Method 10/22/22 16:22 48 L 10/22/22 11:37 36.6 C 52 L 14 87/50 L 99 Room Air 10/22/22 10:00 48 L 10/22/22 07:14 36.6 C 46 L 16 86/56 L 99 Room Air Laboratory Results [facility] 10/21/22 20:32 Sodium 142 Potassium 4.3 D Chloride 109 H Carbon Dioxide 26 BUN 4 L Creatinine 0.64 Glucose 73 Calcium 9.0
[2022-10-22 21:06] LABS: Magnesium 1.6 mg/dl (1.7-2.4)
[2022-10-23] MEDS: FLUoxetine HCL 20 MG CAP PO SCH (09:03)
[2022-10-23] MEDS: MAGNESIUM CHLORIDE W/CALCIUM 64MG DELAYED REL TAB PO SCH ×3 (09:03→22:49)
[2022-10-23] MEDS: MULTIVITAMIN TAB PO SCH (09:03)
--- NOTE | 2022-10-23 16:55 | Hospitalist Progress Note ---
Date of Service October 23, 2022 Assessment & Plan (1) Hypokalemia: Plan: Patient is a 27-year-old female with PMH anxiety, eating disorder presented to ER from PCPs office for abnormal labs-hypokalemia. Not eating or drinking and recently purging Hypokalemia Hypophosphatemia Hypomagnesemia Secondary to poor Nutrition Replace electrolytes as needed if patient allows Monitor Refused blood work, medications, IV fluids despite emplaning the risks and complications multiple locations Reluctant to provide history Psychiatry following Oral intake better today (2) Anorexia nervosa with dangerously low body weight: Plan: Severe Protein Calorie Malnutrition Anorexia Nervosa H/O anorexia- restricting and purging behavior Lost 20 pounds in the last 8 weeks Following with outpatient therapist One-to-one observation Dietitian and Psychiatry on board Encourage to increase oral intake Prefers to be discontinued on fluoxetine--Has been refusing while hospitalized (3) Anxiety: Plan: Not currently on medications. Previously was on Prozac, hydroxyzine as needed Patient denies suicidal ideations Appreciate Psychiatry Input Hydroxyzine as needed (4) Hypoglycemia: Plan: Glucose: 66 on presentation Due to poor oral intake D5W as needed Monitor DVT Px SCDs Encourage to ambulate Code Status Full Code Admission and Anticipated Discharge Date Admission Date: October 18, 2022 Subjective Patient is seen and examined at bedside Very poor historian Ate 50% of the breakfast this morning Discussed with patient's mother at bedside Sitting in chair during my encounter this morning Denies any chest pain, dyspnea, dizziness, nausea Review of Systems Review of Systems: All systems reviewed & are unremarkable except as noted in Subjective Physical Exam Physical Exam: Physical Exam: Vitals signs as noted above General Appearance:Thin, frail, no apparent distress, chromic ill appearing Head: normocephalic, Atraumatic Eyes: normal inspection, EOMI Neck: supple, Trachea midline Respiratory/Chest: Normal breath sounds, CTA, No accessory muscle use Cardiovascular: S1, S2, No murmur Abdomen/GI:Soft, Non tender, Bowel sounds present Extremities/Musculoskeletal:normal inspection, no edema Neurologic/Psych:AAOX3, grossly no focal neurological deficits Skin: normal color, warm Results & Data Results & Data ([facility]) Vital Signs (Past 12 Hours) Vital Signs Temp Pulse Pulse Resp BP Pulse Ox O2 Del Method 10/23/22 16:16 36.5 C 68 18 92/59 L 99 Room Air 10/23/22 15:13 70 10/23/22 12:01 36.3 C L 70 16 87/56 L 97 Room Air 10/23/22 09:35 48 L 10/23/22 07:59 36.6 C 61 18 97/63 L 100 Room Air Laboratory Results [facility] 10/22/22 20:00 Potassium 4.0
[2022-10-24] MEDS: MAGNESIUM CHLORIDE W/CALCIUM 64MG DELAYED REL TAB PO SCH ×2 (08:44→10:09)
[2022-10-24] MEDS: MULTIVITAMIN TAB PO SCH ×2 (08:45→10:10)
[2022-10-24] MEDS: FLUoxetine HCL 20 MG CAP PO SCH ×2 (08:45→10:10)
[2022-10-24] MEDS: SODIUM CHLORIDE 0.9% 1000ML 1,000 ML IV SCH ×2 (11:43→16:27)
--- NOTE | 2022-10-24 17:17 | Hospitalist Progress Note ---
Date of Service October 24, 2022 Assessment & Plan (1) Hypokalemia: Plan: Patient is a 27-year-old female with PMH anxiety, eating disorder presented to ER from PCPs office for abnormal labs-hypokalemia. Not eating or drinking and recently purging Hypokalemia Hypophosphatemia Hypomagnesemia Secondary to poor Nutrition Replace electrolytes as needed if patient allows Monitor Refused blood work, medications, IV fluids despite emplaning the risks and complications multiple locations Reluctant to provide history Psychiatry following Poor oral intake today Discussed with (Patient's PCP): Recommends [facility] if patient agrees, Check Orthostatic Vitals Check with Psychiatry if 302 is an option (2) Anorexia nervosa with dangerously low body weight: Plan: Severe Protein Calorie Malnutrition Anorexia Nervosa H/O anorexia- restricting and purging behavior Lost 20 pounds in the last 8 weeks Following with outpatient therapist One-to-one observation Dietitian and Psychiatry on board Encourage to increase oral intake Prefers to be discontinued on fluoxetine--Has been refusing while hospitalized (3) Anxiety: Plan: Not currently on medications. Previously was on Prozac, hydroxyzine as needed Patient denies suicidal ideations Appreciate Psychiatry Input Hydroxyzine as needed (4) Hypoglycemia: Plan: Glucose: 66 on presentation Due to poor oral intake D5W as needed Monitor DVT Px SCDs Encourage to ambulate Code Status Full Code Admission and Anticipated Discharge Date Admission Date: October 18, 2022 Subjective Patient is seen and examined at bedside Very poor historian Oral intake remains very poor Discussed with patient's mother at bedside and patient's PCP over the phone Denies any chest pain, dyspnea " I do not want to have more chemicals" refers to Medications given to her Review of Systems Review of Systems: All systems reviewed & are unremarkable except as noted in Subjective Physical Exam Physical Exam: Physical Exam: Vitals signs as noted above General Appearance:Thin, frail, no apparent distress, chromic ill appearing Head: normocephalic, Atraumatic Eyes: normal inspection, EOMI Neck: supple, Trachea midline Respiratory/Chest: Normal breath sounds, CTA, No accessory muscle use Cardiovascular: S1, S2, No murmur Abdomen/GI:Soft, Non tender, Bowel sounds present Extremities/Musculoskeletal:normal inspection, no edema Neurologic/Psych:AAOX3, grossly no focal neurological deficits Skin: normal color, warm Results & Data Results & Data ([facility]) Vital Signs (Past 12 Hours) Vital Signs Temp Pulse Pulse Resp BP Pulse Ox O2 Del Method 10/24/22 16:12 36.4 C L 53 L 16 86/55 L 100 Room Air 10/24/22 13:13 36.4 C L 55 L 16 94/59 L 99 Room Air 10/24/22 07:54 53 L 10/24/22 07:48 36.7 C 48 L 15 79/50 L 98 Room Air
[2022-10-25] MEDS: MAGNESIUM CHLORIDE W/CALCIUM 64MG DELAYED REL TAB PO SCH (09:12)
[2022-10-25] MEDS: MULTIVITAMIN TAB PO SCH (09:12)
[2022-10-25] MEDS: FLUoxetine HCL 20 MG CAP PO SCH (09:12)
--- NOTE | 2022-10-25 17:57 | Hospitalist Progress Note ---
Date of Service October 25, 2022 Assessment & Plan (1) Hypokalemia: Plan: Patient is a 27-year-old female with PMH anxiety, eating disorder presented to ER from PCPs office for abnormal labs-hypokalemia. Not eating or drinking and recently purging Hypokalemia Hypophosphatemia Hypomagnesemia Secondary to poor Nutrition Replace electrolytes as needed if patient allows Monitor Refused blood work, medications, IV fluids despite emplaning the risks and complications multiple locations Reluctant to provide history Psychiatry following Discussed with (Patient's PCP) 0n 10/25/22: Recommends [facility] if patient agrees, Check Orthostatic Vitals Check with Psychiatry if 302 is an option Continue current management, encouraged to increase oral intake (2) Anorexia nervosa with dangerously low body weight: Plan: Severe Protein Calorie Malnutrition Anorexia Nervosa H/O anorexia- restricting and purging behavior Lost 20 pounds in the last 8 weeks Following with outpatient therapist One-to-one observation Dietitian and Psychiatry on board Encourage to increase oral intake Prefers to be discontinued on fluoxetine--Has been refusing while hospitalized (3) Anxiety: Plan: Not currently on medications. Previously was on Prozac, hydroxyzine as needed Patient denies suicidal ideations Appreciate Psychiatry Input Hydroxyzine as needed (4) Hypoglycemia: Plan: Glucose: 66 on presentation Due to poor oral intake D5W as needed Monitor DVT Px SCDs Encourage to ambulate Code Status Full Code Admission and Anticipated Discharge Date Admission Date: October 18, 2022 Subjective Patient is seen and examined at bedside Very poor historian Continues to have poor oral intake Lying in bed comfortably during my encounter Discussed with patient's mother at bedside and patient's father over the phone Refuses labs, vitals, medications Review of Systems Review of Systems: Other Physical Exam Physical Exam: Physical Exam: Vitals signs as noted above General Appearance:Thin, frail, no apparent distress, chromic ill appearing Head: normocephalic, Atraumatic Eyes: normal inspection, EOMI Neck: supple, Trachea midline Respiratory/Chest: Normal breath sounds, CTA, No accessory muscle use Cardiovascular: S1, S2, No murmur Abdomen/GI:Soft, Non tender, Bowel sounds present Extremities/Musculoskeletal:normal inspection, no edema Neurologic/Psych:AAOX3, grossly no focal neurological deficits Skin: normal color, warm Results & Data Results & Data ([facility]) Vital Signs (Past 12 Hours) Vital Signs Temp Pulse Resp BP Pulse Ox O2 Del Method 10/25/22 12:56 36.5 C 50 L 14 95/61 L 99 Room Air 10/25/22 09:14 50 L 99 Room Air
[2022-10-26 07:23] LABS: Calcium 10.2 mg/dl (8.5-10.1); Potassium 4.6 mmol/L (3.5-5.1)
[2022-10-26 07:28] LABS: Creatinine Clr Calc Pharmacy 72.3 ml/min; Est GFR (African American) 113.8 ml/min; Est GFR (Non-African American) 98.1 ml/min
[2022-10-26] MEDS: MAGNESIUM CHLORIDE W/CALCIUM 64MG DELAYED REL TAB PO SCH ×2 (09:13→09:40)
[2022-10-26] MEDS: FLUoxetine HCL 20 MG CAP PO SCH ×2 (09:14→09:39)
[2022-10-26] MEDS: MULTIVITAMIN TAB PO SCH ×2 (09:14→09:40)
--- NOTE | 2022-10-26 15:09 | Hospitalist Progress Note ---
Date of Service October 26, 2022 Assessment & Plan (1) Hypokalemia: Plan: Patient is a 27-year-old female with PMH anxiety, eating disorder presented to ER from PCPs office for abnormal labs-hypokalemia. Not eating or drinking and recently purging. She is being managed for the following: Hypokalemia Hypophosphatemia Hypomagnesemia Secondary to poor Nutrition Replace electrolytes as needed if patient allows Monitor Refusing blood work more frequently than not, also refusing on/off medications/ IV fluids despite explaining the risks and complications multiple times Reluctant to provide history, minimal opening up today Psychiatry following Prior attending discussed with (Patient's PCP) 0n 10/25/22: Recommends [facility] if patient agrees Continue current management, encouraged to increase oral intake (2) Anorexia nervosa with dangerously low body weight: Plan: Severe Protein Calorie Malnutrition Anorexia Nervosa H/O anorexia- restricting and purging behavior 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 (3) Anxiety: Plan: Not currently on medications. Previously was on Prozac, hydroxyzine as needed Patient denies suicidal ideations Appreciate Psychiatry Input Hydroxyzine as needed (4) Hypoglycemia: Plan: Glucose: 66 on presentation Due to poor oral intake D5W as needed Monitor DVT Px SCDs Encourage to ambulate Code Status Full Code Admission and Anticipated Discharge Date Admission Date: October 18, 2022 Subjective Patient seen and examined at bedside as a follow-up of hypokalemia, anorexia nervosa with dangerously low body weight, anxiety, hypoglycemia. Patient was sitting up in bed, on room air, NAD, patient's mother at bedside who was updated about the plan of care and was agreeable to plan of care. Patient reports no new events overnight, did take her medication per RN in the morning, patient patient ate a little bit of yogurt per RN. Patient was counseled in detail regarding the plan of care/electrolyte abnormalities secondary to decrease p.o. intake, counseled regarding anorexia nervosa. Patient retains understanding and is oriented and retains decision-making. Patient did minimal conversation but appears somewhat improved from prior Per her mother. Physical Exam Physical Exam: GENERAL: Alert and 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 NAD, on RA. Chronically ill/weak/thin/frail appearing. HEENT: No pallor, no icterus. Pupils equal, round and reactive to light. Oral mucosa moist. NECK: No JVD, no neck masses. HEART: S1 and S2 heard. Regular rate and rhythm. No murmur, no gallop. RESPIRATORY SYSTEM: Normal AP diameter. No accessory muscle use. No wheezing, no crackles. ABDOMEN: Soft, bowel sounds present, nontender, no distention. CENTRAL NERVOUS SYSTEM: No facial droop. Speech is clear. Obeys simple commands. Moves extremities. EXTREMITIES: No edema, no erythema seen. Results & Data Results & Data ([facility]) Vital Signs (Past 12 Hours) Vital Signs Temp Pulse Pulse Resp BP Pulse Ox O2 Del Method 10/26/22 12:38 36.1 C L 89 18 85/52 L 98 Room Air 10/26/22 09:50 48 L 10/26/22 07:58 36.6 C 54 L 18 96/61 L 98 Room Air
[2022-10-26] MEDS: FOLIC ACID 1 MG TAB PO SCH (17:18)
[2022-10-26] MEDS: THIAMINE HCL 100 MG TAB PO SCH (17:18)
[2022-10-27] MEDS: MAGNESIUM CHLORIDE W/CALCIUM 64MG DELAYED REL TAB PO SCH (09:19)
[2022-10-27] MEDS: FLUoxetine HCL 20 MG CAP PO SCH (09:19)
[2022-10-27] MEDS: THIAMINE HCL 100 MG TAB PO SCH (09:20)
[2022-10-27] MEDS: FOLIC ACID 1 MG TAB PO SCH (09:20)
[2022-10-27] MEDS: MULTIVITAMIN TAB PO SCH (09:20)
--- NOTE | 2022-10-27 13:55 | Hospitalist Progress Note ---
Date of Service October 27, 2022 Assessment & Plan (1) Hypokalemia: Plan: Patient is a 27-year-old female with PMH anxiety, eating disorder presented to ER from PCPs office for abnormal labs-hypokalemia. Not eating or drinking and recently purging. She is being managed for the following: Hypokalemia Hypophosphatemia Hypomagnesemia Secondary to poor Nutrition Replace electrolytes as needed if patient allows Monitor Refusing blood work more frequently than not, also refusing on/off medications/ IV fluids despite explaining the risks and complications multiple times Reluctant to provide history, minimal opening up as about yesterday. Psychiatry following Prior attending discussed with (Patient's PCP) 0n 10/25/22: Recommends [facility] if patient agrees Continue current management, encouraged to increase oral intake, some PO intake yesterday. 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 (3) Anxiety: Plan: Not currently on medications. Previously was on Prozac, hydroxyzine as needed Patient denies suicidal ideations Appreciate Psychiatry Input Hydroxyzine as needed (4) Hypoglycemia: Plan: Glucose: 66 on presentation Due to poor oral intake D5W as needed Monitor DVT Px SCDs Encourage to ambulate Code Status Full Code Admission and Anticipated Discharge Date Admission Date: October 18, 2022 Subjective Patient seen and examined at bedside as a follow-up of hypokalemia, anorexia nervosa with dangerously low body weight, anxiety, hypoglycemia. Patient was sitting up in bed, on room air, NAD, patient's mother at bedside who was updated about the plan of care and was agreeable to plan of care. Patient reports no new events overnight, has taken her meds partially, ate all meals/small amount yesterday which is a progress/ pt encouraged in doing so. Patient was counseled in detail again/reinforced education regarding the plan of care/electrolyte abnormalities secondary to decrease p.o. intake, counseled regarding anorexia nervosa. Patient retains understanding and is oriented and retains decision-making. Patient did minimal conversation about the same as yesterday, reported some heart burn, tums added/pt informed. Physical Exam Physical Exam: GENERAL: Alert and 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 NAD, on RA. Chronically ill/weak/thin/frail appearing. HEENT: No pallor, no icterus. Pupils equal, round and reactive to light. Oral mucosa moist. NECK: No JVD, no neck masses. HEART: S1 and S2 heard. Regular rate and rhythm. No murmur, no gallop. RESPIRATORY SYSTEM: Normal AP diameter. No accessory muscle use. No wheezing, no crackles. ABDOMEN: Soft, bowel sounds present, nontender, no distention. CENTRAL NERVOUS SYSTEM: No facial droop. Speech is clear. Obeys simple commands. Moves extremities. EXTREMITIES: No edema, no erythema seen. Results & Data Results & Data ([facility]) Vital Signs (Past 12 Hours) Vital Signs Temp Pulse Pulse Resp BP Pulse Ox O2 Del Method 10/27/22 12:05 36.4 C L 69 17 97/63 L 100 Room Air 10/27/22 06:01 54 L 10/27/22 08:20 36.4 C L 54 L 18 120/56 L 98 Room Air 10/27/22 03:00 50 L 16
[2022-10-27] MEDS: CALCIUM CARBONATE 500 MG CHEWABLE TAB PO SCH ×2 (15:49→20:23)
[2022-10-28] MEDS: CALCIUM CARBONATE 500 MG CHEWABLE TAB PO SCH ×4 (04:00→21:48)
[2022-10-28] MEDS: MAGNESIUM CHLORIDE W/CALCIUM 64MG DELAYED REL TAB PO SCH ×2 (10:17→12:59)
[2022-10-28] MEDS: THIAMINE HCL 100 MG TAB PO SCH ×2 (10:17→12:59)
[2022-10-28] MEDS: MULTIVITAMIN TAB PO SCH ×2 (10:18→12:59)
[2022-10-28] MEDS: FOLIC ACID 1 MG TAB PO SCH ×2 (10:18→12:59)
[2022-10-28] MEDS: FLUoxetine HCL 20 MG CAP PO SCH ×2 (10:18→12:59)
--- NOTE | 2022-10-28 15:55 | Hospitalist Progress Note ---
Date of Service October 28, 2022 Assessment & Plan (1) Hypokalemia: Plan: Patient is a 27-year-old female with PMH anxiety, eating disorder presented to ER from PCPs office for abnormal labs-hypokalemia. Not eating or drinking and recently purging. She is being managed for the following: Hypokalemia Hypophosphatemia Hypomagnesemia Secondary to poor Nutrition Replace electrolytes as needed if patient allows Monitor Refusing blood work more frequently than not, also refusing on/off medications/ IV fluids despite explaining the risks and complications multiple times Reluctant to provide history, minimal opening up as about yesterday. Psychiatry following Prior attending discussed with (Patient's PCP) 0n 10/25/22: Recommends [facility] if patient agrees Continue current management, encouraged to increase oral intake, continue to encourage po intake of food. Pt w/ very poor po intake. 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 (3) Anxiety: Plan: Not currently on medications. Previously was on Prozac, hydroxyzine as needed Patient denies suicidal ideations Appreciate Psychiatry Input Hydroxyzine as needed (4) Hypoglycemia: Plan: Glucose: 66 on presentation Due to poor oral intake D5W as needed Monitor DVT Px SCDs Encourage to ambulate Code Status Full Code dispo: uncertain, pending improvement in po intake. Admission and Anticipated Discharge Date Admission Date: October 18, 2022 Subjective Patient seen and examined at bedside as a follow-up of hypokalemia, anorexia nervosa with dangerously low body weight, anxiety, hypoglycemia. Patient was sitting up in bed, on room air, NAD, patient's mother at bedside who was updated about the plan of care and was agreeable to plan of care. Patient reports no new events overnight, has not taken her meds today by am exam time, didn't eat breakfast today. Patient was counseled in detail again/reinforced education regarding the plan of care/electrolyte abnormalities secondary to decrease p.o. intake, counseled regarding anorexia nervosa. Patient retains understanding and is oriented and retains decision-making. Patient did minimal conversation about the same as prior. Physical Exam Physical Exam: GENERAL: Alert and 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 NAD, on RA. Chronically ill/weak/thin/frail appearing. HEENT: No pallor, no icterus. Pupils equal, round and reactive to light. Oral mucosa moist. NECK: No JVD, no neck masses. HEART: S1 and S2 heard. Regular rate and rhythm. No murmur, no gallop. RESPIRATORY SYSTEM: Normal AP diameter. No accessory muscle use. No wheezing, no crackles. ABDOMEN: Soft, bowel sounds present, nontender, no distention. CENTRAL NERVOUS SYSTEM: No facial droop. Speech is clear. Obeys simple commands. Moves extremities. EXTREMITIES: No edema, no erythema seen. Results & Data Results & Data ([facility]) Vital Signs (Past 12 Hours) Vital Signs Temp Pulse Pulse Resp BP Pulse Ox O2 Del Method 10/28/22 15:25 51 L 10/28/22 08:00 53 L 10/28/22 11:40 36.6 C 56 L 18 97/62 L 99 Room Air 10/28/22 07:51 36.6 C 53 L 18 90/52 L 98 Room Air
[2022-10-29] MEDS: CALCIUM CARBONATE 500 MG CHEWABLE TAB PO SCH ×3 (05:47→20:26)
[2022-10-29] MEDS: FLUoxetine HCL 20 MG CAP PO SCH (08:17)
[2022-10-29] MEDS: FOLIC ACID 1 MG TAB PO SCH (08:17)
[2022-10-29] MEDS: MULTIVITAMIN TAB PO SCH (08:17)
[2022-10-29] MEDS: THIAMINE HCL 100 MG TAB PO SCH (08:17)
[2022-10-29] MEDS: MAGNESIUM CHLORIDE W/CALCIUM 64MG DELAYED REL TAB PO SCH (08:17)
--- NOTE | 2022-10-29 16:46 | Hospitalist Progress Note ---
Date of Service October 29, 2022 Assessment & Plan (1) Hypokalemia: Plan: Patient is a 27-year-old female with PMH anxiety, eating disorder presented to ER from PCPs office for abnormal labs-hypokalemia. Not eating or drinking and recently purging. She is being managed for the following: Hypokalemia Hypophosphatemia Hypomagnesemia Secondary to poor Nutrition Replace electrolytes as needed if patient allows Monitor Refusing blood work more frequently than not, also refusing on/off medications/ IV fluids despite explaining the risks and complications multiple times Reluctant to provide history, minimal opening up as about yesterday. Psychiatry following Prior attending discussed with (Patient's PCP) 0n 10/25/22: Recommends [facility] if patient agrees Re d/w psy and Dr. Calles today. Per Dr. Calles, she recommend psychiatric hospital or her family getting psychiatric power of criminal attorney to facilitate discharge. If we can do another labs and if they are stable, then pt can be considered stable. Continue current management, encouraged to increase oral intake, continue to encourage po intake of food. Pt w/ very poor po intake. Will do labs with permission from her mother in AM, if stable then further d/w her mother for possible dc to facility vs home. (2) Anorexia nervosa with dangerously low body weight: Plan: Severe Protein Calorie Malnutrition Anorexia Nervosa H/O anorexia- restricting and purging behavior Lost 20 pounds in the last 8 weeks [employer] Following with outpatient therapist One-to-one observation Dietitian and Psychiatry on board Encourage to increase oral intake : 2/4 ate small portions of all meals; 2/5 ate ice cream and pudding occasionally multiple times a day; 2/6 - RN not aware how much she ate; 2/7 - will follow. not eating today. Prefers to be discontinued on fluoxetine--Has been refusing while hospitalized Took her meds today. (3) Anxiety: Plan: Not currently on medications. Previously was on Prozac, hydroxyzine as needed Patient denies suicidal ideations Appreciate Psychiatry Input Hydroxyzine as needed (4) Hypoglycemia: Plan: Glucose: 66 on presentation Due to poor oral intake D5W as needed Monitor DVT Px SCDs Encourage to ambulate Code Status Full Code dispo: uncertain. Will try to get another set of labs in coordination with her mother's approval. Admission and Anticipated Discharge Date Admission Date: October 18, 2022 Subjective Patient seen and examined at bedside as a follow-up of hypokalemia, anorexia nervosa with dangerously low body weight, anxiety, hypoglycemia. Patient was lying in bed, on room air, NAD, patient's mother not at bedside today. Patient "nods" no new events overnight, per RN has refused her meds/breakfast/labs today. Patient was counseled in detail again/reinforced education regarding the plan of care/electrolyte abnormalities secondary to decrease p.o. intake, counseled regarding anorexia nervosa. Pt occasionally speaks and appears appropriate for conversation; though doesn't answer all the questions to properly assess her. She states she wants to go home today and doesn't want to go to psychiatric hospital by nodding. Physical Exam Physical Exam: GENERAL: Alert and awake. NAD, on RA. Chronically ill/weak/thin/frail appearing. HEENT: No pallor, no icterus. Pupils equal, round and reactive to light. Oral mucosa moist. NECK: No JVD, no neck masses. HEART: S1 and S2 heard. Regular rate and rhythm. No murmur, no gallop. RESPIRATORY SYSTEM: Normal AP diameter. No accessory muscle use. No wheezing, no crackles. ABDOMEN: Soft, bowel sounds present, nontender, no distention. CENTRAL NERVOUS SYSTEM: No facial droop. Speech is clear. Obeys simple comman ds. Moves extremities. EXTREMITIES: No edema, no erythema seen. Results & Data Results & Data ([facility]) Vital Signs (Past 12 Hours) Vital Signs Temp Pulse Pulse Resp BP BP Pulse Ox 10/29/22 16:08 36.4 C L 50 L 18 99/63 L 99 10/29/22 15:15 49 L 10/29/22 11:31 36.4 C L 54 L 18 93/56 L 98 10/29/22 08:06 36.4 C L 83 19 101/59 L 96 10/29/22 07:21 48 L O2 Del Method 10/29/22 16:08 Room Air 10/29/22 15:15 10/29/22 11:31 Room Air 10/29/22 08:06 Room Air 10/29/22 07:21
[2022-10-30] MEDS: CALCIUM CARBONATE 500 MG CHEWABLE TAB PO SCH (05:10)
[2022-10-30 06:45] LABS: Hematocrit (blood only) 34.2 % (37.0-47.0); Hemoglobin 11.9 g/dl (12.0-16.0); Mean Corpuscular Hemoglobin 29.3 pg (25.0-34.0); Mean Corpuscular Hgb Conc 34.8 g/dL (32.0-36.0); Mean Corpuscular Volume 84.2 fL (80.0-100.0); Mean Platelet Volume 8.7 fL (9.4-12.4); Platelet Count 224 K/uL (130-400); RDW Coefficient of Variation 13.6 % (11.5-14.5); RDW Standard Deviation 41.6 fL (36.4-46.3); Red Blood Count 4.06 M/uL (4.20-5.40); White Blood Count 4.32 K/ul (4.8-10.8)
[2022-10-30 07:06] LABS: BUN Creatinine Ratio 14.3 (10-20); Calcium 9.9 mg/dl (8.5-10.1); Creatinine Clr Calc Pharmacy 67.9 ml/min; Est GFR (African American) 108.9 ml/min; Est GFR (Non-African American) 93.9 ml/min; Magnesium 2.1 mg/dl (1.7-2.4); Phosphorus 4.6 mg/dl (2.5-4.9); Potassium 4.3 mmol/L (3.5-5.1)
[2022-10-30] MEDS ORDERED: GLUCAGON FOR INJ 1 MG VIAL SQ PRN (07:28)
[2022-10-30] MEDS ORDERED: CARBOHYDRATES FOR HYPOGLYCEMIA PO PRN (07:28)
[2022-10-30] MEDS ORDERED: GLUCOSE 10 TAB/TUBE PO PRN (07:28)
[2022-10-30] MEDS ORDERED: GLUCOSE 40% GEL 15 GM TUBE PO PRN (07:28)
[2022-10-30] MEDS ORDERED: DEXTROSE 50% 50 ML SYRINGE IV ONE (07:30)
[2022-10-30] MEDS: DEXTROSE 50% 50 ML SYRINGE IV PRN ×3 (07:35→16:53)
[2022-10-30] MEDS ORDERED: CALCIUM CARBONATE 500 MG CHEWABLE TAB PO PRN (08:31)
[2022-10-30] MEDS: THIAMINE HCL 100 MG TAB PO SCH (08:45)
[2022-10-30] MEDS: MULTIVITAMIN TAB PO SCH (08:45)
[2022-10-30] MEDS: MAGNESIUM CHLORIDE W/CALCIUM 64MG DELAYED REL TAB PO SCH (08:45)
[2022-10-30] MEDS: FLUoxetine HCL 20 MG CAP PO SCH (08:45)
[2022-10-30] MEDS: FOLIC ACID 1 MG TAB PO SCH (08:45)
--- NOTE | 2022-10-30 11:34 | Psychiatric Progress Note ---
Date of Service October 30, 2022 Impression / Recommendations Impression 27 yo woman with history of severe anorexia, selective mutism and extreme ambivalence regarding treatment. Given that she continues to not participate in any type of verbal conversation I agree with previous decision making capacity assessment that substituted judgement remains appropriate. Remains at low risk of intentional self-harm given denial of SI. Certainly remains at elevated chronic risk of due to high risk of fatality with undertreated or undertreated anorexia if restriction continues. I spoke with various inpatient and outpatient providers with knowledge of psychiatric referrals for eating disorder treatment if an individual is not agreeable to voluntary treatment. Unfortunately it is very difficult to force involuntary treatment for eating disorders, especially anorexia, as some evid ence suggests that intermission coordinator outcomes after forced treatment can worsen the course of anorexia as individuals may then be more likely to refuse any future outpatient or inpatient medical or psychiatric treatment. Additionally [facility] is the only facility in the [facility] that accepts 302 commitments for eating disorder treatment and this is extremely rare and with the new 302 laws has become even more difficult as many hospitals are now reluctant to accept out of [facility] 302 commitments. Fanny remains unwilling to consider inpatient eating disorder treatment though that remains the recommendation. Her parents have also not historically been interested in involuntary eating disorder treatment. Given these limitations from a psychiatric standpoint she cannot be held involuntarily once medically stable and/or if she can demonstrate decision making capacity to leave or parents as substituted decision makers want her to leave. 10/22/22: Regrettably, irrespective of what pt may or may not understand about her medical issues or her ability to process that information and incorporate it to make decisions, the fact that she has not been able to communicate her wishes or to discuss her medical issues in any way means that she has not demonstrated medical decision=making capacity and that for the time being someone else will have to substitute judgment on her behalf. In this case that would be one or both of her parents. I told them that they should confer and identify one of them to act as a primary point of contact. 10/20/22: Just as at my last visit, pt did not say any words at all in my presence and barely looked at me. Her mother and sister were present and were able to answer a number of questions. We also spent an extended time in pt's presence discussing treatment options and expectations. The noted that she'd just been talking with them prior to my entry. Indeed, she could be heard speaking with them as soon as I left the room. I'm very confident having met them that her apparent reticence to speak with men is not culturally-based but rather an individual characteristic or symptom. 10/19/22: 27 y/o woman with anorexia who has participated poorly in treatment and demonstrates limited interest in treatment. Eating disorder treatment at specialized inpatient setting remains the recommended treatment of choice. There are no medications with proven significant benefit for treating anorexia. By longstanding consensus, fluoxetine has often been used but convincing data to support that is scant. She is, in any event, taking that already. Appetite stimulants practically never help and typically exacerbate symptoms (poor appetite is not a component of anorexia nervosa). Treating comorbid psychiatric problems is important in that those problems are deserving of treatment, but doing this does not often result in significant improvement in anorexia nervosa. It is hoped that, as during some other admissions, she will be able to engage more and accept referral for further treatments for her eating disorder. Currently she is not receptive to discussion about this (or much of anything). In terms of safety considerations, she denies suicidal thoughts and demonstrates no acute symptoms of angelica, psychosis, or aggression. I'm unaware of eating disorder programs which will accept patients on an involuntary basis. (1) Anorexia nervosa with dangerously low body weight: Plan 10/30/22: -Discussed with Dr. Almeida, from psychiatric standpoint she can be discharged once medically stable -I would be happy to participate in an interdisciplinary team meeting with involvement of patient and her parents, hospitalist provider, inpt case manage ment, psychiatry and could include an outpatient nurse case manager from the eating disorder clinic and her outpatient therapist if felt that this could help with process of encouraging more intensive eating disorder treatment or to consider other treatment options 10/22/22: Obtain informed consent for all medical decisions from the legally-appropriate person (in the absence of a [facility], "next of kin"). She may continue to require 1:1 to monitor eating behavior and to encourage intake - she's been spitting out chewed food and hiding it. Very appropriate to continue fluoxetine and hydroxyzine as currently ordered. As during previous admissions, we will employ motivational interviewing as she becomes more willing/able to communicate with us and consider treatment options. Risk Factors Assessment Male: No : No Do You Have Access To A Gun?: No Health Problems: Yes Mental Health Diagnoses: Yes Substance Use Disorders: No Previous Attempt: No Family History of Suicide: No Previous Psychiatric Hospitalization: Yes Hopelessness: No Protective Factors Assessment Stable Relationships: Yes Supportive Family: Yes Interval History Identifying Information 27 y/o woman with severe anorexia, selective mutism who has been rejecting of treatment. Psychiatry was consulted for recommendations. Chief Complaint mute Review of Systems Notes sleeping, not eating Subjective Subjective Patient was seen & assessed and interval progress reviewed. Fanny is well known to our service and to me from her previous hospitalizations. She continues to present with severe anorexia and very limited engagement in treatment. She also continues to present with selective mutism though has been intermittently conversant with the hospitalist providers, consistent with her previous presentations. For the last two days she has not been eating and has been refusing her medications. Intake this hospitalization has been variable. Multiple efforts have been made by her inpatient and outpatient block and case maker to encourage inpatient eating disorder treatment but she is not interested in this. Today she does not speak but does make good eye contact and nods or shakes her head in response to questions. Shakes no that she is not agreeable to inpatient eating disorder treatment or intensive outpatient treatment. Shakes her head no to any thoughts of SI. Denies any psychotic symptoms. Physical Exam Psychiatric Orientation: alert Apperance: appropriately dressed and appropriately groomed Motor Behavior: no abnormal motor movements Speech: + mute Affect: + blunted affect Suicidal Thoughts: denies suicidal thoughts Homicidal Thoughts: denies homicidal thoughts Hallucinations: no auditory hallucinations and no visual hallucinations Estimated Intelligence: average estimated intelligence Insight: + poor insight Judgment: + poor judgement Vital Signs (Past 24 Hours) Last Vital Signs Temp 36.5 C 10/30/22 11:20 Pulse 54 L 10/30/22 11:20 Resp 18 10/30/22 11:20 BP 92/49 L 10/30/22 11:20 Pulse Ox 97 10/30/22 11:20 O2 Del Method 10/30/22 11:20 Results & Data ([facility]) Laboratory Results Laboratory Results - last 24 hr 10/30/22 10/30/22 10/30/22 05:33 05:33 07:54 WBC 4.32 L RBC 4.06 L Hgb 11.9 L Hct 34.2 L MCV 84.2 MCH 29.3 MCHC 34.8 RDW Std Deviation 41.6 RDW Coeff of Marlon 13.6 Plt Count 224 MPV 8.7 L Sodium 138 Potassium 4.3 Chloride 104 Carbon Dioxide 26 Anion Gap 8 BUN 12 Creatinine 0.84 Est Cr Clr Drug Dosing 67.9 Est GFR ( Amer) 108.9 Est GFR (Non-Af Amer) 93.9 BUN/Creatinine Ratio 14.3 Glucose 65 L POC Glucose 176 H Calcium 9.9 Phosphorus 4.6 Magnesium 2.1 Current Inpatient Medications Current Inpatient Medications: Current Inpatient Medications Acetaminophen (Acetaminophen 325 Mg Tab) 650 mg PO Q4H PRN PRN Reason: Pain or Fever Stop: 11/17/22 19:54 Calcium Carbonate (Calcium Carbonate 500 Mg Chewable Tab) 500 mg PO Q8H PRN PRN Reason: Heartburn Stop: 11/26/22 10:59 Dextrose (Dextrose 50% 50 Ml Syringe) 25 - 50 ml IV UD PRN; Protocol PRN Reason: Hypoglycemia Protocol Stop: 11/29/22 07:27 Last Admin: 10/30/22 07:35 Dose: 25 ml Fluoxetine HCl (Fluoxetine Hcl 20 Mg Cap) 20 mg PO QAM [facility] Stop: 11/19/22 15:59 Last Admin: 10/30/22 08:45 Dose: Not Given Folic Acid (Folic Acid 1 Mg Tab) 1 mg PO QAM [facility] Stop: 11/25/22 15:14 Last Admin: 10/30/22 08:45 Dose: Not Given Glucagon (Glucagon For Inj 1 Mg Vial) 1 mg SQ UD PRN; Protocol PRN Reason: Hypoglycemia Protocol Stop: 11/29/22 07:27 Glucose (Glucose 40% Gel 15 Gm Tube) 15 - 30 gm PO UD PRN; Protocol PRN Reason: Hypoglycemia Protocol Stop: 11/29/22 07:27 Glucose (Glucose 10 Tab/Tube) 4 - 8 tab PO UD PRN; Protocol PRN Reason: Hypoglycemia Treatment Stop: 11/29/22 07:27 Hydroxyzine HCl (Hydroxyzine Hcl 10 Mg Tab) 10 mg PO Q6 PRN PRN Reason: Anxiety Stop: 11/18/22 06:12 Last Admin: 10/22/22 22:02 Dose: 10 mg Magnesium Chloride (Magnesium Chloride W/Calcium 64mg Delayed Rel Tab) 64 mg PO DAILY [facility] Stop: 11/24/22 08:59 Last Admin: 10/30/22 08:45 Dose: Not Given Miscellaneous (Carbohydrates For Hypoglycemia ) 15 - 30 gm PO UD PRN PRN Reason: Hypoglycemia Protocol Stop: 11/29/22 07:27 Multivitamins (Multivitamin Tab) 1 tab PO DAILY [facility] Stop: 11/18/22 08:59 Last Admin: 10/30/22 08:45 Dose: Not Given Polyethylene Glycol (Polyethylene (Miralax) 17 Gm Pack) 17 gm PO DAILY PRN PRN Reason: Constipation Stop: 11/17/22 19:54 Thiamine HCl (Thiamine Hcl 100 Mg Tab) 100 mg PO QAM [facility] Stop: 11/25/22 15:14 Last Admin: 10/30/22 08:45 Dose: Not Given
[2022-10-30] MEDS: DEXTROSE 5% 1,000 ML IV ONE ×2 (14:09→17:14)
--- NOTE | 2022-10-30 16:30 | Hospitalist Progress Note ---
Date of Service October 30, 2022 Assessment & Plan (1) Hypokalemia: Plan: Patient is a 27-year-old female with PMH anxiety, eating disorder presented to ER from PCPs office for abnormal labs-hypokalemia. Not eating or drinking and recently purging. She is being managed for the following: Hypokalemia Hypophosphatemia Hypomagnesemia Hypoglycemia Secondary to poor Nutrition Electrolytes normalized Continues to have poor oral intake due to anorexia Continue Hypoglycemia protocol Patient is non complaint with treatment despite explaining te risks and complications Appreciate Psychiatry Input Will need to follow up with Facility specialized in eating disorders as outpatient (2) Anorexia nervosa with dangerously low body weight: Plan: Severe Protein Calorie Malnutrition Anorexia Nervosa H/O anorexia- restricting and purging behavior Lost 20 pounds in the last 8 weeks [employer]OTHING [employer] Following with outpatient therapist One-to-one observation Dietitian and Psychiatry on board Refuses to take fluoxetine (3) Anxiety: Plan: Refuses Prozac Intermittently takes hydroxyzine as needed Patient denies suicidal ideations Appreciate Psychiatry Input (4) Hypoglycemia: Plan: DVT Px SCDs Encourage to ambulate Code Status Full Code Admission and Anticipated Discharge Date Admission Date: October 18, 2022 Subjective Patient is seen and examined at bedside Continues to refuse IV fluids, oral food intake Discussed with Psychiatry today Noted to be Hypoglycemic this morning Review of Systems Review of Systems: All systems reviewed & are unremarkable except as noted in Subjective Physical Exam Physical Exam: Physical Exam: Vitals signs as noted above General Appearance:Thin, frail, no apparent distress, chromic ill appearing Head: normocephalic, Atraumatic Eyes: normal inspection, EOMI Neck: supple, Trachea midline Respiratory/Chest: Normal breath sounds, CTA, No accessory muscle use Cardiovascular: S1, S2, No murmur Abdomen/GI:Soft, Non tender, Bowel sounds present Extremities/Musculoskeletal:normal inspection, no edema Neurologic/Psych:AAOX3, grossly no focal neurological deficits Skin: normal color, warm Results & Data Results & Data ([facility]) Vital Signs (Past 12 Hours) Vital Signs Temp Pulse Pulse Resp BP Pulse Ox O2 Del Method 10/30/22 16:01 62 10/30/22 15:34 36.6 C 57 L 17 91/56 L 96 Room Air 10/30/22 11:20 36.5 C 54 L 18 92/49 L 97 Room Air 10/30/22 08:09 36.5 C 49 L 18 90/48 L 97 Room Air 10/30/22 07:18 48 L Laboratory Results Short CBC 10/30/22 Range/Units 05:33 WBC 4.32 L (4.8-10.8) K/ul Hgb 11.9 L (12.0-16.0) g/dl Hct 34.2 L (37.0-47.0) % Plt Count 224 (130-400) K/uL BMP 10/30/22 05:33 Sodium 138 Potassium 4.3 Chloride 104 Carbon Dioxide 26 BUN 12 Creatinine 0.84 Glucose 65 L Calcium 9.9
[2022-10-31] MEDS: MAGNESIUM CHLORIDE W/CALCIUM 64MG DELAYED REL TAB PO SCH (09:40)
[2022-10-31] MEDS: MULTIVITAMIN TAB PO SCH (09:40)
[2022-10-31] MEDS: FOLIC ACID 1 MG TAB PO SCH (09:40)
[2022-10-31] MEDS: FLUoxetine HCL 20 MG CAP PO SCH (09:40)
[2022-10-31] MEDS: THIAMINE HCL 100 MG TAB PO SCH (09:41)
--- NOTE | 2022-10-31 13:53 | Hospitalist Progress Note ---
Date of Service October 31, 2022 Assessment & Plan (1) Hypokalemia: Plan: Patient is a 27-year-old female with PMH anxiety, eating disorder presented to ER from PCPs office for abnormal labs-hypokalemia. Not eating or drinking and recently purging. She is being managed for the following: Hypokalemia Hypophosphatemia Hypomagnesemia Hypoglycemia Secondary to poor Nutrition Electrolytes normalized Refused treatment on multiple occasions Poor oral intake but better today Refused IV fluids with dextrose. Patient and family understands the risks and complications of her condition Advised to follow up with Tertiary center specialized in eating disorders as outpatient Hypoglycemia resolved Explained importance of following with physicians and eating regularly. Patient reluctant to engage in conversation with providers on multiple occasions. 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 with outpatient therapist One-to-one observation Dietitian and Psychiatry on board Refuses to take fluoxetine (3) Anxiety: Plan: Refuses Prozac Intermittently takes hydroxyzine as needed Patient denies suicidal thoughts Appreciate Psychiatry Input Chronic Hypotension BP at baseline Asymptomatic (4) Hypoglycemia: Plan: DVT Px SCDs Encourage to ambulate Code Status Full Code Disposition Home Admission and Anticipated Discharge Date Admission Date: October 18, 2022 Subjective Patient is seen and examined at bedside Feels well today Offers no complaints Ate better today Discussed with Patient's family at bedside Denies any chest pain, dizziness, nausea, vomiting, abdominal pain, shortness of breath Review of Systems Review of Systems: All systems reviewed & are unremarkable except as noted in Subjective Physical Exam Physical Exam: Physical Exam: Vitals signs as noted above General Appearance:Thin, frail, no apparent distress, chromic ill appearing Head: normocephalic, Atraumatic Eyes: normal inspection, EOMI Neck: supple, Trachea midline Respiratory/Chest: Normal breath sounds, CTA, No accessory muscle use Cardiovascular: S1, S2, No murmur Abdomen/GI:Soft, Non tender, Bowel sounds present Extremities/Musculoskeletal:normal inspection, no edema Neurologic/Psych:AAOX3, grossly no focal neurological deficits Skin: normal color, warm Results & Data Results & Data ([facility]) Vital Signs (Past 12 Hours) Vital Signs Temp Pulse Resp BP Pulse Ox O2 Del Method 10/31/22 11:54 36.3 C L 80 18 91/61 L 97 Room Air 10/31/22 07:35 36.3 C L 48 L 19 95/60 L 97 Room Air 10/31/22 02:54 36.8 C 48 L 18 86/56 L 98 Room Air
--- NOTE | 2022-10-31 13:59 | Discharge Summary ---
Date of Service October 31, 2022 Admission HPI Per Admitting Provider Patient is a 27-year-old female with PMH anxiety, eating disorder presented to ER from PCPs office for abnormal labs-hypokalemia. Minimal history obtained from patient. History obtained from patient's parent, chart review and speaking to patient's PCP Dr. Calles is on the phone. Patient's PCP reports that she often does not talk at doctor's visits however reports talks normally at home. Patient with history anorexia, restrictive eating, binge/purging. Also with history of hypoglycemic episodes in the past secondary to her eating disorder. In past has declined residential treatment. Has been seeing outpatient therapist. Recently patient and family went to see family in [place]. Patient's mother reports while there patient seemed to worsen and was not eating. States she was just lying around. Has not been eating. Recently resumed purging. Has not been drinking and recently has not even been swallowing fluids, and holds fluids in her mouth and then spits out. In May she reportedly weighed 129 pounds. Today was noted to be 92 pounds in clinic. She lost 20 pounds in the last 8 weeks. Has been very weak. Has been ambulating through the house but with slow gait. Has not been taking Prozac or hydroxyzine. Has chronic constipation. Had outpatient labs today with potassium: 2.5 and was referred to ER for further evaluation and treatment. Denies fever/chills, diaphoresis, N/V/D, SAUNDERS, dizziness, syncope, vision changes, neck pain, CP, SOB, palpitations, cough, sore throat, rhinorrhea, abdominal pain, paresthesias, extremity edema, rashes, urinary symptoms. Admission Exam Per Admitting Provider Physical Exam Physical Exam: General: no acute distress, Thin, chronic ill appearing Head: normocephalic, atraumatic Eyes: PERRL, EOM's intact, conjunctiva non-injected, anicteric ENT: normal inspection external ears, nose, mucous membranes dry Neck: supple, trachea midline Lungs: clear, no respiratory distress, no wheezing/rhonchi/rales CV: RRR, no murmur, no pretibial edema Abd: normal BS, soft, non-tender Ext: no cyanosis, no calf tenderness Neuro: A&O x 3, no focal deficits noted, +anxious, patient with very minimal talking Skin: warm, dry Principal Diagnosis Hypokalemia Hypophosphatemia Hypomagnesemia Hypoglycemia Anorexia nervosa Severe Protein Calorie Malnutrition Discharge Data Allergies Allergy/AdvReac Type Severity Reaction Status Date / Time No Known Allergies Allergy Verified 10/18/22 16:10 Consultations 10/18/22 16:42 ED Decision to Admit Stat 10/18/22 19:55 Consult Psychiatry Routine Procedures Performed Laboratory Results WBC 4.32 K/ul (4.8-10.8) L 10/30/22 05:33 RBC 4.06 M/uL (4.20-5.40) L 10/30/22 05:33 Hgb 11.9 g/dl (12.0-16.0) L 10/30/22 05:33 Hct 34.2 % (37.0-47.0) L 10/30/22 05:33 MCV 84.2 fL (80.0-100.0) 10/30/22 05:33 MCH 29.3 pg (25.0-34.0) 10/30/22 05:33 MCHC 34.8 g/dL (32.0-36.0) 10/30/22 05:33 RDW Std Deviation 41.6 fL (36.4-46.3) 10/30/22 05:33 RDW Coeff of Marlon 13.6 % (11.5-14.5) 10/30/22 05:33 Plt Count 224 K/uL (130-400) 10/30/22 05:33 MPV 8.7 fL (9.4-12.4) L 10/30/22 05:33 Immature Gran % (Auto) 0.2 % 10/18/22 16:05 Neut % (Auto) 70.0 % 10/18/22 16:05 Lymph % (Auto) 22.4 % 10/18/22 16:05 [place] % (Auto) 6.4 % 10/18/22 16:05 Eos % (Auto) 0.4 % 10/18/22 16:05 Baso % (Auto) 0.6 % 10/18/22 16:05 Neut # (Auto) 3.63 K/uL (1.40-6.50) 10/18/22 16:05 Lymph # (Auto) 1.16 K/uL (1.2-3.4) L 10/18/22 16:05 [place] # (Auto) 0.33 K/uL (0.11-0.59) 10/18/22 16:05 Eos # (Auto) 0.02 K/uL (0-0.50) 10/18/22 16:05 Baso # (Auto) 0.03 K/uL (0-0.2) 10/18/22 16:05 Immature Gran # (Auto) 0.01 K/uL (0.01-0.20) 10/18/22 16:05 PT 11.5 Seconds (9.0-12.0) 10/18/22 16:05 INR 1.1 (0.9-1.1) 10/18/22 16:05 APTT 31.6 Seconds (21.0-31.0) H 10/18/22 16:05 PTT Ratio 1.1 10/18/22 16:05 Sodium 138 mmol/L (136-145) 10/30/22 05:33 Potassium 4.3 mmol/L (3.5-5.1) 10/30/22 05:33 Chloride 104 mmol/L (98-107) 10/30/22 05:33 Carbon Dioxide 26 mmol/L (21-32) 10/30/22 05:33 Anion Gap 8 (3-11) 10/30/22 05:33 BUN 12 mg/dl (6-23) 10/30/22 05:33 Creatinine 0.84 mg/dl (0.6-1.2) 10/30/22 05:33 Est Cr Clr Drug Dosing 67.9 ml/min 10/30/22 05:33 Est GFR ( Amer) 108.9 ml/min 10/30/22 05:33 Est GFR (Non-Af Amer) 93.9 ml/min 10/30/22 05:33 BUN/Creatinine Ratio 14.3 (10-20) 10/30/22 05:33 Glucose 65 mg/dl (70-99(Fasting)) L 10/30/22 05:33 POC Glucose 149 mg/dl (70-99) H 10/31/22 11:52 Calcium 9.9 mg/dl (8.5-10.1) 10/30/22 05:33 Phosphorus 4.6 mg/dl (2.5-4.9) 10/30/22 05:33 Magnesium 2.1 mg/dl (1.7-2.4) 10/30/22 05:33 Total Bilirubin 1.6 mg/dl (0.2-1.0) H 10/18/22 16:05 AST 25 U/L (13-39) 10/18/22 16:05 ALT 17 U/L (7-52) 10/18/22 16:05 Alkaline Phosphatase 36 U/L (34-104) 10/18/22 16:05 Total Protein 7.3 gm/dl (6.0-8.3) 10/18/22 16:05 Albumin 4.8 gm/dl (3.4-5.0) 10/18/22 16:05 Globulin 2.5 gm/dl (2.5-4.0) 10/18/22 16:05 Albumin/Globulin Ratio 1.9 (0.9-2) 10/18/22 16:05 HCG, Qual Negative (Negative) 10/18/22 16:05 Urine Color Yellow 10/19/22 05:35 Urine Appearance Clear (Clear) 10/19/22 05:35 Urine pH 5.5 (4.5-7.5) 10/19/22 05:35 Ur Specific [place] 1.017 (1.000-1.030) 10/19/22 05:35 Urine Protein Negative (Negative) 10/19/22 05:35 Urine Glucose (UA) Negative (Negative) 10/19/22 05:35 Urine Ketones 3+ (Negative) H 10/19/22 05:35 Urine Blood Negative (Negative) 10/19/22 05:35 Urine Nitrite Negative (Negative) 10/19/22 05:35 Urine Bilirubin Negative (Negative) 10/19/22 05:35 Urine Urobilinogen Negative (Negative) 10/19/22 05:35 Ur Leukocyte Esterase Negative (Negative) 10/19/22 05:35 Salicylates < 3.0 mg/dl (3.0-30) L 10/18/22 16:05 Urine Opiates Screen Neg (Neg) 10/19/22 05:35 Ur Methadone, Qual Neg (Neg) 10/19/22 05:35 Acetaminophen < 3 ug/ml (10-30) L 10/18/22 16:05 Urine Barbiturates Neg (Neg) 10/19/22 05:35 Ur Phencyclidine (PCP) Neg (Neg) 10/19/22 05:35 U Amphetamin/Meth Scrn Neg (Neg) 10/19/22 05:35 MDMA (Ecstasy) Screen Neg (Neg) 10/19/22 05:35 U Benzodiazepines Scrn Neg (Neg) 10/19/22 05:35 Ur Cocaine Metabolite Neg (Neg) 10/19/22 05:35 U Marijuana (THC) Screen Neg (Neg) 10/19/22 05:35 Ethyl Alcohol mg/dL < 10.0 mg/dl (<10.0) 10/18/22 16:05 SARS-CoV-2 (PCR) NEGATIVE (Negative) 10/18/22 15:33 Influenza Type A (PCR) Negative (Neg) 10/18/22 15:33 Influenza Type B (PCR) Negative (Neg) 10/18/22 15:33 RSV (RT-PCR) Negative (Neg) 10/18/22 15:33 Hospital Course (1) Hypokalemia: Patient is a 27-year-old female with PMH anxiety, eating disorder presented to ER from PCPs office for abnormal labs-hypokalemia. Not eating or drinking and recently purging. She is being managed for the following: Hypokalemia Hypophosphatemia Hypomagnesemia Hypoglycemia Secondary to poor Nutrition Electrolytes normalized Refused treatment on multiple occasions Poor oral intake but better today Refused IV fluids with dextrose. Patient and family understands the risks and complications of her condition Advised to follow up with Tertiary center specialized in eating disorders as outpatient Hypoglycemia resolved Explained importance of following with physicians and eating regularly. Patient reluctant to engage in conversation with providers on multiple occasions. 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 One-to-one observation Dietitian and Psychiatry on board Refuses to take fluoxetine (3) Anxiety: Refuses Prozac Intermittently takes hydroxyzine as needed Patient denies suicidal thoughts Appreciate Psychiatry Input Chronic Hypotension BP at baseline Asymptomatic (4) Hypoglycemia: DVT Px SCDs Encourage to ambulate Code Status Full Code Disposition Home Total Time Total Time Spent Total Time Spent (In Minutes): 56 minutes Discharge Plan Discharge Items Patient Disposition: Home - Self-Care Reason For Visit: HYPOKALEMIA Discharge Diagnosis: Hypokalemia Hypophosphatemia Hypomagnesemia Hypoglycemia Anorexia nervosa Severe Protein Calorie Malnutrition Activity: Per Instructions section Exercise/Sports: Wait until after follow-up appointment Non-emergency contact: Primary Care Provider Call non-emergency contact if: you have any medication questions, your symptoms worsen, your pain is concerning for you and you have a fever Follow-up/Referrals: Joyce Calles MD [Primary Care Provider] - (Date & Time 11/06/2022 11:00 AM Provider Joyce Calles MD Department [facility] ) Diet: Regular Addtl Attending Provider Instructions: Follow-up with your primary care physician on 11/06/2022 11:00 AM Seek immediate medical attention if your symptoms reoccur or worsen Please take all medications as instructed on discharge list below. Please call if you have any questions or problems. You can reach a [facility] hospitalist on duty at [facility] 24 hours a day by calling [phone] Pending Studies at Discharge: No Stand-Alone Forms: My [facility], Smoking Cessation Medications and DC Order Prescriptions: New thiamine HCl (vitamin B1) 100 mg Tablet 100 mg PO QAM Qty: 30 0RF folic acid 1 mg Tablet 1 mg PO QAM Qty: 30 0RF Continued multivitamin [Daily Multi-Vitamin] Tablet 1 tab PO DAILY hydroxyzine HCl 10 mg tablet 10 mg PO Q6 PRN (Reason: Anxiety) hydroxyzine HCl 10 mg tablet 20 mg PO HS PRN (Reason: Sleep) fluoxetine 20 mg capsule 20 mg PO QAM Discharge Orders: Discharge Order (Routine); Ordered 10/31/22 Ordered By: Marco Antonio Almeida Admission Data Admit Date/Time: 10/18/22 18:22 Attending Provider: Marco Antonio Almeida Admit Provider: Galo Padgett Primary Care Provider: Joyce Calles Other Providers: Galo Padgett ; Anette Tolliver ; Kandice Faye ; Alejandro Escalona
== END 2022-10-31 15:14 | disposition home or self-care (01) | DRG 640 ==
LOC: ED 14:47 → 4W 18:22 → SUATTDRO 18:22 → 4W 19:43

== ENCOUNTER 2023-03-03 23:44 | Inpatient (IN) ==
[2023-03-04] MEDS ORDERED: SODIUM CHLORIDE 0.9% 1000ML 1,000 ML IV ONE (00:11)
--- NOTE | 2023-03-04 00:18 | Emergency Department Note ---
Impression & Plan Hypokalemia, Acute dehydration, Mood disorder Admit to the [facility] ED Provider Note NAME: MAYURI CONNER AGE: 27 SEX: F ARRIVES VIA: Walk-In INFORMANT: Patient's father ED PROVIDER(S): Hoda Westbrook DO CHIEF COMPLAINT: Altered mental status and not drinking PLAN: Disposition: Admit to the [facility] Condition: Guarded MEDICAL DECISION MAKING: This is a 27-year-old female patient who presents to the emergency department with her father because she has not been taking any clear liquids and now has become dazed and confused. Patient has a longstanding history of eating disorder and at times refusing to take liquids and solids. She presents today with a slightly altered mental status hypotension and hypothermia. Patient had chest x-ray which was unremarkable. She was bolused with IV normal saline solution upon her arrival and then placed on IV potassium replacement. The patient refuses to speak at times and relies on her father to speak for her. He explains that she has had no liquid intake for the past 2 days and only had 1 or 2 protein shakes. I have seen the patient in the past here in the emergency department for mental health issues. The patient is not taking any of her psychiatric medications at this time. I discussed the case with the [facility] Hospitalist and they will evaluate for further inpatient care. Triage Nursing notes reviewed and agree with them. Additional history obtained from the father who is at the bedside External medical records were reviewed including previous hospital inpatient records Vital Signs: reviewed and remarkable for hypotension and bradycardia Differential diagnosis: Hypokalemia, hypochloremia, hyponatremia, dehydration, suicide attempt, mood disorder ER treatment provided: Cardiac monitoring Twelve-lead EKG IV normal saline bolus IV K rider x2 Diagnostics interpreted by me: ECG: Sinus bradycardia at a rate of 56. There is no ST segment ovation or signs of ischemia. There is no ectopy. Cardiac Monitoring: Normal sinus rhythm at 61 Laboratory studies: See below Imaging studies: As per my independent interpretation Portable chest x-ray: No acute pulmonary infiltrates or opacities HPI: 27/F arrives for evaluation of altered mental status and decreased oral intake. Patient has a history of eating disorder, thought disorder and mood disorder. She is refusing to take any liquids over the past 2 days and has had very little solid food intake for quite some time. She is not currently taking any of her psychiatric medications. The patient is refusing to talk and relies on her father to communicate with me. PAST MEDICAL HISTORY:See Below PAST SURGICAL HISTORY:See Below FAMILY HISTORY:See Below SOCIAL HISTORY:See Below HOME MEDICATIONS:None ALLERGIES:None VITALS:See Below PHYSICAL EXAMINATION: HEENT: Head - normocephalic and atraumatic. Pupils are equal, round, and reactive to light. Extraocular eye muscles are intact, and sclera are anicteric. Nose -dry nasal mucosa without discharge. Mouth -dry buccal mucosa. Oropharynx is nonerythematous and there is no tonsillar exudate or edema noted. Neck: Supple; no cervical lymphadenopathy Heart: Bradycardic rate and regular rhythm. There is a normal S1 and S2 with no murmurs, clicks, or gallops appreciated. Lungs: Clear to auscultation bilaterally with no wheezes, rales, or rhonchi. Abdomen: Soft, completely nontender, nondistended, with good bowel sounds. There are no palpable pulsatile masses or hepatosplenomegaly. There is no guarding, rigidity, or rebound noted. Extremities: No evidence of cyanosis, clubbing, or edema. There are easily palpable peripheral pulses. Skin: Extremely dry with poor turgor and no rashes. ED COURSE: Times/Reassessments: 2350 the patient was evaluated in room A-10. A complete history and physical was performed. An order was placed for continuous cardiac monitoring. The patient was in a normal sinus rhythm at a rate of 61. A twelve-lead EKG was obtained as described above. An IV lock was initiated and labs were drawn as above. The patient was bolused with normal saline solution. A portable chest x-ray was performed. Laboratory studies revealed a dangerously low potassium. A K rider was started immediately. I discussed the case with the [facility] Hospitalist and they will evaluate for admission I have personally spent greater than 30 minutes of critical care time in the direct management of this patient. This includes bedside care, interpretation of diagnostic studies, and testing, discussion with consultants, patient, and family members, and other required patient management activities. This 30 minutes is in excess of all separately billable procedures. Hoda Westbrook DO Past Med/Surg History Medical History Anorexia nervosa with dangerously low body weight Anxiety Hypoglycemia Secondary amenorrhea Probable hypothalamic dysfunction Surgical History No history of previous surgery Family History Sister Anorexia Mother Lymphoma Grandfather (Maternal) Prostate cancer Grandmother (Maternal) Breast cancer Denies family history of Ovarian cancer Myocardial infarction Lung cancer Colorectal cancer Stroke Social History Smoking Status: Never smoker Do You Dip or Chew Tobacco: No; Hx Alcohol Use: No Hx Substance Use: No Preferred Language: Greek Communication Ability: Effective Visual Impairment: No Limitations Hearing Ability: Normal Major Case Detective Required: No Beliefs That Will Affect Care: None marital status: Single Current Living Situation: Alone and Parent Current Living Situation Comment: sister current occupational status: student 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 Safe at Home: Declines to Answer Childhood Exposure to Second-Hand Smoke: No Physical Activity Frequency: 5-6 Times per Week Physical Activity Frequency Comment: squash, running, tennis pre pandemic Seatbelt Use: always Assistive Devices: None Allergies Allergies Allergy/AdvReac Type Severity Reaction Status Date / Time No Known Allergies Allergy Verified 03/04/23 00:15 Home Meds Home Medications Medication Instructions Recorded Confirmed multivitamin (Daily Multi-Vitamin 1 tab PO DAILY 04/19/22 03/04/23 tablet) fluoxetine 20 mg capsule 20 - 40 mg PO QAM 10/18/22 03/04/23 potassium chloride 20 mEq oral 40 meq PO DAILY 03/04/23 03/04/23 packet (Shira-Nadeem) Results & Data (ED) Vital Signs Vital Signs - 24 hr 03/03/23 23:48 03/04/23 01:05 03/04/23 00:42 Temperature 36.1 C L Temperature Source Temporal Artery Scan Pulse Rate 74 64 Pulse Rate [Apical] Respiratory Rate 17 Respiratory Depth Normal Blood Pressure 97/68 L Blood Pressure [Left Arm] Blood Pressure Mean 77 Blood Pressure Mean [Left Arm] Pulse Oximetry 99 99 Oxygen Delivery Method Room Air Room Air Sepsis Recent Fever Within 48 Hours No Sepsis New/Unexplained Change in Mental Status No Sepsis Action Taken by Nursing No Action Required 03/04/23 01:13 03/04/23 03:42 03/04/23 04:27 Temperature 36.6 C Temperature Source Oral Pulse Rate 65 Pulse Rate [Apical] 62 Respiratory Rate 14 Respiratory Depth Normal Blood Pressure Blood Pressure [Left Arm] 103/68 Blood Pressure Mean Blood Pressure Mean [Left Arm] 79 Pulse Oximetry Oxygen Delivery Method Sepsis Recent Fever Within 48 Hours Sepsis New/Unexplained Change in Mental Status Sepsis Action Taken by Nursing Laboratory Data 03/04/23 01:17 03/04/23 01:17 Lab Results 03/04/23 03/04/23 03/04/23 Range/Units 01:17 01:17 01:17 WBC 4.80 (4.8-10.8) K/ul RBC 4.15 L (4.20-5.40) M/uL Hgb 12.3 (12.0-16.0) g/dl Hct 34.8 L (37.0-47.0) % MCV 83.9 (80.0-100.0) fL MCH 29.6 (25.0-34.0) pg MCHC 35.3 (32.0-36.0) g/dL RDW Std Deviation 36.0 L (36.4-46.3) fL RDW Coeff of Marlon 11.9 (11.5-14.5) % Plt Count 237 (130-400) K/uL MPV 8.6 L (9.4-12.4) fL Immature Gran % (Auto) 0.2 % Neut % (Auto) 52.4 % Lymph % (Auto) 38.8 % [place] % (Auto) 6.5 % Eos % (Auto) 1.5 % Baso % (Auto) 0.6 % Neut # (Auto) 2.52 (1.40-6.50) K/uL Lymph # (Auto) 1.86 (1.2-3.4) K/uL [place] # (Auto) 0.31 (0.11-0.59) K/uL Eos # (Auto) 0.07 (0-0.50) K/uL Baso # (Auto) 0.03 (0-0.2) K/uL Immature Gran # (Auto) 0.01 (0.01-0.20) K/uL Sodium 136 (136-145) mmol/L Potassium 2.4 L* (3.5-5.1) mmol/L Chloride 93 L (98-107) mmol/L Carbon Dioxide 35 H (21-32) mmol/L Anion Gap 8 (3-11) BUN 16 (6-23) mg/dl Creatinine 0.66 (0.6-1.2) mg/dl Est Cr Clr Drug Dosing 84.8 ml/min Est GFR ( Amer) 138.4 ml/min Est GFR (Non-Af Amer) 119.4 ml/min BUN/Creatinine Ratio 24.2 H (10-20) Glucose 85 (70-99(Fasting)) mg/dl Calcium 8.9 (8.6-10.3) mg/dl Phosphorus 3.4 (2.5-4.9) mg/dl Magnesium 1.8 (1.7-2.4) mg/dl Total Bilirubin 0.8 (0.2-1.0) mg/dl AST 14 (13-39) U/L ALT 7 (7-52) U/L Alkaline Phosphatase 35 (34-104) U/L Total Protein 6.4 (6.0-8.3) gm/dl Albumin 4.1 (3.4-5.0) gm/dl Globulin 2.3 L (2.5-4.0) gm/dl Albumin/Globulin Ratio 1.8 (0.9-2) TSH 1.101 (0.300-4.500) uIu/ml SARS-CoV-2, RNA, NAAT (NEGATIVE) 03/04/23 Range/Units 03:44 WBC (4.8-10.8) K/ul RBC (4.20-5.40) M/uL Hgb (12.0-16.0) g/dl Hct (37.0-47.0) % MCV (80.0-100.0) fL MCH (25.0-34.0) pg MCHC (32.0-36.0) g/dL RDW Std Deviation (36.4-46.3) fL RDW Coeff of Marlon (11.5-14.5) % Plt Count (130-400) K/uL MPV (9.4-12.4) fL Immature Gran % (Auto) % Neut % (Auto) % Lymph % (Auto) % [place] % (Auto) % Eos % (Auto) % Baso % (Auto) % Neut # (Auto) (1.40-6.50) K/uL Lymph # (Auto) (1.2-3.4) K/uL [place] # (Auto) (0.11-0.59) K/uL Eos # (Auto) (0-0.50) K/uL Baso # (Auto) (0-0.2) K/uL Immature Gran # (Auto) (0.01-0.20) K/uL Sodium (136-145) mmol/L Potassium (3.5-5.1) mmol/L Chloride (98-107) mmol/L Carbon Dioxide (21-32) mmol/L Anion Gap (3-11) BUN (6-23) mg/dl Creatinine (0.6-1.2) mg/dl Est Cr Clr Drug Dosing ml/min Est GFR ( Amer) ml/min Est GFR (Non-Af Amer) ml/min BUN/Creatinine Ratio (10-20) Glucose (70-99(Fasting)) mg/dl Calcium (8.6-10.3) mg/dl Phosphorus (2.5-4.9) mg/dl Magnesium (1.7-2.4) mg/dl Total Bilirubin (0.2-1.0) mg/dl AST (13-39) U/L ALT (7-52) U/L Alkaline Phosphatase (34-104) U/L Total Protein (6.0-8.3) gm/dl Albumin (3.4-5.0) gm/dl Globulin (2.5-4.0) gm/dl Albumin/Globulin Ratio (0.9-2) TSH (0.300-4.500) uIu/ml SARS-CoV-2, RNA, NAAT NEGATIVE (NEGATIVE) Administered Medications Albumin Human (Albumin 25%) 25 gm in 100 mls @ 50 mls/hr IV ONE ONE Stop: 03/04/23 17:59 Last Infusion: 03/04/23 16:54 Dose: 0 mls/hr Documented By: Admin: 03/04/23 16:16 Dose: 50 mls/hr Documented By: MTM Discontinued Medications Sodium Chloride (Nss 1000ml) 1,000 mls @ 999 mls/hr IV .Q1H1M ONE Stop: 03/04/23 01:11 Last Infusion: 03/04/23 03:03 Dose: 0 mls/hr Documented By: sanding machine operator or tender: 03/04/23 00:30 Dose: 999 mls/hr Documented By: MED Potassium Chloride (K Kevin / Wtr) 10 meq in 100 mls @ 100 mls/hr IV Q1H DANO Stop: 03/04/23 04:29 Last Infusion: 03/04/23 05:25 Dose: 0 mls/hr Documented By: sanding machine operator or tender: 03/04/23 03:35 Dose: 100 mls/hr Documented By: Infusion: 03/04/23 03:31 Dose: 100 mls/hr Documented By: sanding machine operator or tender: 03/04/23 02:31 Dose: 100 mls/hr Documented By: MED Potassium Chloride/Dextrose/Sod Cl (D5nss + 20meq Kcl) 20 meq in 1,000 mls @ 100 mls/hr IV .Q10H DANO Stop: 04/03/23 08:29 Last Admin: 03/04/23 09:05 Dose: Not Given Documented By: MT Potassium Chloride (K Kevin / Wtr) 10 meq in 100 mls @ 100 mls/hr IV Q1H DANO Stop: 03/04/23 12:44 Last Infusion: 03/04/23 15:54 Dose: 0 mls/hr Documented By: [facility] Admin: 03/04/23 14:24 Dose: 100 mls/hr Documented By: Infusion: 03/04/23 13:29 Dose: 100 mls/hr Documented By: [facility] Admin: 03/04/23 12:29 Dose: 100 mls/hr Documented By: Infusion: 03/04/23 11:57 Dose: 100 mls/hr Documented By: [facility] Admin: 03/04/23 10:57 Dose: 100 mls/hr Documented By: [facility] Infusion: 03/04/23 10:13 Dose: 100 mls/hr Documented By: [facility] Admin: 03/04/23 09:13 Dose: 100 mls/hr Documented By: [facility] Imaging Data Radiologist's Impression: Chest X-Ray 03/04/23 00:11 XR chest 1V portable CLINICAL HISTORY: weakness COMPARISON STUDY: Chest radiograph February 09, 2023. FINDINGS: Elevation of the left shoulder is positional. Lung volumes are normal. Lungs are clear. There is no pneumothorax or pleural effusion. Cardiac size is normal. Mediastinal contours are normal. There is no evidence for pulmonary edema. IMPRESSION: No acute cardiopulmonary findings. ACT 112: Negative or not required by law. Electronically signed by: Aguilar Ram M.D. 03/04/2023 7:12 AM Discharge Plan Visit Data Chief Complaint: Dehydration Stated Complaint: DEHYDRATION,LOW ELECTROLYTES ED Provider: Hoda Westbrook Discharge Problem: Hypokalemia, Acute dehydration, Mood disorder Patient Disposition: Admitted As Inpatient Discharge Instructions Interventions: ED Discharge Assessment Last Done: 03/04/23 07:27
[2023-03-04 01:28] LABS: Basophils # (auto) 0.03 K/uL (0-0.2); Basophils % (auto) 0.6 %; Eosinophils # (auto) 0.07 K/uL (0-0.50); Eosinophils % (auto) 1.5 %; Hematocrit (blood only) 34.8 % (37.0-47.0); Hemoglobin 12.3 g/dl (12.0-16.0); Immature Granulocytes # (auto) 0.01 K/uL (0.01-0.20); Immature Granulocytes % (auto) 0.2 %; Lymphocytes # (auto) 1.86 K/uL (1.2-3.4); Lymphocytes % (auto) 38.8 %; Mean Corpuscular Hemoglobin 29.6 pg (25.0-34.0); Mean Corpuscular Hgb Conc 35.3 g/dL (32.0-36.0); Mean Corpuscular Volume 83.9 fL (80.0-100.0); Mean Platelet Volume 8.6 fL (9.4-12.4); Monocytes # (auto) 0.31 K/uL (0.11-0.59); Monocytes % (auto) 6.5 %; Neutrophils # (auto) 2.52 K/uL (1.40-6.50); Neutrophils % (auto) 52.4 %; Platelet Count 237 K/uL (130-400); RDW Coefficient of Variation 11.9 % (11.5-14.5); Red Blood Count 4.15 M/uL (4.20-5.40)
[2023-03-04 02:11] LABS: Albumin Globulin Ratio 1.8 (0.9-2); Albumin Level 4.1 gm/dl (3.4-5.0); BUN Creatinine Ratio 24.2 (10-20); Bilirubin,Total 0.8 mg/dl (0.2-1.0); Calcium 8.9 mg/dl (8.6-10.3); Creatinine Clr Calc Pharmacy 84.8 ml/min; Est GFR (African American) 138.4 ml/min; Est GFR (Non-African American) 119.4 ml/min; Globulin 2.3 gm/dl (2.5-4.0); Potassium 2.4 mmol/L (3.5-5.1); Total Protein 6.4 gm/dl (6.0-8.3)
[2023-03-04] MEDS: POTASSIUM CHLORIDE / WTR 10 MEQ/100 ML PLCT IV SCH ×6 (02:31→14:24)
[2023-03-04 02:41] LABS: Magnesium 1.8 mg/dl (1.7-2.4); Phosphorus 3.4 mg/dl (2.5-4.9)
--- NOTE | 2023-03-04 07:12 | History and Physical Report ---
DATE OF ADMISSION: 03/04/23 CHIEF COMPLAINT: Dehydration, anorexia nervosa, binge eating disorder. HISTORY OF PRESENT ILLNESS: This is a 27-year-old female with heartburn, severe protein calorie malnutrition, anorexia nervosa, binge eating, purging type, history of amenorrhea, presents with not eating and drinking. Talked to her father on phone. As per father, since she contracted strep throat on 02/09/2023, she is not eating much. She saw the family doctor recently on 02/27/2023 and he told to take her to the [facility]. They thought they will take her at the end of this week. For last 2 days, she is not at all drinking and eating. She was dehydrated, so she wanted to get to the hospital and get treated for that before they take to the [facility]. The patient is only speaking very low voice, she is not giving much history. As per father, the patient speaks okay at home, but in hospital, does not speak. Patient says she has some burning in the left upper extremity where she is getting her IV fluids and potassium. Father says she told him she cannot move her left hand, but she is able to move now.Also told father one ear not hearing properly but says she is hearing fine now. Speaking in very low volumes few words. She says she has pain all over the body. As per father she walks fine at home. ALLERGIES: No known drug allergies. PAST MEDICAL HISTORY: As mentioned above. PAST SURGICAL HISTORY: Dental surgery. MEDICATIONS: Seems the patient is on fluoxetine 40 mg p.o. a.m., multivitamin tablet daily, potassium chloride 40 mEq p.o. daily. FAMILY HISTORY: Significant for sister with anorexia nervosa. Mother has anxiety disorder. Maternal grandmother has breast cancer. Maternal aunt has lymphoma. Mother has lymphoma. Paternal grandmother has obesity. Maternal grandfather has prostate cancer. Paternal grandfather has thyroid disorder. Maternal grandmother has thyroid disorder. SOCIAL HISTORY: Currently lives with her parents. No smoking, no alcohol, no drug use. REVIEW OF SYSTEMS: Could not get complete ROS as patient not talking much PHYSICAL EXAMINATION: GENERAL: The patient is not speaking. VITAL SIGNS: Temperature 36.6, pulse 65, respiratory rate 14, blood pressure 103/68, oxygen 99% on room air. HEENT: Pupils equal, round and reactive to light. Oral mucosa, not able to open the mouth. NECK: No obvious neck mass seen. CARDIOVASCULAR: S1 and S2 heard. Regular rate and rhythm. No murmur, no gallop. RESPIRATORY SYSTEM: Normal AP diameter. No accessory muscle use. No wheezing, no crackles. ABDOMEN: Soft, bowel sounds present, nontender, no distention. CENTRAL NERVOUS SYSTEM: Alert and awake. Speaking in low voices. Could tell her name, could tell her date of , could tell that she is in the hospital, could tell today's month and year, but otherwise obeys simple commands, but not answering much questions. EXTREMITIES: No edema, no erythema. LABORATORY DATA: WBC 4.8, hemoglobin 12.3, hematocrit 34.8, platelets 237. Sodium 136, potassium 2.4, chloride 93, bicarbonate 35, BUN 16, creatinine 0.6, serum glucose 85, calcium 8.9, phosphorus 3.4, magnesium 1.8, total bilirubin 0.8, AST 14, ALT 7, alkaline phosphatase 35. TSH 1.1. SARS-COVID rapid test negative. IMAGING DATA: Chest x-ray, no acute findings. EKG: Sinus bradycardia, rate 56, no acute findings seen. ASSESSMENT AND PLAN: This is a 27-year-old female with history of anorexia nervosa, binge eating, purging type, history of severe protein calorie malnutrition, presents with ongoing issues with not eating, got worse since January when she had a strep throat. 1. Anorexia nervosa, binge eating, purging type. The patient losing weight. Currently also since January when she had sore throat,her anorexia got worse. PCP wanted to take her to the [facility]. Family was going to take her at the end of this week, but last 2 days, she is totally not eating much. Got worried about dehydration, brought her here and found to have hypokalemia, which is getting replaced. We will give fluids. We will consult psychiatry and dietitian while the patient is in the hospital. Closely monitor in [employer]. 2. Severe protein calorie malnutrition secondary to ongoing anorexia nervosa. Continue fluoxetine for now and monitor electrolytes. 3. Hypokalemia. Will replace. Will follow labs. 4. Deep venous thrombosis prophylaxis. Sequential compression devices. DISPOSITION: Closely monitor in the [employer]. Social service to help with discharge planning. Level 1 full code for now. Job ID: [id number] MTDD
--- NOTE | 2023-03-04 07:14 | XRay Report ---
XR chest 1V portable CLINICAL HISTORY: weakness COMPARISON STUDY: Chest radiograph February 09, 2023. FINDINGS: Elevation of the left shoulder is positional. Lung volumes are normal. Lungs are clear. The re is no pneumothorax or pleural effusion. Cardiac size is normal. Mediastinal contours are normal. T here is no evidence for pulmonary edema. IMPRESSION: No acute cardiopulmonary findings. ACT 112: Negative or not required by law. Electronically signed by: Aguilar Ram M.D. 03/04/2023 7:12 AM
[2023-03-04] MEDS ORDERED: NITROGLYCERIN SL 0.4 MG/TAB TAB SL PRN (07:52)
[2023-03-04] MEDS ORDERED: D5NSS + 20MEQ KCL 20 MEQ/1,000 ML BAG IV SCH (08:30)
--- NOTE | 2023-03-04 09:45 | Psychiatric Consultation ---
Date of Consultation March 04, 2023 Impression / Recommendations Impression 27 yo woman who lives with her parents in [place] with history of anorexia and binge eating disorder purging type admitted for dehydration and electrolyte abnormalities due to not eating or drinking. Psychiatry consulted for recommendations. Fanny has been mute or only whispers during her previous inpatient medical admissions and has been historically unwilling to consider any type of inpatient or intensive outpatient eating disorder treatment. Medication trials in the past, including olanzapine, have shown limited to no benefit. Currently she presents with concerning electrolyte changes, bradycardia on EKG, vital sign changes and recent history with weight loss and lack of po intake consistent with ongoing anorexia with extremely severe low body weight. Recommendation remains for inpatient eating disorder treatment. Will continue to make efforts to engage with her and employ motivational interviewing to discuss treatment options however at this time she is not willing to engage. (1) Acute dehydration: (2) Anorexia nervosa with dangerously low body weight: Plan -Would restart fluoxetine 40mg daily if felt to be medically safe (ensure QTc <500ms) and if she or family can confirm she's been taking this (appears it was last filled in late January). -Recommendation is for inpatient eating disorder treatment, unfortunately she tends to be unwilling to consider this and almost every program in the [facility] requires that the individual agree to voluntary treatment; consideration for involuntary treatment at [facility] (which is the only known program in the [facility] that has historically accepted individuals on a 302 commitment) is limited by changes to [facility] accepting [id number] commitments; additionally involuntary eating disorder treatment remains challenging given limited guidance regarding ethical/legal consequences of forced treatment and whether or not involuntary treatment offers improved outcomes over time as some data suggests this can worsen therapeutic relationships and increase drop-out rates from treatment -Would encourage involvement of the electric range servicer service as she has previously responded well and engaged during these consults -I would be happy to participate in an interdisciplinary team meeting with involvement of patient and her parents, hospitalist provider, inpt case management, psychiatry and could include an outpatient business case analyst from the eating disorder clinic and her outpatient therapist if felt that this could help with process of encouraging more intensive eating disorder treatment or to consider other treatment options -If she becomes agreeable to communicating with us please let us know and will see her again, otherwise will continue to follow but will not see daily if she remains unwilling to engage/mute Psych History Identifying Data 27 yo woman who lives with her parents in [place] with history of anorexia and binge eating disorder purging type admitted for dehydration and electrolyte abnormalities due to not eating or drinking. Psychiatry consulted for recommendations. Chief Complaint mute History of Present Illness Fanny is well known to the psychiatry consult service from her previous medical admissions for sequelae related to her anorexia with lack of po intake. Per chart review she recently had strep throat and subsequently has had significantly diminished intake of food and liquids raising her parents concern for severe dehydration. In the outpatient setting she follows with her primary care provider Dr. Calles who has additional expertise in managing eating disorders and who has continued to recommend inpatient eating disorder treatment. Fanny has not been agreeable to inpatient eating disorder treatment nor more intensive outpatient eating disorder programs to date. Per external medication reconciliation it appears that she has been taking fluoxetine 40mg daily. Previous trial includes olanzapine. On interview this morning Fanny is mute, she makes eye contact but will not respond to any questions. This is consistent with patterns of interactions during previous hospitalizations. Discussed with her recommendation for inpatient eating disorder treatment once she is medically stable and that if she becomes interested and willing for this we would help her explore options for this and begin the referral process. She did not acknowledge this except with ongoing eye contact and periodic blinking. Allergies Allergy/AdvReac Type Severity Reaction Status Date / Time No Known Allergies Allergy Verified 03/04/23 00:15 Home Medications Medication Instructions Recorded Confirmed Type multivitamin (Daily Multi-Vitamin 1 tab PO DAILY 04/19/22 03/04/23 History tablet) fluoxetine 20 mg capsule 20 - 40 mg PO QAM 10/18/22 03/04/23 History potassium chloride 20 mEq oral 40 meq PO DAILY 03/04/23 03/04/23 History packet (Klor-Con) Patient History Medical History Anorexia nervosa with dangerously low body weight Anxiety Hypoglycemia Secondary amenorrhea Probable hypothalamic dysfunction Surgical History No history of previous surgery Family History Sister Anorexia Mother Lymphoma Grandfather (Maternal) Prostate cancer Grandmother (Maternal) Breast cancer Denies family history of Ovarian cancer Myocardial infarction Lung cancer Colorectal cancer Stroke Social History Smoking Status: Never smoker Do You Dip or Chew Tobacco: No; Hx Alcohol Use: No Hx Substance Use: No Preferred Language: Turkish Communication Ability: Effective Visual Impairment: No Limitations Hearing Ability: Normal Analyst Required: No Beliefs That Will Affect Care: None marital status: Single Current Living Situation: Alone and Parent Current Living Situation Comment: sister current occupational status: student 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 Safe at Home: Declines to Answer Childhood Exposure to Second-Hand Smoke: No Physical Activity Frequency: 5-6 Times per Week Physical Activity Frequency Comment: squash, running, tennis pre pandemic Seatbelt Use: always Assistive Devices: None Physical Exam Psychiatric: Orientation: alert Apperance: appropriately dressed and appropriately groomed Motor Behavior: no abnormal motor movements Speech: + mute Affect: + blunted affect Hallucinations: no auditory hallucinations (does not appear to be responding to internal stimuli) and no visual hallucinations Estimated Intelligence: average estimated intelligence Insight: + poor insight Judgment: + poor judgement Vital Signs (Past 24 Hours): Last Vital Signs Temp 36.6 C 03/04/23 01:13 Pulse 56 L 03/04/23 07:17 Resp 16 03/04/23 07:17 BP 87/43 L 03/04/23 07:17 Pulse Ox 97 03/04/23 07:17 O2 Del Method Room Air 03/04/23 07:27 Review of Systems Unobtainable due to mental health condition Results & Data (PSY) Laboratory Results very low K+ Diagnostic Findings EKG shows sinus bradycardia Medications Administered Potassium Chloride (K Kevin / Wtr) 10 meq in 100 mls @ 100 mls/hr IV Q1H DANO Stop: 03/04/23 12:44 Last Admin: 03/04/23 09:13 Dose: 100 mls/hr Documented By: MTTemi Coding Level of Care Code 53983 IN/OBS CONSULT LVL 3,45M Diagnoses Acute dehydration E86.0 Anorexia nervosa with dangerously low body weight F50.00 Time Spent (min) 45
--- NOTE | 2023-03-04 11:51 | Electrocardiogram Report ---
Test Reason : Blood Pressure : / mmHG Vent. Rate : 055 BPM Atrial Rate : 055 BPM P-R Int : 172 ms QRS Dur : 082 ms QT Int : 452 ms P-R-T Axes : 063 091 087 degrees QTc Int : 432 ms Poor data quality, interpretation may be adversely affected Sinus bradycardia Rightward axis Borderline ECG When compared with ECG of 04-MAR-2023 08:21, (unconfirmed) No significant change was found Confirmed by Sin Sifuentes ([id number]) on 03/04/2023 11:51:38 AM Referred By: REFERRED SELF Confirmed By:Anthony Sifuentes
--- NOTE | 2023-03-04 11:51 | Electrocardiogram Report ---
Test Reason : Blood Pressure : / mmHG Vent. Rate : 056 BPM Atrial Rate : 056 BPM P-R Int : 170 ms QRS Dur : 084 ms QT Int : 462 ms P-R-T Axes : 062 091 080 degrees QTc Int : 445 ms Sinus bradycardia Rightward axis Borderline ECG When compared with ECG of 18-OCT-2022 15:19, ST elevation now present in Inferior leads T wave inversion no longer evident in Inferior leads T wave inversion no longer evident in Anterior leads Confirmed by Sin Sifuentes ([id number]) on 03/04/2023 11:50:56 AM Referred By: REFERRED SELF Confirmed By:Anthony Sifuentes
[2023-03-04 14:50] LABS: Appearance Urine Clear (Clear); Bilirubin Urine Negative (Negative); Blood Urine Negative (Negative); Color Urine Yellow; Glucose Urine UA Negative (Negative); Ketones Urine Negative (Negative); Leukocyte Esterase Urine Negative (Negative); Nitrite Urine Negative (Negative); Protein Urine Negative (Negative); Specific Gravity Urine 1.007 (1.000-1.030); Urobilinogen Urine Negative (Negative); pH Urine >= 9.0 (4.5-7.5)
[2023-03-04] MEDS ORDERED: ALBUMIN 25% 25 GM/100 ML VIAL IV ONE ×2 (16:00→16:54)
[2023-03-04] MEDS ORDERED: COUGH DROP (SUGAR FREE) LOZ 24 LOZ/1 BOX BUCCAL PRN (16:46)
[2023-03-04] MEDS ORDERED: DEXTROSE 50% 50 ML SYRINGE IV ONE ×3 (18:25→22:30)
[2023-03-04] MEDS ORDERED: DEXTROSE 50% 50 ML SYRINGE IV STA (18:25)
[2023-03-04] MEDS ORDERED: POTASSIUM CHLORIDE / WTR 10 MEQ/100 ML PLCT IV ONE (19:38)
[2023-03-04] MEDS: D5NSS + 20MEQ KCL 20 MEQ/1,000 ML BAG IV SCH (22:52)
[2023-03-05] MEDS ORDERED: DEXTROSE 50% 50 ML SYRINGE IV STA (05:25)
[2023-03-05] MEDS: D5NSS + 20MEQ KCL 20 MEQ/1,000 ML BAG IV SCH ×3 (07:33→18:31)
[2023-03-05] MEDS ORDERED: CHLORASEPTIC 1.4% SOLN 180 ML BTL MT PRN (11:43)
--- NOTE | 2023-03-05 12:35 | Electrocardiogram Report ---
Test Reason : Blood Pressure : / mmHG Vent. Rate : 051 BPM Atrial Rate : 051 BPM P-R Int : 168 ms QRS Dur : 078 ms QT Int : 438 ms P-R-T Axes : 069 094 085 degrees QTc Int : 403 ms Sinus bradycardia Rightward axis Borderline ECG When compared with ECG of 04-MAR-2023 08:22, No significant change was found Confirmed by Sin Sifuentes ([id number]) on 03/05/2023 12:35:37 PM Referred By: REFERRED SELF Confirmed By:Anthony Sifuentes
--- NOTE | 2023-03-05 15:59 | Hospitalist Progress Note ---
Date of Service March 05, 2023 Assessment & Plan (1) Hypokalemia: Plan 27-year-old lady with PMH of severe protein calorie malnutrition, anorexia nervosa, binge eating, purging type, amenorrhea presented to the ED 03/04 with complaint of not eating and drinking of note, patient was recently seen on 02/27/2023 at her PCP office who told her to go to the [facility] but the family brought her here first. She is being managed for the following: Severe protein calorie malnutrition Anorexia nervosa: H/O anorexia- restricting and purging behavior Electrolyte abnormalities: Hypokalemia, dehydration Patient has been encouraged to comply with medical care. Patient has been refusing food, medicines, lab works, IV lines/IV fluids. Patient refuses to take her p.o. meds. Patient has refused treatment in multiple locations in her past admission, appears that patient does seem to understand the risk and complication of her condition. Patient is very less communicative though. Monitor and replete electrolytes as able. Patient declined her labs today, cannot assess her electrolytes level today. Dietitian and psychiatry on board. Appreciate recommendation. D/w Dr. Calles over the phone: get ortho vitals, monitor daily wt post void, track how much she is eating. Track purging or vomiting, urination and stool output. Met w/ pt's father at bedside, he says he wants to take her to the [facility] tomorrow himself as he was instructed earlier by his PCP before this admission. Will need labs in AM and ortho vitals in AM to determine if we can DC her in AM for her family to take to [facility]. He states he will take her directly to the hospital from here. Pt seemed agreeable to labs in the evening, sent stat labs. Will follow. Pt counselled to keep the iv line. DVT Px: SCDs. Code Status: Full Code dispo: Med telemetry Admission and Anticipated Discharge Date Admission Date: March 04, 2023 Subjective Patient seen and examined at bedside as a follow-up of anorexia nervosa and severe protein calorie malnutrition. Patient was resting comfortably in bed, on room air, NAD, nods yes or no to very few questions, chooses not to speak, and doesn't answer any questions, appears she understands what is being said but chooses to remian very much noncommunicative. Per RN, no new acute events overnight. Pt has not taken any meds or food. Pt has declined labs in the morning. Pt made aware this will hamper the medical care but patient continued to decline labs and meds and food. Physical Exam Physical Exam: GENERAL: Alert and awake. NAD, on RA . Chronically ill/ weak/thin/frail ap pearing. HEENT: N o pallor, no icter us. Pupils equal, round and reactiv e to light. Oral mucosa moist. NECK : No JVD, no neck masses. HEART: S 1 and S2 heard. R egular rate and rh ythm. No murmur, no gallop. RESPIRA TORY SYSTEM: Norm al AP diameter. N o accessory muscle use. No wheezing , no crackles. ABD OMEN: Soft, bowel sounds present, n ontender, no diste ntion. CENTRAL NER VOUS SYSTEM: No f acial droop. Spee ch is clear. Obey s simple commands. Moves extremitie s. EXTREMITIES: N o edema, no erythe ma seen. Results & Data Results & Data Vital Signs (Past 12 Hours) Vital Signs Temp Pulse Pulse Pulse Resp BP BP 03/05/23 13:58 55 L 03/05/23 11:13 36.6 C 50 L 17 81/50 L 03/05/23 08:54 51 L 03/05/23 07:13 51 L 03/05/23 07:12 36.8 C 52 L 18 82/44 L 03/05/23 06:02 62 03/05/23 07:10 54 L 03/05/23 06:02 62 03/05/23 04:00 36.4 C L 51 L 17 103/60 Pulse Ox O2 Del Method 03/05/23 13:58 03/05/23 11:13 100 Room Air 03/05/23 08:54 03/05/23 07:13 03/05/23 07:12 99 Room Air 03/05/23 06:02 03/05/23 07:10 03/05/23 06:02 03/05/23 04:00 99 Room Air
[2023-03-05 18:19] LABS: Hematocrit (blood only) 35.2 % (37.0-47.0); Mean Corpuscular Hemoglobin 29.8 pg (25.0-34.0); Mean Corpuscular Hgb Conc 34.1 g/dL (32.0-36.0); Mean Corpuscular Volume 87.3 fL (80.0-100.0); Mean Platelet Volume 8.8 fL (9.4-12.4); Platelet Count 202 K/uL (130-400); RDW Coefficient of Variation 12.1 % (11.5-14.5); RDW Standard Deviation 38.9 fL (36.4-46.3); Red Blood Count 4.03 M/uL (4.20-5.40)
[2023-03-05 18:37] LABS: BUN Creatinine Ratio 9.4 (10-20); Calcium 9.1 mg/dl (8.6-10.3); Creatinine Clr Calc Pharmacy 91.7 ml/min; Est GFR (African American) 139.8 ml/min; Est GFR (Non-African American) 120.6 ml/min; Magnesium 1.6 mg/dl (1.7-2.4); Phosphorus 2.3 mg/dl (2.5-4.9); Potassium 3.6 mmol/L (3.5-5.1)
[2023-03-05] MEDS ORDERED: POTASSIUM PHOS 3 MMOL/1 ML INFUSION IV STA (18:55)
[2023-03-05] MEDS ORDERED: POTASSIUM PHOSPHATE 15 MMOL in SODIUM CHLORIDE 0.9% 250 ML IV ONE (19:15)
[2023-03-05] MEDS: MAGNESIUM SULFATE / D5W 1 GM/100 ML BAG IV SCH ×2 (20:46→23:00)
[2023-03-06] MEDS: D5NSS + 20MEQ KCL 20 MEQ/1,000 ML BAG IV SCH (08:23)
[2023-03-06 08:39] LABS: Hematocrit (blood only) 33.2 % (37.0-47.0); Hemoglobin 11.7 g/dl (12.0-16.0); Mean Corpuscular Hgb Conc 35.2 g/dL (32.0-36.0); Mean Corpuscular Volume 85.1 fL (80.0-100.0); Platelet Count 232 K/uL (130-400); RDW Standard Deviation 36.7 fL (36.4-46.3)
[2023-03-06 08:59] LABS: BUN Creatinine Ratio 12.9 (10-20); Calcium 8.8 mg/dl (8.6-10.3); Creatinine Clr Calc Pharmacy 94.7 ml/min; Est GFR (African American) 141.2 ml/min; Est GFR (Non-African American) 121.9 ml/min; Magnesium 2.1 mg/dl (1.7-2.4); Phosphorus 2.6 mg/dl (2.5-4.9); Potassium 3.6 mmol/L (3.5-5.1)
--- NOTE | 2023-03-06 14:30 | Discharge Summary ---
Date of Service March 06, 2023 Admission HPI Per Admitting Provider CHIEF COMPLAINT: Dehydration, anorexia nervosa, binge eating disorder. HISTORY OF PRESENT ILLNESS: This is a 27-year-old female with heartburn, severe protein calorie malnutrition, anorexia nervosa, binge eating, purging type, history of amenorrhea, presents with not eating and drinking. Talked to her father on phone. As per father, since she contracted strep throat on 02/09/2023, she is not eating much. She saw the family doctor recently on 02/27/2023 and he told to take her to the [facility]. They thought they will take her at the end of this week. For last 2 days, she is not at all drinking and eating. She was dehydrated, so she wanted to get to the hospital and get treated for that before they take to the [facility]. The patient is only speaking very low voice, she is not giving much history. As per father, the patient speaks okay at home, but in hospital, does not speak. Patient says she has some burning in the left upper extremity where she is getting her IV fluids and potassium. Father says she told him she cannot move her left hand, but she is able to move now.Also told father one ear not hearing properly but says she is hearing fine now. Speaking in very low volumes few words. She says she has pain all over the body. As per father she walks fine at home. ALLERGIES: No known drug allergies. PAST MEDICAL HISTORY: As mentioned above. PAST SURGICAL HISTORY: Dental surgery. MEDICATIONS: Seems the patient is on fluoxetine 40 mg p.o. a.m., multivitamin tablet daily, potassium chloride 40 mEq p.o. daily. FAMILY HISTORY: Significant for sister with anorexia nervosa. Mother has anxiety disorder. Maternal grandmother has breast cancer. Maternal aunt has lymphoma. Mother has lymphoma. Paternal grandmother has obesity. Maternal grandfather has prostate cancer. Paternal grandfather has thyroid disorder. Maternal grandmother has thyroid disorder. SOCIAL HISTORY: Currently lives with her parents. No smoking, no alcohol, no drug use. Admission Exam Per Admitting Provider GENERAL: The patient is not speaking. VITAL SIGNS: Temperature 36.6, pulse 65, respiratory rate 14, blood pressure 103/68, oxygen 99% on room air. HEENT: Pupils equal, round and reactive to light. Oral mucosa, not able to open the mouth. NECK: No obvious neck mass seen. CARDIOVASCULAR: S1 and S2 heard. Regular rate and rhythm. No murmur, no gallop. RESPIRATORY SYSTEM: Normal AP diameter. No accessory muscle use. No wheezing, no crackles. ABDOMEN: Soft, bowel sounds present, nontender, no distention. CENTRAL NERVOUS SYSTEM: Alert and awake. Speaking in low voices. Could tell her name, could tell her date of , could tell that she is in the hospital, could tell today's month and year, but otherwise obeys simple commands, but not answering much questions. EXTREMITIES: No edema, no erythema. Principal Diagnosis Hypokalemia Severe protein calorie malnutrition Anorexia nervosa Dehydration Discharge Exam GENERAL: Alert and awake. NAD, on RA. Chronically ill/weak/thin/frail appearing. HEENT: No pallor, no icterus. Pupils equal, round and reactive to light. Oral mucosa moist. NECK: No JVD, no neck masses. HEART: S1 and S2 heard. Regular rate and rhythm. No murmur, no gallop. RESPIRATORY SYSTEM: Normal AP diameter. No accessory muscle use. No wheezing, no crackles. ABDOMEN: Soft, bowel sounds present, nontender, no distention. CENTRAL NERVOUS SYSTEM: No facial droop. Speech is clear/somewhat more communicative today. Obeys simple commands. Moves extremities. EXTREMITIES: No edema, no erythema seen. Discharge Data Allergies Allergy/AdvReac Type Severity Reaction Status Date / Time No Known Allergies Allergy Verified 03/04/23 00:15 Consultations 03/04/23 03:31 ED Decision to Admit Stat 03/04/23 07:52 Consult Psychiatry Routine Hospital Course (1) Hypokalemia: Plan 27-year-old lady with PMH of severe protein calorie malnutrition, anorexia nervosa, binge eating, purging type, amenorrhea presented to the ED 03/04 with complaint of not eating and drinking of note, patient was recently seen on 02/27/2023 at her PCP office who told her to go to the [facility] but the family brought her here first. She was managed for the following: Severe protein calorie malnutrition Anorexia nervosa: H/O anorexia- restricting and purging behavior Electrolyte abnormalities: Hypokalemia, dehydration Patient has been encouraged to comply with medical care. Patient has been refusing food, medicines, lab works, IV lines/IV fluids. Patient refuses to take her p.o. meds. Patient has refused treatment in multiple locations in her past admission, appears that patient does seem to understand the risk and complication of her condition. Patient is very less communicative though. Per RN, pt ate some last night and in AM , her labs looks good today and her vitals are stable. Passing urine and moving bowels per RN. Pt denies dizziness or weakness, reports being at baseline strength. Pt somewhat more communicative today, and would like to go home. Updated pt's father over the phone and he also would like to take her home, he was given the discharge instructions (below). Pt's father aware to take her to specialized care at [facility], pt does have address; he states he will reach out there ana. Pt's father also reports noncompliance with meds at home from her. Dietitian and psychiatry on board. Appreciate recommendation. Pt appreciated for complying with labs and medical care. Her dehydration and electrolytes abn have resolved, pt encouraged to continue with her meds/appetite and close f/u with PCP on Discharge. DVT Px: SCDs. Code Status: Full Code dispo: Med telemetry Following instructions communicated to patient and patient's father prior to discharge: Follow-up with your primary care physician within a week time and likely you will need labs CBC/CMP/magnesium/phosphorus. Please get your labs done [as above] in 3 days time, coordinate with your PCP office. Follow-up with your psychiatry as an outpatient. As recommended by your PCP, follow-up with specialized unit at [facility] for anorexia nervosa. Continue to encourage her to take her medication and food. Take your medications as prescribed. Please make sure that you are able to get your medications today by calling your pharmacy before you leave the hospital so that your treatment continuity is not broken. Home Health Attestation I certify that this patient is under my care and that I, or a physicians child development assistant working with me, had a face to-face encounter that meets the home health [id number] encounter requirements with this patient. The encounter with the patient was in whole, or in part, for the following medical condition, which is the primary reason for home health care (list medical condition): I certify that, based on my findings, the following services are medically necessary home health services: My clinical findings support the need for the above services because: Further, I certify that my clinical findings support that this patient is homebound (i.e. absences from home require considerable and taxing effort and are for medical reasons or sabianist services or infrequently or of short duration when for other reasons) because: Certification for Home Health Services: Based on the above findings, I certify that this patient is confined to the home and needs intermittent jail care, physical therapy and/or speech therapy or continues to need occupational therapy. The patient is under my care, and I have initiated the establishment of the plan of care. This patient will be followed by a physician who will periodically review the plan of care. Total Time Total Time Spent Total Time Spent (In Minutes): 45 Discharge Plan Discharge Items Patient Disposition: Home - Self-Care Reason For Visit: DEHYDRATION Discharge Diagnosis: Hypokalemia Severe protein calorie malnutrition Anorexia nervosa Dehydration Activity: Resume your previous activity Non-emergency contact: Primary Care Provider Call non-emergency contact if: you have any medication questions, your symptoms worsen and your temperature is above 101 Follow-up/Referrals: Joyce Calles MD [Primary Care Provider] - (Date & Time 03/14/2023 1:40 PM Provider Joyce Calles MD Department Family Practice [facility] ) Diet: Regular Diet Texture: Easy to Chew Addtl Attending Provider Instructions: Follow-up with your primary care physician within a week time and likely you will need labs CBC/CMP/magnesium/phosphorus. Please get your labs done [as above] in 3 days time, coordinate with your PCP office. Follow-up with your psychiatry as an outpatient. As recommended by your PCP, follow-up with specialized unit at [facility] for anorexia nervosa. Continue to encourage her to take her medication and food. Take your medications as prescribed. Please make sure that you are able to get your medications today by calling your pharmacy before you leave the hospital so that your treatment continuity is not broken. Pending Studies at Discharge: No Stand-Alone Forms: [employer], Smoking Cessation Medications and DC Order Prescriptions: Continued multivitamin [Daily Multi-Vitamin] Tablet 1 tab PO DAILY Rx Instructions: PER PT'S SPOUSE "NOT TAKING REGULARLY". fluoxetine 20 mg capsule 20 - 40 mg PO QAM Rx Instructions: PER PT'S SPOUSE "NOT TAKING REGULARLY". Changed potassium chloride [Klor-Con] 20 mEq packet 20 meq PO DAILY 5 Days Qty: 5 0RF Rx Instructions: PER PT'S SPOUSE "NOT TAKING". Discharge Orders: Discharge Order (Routine); Ordered 03/06/23 Ordered By: Sergey Kevin Admission Data Admit Date/Time: 03/04/23 05:27 Attending Provider: Sergey Kevin Admit Provider: Kirk Lawson Primary Care Provider: Joyce Calles Other Providers: Kirk Lawson ; Anette Tolliver ; Kandice Faye ; Alejandro Escalona
[2023-03-06 16:43] VITALS: BP 109/66; PULSE 100; TEMP 97.2; O2SAT 96
== END 2023-03-06 18:16 | disposition home or self-care (01) | DRG 640 ==
LOC: ED 23:44 → 2W 03-04 05:27 → SUATTDRO 03-04 05:27 → 2W 03-04 07:27 → 2N 03-04 17:21